=== PATIENT | female | born 1945 | race Hispanic/Latino ===

== ENCOUNTER 2016-11-07 13:28 | Emergency (ER) | payer OTHER ==
[~2016-11-07] VITALS: Ht 144.8 cm; Wt 62.6 kg
[~2016-11-07 13:28] MED LIST: AUGMENTIN 875875 MG PO; BENZONATATE100 MG PO; FLEXERIL10 MG PO; HYDRODIURIL 2525 MG PO; INDOMETHACIN25 MG PO; LISINOPRIL10 MG PO; MASON NATURAL325 MG PO; METFORMIN HYDR500 M1 PO; OMEPRAZOLE40 MG PO; PREDNICOT20 MG PO; PREDNISONE 20MG20 MG PO; TYLENOL TAB 32325 MG PO; ULTRAM(MONOGRAP50 MG PO; VICODIN5-300 PO; WARFARIN SODIU2.5 MG PO
[2016-11-07 13:57] LABS: ABSOLUTE BASOPHIL COUNT 0 /CUMM (0.0-0.2); ABSOLUTE EOSINOPHIL COUNT 0.1 /CUMM (0.0-0.7); ABSOLUTE GRANULOCYTE CT 5.2 /CUMM (1.4-6.5); ABSOLUTE LYMPH COUNT 1.9 /CUMM (1.2-3.4); ABSOLUTE MONOCYTE COUNT 0.3 /CUMM (0.10-0.60); BASOPHIL % 0.5 % (0.0-2.0); EOSINOPHIL % 1.2 % (0-5); GRANULOCYTE % 69.1 % (42.2-75.2); HEMATOCRIT 26.2 % (37-47); MEAN CORPUSCULAR HGB 29.3 PG (27.0-31.0); MEAN CORPUSCULAR HGB CONC 34.4 G/DL (33.0-37.0); MEAN CORPUSCULAR VOLUME 85.1 FL (81.0-99.0); MEAN PLATELET VOLUME 9.2 FL (7.4-10.4); PLATELET COUNT 282 /CUMM (130-400); RBC DISTRIBUTION WIDTH 15.1 % (11.5-14.5); RED BLOOD CELL CT 3.09 /CUMM (4.20-5.40); WHITE BLOOD CELL COUNT 7.6 /CUMM (4.8-10.8)
--- NOTE | 2016-11-07 14:44 | RADIOLOGY REPORT ---
EXAMINATION: XR CHEST CLINICAL INFORMATION: Coughing up blood COMPARISON: 12/22/2015 TECHNIQUE: PA and lateral views of the chest were obtained. FINDINGS: Median sternotomy wires appear intact. The lungs are well expanded. No consolidation, edema, or effusion. No pneumothorax. The cardiomediastinal silhouette is unchanged, remaining mildly prominent with a calcified aorta. No acute osseous abnormality. Mild degenerative changes of the spine. IMPRESSION: No acute pulmonary findings.
--- NOTE | 2016-11-07 15:48 | ED DYSPNEA/ASTHMA COMPLAINT ---
History of Present Illness General Chief Complaint: General Adult Stated Complaint: SENT IN BY PCP HIGH B/P COUGHING BLOOD SOB Source: patient, old records Exam Limitations: no limitations Vital Signs & Intake/Output Vital Signs & Intake/Output Vital Signs Date Time Temp Pulse Resp B/P Pulse O2 O2 Flow FiO2 Ox Delivery Rate 11/07 1750 97.9 76 18 162/70 99 Room Air 11/07 1546 100 11/07 1546 98.1 76 18 163/70 100 Room Air 11/07 1346 97.9 80 20 161/65 99 Room Air Allergies Coded Allergies: ciprofloxacin (Severe, ANAPHYLAXIS 12/19/15) aspirin (Intermediate, ON COUMADIN SO SAYS "I CAN'T TAKE IT" 12/19/15) Reconcile Medications Azithromycin (Zithromax) 250 MG TABLET 1 DP PO AD bronchitis 2 the first day followed by 1 for days 2-5 Ferrous Sulfate 325 MG TAB 1 TAB PO DAILY SUPPLEMENT (Reported) Hydrochlorothiazide (Hydrodiuril 25 MG Tab) 25 MG TABLET 1 TAB PO DAILY BP ( Reported) Indomethacin 25 MG CAP 1 CAP PO TID PAIN (Reported) with food Lisinopril 10 MG TABLET 1 TAB PO DAILY BP (Reported) Meclizine HCl 25 MG TABLET 1 TAB PO TIDPRN PRN dizziness METFORMIN HCL (Metformin HCl ER) 500 MG TAB.ER.24H 1 TAB PO BID BLOOD SUGAR ( Reported) Omeprazole (Unknown Strength) ECC 1 TAB PO DAILY REFLUX (Reported) Tramadol HCl (Ultram) 50 MG TAB 1-2 TAB PO Q6P PRN PAIN Warfarin Sodium 2.5 MG TABLET 1 TAB PO SI BLOOD THINNER (Reported) Triage Note: C/O DIZZY SPELLS X 3 DAYS, COUGHING UP BLOOD, SOB. SAW DR MERCHANT TODAY WHO SENT HER HERE TO BE SEEN Triage Nurses Notes Reviewed? 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 Patient states that she saw her primary care physician Dr. Quintanilla today who advised her to come to the ER she states she recently had her Coumadin checked at home and was 2.5 yesterday. She denies any chest pain abdominal pain nausea vomiting or diarrhea no sick contacts recent travel. There are no modifying factors or associated symptoms otherwise she does not smoke there is been no recent fall or head trauma ([place]) Past History Travel History Traveled to [place] past 21 day No Medical History Any Pertinent Medical History? see below for history Neurological: HEMICRANIAL CONT. MIGRAIN EENT: NONE Cardiovascular: hypertension, MECHANICAL VALVE Respiratory: NONE Gastrointestinal: diverticulitis Hepatic: NONE Renal: NONE Musculoskeletal: degen joint disease Psychiatric: NONE Endocrine: diabetes Blood Disorders: anemia Cancer(s): NONE PLEAT TAPER/Reproductive: NONE History of MRSA: No History of VRE: No History of CDIFF: No Surgical History Surgical History: appendectomy, tubal ligation, MECHANICAL VALVE Psychosocial History Who do you live with Patient/Self Services at Home None What is your primary language Vietnamese Tobacco Use: Never used ETOH Use: denies use Illicit Drug Use: denies illicit drug use Family History Family History, If Any: MOTHER, , Age 55; Cause: Myocardial infarction. FATHER, , Age 59; Cause: Myocardial infarction. SISTER, , Age 40-50. Hx Contributory? No ([place]) Review of Systems Review of Systems Constitutional: Reports: see HPI. All Other Systems: Reviewed and Negative Comments Review of systems: See HPI, All other systems negative. Constitutional, no chills no fever, no malaise HEENT: No visual changes no sore throat no congestion Cardiovascular: No chest pain , no palpitation Skin, no rashes, no change in skin Respiratory: No dyspnea no cough no sputum GI: No nausea no vomiting, no diarrhea, : No dysuria Muscle skeletal: No joint pain, no back pain, no neck pain, Neurologic: No numbness , no headache Psych: No stress Heme/endocrine: No bruising no bleeding Immunology: No lymphadenopathy ([place]) Physical Exam Physical Exam General Appearance: well developed/nourished, alert, awake Respiratory: normal breath sounds, chest non-tender Comments: Well-developed well-nourished person in no acute distress HEENT: Normal EENT exam; PERRL, EOMI, HEAD is atraumatic. moist mucous membranes. Neck: Supple, normal range of motion Back: Nontender, no CVA tenderness. Full range of motion Cardiovascular: Regular rate and rhythms no murmurs rubs Respiratory: Chest nontender.There were no bony deformities, No respiratory distress. Patient speaking in full complete sentences. Breath sounds clear to auscultation bilaterally: NO W/R/R Abdomen: Soft, nontender nondistended, no appreciable organomegaly. Normal bowel sounds. No rebound/guarding, Extremity: No edema, full range of motion of extremities Neuro: Alert oriented x3, motor sensory normal, There were no obvious focal neurologic abnormalities. Skin: No appreciable rash on exposed skin, skin is warm and dry. Psych: Mood and affect is normal, memory and judgment is normal. Core Measures ACS in differential dx? No Severe Sepsis Present: No Septic Shock Present: No ([place]) Progress Differential Diagnosis: AMI, bronchitis, costochondritis, COPD, musculoskeletal pain, pericarditis, pulmonary embolism, pneumonia, pneumothorax, unstable angina Plan of Care: Orders Procedure Date/time Status Add-on Test (ER Only) 11/07 1545 Active D-DIMER 11/07 1346 Complete PROTHROMBIN TIME 11/07 1344 Complete COMPREHENSIVE METABOLIC PANEL 11/07 1344 Complete CBC WITHOUT DIFFERENTIAL 11/07 1344 Complete TYPE & SCREEN (NOT X-MATCH) 11/07 1344 Complete EKG 11/07 1331 Active Laboratory Tests 11/07/16 1346: Anion Gap 10, Estimated GFR 44 L, BUN/Creatinine Ratio 29.2 H, Glucose 141 H, Calcium 9.9, Total Bilirubin 0.6, AST 24, ALT 21, Alkaline Phosphatase 63, Total Protein 6.9, Albumin 4.0, Globulin 2.9, Albumin/Globulin Ratio 1.4, PT 28.0 H, INR 2.69 H, D-Dimer 307 H, CBC w Diff NO MAN DIFF REQ, RBC 3.09 L, MCV 85.1, MCH 29.3, RDW 15.1 H, MPV 9.2, Gran % 69.1, Lymphocytes % 24.7, Monocytes % 4.5 , Eosinophils % 1.2, Basophils % 0.5, Absolute Granulocytes 5.2, Absolute Lymphocytes 1.9, Absolute Monocytes 0.3, Absolute Eosinophils 0.1, Absolute Basophils 0, PUBS MCHC 34.4 Labs ordered old records reviewed chest x-ray ordered from triage I discussed the patient at length all of her lab results and x-ray findings CAT scan ordered\\ Case discussed with Dr. Brown including the patient's CAT scan results. I discussed with her and her daughters at length her CT findings needed for close follow-up with her primary care physician. The patient was seen and evaluated by her endocrinology nurse Dr. Argueta in the department who agrees with plan prescription for Z-Tim, meclizine were provided ([place]) Diagnostic Imaging: Viewed by Me: Radiology Read, CT Scan. Discussed w/RAD: Radiology Read, CT Scan. Radiology Impression: PATIENT: YIFAN GALLARDO PRESENT AGE: 71 PATIENT ACCOUNT NO: [id number] : 43 LOCATION: [facility] ORDERING PHYSICIAN: [place] SERVICE DATE: 11/07/16 EXAM TYPE: CAT - CTA CHEST-PULMONARY EMBOLISM EXAMINATION: CT ANGIOGRAM OF THE CHEST WITH AND WITHOUT CONTRAST (CT PULMONARY ANGIOGRAM FOR PE) CLINICAL INFORMATION: Cough, hemoptysis. Rule out pulmonary embolism. COMPARISON: Chest radiograph from today. Chest CT 07/09/2012. TECHNIQUE: Prior to contrast administration, noncontrast localization images were obtained. Subsequently, multidetector volumetric imaging was performed from the thoracic inlet to below the diaphragms following the administration of 100 mL Optiray 320 intravenous contrast. No contrast reaction reported Sagittal, coronal, and MIP oblique sagittal reformatted images were obtained on the CT workstation, uploaded to PACS, and reviewed. Total exam dose-length product 434 mGy-cm FINDINGS: QUALITY OF STUDY/ CONTRAST BOLUS: Satisfactory. PULMONARY ARTERIES: No central or segmental pulmonary emboli. THORACIC AORTA: No aneurysm or dissection. Atherosclerotic calcifications are present. Tortuous course. LUNG: The central airways are patent. There is a heterogeneous groundglass opacity in the left upper lobe. Minimal bibasilar dependent atelectasis. No additional dense consolidation. PLEURA: No pleural effusion or pneumothorax. MEDIASTINUM: The heart is normal in size. No pericardial effusion. No mediastinal lymphadenopathy. Coronary artery calcifications noted. No evidence of septal bowing or right heart strain. CHEST WALL/AXILLA: No axillary or internal mammary lymphadenopathy. OSSEOUS STRUCTURES : No acute or suspicious osseous abnormality. Degenerative changes of the spine. Median sternotomy wires noted. UPPER ABDOMEN: Unremarkable. No reflux of contrast into the hepatic veins to suggest elevated right heart pressures. IMPRESSION: 1. No evidence of pulmonary embolism. 2. Heterogeneous groundglass opacity in the left upper lobe could be infectious or inflammatory in etiology. Consider 3 month follow-up to demonstrate resolution. VTE: negative DICTATED BY: MACIE HUBER MD DATE/TIME DICTATED:11/07/161650 PROJECT PRODUCT MANAGER: JOSY DATE/TIME TRANSCRIBED:11/07/161650 CONFIDENTIAL, DO NOT COPY WITHOUT APPROPRIATE AUTHORIZATION. <Electronically signed in Other Vendor System> SIGNED BY: MACIE HUBER MD 11/07/16 1704, PATIENT: YIFAN GALLARDO PRESENT AGE: 71 PATIENT ACCOUNT NO: [id number] : 43 LOCATION: [facility] ORDERING PHYSICIAN: PRANAV ECHOLS DO (TBS) SERVICE DATE: 11/07/16-134 EXAM TYPE: RAD - XRY-CHEST XRAY, PA AND LATERAL EXAMINATION: XR CHEST CLINICAL INFORMATION: Coughing up blood COMPARISON: 2015 TECHNIQUE: PA and lateral views of the chest were obtained. FINDINGS: Median sternotomy wires appear intact. The lungs are well expanded. No consolidation, edema, or effusion. No pneumothorax. The cardiomediastinal silhouette is unchanged, remaining mildly prominent with a calcified aorta. No acute osseous abnormality. Mild degenerative changes of the spine. IMPRESSION: No acute pulmonary findings. DICTATED BY: MACIE HUBER MD DATE/TIME DICTATED:11/07/161438 PROJECT PRODUCT MANAGER:JOSY DATE/TIME TRANSCRIBED:1438 CONFIDENTIAL, DO NOT COPY WITHOUT APPROPRIATE AUTHORIZATION. < Electronically signed in Other Vendor System> SIGNED BY: MACIE HUBER MD 11/07/16 1444 Initial ED EKG: NSR AT 80, NO ACUTE ST SEG CHANGES, NORMAL AXIS Prior EKG: unchanged (12/2015) ([place]) Departure Departure Time of Disposition: 1724 Disposition: HOME OR SELF CARE Condition: Stable Clinical Impression Primary Impression: Bronchitis Referrals: WILSON QUINTANILLA MD (PCP/Family) Additional Instructions: meclizine for dizziness. zpak as directed. these prescriptions were sent to your [facility] pharmacy. follow up with your pmd this week, return with any concerns at anytime sooner. Departure Forms: Customer Survey General Discharge Information Prescriptions: Current Visit Scripts Meclizine HCl 1 TAB PO TIDPRN PRN dizziness #15 TAB Azithromycin (Zithromax) 1 DP PO AD #6 TAB 2 the first day followed by 1 for days 2-5 ([place]) PA/MANAGER TRUCK Co-Sign Statement Statement: ED Attending supervision documentation- [X] I saw and evaluated the patient. I have also reviewed all the pertinent lab results and diagnostic results. I agree with the findings and the plan of care as documented in the PA's/MANAGER TRUCK's documentation. [X] I have reviewed the ED Record and agree with the PA's/MANAGER TRUCK's documentation. [] Additions or exceptions (if any) to the PAs/MANAGER TRUCK's note and plan are summarized below: [] (AL CARRILLO,ALEX) Critical Care Note Critical Care Note Critical Care Time: non-applicable ([place] [place])
--- NOTE | 2016-11-07 17:04 | CT SCAN REPORT ---
EXAMINATION: CT ANGIOGRAM OF THE CHEST WITH AND WITHOUT CONTRAST (CT PULMONARY ANGIOGRAM FOR PE) CLINICAL INFORMATION: Cough, hemoptysis. Rule out pulmonary embolism. COMPARISON: Chest radiograph from today. Chest CT 07/09/2012. TECHNIQUE: Prior to contrast administration, noncontrast localization images were obtained. Subsequently, multidetector volumetric imaging was performed from the thoracic inlet to below the diaphragms following the administration of 100 mL Optiray 320 intravenous contrast. No contrast reaction reported Sagittal, coronal, and MIP oblique sagittal reformatted images were obtained on the CT workstation, uploaded to PACS, and reviewed. Total exam dose-length product 434 mGy-cm FINDINGS: QUALITY OF STUDY/CONTRAST BOLUS: Satisfactory. PULMONARY ARTERIES: No central or segmental pulmonary emboli. THORACIC AORTA: No aneurysm or dissection. Atherosclerotic calcifications are present. Tortuous course. LUNG: The central airways are patent. There is a heterogeneous groundglass opacity in the left upper lobe. Minimal bibasilar dependent atelectasis. No additional dense consolidation. PLEURA: No pleural effusion or pneumothorax. MEDIASTINUM: The heart is normal in size. No pericardial effusion. No mediastinal lymphadenopathy. Coronary artery calcifications noted. No evidence of septal bowing or right heart strain. CHEST WALL/AXILLA: No axillary or internal mammary lymphadenopathy. OSSEOUS STRUCTURES: No acute or suspicious osseous abnormality. Degenerative changes of the spine. Median sternotomy wires noted. UPPER ABDOMEN: Unremarkable. No reflux of contrast into the hepatic veins to suggest elevated right heart pressures. IMPRESSION: 1. No evidence of pulmonary embolism. 2. Heterogeneous groundglass opacity in the left upper lobe could be infectious or inflammatory in etiology. Consider 3 month follow-up to demonstrate resolution. VTE: negative
[2016-11-07] MEDS ORDERED: MECLIZINE HCL25 MG PO (17:27)
[2016-11-07] MEDS ORDERED: ZITHROMAX250 M2 PO (17:27)
[2016-11-07 17:50] VITALS: BP 162/70
== END 2016-11-07 17:55 ==
LOC: ERH 13:28
PROVIDERS: Emergency Medicine
DX: J40 Bronchitis, not specified as acute or chronic (principal); R42 Dizziness and giddiness; J02.9 Acute pharyngitis, unspecified; R04.2 Hemoptysis; M79.1 Myalgia; Z79.01 Long term (current) use of anticoagulants
CPT/HCPCS: 93005; 93010

== ENCOUNTER 2017-02-13 12:03 | Emergency (ER) | payer OTHER ==
[~2017-02-13] VITALS: Ht 144.8 cm; Wt 61.2 kg
[~2017-02-13 12:03] MED LIST changes: +MECLIZINE HCL25 MG PO; +ZITHROMAX250 M2 PO
[2017-02-13 12:46] LABS: ABSOLUTE BASOPHIL COUNT 0 /CUMM (0.0-0.2); ABSOLUTE EOSINOPHIL COUNT 0.1 /CUMM (0.0-0.7); ABSOLUTE GRANULOCYTE CT 4.6 /CUMM (1.4-6.5); ABSOLUTE LYMPH COUNT 1.5 /CUMM (1.2-3.4); ABSOLUTE MONOCYTE COUNT 0.3 /CUMM (0.10-0.60); BASOPHIL % 0.5 % (0.0-2.0); EOSINOPHIL % 1.4 % (0-5); HEMATOCRIT 25.8 % (37-47); MEAN CORPUSCULAR HGB 28.8 PG (27.0-31.0); MEAN CORPUSCULAR HGB CONC 33.5 G/DL (33.0-37.0); MEAN CORPUSCULAR VOLUME 85.7 FL (81.0-99.0); MEAN PLATELET VOLUME 9.3 FL (7.4-10.4); PLATELET COUNT 276 /CUMM (130-400); RBC DISTRIBUTION WIDTH 15.5 % (11.5-14.5); RED BLOOD CELL CT 3.01 /CUMM (4.20-5.40); WHITE BLOOD CELL COUNT 6.5 /CUMM (4.8-10.8)
--- NOTE | 2017-02-13 13:35 | RADIOLOGY REPORT ---
EXAMINATION: XR CHEST CLINICAL INFORMATION: Cough, chest pain. COMPARISON: 11/07/2016. TECHNIQUE: 2 views of the chest were obtained. FINDINGS: The cardiomediastinal silhouette is unchanged with post median sternotomy changes and multiple intact sternal wires. There is moderate atherosclerotic calcification of the aortic arch. Descending thoracic aorta is tortuous, the heart is upper limits of normal to mildly enlarged. The lungs and pleural spaces appear clear without evidence of congestion, consolidation, or significant appearing effusion or atelectasis. There is no evidence of pneumothorax or pulmonary edema. Included osseous structures appear largely unremarkable. IMPRESSION: No acute intrathoracic process identified.
--- NOTE | 2017-02-13 13:39 | ED GENERAL ADULT ---
History of Present Illness General Chief Complaint: Chest Pain Stated Complaint: CHEST PAIN Source: patient, family Exam Limitations: no limitations Allergies Coded Allergies: ciprofloxacin (Severe, ANAPHYLAXIS 12/19/15) morphine (N/V 02/13/17) aspirin (Intermediate, ON COUMADIN SO SAYS "I CAN'T TAKE IT" 12/19/15) Reconcile Medications Benzonatate (Tessalon Perle) 100 MG CAPSULE 1 CAP PO TID PRN COUGH Calcium Carbonate/Vitamin D3 (Calcium 500 + D Tablet) (Unknown Strength) TABLET (Unknown Dose) PO DAILY SUPPLEMENT (Reported) Ferrous Sulfate 325 MG (65 MG IRON) TABLET 1 TAB PO DAILY SUPPLEMENT ( Reported) Hydrochlorothiazide 25 MG TABLET 1 TAB PO DAILY BP (Reported) Lisinopril 10 MG TABLET 1 TAB PO DAILY BP (Reported) Metformin HCl (Metformin HCl ER) 500 MG TAB.ER.24H 2 TAB PO BID DM (Reported) Paroxetine HCl (Paxil) 10 MG TABLET 1 TAB PO DAILY MENTAL HEALTH (Reported) Tramadol HCl 50 MG TABLET 1 TAB PO BIDP PRN PAIN Warfarin Sodium (Coumadin) 2.5 MG TABLET 1 TAB PO QPM BLOOD THINNER (Reported ) Triage Note: PT TO ED COMPLAINING OF L SIDED UPPER/LOWER BACK PAIN RADIATING TO L ARM ONSET 3 HOURS 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 "IT FEELS LIKE IT'S MUSCLE SPASMS OR MY L LUNG, IT HURTS TO TAKE A DEEP BREATH" O2 SAT 100% ON RA. +PRODUCTIVE COUGH WITH BROWN SPUTUM X3 MONTHS. DENIES CP. PAIN WORSE WITH MOVEMENT. A&0X3. Triage Nurses Notes Reviewed? yes HPI: this patient is a 71-year-old female with a past medical history including high blood pressure, diabetes, mechanical valve replacement who presented to the emergency department today for evaluation of back pain 4 hours. The patient reported that she feels the pain in her mid back and it radiates to her left flank. She denied any trauma or falls. The patient reported that she has had a cough productive of sputum over the last 3 months. She reported that she gets pain in her chest only when she takes a deep breath. She denied any fevers or chills. No difficulty breathing, urinary burning, urgency, frequency, blood in the urine, abdominal pain, nausea, or vomiting. (KEYON PROCTOR,HUGO) Vital Signs & Intake/Output Vital Signs & Intake/Output Vital Signs Date Time Temp Pulse Resp B/P B/P Pulse O2 O2 Flow FiO2 Mean Ox Delivery Rate 02/13 1609 99.4 76 18 164/52 99 Room Air 02/13 1451 162/54 02/13 1426 100 02/13 1413 78 20 191/72 100 Room Air 02/13 1213 97.5 90 20 177/65 100 Room Air Past History Travel History Traveled to [place] past 21 day No Medical History Any Pertinent Medical History? see below for history Neurological: HEMICRANIAL CONT. MIGRAIN EENT: NONE Cardiovascular: hypertension, MECHANICAL VALVE Respiratory: NONE Gastrointestinal: diverticulitis Hepatic: NONE Renal: NONE Musculoskeletal: degen joint disease Psychiatric: NONE Endocrine: diabetes Blood Disorders: anemia Cancer(s): NONE HERBOLOGIST/Reproductive: NONE History of MRSA: No History of VRE: No History of CDIFF: No Surgical History Surgical History: appendectomy, tubal ligation, MECHANICAL VALVE Psychosocial History Who do you live with Patient/Self Services at Home None What is your primary language Cymro Tobacco Use: Quit >30 days ago Family History Family History, If Any: MOTHER, , Age 55; Cause: Myocardial infarction. FATHER, , Age 59; Cause: Myocardial infarction. SISTER, , Age 40-50. Hx Contributory? No (HUGO TA PA-C) Review of Systems Review of Systems Constitutional: Reports: no symptoms. EENTM: Reports: no symptoms. Respiratory: Reports: see HPI. Cardiovascular: Reports: see HPI. GI: Reports: no symptoms. Genitourinary: Reports: no symptoms. Musculoskeletal: Reports: see HPI. Skin: Reports: no symptoms. Neurological/Psychological: Reports: no symptoms. All Other Systems: Reviewed and Negative (HUGO TA PA-C) Physical Exam Physical Exam General Appearance: well developed/nourished, no apparent distress, alert, awake Comments: Well-developed well-nourished person in no acute distress HEENT: Normal EENT exam, head normocephalic/atraumatic, moist mucous membranes Pearly bilaterally Neck: Supple, no lymphadenopathy. No midline tenderness Back: Normal inspection. Mild tenderness to palpation over the thoracic spine. No CVA tenderness. Negative straight leg raise bilaterally Cardiovascular: Regular rate and rhythm with no murmurs, rubs, or gallops Respiratory: Chest nontender. No respiratory distress. Breath sounds clear to auscultation bilaterally Abdomen: Soft and nondistended. Diffusely tender to palpation. No rebound or guarding. Extremity: No edema, no calf tenderness to palpation, normal and equal pulses. Neuro: Alert oriented x3, cranial nerves II through XII grossly intact. Skin: No appreciable rash on exposed skin, skin is warm and dry. Psych: Mood and affect is normal Core Measures ACS in differential dx? Yes CVA/TIA Diagnosis: No Severe Sepsis Present: No Septic Shock Present: No (KEYON PROCTOR,HUGO) Progress Differential Diagnoses I considered the following diagnoses in my evaluation of the patient: [ Compression fracture, ureterolithiasis, ACS, PE, viral syndrome, muscle strain, pleuritis] Diagnostic Imaging: Viewed by Me: Radiology Read, CT Scan. Discussed w/RAD: Radiology Read, CT Scan. Radiology Impression: PATIENT: YIFAN GALLARDO PRESENT AGE: 71 PATIENT ACCOUNT NO: [id number] : 43 LOCATION: ER ORDERING PHYSICIAN: HUGO TA PA-C SERVICE DATE: 02/13/17 EXAM TYPE: RAD - XRY-CHEST XRAY, PA AND LATERAL EXAMINATION: XR CHEST CLINICAL INFORMATION: Cough , chest pain. COMPARISON: 11/07/2016. TECHNIQUE: 2 views of the chest were obtained. FINDINGS: The cardiomediastinal silhouette is unchanged with post median sternotomy changes and multiple intact sternal wires. There is moderate atherosclerotic calcification of the aortic arch. Descending thoracic aorta is tortuous, the heart is upper limits of normal to mildly enlarged. The lungs and pleural spaces appear clear without evidence of congestion, consolidation, or significant appearing effusion or atelectasis. There is no evidence of pneumothorax or pulmonary edema. Included osseous structures appear largely unremarkable. IMPRESSION: No acute intrathoracic process identified. DICTATED BY : BULMARO SANCHEZ MD DATE/TIME DICTATED:02/13/171328 DOMESTIC LAUNDRY WORKER: JOSY DATE/TIME TRANSCRIBED:02/13/171328 CONFIDENTIAL, DO NOT COPY WITHOUT APPROPRIATE AUTHORIZATION. <Electronically signed in Other Vendor System> SIGNED BY: BULMARO SANCHEZ MD 02/13/17 1335, PATIENT: YIFAN GALLARDO PRESENT AGE: 71 PATIENT ACCOUNT NO: [id number] : 43 LOCATION: ER ORDERING PHYSICIAN: HUGO TA PA-C SERVICE DATE: 02/13/171418 EXAM TYPE: CAT - CT ABD & PELVIS ANGIOGRAM EXAMINATION: CT ANGIOGRAM ABDOMEN AND PELVIS CLINICAL INFORMATION: Abdominal pain and back pain. COMPARISON: CTA chest 11/07/2016, CT abdomen pelvis 07/14/2015. TECHNIQUE: Multiple axial images were obtained through the abdomen and pelvis following the administration of 94 mL of Optiray 320 intravenous contrast. Images were reviewed on a dedicated 3-D workstation. DLP: 602.41 mGy-cm FINDINGS: VASCULAR FINDINGS: The descending thoracic aorta is unremarkable. The abdominal aorta shows atherosclerotic changes with plaquing but no aneurysm or dissection. The celiac is patent. The JAZMÍN is patent. 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 Since the 2014 study, this has probably progressed. Comparison is difficult because that study was not a CTA. Both renal arteries are widely patent with some mild ostial disease. The aortic bifurcation is patent. The visualized iliofemoral vessels appear normal. NONVASCULAR FINDINGS: The lung bases are unremarkable. The liver, spleen, bile ducts and pancreas appear normal. The gallbladder is contracted but otherwise normal. No adrenal masses are seen. Both kidneys appear normal. No retroperitoneal adenopathy is seen. Colonic diverticulosis is present but there is no evidence of diverticulitis. There is no bowel obstruction or free air. The appendix is not seen with certainty. The bladder appears normal. The patient either has a small retroverted uterus or is status post hysterectomy. No free fluid is seen. The abdominal wall is unremarkable. Degenerative changes are present in the spine and there is a minimal grade 1 spondylolisthesis with forward slippage of L5 upon S1. No bony destructive lesion is seen. Degenerative changes are present in lower facet joints. IMPRESSION: 1. There is no evidence of aortic aneurysm or dissection. 2. A tight SMA stenosis with poststenotic dilatation is present. If this patient's pain was postprandial in nature, this could be playing a role and would be easily amenable to angioplasty/stent. 3. Colonic diverticulosis without evidence of diverticulitis. This result was discussed with JUAN DAVID Nieves at 4:00 PM on the day of the exam and it was ascertained that the content of the report was understood at the time of direct communication. DICTATED BY: RIOS KEATING MD DATE/TIME DICTATED:02/13/17 155 DOMESTIC LAUNDRY WORKER:JOSY DATE/ TIME TRANSCRIBED:02/13/17 / 155 CONFIDENTIAL, DO NOT COPY WITHOUT APPROPRIATE AUTHORIZATION. <Electronically signed in Other Vendor System> SIGNED BY: RIOS KAETING MD 02/13/17 1700 Initial ED EKG: normal axis, normal intervals, normal p-waves, normal QRS complex, normal sinus rhythm, no ST T wave changes Comments: 02/13/2017 3:12:54 PM: Dr. Paniagua patient's bedside for [id number] evaluation. This patient's daughter is requesting tramadol for the patient at this time. 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 I discussed this result with Dr. Paniagua who recommended calling vascular. 02/13/2017 5:40:27 PM: As the patient's bedside for reevaluation. She reported relief of her symptoms of tramadol. Sitting comfortably on the stretcher in no acute distress. Awaiting callback from on-call vascular physician. 02/13/2017 5:44:40 PM: I spoke to on-call vascular surgeon, Dr. HONG. He does not believe that the SMA stenosis have been due to this patient's pain. He reported that this is likely chronic. This patient is stable for discharge. (KEYON PROCTOR,HUGO) Plan of Care: Orders Procedure Date/time Status Add-on Test (ER Only) 02/13 1423 Active URINALYSIS 02/13 1405 Complete CULTURE,URINE 02/13 1359 Active Add-on Test (ER Only) 02/13 1314 Active D-DIMER 02/13 1218 Complete TROPONIN LEVEL 02/13 1207 Complete MAGNESIUM 02/13 1207 Complete COMPREHENSIVE METABOLIC PANEL 02/13 1207 Complete CBC WITHOUT DIFFERENTIAL 02/13 1207 Complete EKG 02/13 1203 Active Laboratory Tests 02/13/17 1420: Urine Color Cancelled, Urine Clarity Cancelled, Urine pH Cancelled, Ur Specific [place] Cancelled, Urine Protein Cancelled, Urine Ketones Cancelled, Urine Nitrite Cancelled, Urine Bilirubin Cancelled, Urine Urobilinogen Cancelled, Ur Leukocyte Esterase Cancelled, Ur Microscopic Cancelled, Urine Hemoglobin Cancelled, Urine Glucose Cancelled 02/13/17 1405: Urinalysis LIGHT H, Urine Color YEL, Urine Clarity CLEAR, Urine pH 6.0, Ur Specific [place] 1.015, Urine Protein TRACE H, Urine Ketones NEG, Urine Nitrite NEG, Urine Bilirubin NEG, Urine Urobilinogen 0.2, Ur Leukocyte Esterase SMALL H , Ur Microscopic SEDIMENT EXAMINED, Urine RBC 1-3, Urine WBC 3-5 H, Ur Epithelial Cells MOD H, Urine Bacteria FEW H, Urine Hemoglobin TRACE-INTACT, Urine Glucose NEG 02/13/17 1218: Anion Gap 12, Estimated GFR 54 L, BUN/Creatinine Ratio 29.0 H, Glucose 112 H, Calcium 9.6, Magnesium 1.6, Total Bilirubin 0.6, AST 27, ALT 35, Alkaline Phosphatase 63, Troponin I < 0.01, Total Protein 6.8, Albumin 4.0, Globulin 2.8, Albumin/Globulin Ratio 1.4, D-Dimer < 200, CBC w Diff NO MAN DIFF REQ, RBC 3.01 L, MCV 85.7, MCH 28.8, RDW 15.5 H, MPV 9.3, Gran % 70.0, Lymphocytes % 23.5, Monocytes % 4.6, Eosinophils % 1.4, Basophils % 0.5, Absolute Granulocytes 4.6, Absolute Lymphocytes 1.5, Absolute Monocytes 0.3, Absolute Eosinophils 0.1, Absolute Basophils 0, PUBS MCHC 33.5 Microbiology 02/13 1405 URINE ROUT: Urine Culture - RECD Departure Departure Disposition: HOME OR SELF CARE Condition: Stable Clinical Impression Primary Impression: Back pain Qualifiers: Back pain location: thoracic back pain Chronicity: unspecified Back pain laterality: unspecified Qualified Code: M54.6 - Pain in thoracic spine Secondary Impressions: Pleuritis Referrals: WILSON DEGROOT MD (PCP/Family) Additional Instructions: You may take [id number] ibuprofen for inflammation. Please take Tessalon Perles as prescribed for cough. Use tramadol as prescribed for pain. Please call your primary care physician tomorrow to schedule a follow-up appointment. Return for any worsening symptoms or concerns. Departure Forms: Customer Survey General Discharge Information Prescriptions: Current Visit Scripts Benzonatate (Tessalon Perle) 1 CAP PO TID PRN COUGH #12 CAP Tramadol HCl 1 TAB PO BIDP PRN PAIN #8 TAB (KEYON PROCTOR,HUGO) PA/ALMOND PASTE MIXER Co-Sign Statement Statement: ED Attending supervision documentation- [X] I saw and evaluated the patient. I have also reviewed all the pertinent lab results and diagnostic results. I agree with the findings and the plan of care as documented in the PA's/ALMOND PASTE MIXER's documentation. [] I have reviewed the ED Record and agree with the PA's/ALMOND PASTE MIXER's documentation. [] Additions or exceptions (if any) to the PAs/ALMOND PASTE MIXER's note and plan are summarized below: [] (CINTIA CARRILLO,PRANAV Alexander) Critical Care Note Critical Care Note Critical Care Time: non-applicable (KEYON PROCTOR,HUGO)
[2017-02-13] MEDS ORDERED: METFORMIN HCL500 M4 PO (16:24)
[2017-02-13] MEDS ORDERED: COUMADIN2.5 M1 PO (16:24)
[2017-02-13] MEDS ORDERED: LISINOPRIL10 M1 PO (16:25)
[2017-02-13] MEDS ORDERED: HYDROCHLOROTHIA25 M1 PO (16:25)
[2017-02-13] MEDS ORDERED: PAXIL10 M1 PO (16:25)
[2017-02-13] MEDS ORDERED: FERROUS SULFAT325 M3 PO (16:26)
[2017-02-13] MEDS ORDERED: CALCIUM 500 +1 EAC5 PO (16:26)
--- NOTE | 2017-02-13 17:06 | CT SCAN REPORT ---
EXAMINATION: CT ANGIOGRAM ABDOMEN AND PELVIS CLINICAL INFORMATION: Abdominal pain and back pain. COMPARISON: CTA chest 11/07/2016, CT abdomen pelvis 07/14/2015. TECHNIQUE: Multiple axial images were obtained through the abdomen and pelvis following the administration of 94 mL of Optiray 320 intravenous contrast. Images were reviewed on a dedicated 3-D workstation. DLP: 602.41 mGy-cm FINDINGS: VASCULAR FINDINGS: The descending thoracic aorta is unremarkable. The abdominal aorta shows atherosclerotic changes with plaquing but no aneurysm or dissection. The celiac is patent. The JAZMÍN is patent. 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 Since the 2014 study, this has probably progressed. Comparison is difficult because that study was not a CTA. Both renal arteries are widely patent with some mild ostial disease. The aortic bifurcation is patent. The visualized iliofemoral vessels appear normal. NONVASCULAR FINDINGS: The lung bases are unremarkable. The liver, spleen, bile ducts and pancreas appear normal. The gallbladder is contracted but otherwise normal. No adrenal masses are seen. Both kidneys appear normal. No retroperitoneal adenopathy is seen. Colonic diverticulosis is present but there is no evidence of diverticulitis. There is no bowel obstruction or free air. The appendix is not seen with certainty. The bladder appears normal. The patient either has a small retroverted uterus or is status post hysterectomy. No free fluid is seen. The abdominal wall is unremarkable. Degenerative changes are present in the spine and there is a minimal grade 1 spondylolisthesis with forward slippage of L5 upon S1. No bony destructive lesion is seen. Degenerative changes are present in lower facet joints. IMPRESSION: 1. There is no evidence of aortic aneurysm or dissection. 2. A tight SMA stenosis with poststenotic dilatation is present. If this patient's pain was postprandial in nature, this could be playing a role and would be easily amenable to angioplasty/stent. 3. Colonic diverticulosis without evidence of diverticulitis. This result was discussed with JUAN DAVID Nieves at 4:00 PM on the day of the exam and it was ascertained that the content of the report was understood at the time of direct communication.
[2017-02-13] MEDS ORDERED: TESSALON PERLE100 M1 PO (17:47)
[2017-02-13] MEDS ORDERED: TRAMADOL HCL50 M1 PO (17:47)
[2017-02-13 18:01] VITALS: BP 134/46
== END 2017-02-13 18:02 ==
LOC: ERH 12:03
PROVIDERS: Emergency Medicine
DX: M54.6 Pain in thoracic spine (principal); R09.1 Pleurisy; R10.9 Unspecified abdominal pain; I10 Essential (primary) hypertension; E11.9 Type 2 diabetes mellitus without complications; Z87.891 Personal history of nicotine dependence; Z79.84 Long term (current) use of oral hypoglycemic drugs
CPT/HCPCS: 74174; 81001; 87086; 87147; 93005; 93010

== ENCOUNTER 2017-04-28 16:06 | Inpatient (IN) | payer OTHER ==
[~2017-04-28] VITALS: Ht 149.9 cm; Wt 61.2 kg
[~2017-04-28 16:06] MED LIST changes: +CALCIUM 500 +1 EAC5 PO; +COUMADIN2.5 M1 PO; +FERROUS SULFAT325 M3 PO; +HYDROCHLOROTHIA25 M1 PO; +LISINOPRIL10 M1 PO; +METFORMIN HCL500 M4 PO; +PAXIL10 M1 PO; +TESSALON PERLE100 M1 PO; +TRAMADOL HCL50 M1 PO
--- NOTE | 2017-04-28 16:39 | NUR ---
72 YO FEMALE TO TRIAGE C/O WEAKNESS AND LOWER ABD PAIN. STATES HAS HAD +D FOR 5 DAYS, STATES STOOL IS DARKER THEN USUAL (PT TAKES IRON) C/O CHEST PAIN AND SOB. AFEBRILE AT THIS TIME, PER DAUGHTER PT HAD A FEVER LAST PM.
[2017-04-28 16:45] LABS: ABSOLUTE BASOPHIL COUNT 0 /CUMM (0.0-0.2); ABSOLUTE EOSINOPHIL COUNT 0.1 /CUMM (0.0-0.7); ABSOLUTE MONOCYTE COUNT 0.4 /CUMM (0.10-0.60); BASOPHIL % 0.4 % (0.0-2.0); MEAN CORPUSCULAR HGB 28.7 PG (27.0-31.0); MEAN CORPUSCULAR HGB CONC 32.9 G/DL (33.0-37.0); RED BLOOD CELL CT 1.96 /CUMM (4.20-5.40)
[2017-04-28 16:57] LABS: ABSOLUTE GRANULOCYTE CT 5.4 /CUMM (1.4-6.5); ABSOLUTE LYMPH COUNT 2.1 /CUMM (1.2-3.4); EOSINOPHIL % 0.9 % (0-5); GRANULOCYTE % 67.9 % (42.2-75.2); MEAN CORPUSCULAR VOLUME 87.1 FL (81.0-99.0); MEAN PLATELET VOLUME 9.3 FL (7.4-10.4); PLATELET COUNT 260 /CUMM (130-400)
[2017-04-28 17:06] LABS: HEMATOCRIT 17.1 % (37-47)
--- NOTE | 2017-04-28 17:07 | NUR ---
CRITICAL TEST RESULTS [id number] YIFAN GALLARDO 72 F TESTS AND RESULTS: HGB 5.6 HCT 17.1 Results received and read back by: NELSON AMATO Results received date and time: 04/28/17 1707 The following provider was notified of the results, and read the results back: JUAN DAVID PITTS Notified date and time: 04/28/17 at 1707
--- NOTE | 2017-04-28 17:29 | ED GENERAL ADULT ---
History of Present Illness General Chief Complaint: Dizziness Stated Complaint: TO ER FOR LETHARGY AND SOB AND DIZZINESS Source: patient, family Exam Limitations: no limitations Vital Signs & Intake/Output Vital Signs & Intake/Output Vital Signs Date Time Temp Pulse Resp B/P B/P Pulse O2 O2 Flow FiO2 Mean Ox Delivery Rate 04/29 1443 98.1 90 20 120/60 99 Room Air 04/29 0352 97.9 88 16 132/46 99 Room Air 04/29 0105 98.2 92 18 130/48 100 Room Air 04/29 0050 98.6 95 18 128/50 98 Room Air 04/28 2300 98.4 98 18 138/60 98 Room Air 04/28 2247 98.5 100 20 156/50 100 Room Air ED Intake and Output 04/29 0000 04/28 1200 Intake Total 560 Output Total Balance 560 Intake, Blood 200 Product Intake, Oral 360 Patient 135 lb Weight Weight Reported by Patient Measurement Method Allergies Coded Allergies: ciprofloxacin (Severe, ANAPHYLAXIS 12/19/15) morphine (N/V 02/13/17) tramadol (N/V 04/28/17) aspirin (Intermediate, ON COUMADIN SO SAYS "I CAN'T TAKE IT" 12/19/15) Reconcile Medications Acetaminophen (Mapap) 500 MG CAPSULE 2 CAP PO PRN PAIN (Reported) Calcium Carbonate/Vitamin D3 (Calcium 500 + D Tablet) (Unknown Strength) TABLET (Unknown Dose) PO DAILY SUPPLEMENT (Reported) Ferrous Sulfate 325 MG (65 MG IRON) TABLET 1 TAB PO DAILY SUPPLEMENT ( Reported) Hydrochlorothiazide 25 MG TABLET 1 TAB PO DAILY BP (Reported) Lisinopril 10 MG TABLET 1 TAB PO DAILY BP (Reported) Metformin HCl (Metformin HCl ER) 500 MG TAB.ER.24H 1 TAB PO BID DM (Reported) Paroxetine HCl (Paxil) 10 MG TABLET 1 TAB PO DAILY MENTAL HEALTH (Reported) Warfarin Sodium (Coumadin) 2.5 MG TABLET 1 TAB PO QPM BLOOD THINNER (Reported ) Triage Note: 72 YO FEMALE TO TRIAGE C/O WEAKNESS AND LOWER ABD PAIN. STATES HAS HAD +D FOR 5 DAYS, STATES STOOL IS DARKER THEN USUAL (PT TAKES IRON) C/O CHEST PAIN AND SOB. AFEBRILE AT THIS TIME, PER DAUGHTER PT HAD A FEVER LAST PM. Triage Nurses Notes Reviewed? yes Onset: Gradual Duration: day(s): Timing: recent history Severity: moderate Modifying Factors: Improves With: rest. Worsens With: movement. HPI: 72-year-old female with history of iron deficiency anemia, mechanical heart valve on coumadin presents emergency department complaining of dyspnea, fatigue, malaise, lethargy, abdominal pain, black loose stool 1 week. Also complaining of dizziness, lightheadedness, confusion, headache 1 day. Daughter states patient had a fever last night. The patient and her daughters also feel that her skin is more pale than usual. She sees Dr. Quiroz for her anemia, last saw one to 2 months ago, results are within normal limits at that time. She has required blood transfusions in the past last 1 year ago following knee surgery. (SHERRY RENNER PA-C) Past History Travel History Traveled to [place] past 21 day No Medical History Any Pertinent Medical History? see below for history Neurological: HEMICRANIAL CONT. 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 FATHER, , Age 59; Cause: Myocardial infarction. SISTER, , Age 40-50. Hx Contributory? No (SHERRY RENNER PA-C) Review of Systems Review of Systems Constitutional: Reports: see HPI. EENTM: Reports: no symptoms. Respiratory: Reports: see HPI. Cardiovascular: Reports: see HPI. GI: Reports: see HPI. Genitourinary: Reports: no symptoms. Musculoskeletal: Reports: no symptoms. Skin: Reports: no symptoms, see HPI. Neurological/Psychological: Reports: see HPI. Hematologic/Endocrine: Reports: no symptoms. Immunologic/Allergic: Reports: no symptoms. All Other Systems: Reviewed and Negative (SHERRY RENNER PA-C) Physical Exam Physical Exam General Appearance: well developed/nourished, alert, awake, mild distress Head: atraumatic, normal appearance Eyes: Bilateral: normal appearance, EOMI. Ears, Nose, Throat: hearing grossly normal Neck: normal inspection, supple, full range of motion Respiratory: normal breath sounds, no respiratory distress, lungs clear Cardiovascular: regular rate/rhythm, murmur (clicking murmur) Gastrointestinal: normal bowel sounds, soft, no organomegaly, tednerness LUQ, no rebound, no gaurding Rectal: normal rectal tone, heme positive stool, hemorrhoids (external) Back: normal inspection, normal range of motion Extremities: normal inspection, normal range of motion Neurologic/Psych: awake, alert, oriented x 3 Skin: intact, warm/dry Core Measures ACS in differential dx? Yes CVA/TIA Diagnosis: No Severe Sepsis Present: No Septic Shock Present: No (JUD PROCTOR,SHERRY PITTS) Progress Differential Diagnoses I considered the following diagnoses in my evaluation of the patient: [ACS, TIA/ CVA, dehydration, acute blood loss, GI bleed, iron deficiency anemia] Plan of Care: Orders Procedure Date/time Status PROTHROMBIN TIME 04/30 06 Active CBC WITHOUT DIFFERENTIAL 04/30 06 Active BASIC ELECTROLYTES PLUS BUN&CR 04/30 06 Active Regular Diet 04/29 L Active Nothing by Mouth 04/29 B Complete CBC WITHOUT DIFFERENTIAL 04/29 2100 Active Hemoccult 04/29 1942 Active PATHOLOGY SPECIMEN 04/29 1329 Complete PROTHROMBIN TIME 04/29 0749 Complete CBC WITHOUT DIFFERENTIAL 04/29 0600 Complete Lab Add-on Test 04/29 UNK Active Full Liquid Diet 04/28 D Complete BLOOD PRODUCT PICKUP 04/28 2343 Active FingerStick- Glucose 04/28 2224 Complete Vital Signs 04/28 2049 Active Teach/Educate 04/28 2049 Active Pain Treatment and Response 04/28 2049 Active Nutritional Intake, Monitor 04/28 2049 Active Isolation 04/28 2049 Active Intake & Output 04/28 2049 Active Patient Care Conference 04/28 2049 Active Activity/Ambulation 04/28 2049 Active TOTAL IRON BINDING CAPACITY 04/28 1633 Complete RETICULOCYTE COUNT 04/28 1633 Complete LDH (LACT ACID DEHYDROGENASE) 04/28 1633 Complete FOLIC ACID 04/28 1633 Complete SERUM IRON 04/28 1633 Complete VITAMIN B12 04/28 1633 Complete Lab Add-on Test 04/28 UNK Active FingerStick- Glucose 04/28 UNK Active Current Medications Sig/Eliane Start time Last Medication Dose Stop Time Status Admin Insulin Human Regular 0 TIDAC/HS 04/29 1800 AC 04/29 (NovoLIN R) 193 Pantoprazole Sodium 40 MG BID 04/28 2215 AC 04/29 (Protonix) 0933 Laboratory Tests 04/29/17 1004: PT Cancelled, INR Cancelled 04/29/17 0840: PT 27.2 H, INR 2.62 H 04/29/17 0618: CBC w Diff NO MAN DIFF REQ, RBC 2.98 L, MCV 84.6, MCH 28.4, RDW 16.3 H, MPV 9.5, Gran % 64.5, Lymphocytes % 26.9, Monocytes % 6.6, Eosinophils % 1.6, Basophils % 0.4, Absolute Granulocytes 3.9, Absolute Lymphocytes 1.6, Absolute Monocytes 0.4, Absolute Eosinophils 0.1, Absolute Basophils 0, PUBS MCHC 33.[address] Quintanilla on the phone, he will evaluate patient tonight in person. She will be admitted under Gen. medicine for her symptomatic anemia. She is requiring packed red blood cell transfusion, repeat labs, fluid replacement, GI consult given heme positive stool, hematology consult. Premature discharge be medically unsafe. PT/INR elevated above normal limits. Results discussed with Dr. Brown. The patient was given IM vitamin K for reversal. (SHERRY RENNER PA-C) Initial ED EKG: SINUS TACHYCARDIA AT 104, NO ST SEGMENT ELEVATION OR DEPRESSION Prior EKG: changed (NSR AT 92BPM ON 02/13/17) (SHERRY RENNER PA-C) Departure Departure Disposition: STILL A PATIENT Condition: Stable Clinical Impression Primary Impression: Symptomatic anemia Referrals: WILSON QUINTANILLA MD (PCP/Family) Departure Forms: Customer Survey General Discharge Information Admission Note Spoke With: WILSON QUINTANILLA MD Documentation of Exam: Documentation of any treatments & extenuating circumstances including Concerns Regarding Discharge (functional status, medication knowledge or non-compliance, living conditions, etc.) that warrant an admission rather than observation: [ Severe symptomatic anemia, Requiring IV RBC transfusion, repeat labs, GI consultation, heme consultation, premature discharge would be medically harmful] (SHERRY RENNER PA-C) 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 I have also reviewed all the pertinent lab results and diagnostic results. I agree with the findings and the plan of care as documented in the PA's/KILN HEAD HOUSE OPERATOR's documentation. [] I have reviewed the ED Record and agree with the PA's/KILN HEAD HOUSE OPERATOR's documentation. [] Additions or exceptions (if any) to the PAs/KILN HEAD HOUSE OPERATOR's note and plan are summarized below: [] (MINA CARRILLO,DINAH) PA/KILN HEAD HOUSE OPERATOR Co-Sign Statement Statement: ED Attending supervision documentation- [] I saw and evaluated the patient. I have also reviewed all the pertinent lab results and diagnostic results. I agree with the findings and the plan of care as documented in the PA's/KILN HEAD HOUSE OPERATOR's documentation. [X] I have reviewed the ED Record and agree with the PA's/KILN HEAD HOUSE OPERATOR's documentation. [] Additions or exceptions (if any) to the PAs/KILN HEAD HOUSE OPERATOR's note and plan are summarized below: [] (AL CARRILLO,ALEX) Critical Care Note Critical Care Note Critical Care Time: non-applicable (SHERRY RENNER PA-C) (DINAH ENRIQUEZ MD) Critical Care Note Critical Care Note Critical Care Time: non-applicable (SHERRY RENNER PA-C)
[2017-04-28] MEDS ORDERED: MAPAP500 M2 PO (18:17)
--- NOTE | 2017-04-28 18:19 | NUR ---
PT REPORTS FEELING WEAK SINCE LAST FRIDAY. PT A+OX3, MAEX4,LUNGS CTA. PT PLACED ON MONITOR. IV ESTABLISHED, LABS SENT, BLUE AND PINK TOP. DINNER TRAY GIVEN, DAUGHTER ST BEDSIDE. DR ANGULO IN ROOM.
--- NOTE | 2017-04-28 18:34 | Admission Certification ---
Admission Certification Certification Statement - As attending physician, I certify that at the time of - admission, based on clinical presentation, severity of - symptoms, need for further diagnostic testing and - therapeutic interventions, and risk of adverse outcomes - without in-hospital treatment, in my clinical assessment, - this patient requires an acute hospital stay for a minimum - of two nights or longer. I have also considered psychsocial - factors such as support system, advanced age, financial - issues, cognitive issues, and failed out-patient treatments, - past re-admission history, safety of patient, and lack of - compliance as applicable. Specific rationale supporting this admission is: symptomatic anemia dizziness weakness abdominal pain diarrhea dark stools.
--- NOTE | 2017-04-28 18:40 | PN- Att Addend ---
Attending Addendum Attending Brief Note 72-year-old female is in to the ER with her daughter not feeling well complaining of lower abdominal pain weak pale looking having loose bowel movements dark in color smelly as per the patient. Very anemic in the emergency room. Will have to admit, treat her severe anemia have GI and cardiology check the patient. Patient is on Coumadin for her valvular heart disease have to check what kind of anticoagulation if any the patient needs also follow all her other labs kidney function etc. Laboratory Tests 04/28 04/28 1750 1633 Chemistry Sodium (137 - 145 mmol/L) 138 Potassium (3.5 - 5.1 mmol/L) 4.5 Chloride (98 - 107 mmol/L) 107 Carbon Dioxide (22 - 30 mmol/L) 20 L Anion Gap (5 - 16) 11 BUN (7 - 17 mg/dL) 47 H Creatinine (0.5 - 1.0 mg/dL) 1.2 H Estimated GFR (>60 ml/min) 44 L BUN/Creatinine Ratio (7 - 25 %) 39.2 H Glucose (65 - 99 mg/dL) 114 H Calcium (8.4 - 10.2 mg/dL) 9.7 Total Bilirubin (0.2 - 1.3 mg/dL) 0.5 AST (14 - 36 U/L) 24 ALT (9 - 52 U/L) 30 Alkaline Phosphatase (<127 U/L) 51 Troponin I (< 0.11 ng/ml) 0.01 Total Protein (6.3 - 8.2 g/dL) 6.0 L Albumin (3.5 - 5.0 g/dL) 3.7 Globulin (1.9 - 4.2 gm/dL) 2.3 Albumin/Globulin Ratio (1.1 - 2.2 %) 1.6 Coagulation PT Pending INR Pending APTT Pending Hematology CBC w Diff NO MAN DIFF REQ WBC (4.8 - 10.8 /CUMM) 8.0 RBC (4.20 - 5.40 /CUMM) 1.96 L Hgb (12.0 - 16.0 G/DL) 5.6 *L Hct (37 - 47 %) 17.1 *L MCV (81.0 - 99.0 FL) 87.1 MCH (27.0 - 31.0 PG) 28.7 RDW (11.5 - 14.5 %) 16.0 H Plt Count (130 - 400 /CUMM) 260 MPV (7.4 - 10.4 FL) 9.3 Gran % (42.2 - 75.2 %) 67.9 Lymphocytes % (20.5 - 51.1 %) 26.0 Monocytes % (1.7 - 9.3 %) 4.8 Eosinophils % (0 - 5 %) 0.9 Basophils % (0.0 - 2.0 %) 0.4 Absolute Granulocytes (1.4 - 6.5 /CUMM) 5.4 Absolute Lymphocytes (1.2 - 3.4 /CUMM) 2.1 Absolute Monocytes (0.10 - 0.60 /CUMM) 0.4 Absolute Eosinophils (0.0 - 0.7 /CUMM) 0.1 Absolute Basophils (0.0 - 0.2 /CUMM) 0 PUBS MCHC (33.0 - 37.0 G/DL) 32.9 L
[2017-04-28 18:55] LABS: PTT 45 SEC (25-37)
--- NOTE | 2017-04-28 19:18 | NUR ---
RN TRIED TO CALL AND GIVE REPORT TO FLOOR RN, FLOOR RN NOT ACCEPTING AT THIS TIME. WILL CONTINUE TO MONITOR
[2017-04-28 19:19] LABS: PT 48.9 SEC (9.4-12.5)
--- NOTE | 2017-04-28 19:20 | NUR ---
CRITICAL TEST RESULTS [id number] YIFAN GALLARDO 72 F TESTS AND RESULTS: PT 48.9 , INR 4.73 Results received and read back by: NELSON AMATO Results received date and time: 04/28/171919 The following provider was notified of the results, and read the results back: JUAN DAVID PITTS Notified date and time: 04/28/17 at 1920
--- NOTE | 2017-04-28 19:28 | NUR ---
BED ASSIGNMENT 220-
--- NOTE | 2017-04-28 19:39 | NUR ---
PT MEDICATED WITH 5MG VITAMIN K IM IN THE LEFT ARM PER EMAR.
--- NOTE | 2017-04-28 19:57 | NUR ---
REPORT GIVEN TO DANIELLE WESLEY, TRANSPORT BOOKED
--- NOTE | 2017-04-28 20:15 | NUR ---
THIS RN BEGAN THE INFUSION OF PRBC. PT HAD NO REACTION. RATE 90ML/HR.
--- NOTE | 2017-04-28 22:11 | NUR ---
PATIENT ARRIVED ON UNIT AT 2046 VIA STRETCHER FROM ER. PATIENT A+Ox3 AND ON. PT CURRENTLY RECEIVING BLOOD TRANSFUSION. PATIENT ORIENTED TO CALL [facility], ROOM, STAFF, SURROUNDINGS. VSS. ADMISSION ASSESSMENT COMPLETE. PATIENT GIVEN BROTH AND CRACKERS, OKAY TO GIVE PER MD PEARCE. PT DENIES ANY NAUSEA. PATIENT URGED TO USE CALL [facility] IF ANY NEED TO GET OOB, PATIENT VERBALIZED UNDERSTANDING. FALL RISK OF 4. WILL CONTINUE TO CLOSELY MONITOR.
--- NOTE | 2017-04-28 22:18 | History & Physical ---
General Information and HPI MD Statement: I have seen and personally examined YIFAN GALLARDO and documented this H&P. The patient is a 72 year old F who presented with a patient stated chief complaint of [malaise, weakness]. 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 Starting 04/25/2017 she noted dark tarry stools. Though patient states that her stools are dark at baseline due to her oral iron supplementation , the past 5 days her stools have been darker and fouler smelling. Patient does offer history of intermittent diarrhea and constipation for several years. Prior to this recent episode of diarrhea she did have a period of constipation for several days. Additionally, she states that for the past 2 weeks or so, she has noted some dizziness, headache, malaise, and lethargy. Patient was brought in by daughter who noted that her mother was pale, fatigued and significantly different from baseline. Pt endorses palpitations, diarrhea, dark stools, shortness of breath, subjective fever last night, dizziness, headache, weakness, left lower quadrant abdominal pain, but denies any loss of consciousness, bright red blood per rectum, or hematemesis. Family history significant for myocardial infarction in both mom and dad in mid 50s. Patient denies any drinking, smoking or IV drug abuse. Surgical history significant for tubal ligation, appendectomy, left TKA, and prosthetic mechanical aortic valve. Per patient, last colonoscopy was benign. Patient sees Dr. Quiroz for anemia, and Dr. Angelic Argueta MD for cardiology, and Dr. Buenrostro for GI. Allergies/Medications Allergies: Coded Allergies: ciprofloxacin (Severe, ANAPHYLAXIS 12/19/15) morphine (N/V 02/13/17) tramadol (N/V 04/28/17) aspirin (Intermediate, ON COUMADIN SO SAYS "I CAN'T TAKE IT" 12/19/15) Home Med list Acetaminophen (Mapap) 500 MG CAPSULE 2 CAP PO PRN PAIN (Reported) Calcium Carbonate/Vitamin D3 (Calcium 500 + D Tablet) (Unknown Strength) TABLET (Unknown Dose) PO DAILY SUPPLEMENT (Reported) Ferrous Sulfate 325 MG (65 MG IRON) TABLET 1 TAB PO DAILY SUPPLEMENT ( Reported) Hydrochlorothiazide 25 MG TABLET 1 TAB PO DAILY BP (Reported) Lisinopril 10 MG TABLET 1 TAB PO DAILY BP (Reported) Metformin HCl (Metformin HCl ER) 500 MG TAB.ER.24H 1 TAB PO BID DM (Reported) Paroxetine HCl (Paxil) 10 MG TABLET 1 TAB PO DAILY MENTAL HEALTH (Reported) Warfarin Sodium (Coumadin) 2.5 MG TABLET 1 TAB PO QPM BLOOD THINNER (Reported ) Compliance With Home Meds: GOOD Past History Travel History Traveled to [place] past 21 day No Medical History Neurological: HEMICRANIAL CONT. 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 FATHER, , Age 59; Cause: Myocardial infarction. SISTER, , Age 40-50. Psychosocial History Who Do You Live With? self Services at Home: None Primary Language: Maori (also Hungarian) Living Will? unknown Power of Program Evaluation Consultant/HCP? unknown Functional Ability ADLs Independent: dressing, eating, toileting, bathing. Ambulation: independent IADLs Independent: shopping, housework, finances, food prep, telephone, transportation , medication admin. Review of Systems Review of Systems Constitutional: Reports: fever, malaise, weakness. Denies: chills, diaphoresis. Cardiovascular: Reports: palpitations. Denies: chest pain, edema, orthopena, peripheral edema, syncope. Respiratory: Reports: short of breath. Denies: cough, hemoptysis. GI: Reports: abdominal pain, constipation, diarrhea, melena. Denies: nausea, bloody stool, vomiting. Genitourinary: Reports: no symptoms. Musculoskeletal: Reports: back pain, joint pain, muscle pain. Exam & Diagnostic Data Last 24 Hrs of Vital Signs/I&O Vital Signs Date Time Temp Pulse Resp B/P B/P Pulse O2 O2 Flow FiO2 Mean Ox Delivery Rate 04/28 1949 98.7 105 18 144/64 100 Room Air 04/28 1756 97 Room Air 04/28 1713 99.7 68 18 158/63 96 Room Air 04/28 1616 97.1 112 18 137/62 98 Room Air Physical Exam General Appearance Alert, Oriented X3, Cooperative, No Acute Distress Skin pale mucous membranes and conjunctival pallor HEENT PERRLA, EOMI Cardiovascular systolic murmur in RUSB. Lungs Normal Air Movement Abdomen Soft, No Tenderness Neurological Normal Speech, Sensation Intact Extremities No Edema, Normal Pulses Last 24 Hrs of Labs/Thad: Laboratory Tests 04/28/17 1750: PT 48.9 *H, INR 4.73 *H, APTT 45 H 04/28/17 1633: Anion Gap 11, Estimated GFR 44 L, BUN/Creatinine Ratio 39.2 H, Glucose 114 H, Calcium 9.7, Total Bilirubin 0.5, AST 24, ALT 30, Alkaline Phosphatase 51, Troponin I 0.01, Total Protein 6.0 L, Albumin 3.7, Globulin 2.3, Albumin/ Globulin Ratio 1.6, CBC w Diff NO MAN DIFF REQ, RBC 1.96 L, MCV 87.1, MCH 28.7, RDW 16.0 H, MPV 9.3, Gran % 67.9, Lymphocytes % 26.0, Monocytes % 4.8, Eosinophils % 0.9, Basophils % 0.4, Absolute Granulocytes 5.4, Absolute Lymphocytes 2.1, Absolute Monocytes 0.4, Absolute Eosinophils 0.1, Absolute Basophils 0, PUBS MCHC 32.9 L Assessment/Plan Assessment: This is a 72-year-old female past medical history significant for St. 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 ED workup shows significant anemia with hemoglobin 5.6 and hematocrit 17.1. Workup: Vitals: 98.7, 112, 18, 137/62, 98 EKG: Rate 104, normal sinus without any acute abnormalities noted CBC: Hemoglobin 5.6, hematocrit 17.1, white count 8.0, platelet 260. INR 4.73 BEP: BUN 47, creatinine 1.2 LFT within normal limits, T bili 0.5 Echocardiogram in 12/12/2015 shows EF 55-60. Stress test in 12/08/2015 WNL PLAN Acute blood loss anemia: Patient has hemoglobin 5.6 and hematocrit 17.1. Her baseline hemoglobin is around 8 or 9. At this time etiology is unclear, but it does seem to be from a GI source. Guaiac in ED was positive Does not appear to hemolysis as her T bili within normal limits. Patient is currently on Coumadin for mechanical aortic valve. She endorses a history of dark tarry stools in the past 5 days. Patient does state that she has baseline dark stools as she is on oral iron supplementation. Patient does have a history of diverticulis and she does have some left lower quadrant crampy abdominal pain. Currently denies any bright red blood per rectum or history of GI bleed. However if suspicion for diverticulitis/ diverticulosis still persists, can consider CT of the abdomen in A.M. * Hematology consult with Dr. Dunn as he follows her outpatient for anemia * Anemia workup: Iron, TIBC, folate, B12, retic count, LDH * As INR supratherapeutic at 4.73 hold Coumadin * We'll place patient on full liquid diet * Nothing by mouth at midnight * IV Protonix 40 mg twice a day * 2 large-bore IV * Transfuse to maintain hemoglobin goal greater than 8 Supratherapeutic INR in context of prosthetic aortic valve: Patient has St. Phani mechanical valve since 1997. Has been on Coumadin for anticoagulation. She states that she has had no incidents in the last 10 years and is generally therapeutic. This time patient is supratherapeutic with INR 4.73. Given GI bleed we will hold her Coumadin dose tonight. She got one dose of IM Vitamin K in ED. This patient is not actively bleeding at this time, is hemodynamically stable, with prosthetic valve so will not further actively reverse anticoagulation at this time. She did not take her Coumadin dose today so we will continue to hold it. * Hold Coumadin * Cardiology consult for further recommendations on anticoagulation * recheck INR in am Diabetes: Chronic and stable * Regular Insulin sliding scale * Fingersticks Hypertension: Patient is on lisinopril and hydrochlorothiazide at home. She is unclear what dose. In ED patient was normotensive and at this time we will hold all antihypertensives given GI bleed. * Obtain medication doses in a.m. * Continue to monitor clinically FULL CODE ALPS for DVT ppx-NO CHEM PPX GI BLEED FULL LIQUID DIET As Ranked By This Provider Problem List: 1. History of aortic valve replacement with metallic valve 2. Symptomatic anemia 3. Diabetes Core Measures/Miscellaneous Acute Coronary Syndrome ACS Diagnosis: No Cerebrovascular Accident CVA/TIA Diagnosis: No Congestive Heart Failure CHF Diagnosis: No VTE (View Protocol) VTE Risk Factors: Acute medical illness, Age > 40 [facility] prophylaxis d/t: No contraindications No VTE Pharm Prophylaxis d/t: No contraindications VTE Diagnosis: No VTE Type: NONE VTE Confirmed by (Test): NONE Sepsis (View Protocol) Severe Sepsis Present: No Septic Shock Septic Shock Present: No Miscellaneous Documentation Attending Case Discussed With: MONTRELL JO MD Primary Care Physician: WILSON DEGROOT MD Patient sees these Specialists Dr. Gabriella Argueta Level of Patient Care: General Medicine
[2017-04-28 22:47] VITALS: BP 156/50
[2017-04-28 23:00] VITALS: BP 138/60
[2017-04-29 00:50] VITALS: BP 128/50
[2017-04-29 01:05] VITALS: BP 130/48
[2017-04-29 03:52] VITALS: BP 132/46
--- NOTE | 2017-04-29 06:53 | Cons- Gastroenterology ---
General Information and HPI Consulting Request Date of Consult: 04/29/17 Requested By: MONTRELL JO MD Reason for Consult: Anemia. Abdominal pain, melena. Source of Information: patient, old records Exam Limitations: no limitations History of Present Illness: Ms. Lopez is a 72-year-old female with multiple medical problems including a mechanical aortic valve on coumadin and chronic anemia of uncertain etiology ( bone marrow evaluation unrevealing and negative colonoscopy in 2013) who presented to [facility] last night with reports of progressive fatigue and weakness and dark stools. The patient takes iron and notes that her stool is generally dark from this, but over the past several days she notes the stool has been darker in color. She also notes the stool to be more foul-smelling. She also reports some vague midepigastric discomfort, but she is without any heartburn and she has not had any vomiting. She is also not had any bright blood per rectum. In the ER last night she was hemodynamically stable, but she was found to have a hemoglobin of 5.6 which is a drop from her baseline of approximately 8-10. She was admitted to the medical service and transfused with 2 units of packed red blood cells overnight. She was also given 5 mg of vitamin K in the ER for a supratherapeutic INR, but she did not receive any FFP or additional vitamin K. Since admission she did have another black bowel movement this morning, but she has remained hemodynamically stable her hemoglobin corrected appropriately with transfusion. Allergies/Medications Allergies: Coded Allergies: ciprofloxacin (Severe, ANAPHYLAXIS 12/19/15) morphine (N/V 02/13/17) tramadol (N/V 04/28/17) aspirin (Intermediate, ON COUMADIN SO SAYS "I CAN'T TAKE IT" 12/19/15) Home Med List: Acetaminophen (Mapap) 500 MG CAPSULE 2 CAP PO PRN PAIN (Reported) Calcium Carbonate/Vitamin D3 (Calcium 500 + D Tablet) (Unknown Strength) TABLET (Unknown Dose) PO DAILY SUPPLEMENT (Reported) Ferrous Sulfate 325 MG (65 MG IRON) TABLET 1 TAB PO DAILY SUPPLEMENT ( Reported) Hydrochlorothiazide 25 MG TABLET 1 TAB PO DAILY BP (Reported) Lisinopril 10 MG TABLET 1 TAB PO DAILY BP (Reported) Metformin HCl (Metformin HCl ER) 500 MG TAB.ER.24H 1 TAB PO BID DM (Reported) Paroxetine HCl (Paxil) 10 MG TABLET 1 TAB PO DAILY MENTAL HEALTH (Reported) Warfarin Sodium (Coumadin) 2.5 MG TABLET 1 TAB PO QPM BLOOD THINNER (Reported ) Current Medications: Current Medications Sig/Eliane Start time Last Medication Dose Route Stop Time Status Admin Insulin Human Regular 0 Q6 04/28 2359 AC 04/29 SC 0603 Pantoprazole Sodium 40 MG .STK-MED ONE 04/29 0014 DC IV 04/29 001 Pantoprazole Sodium 40 MG BID 04/28 2215 AC 04/29 IV 0019 Phytonadione 0 .STK-MED ONE 04/28 1939 DC .ROUTE Phytonadione 5 MG ONCE ONE 04/28 1930 DC 04/28 IM 04/28 Past History Travel History Traveled to [place] past 21 day No Medical History Blood Transfusion Hx: Yes Neurological: migraine, HEMICRANIAL CONT. 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 FATHER, , Age 59; Cause: Myocardial infarction. SISTER, , Age 40-50. Psychosocial History Where Do You Live? Home Who Do You Live With? self Services at Home: Home Health Aide, Nursing Primary Language: Grenadian (also Bruneian) Smoking Status: Former Smoker Living Will? unknown Power of Power Plant Manager/HCP? unknown Functional Ability ADLs Independent: dressing, eating, toileting, bathing. Ambulation: independent IADLs Independent: shopping, housework, finances, food prep, telephone, transportation , medication admin. Review of Systems Review of Systems Constitutional: Reports: malaise, weakness. Denies: diaphoresis, fever. EENTM: Denies: no symptoms. Cardiovascular: Denies: no symptoms. Respiratory: Reports: short of breath. Denies: cough, hemoptysis, sputum production. GI: Reports: see HPI. Genitourinary: Denies: no symptoms. Musculoskeletal: Reports: joint pain. Denies: joint swelling, muscle pain, muscle stiffness. Skin: Denies: no symptoms. Neurological/Psychological: Denies: no symptoms. Hematologic/Endocrine: Denies: no symptoms. Immunologic/Allergic: Denies: no symptoms. All Other Systems: Reviewed and Negative Exam & Diagnostic Data Vital Signs and I&O Vital Signs Date Time Temp Pulse Resp B/P B/P Pulse O2 O2 Flow FiO2 Mean Ox Delivery Rate 04/29 0352 97.9 88 16 132/46 99 Room Air 04/29 0105 98.2 92 18 130/48 100 Room Air 04/29 0050 98.6 95 18 128/50 98 Room Air 04/28 2300 98.4 98 18 138/60 98 Room Air 04/28 2247 98.5 100 20 156/50 100 Room Air 04/28 1949 98.7 105 18 144/64 100 Room Air 04/28 1756 97 Room Air 04/28 1713 99.7 68 18 158/63 96 Room Air 04/28 1616 97.1 112 18 137/62 98 Room Air Intake & Output 04/29 1600 04/29 0400 04/28 1600 04/28 0400 04/27 1600 04/27 0400 Intake Total 500 560 Output Total 650 Balance -150 560 Intake, Blood 500 200 Product Intake, Oral 360 Output, Urine 650 Patient 135 lb Weight Weight Reported by Patient Measurement Method Physical Exam General Appearance: well developed/nourished, no apparent distress, alert, comfortable Head: atraumatic, normal appearance Eyes: Bilateral: normal appearance. Ears, Nose, Throat: normal pharynx, normal ENT inspection, hearing grossly normal Neck: normal inspection, supple, full range of motion Respiratory: normal breath sounds, chest non-tender, no respiratory distress Cardiovascular: regular rate/rhythm, mid systolic click Gastrointestinal: normal bowel sounds, soft, non-tender, no organomegaly Rectal: deferred Back: normal inspection, normal range of motion Extremities: normal inspection, normal range of motion Neurologic/Psych: no motor/sensory deficits, awake, alert, oriented x 3 Skin: intact, normal color, warm/dry Results Pertinent Lab Results: Laboratory Tests 04/28 04/28 1750 1633 Chemistry Sodium (137 - 145 mmol/L) 138 Potassium (3.5 - 5.1 mmol/L) 4.5 Chloride (98 - 107 mmol/L) 107 Carbon Dioxide (22 - 30 mmol/L) 20 L Anion Gap (5 - 16) 11 BUN (7 - 17 mg/dL) 47 H Creatinine (0.5 - 1.0 mg/dL) 1.2 H Estimated GFR (>60 ml/min) 44 L BUN/Creatinine Ratio (7 - 25 %) 39.2 H Glucose (65 - 99 mg/dL) 114 H Calcium (8.4 - 10.2 mg/dL) 9.7 Iron (37 - 170 ug/dL) 39 TIBC (265 - 497 ug/dL) 385 Total Bilirubin (0.2 - 1.3 mg/dL) 0.5 AST (14 - 36 U/L) 24 ALT (9 - 52 U/L) 30 Alkaline Phosphatase (<127 U/L) 51 Lactate Dehydrogenase (313 - 618 U/L) 811 H Troponin I (< 0.11 ng/ml) 0.01 Total Protein (6.3 - 8.2 g/dL) 6.0 L Albumin (3.5 - 5.0 g/dL) 3.7 Globulin (1.9 - 4.2 gm/dL) 2.3 Albumin/Globulin Ratio (1.1 - 2.2 %) 1.6 Vitamin B12 (239 - 931 pg/mL) 235 L Folate (2.76 - 20.0 ng/mL) 7.6 Coagulation PT (9.4 - 12.5 SEC) 48.9 *H INR (0.90 - 1.19) 4.73 *H APTT (25 - 37 SEC) 45 H Hematology CBC w Diff NO MAN DIFF REQ WBC (4.8 - 10.8 /CUMM) 8.0 RBC (4.20 - 5.40 /CUMM) 1.96 L Hgb (12.0 - 16.0 G/DL) 5.6 *L Hct (37 - 47 %) 17.1 *L MCV (81.0 - 99.0 FL) 87.1 MCH (27.0 - 31.0 PG) 28.7 RDW (11.5 - 14.5 %) 16.0 H Plt Count (130 - 400 /CUMM) 260 MPV (7.4 - 10.4 FL) 9.3 Gran % (42.2 - 75.2 %) 67.9 Lymphocytes % (20.5 - 51.1 %) 26.0 Monocytes % (1.7 - 9.3 %) 4.8 Eosinophils % (0 - 5 %) 0.9 Basophils % (0.0 - 2.0 %) 0.4 Absolute Granulocytes (1.4 - 6.5 /CUMM) 5.4 Absolute Lymphocytes (1.2 - 3.4 /CUMM) 2.1 Absolute Monocytes (0.10 - 0.60 /CUMM) 0.4 Absolute Eosinophils (0.0 - 0.7 /CUMM) 0.1 Absolute Basophils (0.0 - 0.2 /CUMM) 0 PUBS MCHC (33.0 - 37.0 G/DL) 32.9 L Retic Count (0.5 - 2.0 %) 9.19 H Imaging/Other Studies: colonoscopy 2014: FINDINGS: There were several scattered diverticula appreciated in the sigmoid colon. The remainder of the visualized colonic mucosa was grossly unremarkable. There were no polyps, masses, ulcers, or significant erythematous changes appreciated. The terminal ileum was normal in appearance. Retroflexed views in the rectum revealed small internal hemorrhoids. Random biopsies were obtained from the right and left colon and from the terminal ileum with cold biopsy forceps and sent to pathology for further evaluation. IMPRESSION: 1. Left side diverticulosis. 2. Grossly normal colonic and ileal mucosa status post random biopsies. 3. Small internal hemorrhoids. Assessment/Plan Assessment/Recommendations: Assessment: Ms. Woodward is a 72-year-old female with multiple medical problems including chronic anemia and a metallic [facility]. Phani's aortic valve for which she is on chronic anticoagulation who presents with a fall in her hemoglobin of approximately 3 g and reports of black stool concerning for an upper GI bleed. Her supratherapeutic INR also likely contributed to some GI bleeding, but the underlying cause of the GI bleeding still needs to be determined. As she is hemodynamically stable and her hemoglobin has corrected properly with transfusion and her BUN to creatinine ratio was not significantly elevated I suspect she has currently stopped bleeding, but she still needs an upper endoscopy to assess the etiology of blood loss. If the upper endoscopy is negative consideration will then be given to pursue an outpatient small bowel PillCam both to look for a source of melena and her chronic anemia. Recommendations: 1. Keep nothing by mouth for a diagnostic upper endoscopy performed later today. 2. Continue IV Protonix for now. 3. Would hold anticoagulation and follow-up her a.m. INR. 4. Maintain 2 large-bore IVs at all times. 5. GI should be notified for signs of hemodynamically significant GI bleeding. 6. Follow CBCs every 12 hours and transfuse as needed to keep hemoglobin greater than 8 or as per cardiology recommendations. I will continue to follow this patient and make further recognitions based on her clinical course and results of repeat blood work and the endoscopy to performed later today. Problem List: 1. Anemia 2. Abdominal pain 3. Symptomatic anemia Copies To: WILSON DEGROOT MD Consult Acknowledgment - Thank you for your consult request.
--- NOTE | 2017-04-29 06:56 | Cons- Hematology ---
General Information and HPI Consulting Request Date of Consult: 04/29/17 Requested By: MONTRELL JO MD History of Present Illness: The patient is a 72-year-old woman well known to me as chronic anemia. Aggressive workup in the past including bone marrow aspirate and biopsy nondiagnostic. Patient now is admitted with increasing fatigue illness of breath and dark stools. The patient is also chronically anticoagulated with Coumadin secondary to a heart react valve replacement. Patient has received 2 units of red blood cells Allergies/Medications Allergies: Coded Allergies: ciprofloxacin (Severe, ANAPHYLAXIS 12/19/15) morphine (N/V 02/13/17) tramadol (N/V 04/28/17) aspirin (Intermediate, ON COUMADIN SO SAYS "I CAN'T TAKE IT" 12/19/15) Home Med List: Acetaminophen (Mapap) 500 MG CAPSULE 2 CAP PO PRN PAIN (Reported) Calcium Carbonate/Vitamin D3 (Calcium 500 + D Tablet) (Unknown Strength) TABLET (Unknown Dose) PO DAILY SUPPLEMENT (Reported) Ferrous Sulfate 325 MG (65 MG IRON) TABLET 1 TAB PO DAILY SUPPLEMENT ( Reported) Hydrochlorothiazide 25 MG TABLET 1 TAB PO DAILY BP (Reported) Lisinopril 10 MG TABLET 1 TAB PO DAILY BP (Reported) Metformin HCl (Metformin HCl ER) 500 MG TAB.ER.24H 1 TAB PO BID DM (Reported) Paroxetine HCl (Paxil) 10 MG TABLET 1 TAB PO DAILY MENTAL HEALTH (Reported) Warfarin Sodium (Coumadin) 2.5 MG TABLET 1 TAB PO QPM BLOOD THINNER (Reported ) Current Medications: Current Medications Sig/Eliane Start time Last Medication Dose Route Stop Time Status Admin Insulin Human Regular 0 Q6 04/28 2359 04/29 SC 0603 Pantoprazole Sodium 40 MG BID 04/28 2215 04/29 IV 0019 Phytonadione 0 .STK-MED ONE 04/28 1939 DC .ROUTE Phytonadione 5 MG ONCE ONE 04/28 1930 DC 04/28 IM 04/28 Review of Systems Review of Systems: Patient complained of mild headache without dizziness. Patient denied hemoptysis or productive sputum but may have had chest discomfort. Patient denied nausea vomiting or significant abdominal pain as well as fevers. Patient denied dysuria or hematuria. Patient denied new bone aches or focal neurologic deficit Past History Travel History Traveled to [place] past 21 day No Medical History Blood Transfusion Hx: Yes Neurological: migraine, HEMICRANIAL CONT. 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 FATHER, , Age 59; Cause: Myocardial infarction. SISTER, , Age 40-50. Psychosocial History Where Do You Live? Home Who Do You Live With? self Services at Home: Home Health Aide, Nursing Primary Language: Turkish (also Spanish) Smoking Status: Former Smoker Living Will? unknown Power of Landing Signal Officer/HCP? unknown Functional Ability ADLs Independent: dressing, eating, toileting, bathing. Ambulation: independent IADLs Independent: shopping, housework, finances, food prep, telephone, transportation , medication admin. Exam & Diagnostic Data Vital Signs and I&O Vital Signs Date Time Temp Pulse Resp B/P B/P Pulse O2 O2 Flow FiO2 Mean Ox Delivery Rate 04/29 0352 97.9 88 16 132/46 99 Room Air 04/29 0105 98.2 92 18 130/48 100 Room Air 04/29 0050 98.6 95 18 128/50 98 Room Air 04/28 2300 98.4 98 18 138/60 98 Room Air 04/28 2247 98.5 100 20 156/50 100 Room Air 04/28 1949 98.7 105 18 144/64 100 Room Air 04/28 1756 97 Room Air 04/28 1713 99.7 68 18 158/63 96 Room Air 04/28 1616 97.1 112 18 137/62 98 Room Air Intake & Output 04/29 0800 04/29 0000 04/28 1600 Intake Total 500 560 Output Total 650 Balance -150 560 Intake, Blood 500 200 Product Intake, Oral 360 Output, Urine 650 Patient 135 lb Weight Weight Reported by Patient Measurement Method Gen.: in NAD ENT: Sclera anicteric Chest: Normal respiratory effort, decreased breath sounds Cor: RRR, no extra sounds Abdomen: Soft, bowel sounds present, no tenderness, no rebound Extremities: Without clubbing, cyanosis, or asymmetric edema Neurology: Alert and oriented 3, no gross deficit Skin: No rashes Last 48 Hours of Lab Results: Laboratory Tests 04/28 04/28 1750 1633 Chemistry Sodium (137 - 145 mmol/L) 138 Potassium (3.5 - 5.1 mmol/L) 4.5 Chloride (98 - 107 mmol/L) 107 Carbon Dioxide (22 - 30 mmol/L) 20 L Anion Gap (5 - 16) 11 BUN (7 - 17 mg/dL) 47 H Creatinine (0.5 - 1.0 mg/dL) 1.2 H Estimated GFR (>60 ml/min) 44 L BUN/Creatinine Ratio (7 - 25 %) 39.2 H Glucose (65 - 99 mg/dL) 114 H Calcium (8.4 - 10.2 mg/dL) 9.7 Iron (37 - 170 ug/dL) 39 TIBC (265 - 497 ug/dL) 385 Total Bilirubin (0.2 - 1.3 mg/dL) 0.5 AST (14 - 36 U/L) 24 ALT (9 - 52 U/L) 30 Alkaline Phosphatase (<127 U/L) 51 Lactate Dehydrogenase (313 - 618 U/L) 811 H Troponin I (< 0.11 ng/ml) 0.01 Total Protein (6.3 - 8.2 g/dL) 6.0 L Albumin (3.5 - 5.0 g/dL) 3.7 Globulin (1.9 - 4.2 gm/dL) 2.3 Albumin/Globulin Ratio (1.1 - 2.2 %) 1.6 Vitamin B12 (239 - 931 pg/mL) 235 L Folate (2.76 - 20.0 ng/mL) 7.6 Coagulation PT (9.4 - 12.5 SEC) 48.9 *H INR (0.90 - 1.19) 4.73 *H APTT (25 - 37 SEC) 45 H Hematology CBC w Diff NO MAN DIFF REQ WBC (4.8 - 10.8 /CUMM) 8.0 RBC (4.20 - 5.40 /CUMM) 1.96 L Hgb (12.0 - 16.0 G/DL) 5.6 *L Hct (37 - 47 %) 17.1 *L MCV (81.0 - 99.0 FL) 87.1 MCH (27.0 - 31.0 PG) 28.7 RDW (11.5 - 14.5 %) 16.0 H Plt Count (130 - 400 /CUMM) 260 MPV (7.4 - 10.4 FL) 9.3 Gran % (42.2 - 75.2 %) 67.9 Lymphocytes % (20.5 - 51.1 %) 26.0 Monocytes % (1.7 - 9.3 %) 4.8 Eosinophils % (0 - 5 %) 0.9 Basophils % (0.0 - 2.0 %) 0.4 Absolute Granulocytes (1.4 - 6.5 /CUMM) 5.4 Absolute Lymphocytes (1.2 - 3.4 /CUMM) 2.1 Absolute Monocytes (0.10 - 0.60 /CUMM) 0.4 Absolute Eosinophils (0.0 - 0.7 /CUMM) 0.1 Absolute Basophils (0.0 - 0.2 /CUMM) 0 PUBS MCHC (33.0 - 37.0 G/DL) 32.9 L Retic Count (0.5 - 2.0 %) 9.19 H Assessment/Plan Assessment: 1. Dramatic anemia in the setting of chronic mild anemia. Patient has documented heme-positive stools and despite having a normal MCV, patient has a low vitamin B12 level ( for the first time ). Patient has an elevated reticulocyte count (borderline). Given the normal bilirubin, hemolysis seems unlikely. The patient's baseline hematocrit typically is between 27 and 30% Recommend- Transfuse red blood cells Begin parenteral vitamin B12 GI consultation 2. Coagulopathy-patient has a supratherapeutic INR. Patient has received vitamin K. I would consult cardiology regarding her anticoagulation and valve replacement. If complete reversal of PT/INR is recommended by cardiology is no plans for re-anticoagulation, reversal with vitamin K would be appropriate. However patient needs to remain anticoagulated, FFP would be preferable to reduce the PT/INR. Recommendations: .. Consult Acknowledgment - Thank you for your consult request.
[2017-04-29 08:47] LABS: ABSOLUTE BASOPHIL COUNT 0 /CUMM (0.0-0.2); ABSOLUTE EOSINOPHIL COUNT 0.1 /CUMM (0.0-0.7); ABSOLUTE MONOCYTE COUNT 0.4 /CUMM (0.10-0.60); BASOPHIL % 0.4 % (0.0-2.0)
[2017-04-29 08:57] LABS: ABSOLUTE GRANULOCYTE CT 3.9 /CUMM (1.4-6.5); ABSOLUTE LYMPH COUNT 1.6 /CUMM (1.2-3.4); EOSINOPHIL % 1.6 % (0-5); GRANULOCYTE % 64.5 % (42.2-75.2); MEAN CORPUSCULAR HGB 28.4 PG (27.0-31.0); MEAN CORPUSCULAR HGB CONC 33.6 G/DL (33.0-37.0); MEAN CORPUSCULAR VOLUME 84.6 FL (81.0-99.0); MEAN PLATELET VOLUME 9.5 FL (7.4-10.4); PLATELET COUNT 202 /CUMM (130-400); RBC DISTRIBUTION WIDTH 16.3 % (11.5-14.5)
[2017-04-29 09:22] LABS: HEMATOCRIT 25.2 % (37-47); RED BLOOD CELL CT 2.98 /CUMM (4.20-5.40)
[2017-04-29 09:52] LABS: PT 27.2 SEC (9.4-12.5)
--- NOTE | 2017-04-29 13:11 | Proc Note Endoscopy ---
Endoscopy Procedure Medical History: unchanged ([facility]) Mental Status: alert/oriented Heart/Lung Eval Prior to Sedation: within normal limits Candidate for Sedation? Yes Procedure Date: 04/29/17 Procedure Type: EGD w/biopsy Station Inspector: Alexander Buenrostro MD ASA Classification: III Indications: Melena, anemia, abdmominal discomfort. Instrument: diagnostic gastroscope Meds Received: MAC Patient's Tolerance: good Complications: none Extent Reached: fourth portion of the duodenum Procedure: After getting written informed consent the patient was placed in the left lateral decubitus position with pulse oximetry, cardiac monitoring, and supplemental oxygen given. A bite block was inserted and IV sedation was given until the desired effect was achieved. A high definition upper Olympus endoscope was then inserted into the mouth and advanced to the second portion of the duodenum with little difficulty. Retroflexed views and photodocumentation was obtained. Findings: Esophagus: The esophageal mucosa was grossly normal in appearance and there was a normal appearing Z line at 36 cm from the incisors. Stomach: The gastric mucosa was grossly normal appearance. There were no ulcers , erosions, or masses appreciated. Distention and peristalsis of the stomach appeared normal. Retroflexed views were normal and did not reveal a significant hiatal hernia. Random biopsies were obtained from the antrum with cold biopsy forceps and were sent to pathology for further evaluation. Duodenum: The duodenal bulb, sweep, and folds were grossly normal in appearance. There was bile appreciated throughout to the fourth portion of the duodenum. There were no AVMs appreciated. Impression: 1. Grossly normal upper endoscopy bleeding or stigmata of recent hemorrhage status post antral biopsies. Recommendations: 1. Her diet should be advanced as tolerated. 2. Follow CBCs every 12 hours and transfuse as needed to keep hemoglobin greater than 8 or as per cardiology recommendations. 3. Would avoid NSAIDs, but there are no absolute GI contraindication to resuming anticoagulation if it is medically indicated. 4. She should follow up the pathology results me as an outpatient. 5. My office will arrange for an outpatient small bowel PillCam for further evaluation of her anemia. CC: MIKAYLA CARRILLO,WILSON
--- NOTE | 2017-04-29 14:03 | PN- Housestaff ---
Subjective Follow-up For: MELENA Complaints: black tarry stool Subjective: I have seen and examined the patient. She was resting in her bed. Her 2 daughters were by her bedside.She was nothing by mouth in anticipation of endoscopy. She does not have any current complaint. Review of Systems Constitutional: Reports: fever, malaise, weakness. Denies: chills, diaphoresis. Cardiovascular: Reports: palpitations. Denies: chest pain, edema. Respiratory: Reports: short of breath. Denies: cough, orthopnea. Gastrointestinal: Reports: constipation, diarrhea, melena. Denies: abdominal pain. Genitourinary: Reports: no symptoms. Musculoskeletal: Denies: back pain, joint pain, muscle pain. Objective Last 24 Hrs of Vital Signs/I&O Vital Signs Date Time Temp Pulse Resp B/P B/P Pulse O2 O2 Flow FiO2 Mean Ox Delivery Rate 04/29 1443 98.1 90 20 120/60 99 Room Air 04/29 0352 97.9 88 16 132/46 99 Room Air 04/29 0105 98.2 92 18 130/48 100 Room Air 04/29 0050 98.6 95 18 128/50 98 Room Air 04/28 2300 98.4 98 18 138/60 98 Room Air 04/28 2247 98.5 100 20 156/50 100 Room Air 04/28 1949 98.7 105 18 144/64 100 Room Air Intake & Output 04/29 1600 04/29 0800 04/29 0000 Intake Total 240 500 560 Output Total 600 650 Balance -360 -150 560 Intake, Blood 500 200 Product Intake, Oral 240 360 Number 1 Bowel Movements Output, Urine 600 650 Patient 135 lb Weight Weight Reported by Patient Measurement Method Physical Exam General Appearance: Alert, Oriented X3, Cooperative, No Acute Distress Skin: pale mucous membranes and conjunctival pallor Cardiovascular: Normal S1, Normal S2, murmur? Abdomen: Normal Bowel Sounds, Soft Neurological: Normal Speech Extremities: No Edema, Normal Pulses Current Medications: Current Medications Sig/Eliane Start time Last Medication Dose Route Stop Time Status Admin Chlorhexidine 1 GM .STK-MED ONE 04/29 1328 DC Gluconate TOP 04/29 1329 Insulin Human Regular 0 TIDAC/HS 04/29 1800 AC SC Insulin Human Regular 0 Q6 04/28 2359 DC 04/29 SC 0603 Pantoprazole Sodium 40 MG .STK-MED ONE 04/29 0014 DC IV 04/29 001 Pantoprazole Sodium 40 MG BID 04/28 2215 AC 04/29 IV 0933 Patient Medication 1 ED .STK-MED ONE 04/29 1424 CO Teaching ED 04/29 1425 Phytonadione 0 .STK-MED ONE 04/28 1939 DC .ROUTE Phytonadione 5 MG ONCE ONE 04/28 1930 DC 04/28 IM 04/28 Last 24 Hrs of Lab/Thad Results Last 24 Hrs of Labs/Mics: Laboratory Tests 04/29/17 1004: PT Cancelled, INR Cancelled 04/29/17 0840: PT 27.2 H, INR 2.62 H 04/29/17 0618: CBC w Diff NO MAN DIFF REQ, RBC 2.98 L, MCV 84.6, MCH 28.4, RDW 16.3 H, MPV 9.5, Gran % 64.5, Lymphocytes % 26.9, Monocytes % 6.6, Eosinophils % 1.6, Basophils % 0.4, Absolute Granulocytes 3.9, Absolute Lymphocytes 1.6, Absolute Monocytes 0.4, Absolute Eosinophils 0.1, Absolute Basophils 0, PUBS MCHC 33.6 Assessment/Plan Assessment: This is a 72-year-old female past medical history significant for [employer] 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 ED workup shows significant anemia with hemoglobin 5.6 and hematocrit 17.1. Workup: Vitals: 98.7, 112, 18, 137/62, 98 EKG: Rate 104, normal sinus without any acute abnormalities noted CBC: Hemoglobin 5.6, hematocrit 17.1, white count 8.0, platelet 260. INR 4.73 BEP: BUN 47, creatinine 1.2 LFT within normal limits, T bili 0.5 Echocardiogram in 12/12/2015 shows EF 55-60. Stress test in 12/08/2015 WNL PLAN Acute blood loss anemia: Patient has hemoglobin 5.6 and hematocrit 17.1. Her baseline hemoglobin is around 8 or 9. At this time etiology is unclear, but it does seem to be from a GI source. Guaiac in ED was positive Does not appear to hemolysis as her T bili within normal limits. Patient is currently on Coumadin for mechanical aortic valve. She endorses a history of dark tarry stools in the past 5 days. Patient does state that she has baseline dark stools as she is on oral iron supplementation. Patient does have a history of diverticulis and she does have some left lower quadrant crampy abdominal pain. Currently denies any bright red blood per rectum or history of GI bleed. However if suspicion for diverticulitis/ diverticulosis still persists, can consider CT of the abdomen in A.M. * Patient was nothing by mouth in the morning in anticipation of endoscopy. * Dr. Buenrostro performed the endoscopy Grossly normal upper endoscopy bleeding or stigmata of recent hemorrhage status post antral biopsies. * Patient will need to follow out on outpatient basis with GI for small bowel PillCam for further evaluation of her anemia and for pathology results * trending CBCs and transfuse to maintain hemoglobin greater than 8 * Patient's diet has been advanced to regular diet. * Anemia workup: Iron WNR, TIBC WNR, folate WNR , B12 254L, retic count, LDH 811 H * As per Hematology consult with Dr. Dunn we will begin parenteral vitamin B12 Supratherapeutic INR in context of prosthetic aortic valve: Patient has [employer] Phani mechanical valve since 1997. Has been on Coumadin for anticoagulation. She states that she has had no incidents in the last 10 years and is generally therapeutic. This time patient is supratherapeutic with INR 4.73. Given GI bleed we held her Coumadin dose. She got one dose of IM Vitamin K in ED. This patient is not actively bleeding at this time, is hemodynamically stable, with prosthetic valve so will not further actively reverse anticoagulation at this time. * We will continue to hold Coumadin for now as per cardiology recommendation. * Started on IV heparin if INR is less than 2 has per cardiology. * The patient will back to warfarin prior to discharge. It outpatient bridging therapy is necessary, Lovenox may be used until INR is therapeutic. Diabetes: Chronic and stable * Regular Insulin sliding scale * Fingersticks Hypertension: Patient is on lisinopril and hydrochlorothiazide at home. She is unclear what dose. In ED patient was normotensive and at this time we will hold all antihypertensives given GI bleed. * we will continue to hold antihypertensive medication given normal blood pressure and recent GI bleed as per cardio recommendations. Problem List: 1. Symptomatic anemia Pain Ratin Pain Location: none Pain Goal: none Pain Plan: none Tomorrow's Labs & Rationales: cbc
--- NOTE | 2017-04-29 14:27 | Cons- Cardiology ---
General Information and HPI Consulting Request Date of Consult: 04/29/17 Requested By: MONTRELL JO MD Reason for Consult: Prosthetic aortic valve History of Present Illness: The patient is a 72-year-old female who is followed by Dr. Argueta with history of St. Phani's mechanical aortic valve replacement in 1997, diabetes mellitus, and chronic anemia. She is maintained on warfarin for the mechanical valve. She reports that her target INR is 2-3. Starting on April 25, the patient noticed dark tarry stools. Her stools are dark baseline secondary to iron supplementation, however for 5 days her ears stools were darker and had a different smell. The patient's daughter found her to be held and fatigued. She complained of dizziness and headache, malaise, and lethargy. She was brought to the emergency department where she was found to be anemic. Warfarin was held, and she was treated with a dose of vitamin K. She underwent upper endoscopy today which was unrevealing. No chest pain. No syncope. No palpitations. No nausea or vomiting. Diaphoresis. Allergies/Medications Allergies: Coded Allergies: ciprofloxacin (Severe, ANAPHYLAXIS 12/19/15) morphine (N/V 02/13/17) tramadol (N/V 04/28/17) aspirin (Intermediate, ON COUMADIN SO SAYS "I CAN'T TAKE IT" 12/19/15) Home Med List: Acetaminophen (Mapap) 500 MG CAPSULE 2 CAP PO PRN PAIN (Reported) Calcium Carbonate/Vitamin D3 (Calcium 500 + D Tablet) (Unknown Strength) TABLET (Unknown Dose) PO DAILY SUPPLEMENT (Reported) Ferrous Sulfate 325 MG (65 MG IRON) TABLET 1 TAB PO DAILY SUPPLEMENT ( Reported) Hydrochlorothiazide 25 MG TABLET 1 TAB PO DAILY BP (Reported) Lisinopril 10 MG TABLET 1 TAB PO DAILY BP (Reported) Metformin HCl (Metformin HCl ER) 500 MG TAB.ER.24H 1 TAB PO BID DM (Reported) Paroxetine HCl (Paxil) 10 MG TABLET 1 TAB PO DAILY MENTAL HEALTH (Reported) Warfarin Sodium (Coumadin) 2.5 MG TABLET 1 TAB PO QPM BLOOD THINNER (Reported ) Current Medications: Current Medications Sig/Eliane Start time Last Medication Dose Route Stop Time Status Admin Chlorhexidine 1 GM .STK-MED ONE 04/29 1328 DC Gluconate TOP 04/29 1329 Insulin Human Regular 0 Q6 04/28 5899 04/29 SC 0603 Pantoprazole Sodium 40 MG .STK-MED ONE 04/29 0014 DC IV 04/29 0015 Pantoprazole Sodium 40 MG BID 04/28 2215 04/29 IV 0933 Patient Medication 1 ED .STK-MED ONE 04/29 1424 DC Teaching ED 04/29 1425 Phytonadione 0 .STK-MED ONE 04/28 193 DC .ROUTE Phytonadione 5 MG ONCE ONE 04/28 1930 DC 04/28 IM 04/28 Review of Systems Review of Systems: No rash. No tremor. No orthopnea. All other systems were reviewed, and were noted to be negative. Past History Travel History Traveled to [place] past 21 day No Medical History Blood Transfusion Hx: Yes Neurological: migraine, HEMICRANIAL CONT. EENT: hearing loss Cardiovascular: hypertension, MECHANICAL VALVE Respiratory: NONE Gastrointestinal: diverticulitis Hepatic: NONE Renal: NONE Musculoskeletal: degen joint disease, osteoarthritis Psychiatric: NONE Endocrine: diabetes Blood Disorders: anemia Cancer(s): NONE MANAGER GIFT/Reproductive: NONE Surgical History Surgical History: appendectomy, tubal ligation, MECHANICAL VALVE L KNEE REPLACEMENT SURGERY TO R BREAST CLOGGED MILK DUCT Family History Relations & Conditions If Any: MOTHER, , Age 55; Cause: Myocardial infarction. FATHER, , Age 59; Cause: Myocardial infarction. SISTER, , Age 40-50. Psychosocial History Where Do You Live? Home Who Do You Live With? self Services at Home: Home Health Aide, Nursing Primary Language: Arabic (also Belarusian) Smoking Status: Former Smoker Living Will? unknown Power of Weight Control Lecturer/HCP? unknown Functional Ability ADLs Independent: dressing, eating, toileting, bathing. Ambulation: independent IADLs Independent: shopping, housework, finances, food prep, telephone, transportation , medication admin. Exam & Diagnostic Data Vital Signs and I&O Vital Signs Date Time Temp Pulse Resp B/P B/P Pulse O2 O2 Flow FiO2 Mean Ox Delivery Rate 04/29 1443 98.1 90 20 120/60 99 Room Air 04/29 0352 97.9 88 16 132/46 99 Room Air 04/29 0105 98.2 92 18 130/48 100 Room Air 04/29 0050 98.6 95 18 128/50 98 Room Air 04/28 2300 98.4 98 18 138/60 98 Room Air 04/28 2247 98.5 100 20 156/50 100 Room Air 04/28 1949 98.7 105 18 144/64 100 Room Air 04/28 1756 97 Room Air 04/28 1713 99.7 68 18 158/63 96 Room Air 04/28 1616 97.1 112 18 137/62 98 Room Air Intake & Output 04/29 0804/29 0000 04/28 1600 04/28 0804/28 0000 Intake Total 500 560 Output Total 200 650 Balance -200 -150 560 Intake, Blood 500 200 Product Intake, Oral 360 Number 1 Bowel Movements Output, Urine 200 650 Patient 135 lb Weight Weight Reported by Patient Measurement Method Physical Exam: Gen: The patient is in no acute distress HEENT: Normal nose, ears, and oropharynx. Pupils equal bilaterally. Conjunctiva normal. Neck: Supple with no JVD, no masses, and no thyromegaly Lungs: Clear to auscultation with normal respiratory effort Heart: Mechanical aortic valve sounds, RRR. No peripheral edema, 2+ pulses in the lower extremities bilaterally Abdomen: Soft, nontender, no masses. No hepatomegaly. No splenomegaly Extremities: No clubbing or cyanosis. Normal muscle strength in the upper and lower extremities Skin: Normal skin turgor with no skin ulcers or lesions noted. Neuro: Cranial nerves intact. Sensation intact Psych: Alert and oriented 3 with appropriate affect Labs/Thad Results: Laboratory Tests 04/29 04/29 04/29 1004 0840 0618 Coagulation PT (9.4 - 12.5 SEC) Cancelled 27.2 H INR (0.90 - 1.19) Cancelled 2.62 H Hematology CBC w Diff NO MAN DIFF REQ WBC (4.8 - 10.8 /CUMM) 6.0 RBC (4.20 - 5.40 /CUMM) 2.98 L Hgb (12.0 - 16.0 G/DL) 8.5 L Hct (37 - 47 %) 25.2 L MCV (81.0 - 99.0 FL) 84.6 MCH (27.0 - 31.0 PG) 28.4 RDW (11.5 - 14.5 %) 16.3 H Plt Count (130 - 400 /CUMM) 202 MPV (7.4 - 10.4 FL) 9.5 Gran % (42.2 - 75.2 %) 64.5 Lymphocytes % (20.5 - 51.1 %) 26.9 Monocytes % (1.7 - 9.3 %) 6.6 Eosinophils % (0 - 5 %) 1.6 Basophils % (0.0 - 2.0 %) 0.4 Absolute Granulocytes (1.4 - 6.5 /CUMM) 3.9 Absolute Lymphocytes (1.2 - 3.4 /CUMM) 1.6 Absolute Monocytes (0.10 - 0.60 /CUMM) 0.4 Absolute Eosinophils (0.0 - 0.7 /CUMM) 0.1 Absolute Basophils (0.0 - 0.2 /CUMM) 0 PUBS MCHC (33.0 - 37.0 G/DL) 33.6 04/28 04/28 1750 1633 Chemistry Sodium (137 - 145 mmol/L) 138 Potassium (3.5 - 5.1 mmol/L) 4.5 Chloride (98 - 107 mmol/L) 107 Carbon Dioxide (22 - 30 mmol/L) 20 L Anion Gap (5 - 16) 11 BUN (7 - 17 mg/dL) 47 H Creatinine (0.5 - 1.0 mg/dL) 1.2 H Estimated GFR (>60 ml/min) 44 L BUN/Creatinine Ratio (7 - 25 %) 39.2 H Glucose (65 - 99 mg/dL) 114 H Calcium (8.4 - 10.2 mg/dL) 9.7 Iron (37 - 170 ug/dL) 39 TIBC (265 - 497 ug/dL) 385 Total Bilirubin (0.2 - 1.3 mg/dL) 0.5 AST (14 - 36 U/L) 24 ALT (9 - 52 U/L) 30 Alkaline Phosphatase (<127 U/L) 51 Lactate Dehydrogenase (313 - 618 U/L) 811 H Troponin I (< 0.11 ng/ml) 0.01 Total Protein (6.3 - 8.2 g/dL) 6.0 L Albumin (3.5 - 5.0 g/dL) 3.7 Globulin (1.9 - 4.2 gm/dL) 2.3 Albumin/Globulin Ratio (1.1 - 2.2 %) 1.6 Vitamin B12 (239 - 931 pg/mL) 235 L Folate (2.76 - 20.0 ng/mL) 7.6 Coagulation PT (9.4 - 12.5 SEC) 48.9 *H INR (0.90 - 1.19) 4.73 *H APTT (25 - 37 SEC) 45 H Hematology CBC w Diff NO MAN DIFF REQ WBC (4.8 - 10.8 /CUMM) 8.0 RBC (4.20 - 5.40 /CUMM) 1.96 L Hgb (12.0 - 16.0 G/DL) 5.6 *L Hct (37 - 47 %) 17.1 *L MCV (81.0 - 99.0 FL) 87.1 MCH (27.0 - 31.0 PG) 28.7 RDW (11.5 - 14.5 %) 16.0 H Plt Count (130 - 400 /CUMM) 260 MPV (7.4 - 10.4 FL) 9.3 Gran % (42.2 - 75.2 %) 67.9 Lymphocytes % (20.5 - 51.1 %) 26.0 Monocytes % (1.7 - 9.3 %) 4.8 Eosinophils % (0 - 5 %) 0.9 Basophils % (0.0 - 2.0 %) 0.4 Absolute Granulocytes (1.4 - 6.5 /CUMM) 5.4 Absolute Lymphocytes (1.2 - 3.4 /CUMM) 2.1 Absolute Monocytes (0.10 - 0.60 /CUMM) 0.4 Absolute Eosinophils (0.0 - 0.7 /CUMM) 0.1 Absolute Basophils (0.0 - 0.2 /CUMM) 0 PUBS MCHC (33.0 - 37.0 G/DL) 32.9 L Retic Count (0.5 - 2.0 %) 9.19 H Diagnostic Data EKG Results EKG tracing is independently reviewed, and reveals sinus tachycardia at 104, premature atrial complexes, borderline T-wave abnormality CXR Results Chest x-ray 02/13/17: No acute intrathoracic process identified. Other Results Echocardiogram 12/12/15: 1. This was a technically difficult and somewhat limited study due to the patient's body habitus. 2. A metallic prosthetic aortic valve is present. The valve appears to be functioning normally. The peak gradient across the prosthetic valve is 34 mmHg which is slightly higher than noted on the previous outpatient study. Mild to moderate aortic insufficiency is present which appears to be central in location. 3. A very small posterior pericardial effusion is present. 4. The left ventricular chamber size is normal. The ejection fraction is normal. Abnormal septal motion is present which is likely a postoperative finding. 5. The right heart structures are grossly normal but were not optimally visualized. Mild to moderate tricuspid insufficiency is present with mild pulmonic insufficiency and no significant pulmonary hypertension. 6. Thickening and calcification of the mitral leaflets is present with fibrosis of the chordal structures and minimal to mild annular calcification with mild to moderate mitral insufficiency and left atrial dilatation. 7. No prior study was available for comparison. Assessment/Plan Assessment/Plan 72-year-old female with [employer]. Phnai's mechanical aortic valve, hypertension, chronic anemia admitted with melena and severe anemia. INR was supratherapeutic on admission and is now in the therapeutic range after a single dose of vitamin K. The patient does not appear to be actively bleeding at this time, and upper endoscopy was unremarkable. Recommendations: * Agree with holding warfarin for now. * Start IV heparin per protocol once INR is less than 2.0 if okay with GI. * The patient should be transitioned back to warfarin prior to discharge. It outpatient bridging therapy is necessary, Lovenox may be used until INR is therapeutic. * I agree with holding hypertension medications for now given normal blood pressure and recent GI bleed Consult Acknowledgment - Thank you for your consult request.
[2017-04-29 14:43] VITALS: BP 120/60
--- NOTE | 2017-04-29 15:48 | NUR ---
11:50- PT LEFT FLOOR FOR GI SUITE. 14:30- PT RETURNED TO FLOOR FROM GI. REPORT REC'D FROM DARIO HAWNG RN. PT HAD NORMAL UPPER ENDOSCOPY. A FEW BIOPSIES TAKEN. VSS. TOLERATED PROCEURE.
--- NOTE | 2017-04-29 17:24 | PN- Att Addend ---
Attending Addendum Attending Brief Note Patient color improved looking and feeling a little better. Vital signs are stable she's got transfusions and patient is nothing by mouth for GI endoscopies today. Depending on the results decide what the next treatment is 24 TOTALS 04/29 0000 04/28 0000 Intake Total 560 Output Total Balance 560 Intake, Blood 200 Product Intake, Oral 360 Patient 135 lb Weight Weight Reported by Patient Measurement Method Current Medications Sig/Eliane Start time Last Medication Dose Route Stop Time Status Admin Chlorhexidine 1 GM .STK-MED ONE 04/29 1328 DC Gluconate TOP 04/29 1329 Insulin Human Regular 0 Q6 04/28 2359 04/29 SC 0603 Pantoprazole Sodium 40 MG .STK-MED ONE 04/29 0014 DC IV 04/29 0015 Pantoprazole Sodium 40 MG BID 04/28 2215 04/29 IV 0933 Patient Medication 1 ED .STK-MED ONE 04/29 1424 DC Teaching ED 04/29 142 Phytonadione 0 .STK-MED ONE 04/28 193 DC .ROUTE Phytonadione 5 MG ONCE ONE 04/28 1930 DC 04/28 IM 04/28 Laboratory Tests 04/29/17 1004: PT Cancelled, INR Cancelled 04/29/17 0840: PT 27.2 H, INR 2.62 H 04/29/17 0618: CBC w Diff NO MAN DIFF REQ, RBC 2.98 L, MCV 84.6, MCH 28.4, RDW 16.3 H, MPV 9.5, Gran % 64.5, Lymphocytes % 26.9, Monocytes % 6.6, Eosinophils % 1.6, Basophils % 0.4, Absolute Granulocytes 3.9, Absolute Lymphocytes 1.6, Absolute Monocytes 0.4, Absolute Eosinophils 0.1, Absolute Basophils 0, PUBS MCHC 33.6 04/28/17 1750: PT 48.9 *H, INR 4.73 *H, APTT 45 H 04/28/17 1633: Anion Gap 11, Estimated GFR 44 L, BUN/Creatinine Ratio 39.2 H, Glucose 114 H, Calcium 9.7, Iron 39, TIBC 385, Total Bilirubin 0.5, AST 24, ALT 30, Alkaline Phosphatase 51, Lactate Dehydrogenase 811 H, Troponin I 0.01, Total Protein 6.0 L, Albumin 3.7, Globulin 2.3, Albumin/Globulin Ratio 1.6, Vitamin B12 235 L, Folate 7.6, CBC w Diff NO MAN DIFF REQ, RBC 1.96 L, MCV 87.1, MCH 28.7, RDW 16.0 H, MPV 9.3, Gran % 67.9, Lymphocytes % 26.0, Monocytes % 4.8, Eosinophils % 0.9, Basophils % 0.4, Absolute Granulocytes 5.4, Absolute Lymphocytes 2.1, Absolute Monocytes 0.4, Absolute Eosinophils 0.1, Absolute Basophils 0, PUBS MCHC 32.9 L, Retic Count 9.19 H
[2017-04-29 21:18] LABS: ABSOLUTE BASOPHIL COUNT 0 /CUMM (0.0-0.2); ABSOLUTE EOSINOPHIL COUNT 0.1 /CUMM (0.0-0.7); ABSOLUTE GRANULOCYTE CT 5.6 /CUMM (1.4-6.5); ABSOLUTE LYMPH COUNT 1.6 /CUMM (1.2-3.4); ABSOLUTE MONOCYTE COUNT 0.5 /CUMM (0.10-0.60); BASOPHIL % 0.4 % (0.0-2.0); EOSINOPHIL % 1.1 % (0-5); GRANULOCYTE % 72.1 % (42.2-75.2); HEMATOCRIT 25.9 % (37-47); MEAN CORPUSCULAR HGB 28.3 PG (27.0-31.0); MEAN CORPUSCULAR HGB CONC 33.1 G/DL (33.0-37.0); MEAN CORPUSCULAR VOLUME 85.4 FL (81.0-99.0); MEAN PLATELET VOLUME 9.5 FL (7.4-10.4); PLATELET COUNT 226 /CUMM (130-400); RBC DISTRIBUTION WIDTH 16.8 % (11.5-14.5); RED BLOOD CELL CT 3.03 /CUMM (4.20-5.40); WHITE BLOOD CELL COUNT 7.8 /CUMM (4.8-10.8)
--- NOTE | 2017-04-29 21:37 | NUR ---
LATE ENTRY: SPOKE WITH RAY PEÑA TO REPORT PT HAD 2 LARGE BM'S THIS SHIFT, BOTH BLACK IN COLOR, LOOSE, AND GUIAC POSITIVE, NO BRIGHT RED BLOOD. ORDER OBTAINED FOR CBC. PT DENIES DIZZINESS. VSS. TOLERATING REGULAR DIET FOR DINNER. DENIES NAUSEA. +BS X 4.
[2017-04-29 22:07] VITALS: BP 124/60
[2017-04-30 06:29] VITALS: BP 118/60
--- NOTE | 2017-04-30 06:50 | PN- Hematology ---
Subjective Subjective: Feeling generally better, had diarrhea Review of Systems: 12 point review of systems unchanged Objective Vital Signs and I&Os Vital Signs Date Time Temp Pulse Resp B/P B/P Pulse O2 O2 Flow FiO2 Mean Ox Delivery Rate 04/30 06 98.6 85 20 118/60 99 Room Air 04/29 2207 98.3 91 20 124/60 98 04/29 1443 98.1 90 20 120/60 99 Room Air Intake & Output 04/30 0800 04/30 0000 04/29 1600 04/29 0804/29 0000 04/28 1600 Intake Total 50 240 500 560 Output Total 600 650 Balance 50 -360 -150 560 Intake, Blood 500 200 Product Intake, Oral 50 240 360 Number 2 1 Bowel Movements Output, Urine 600 650 Patient 135 lb Weight Weight Reported by Patient Measurement Method Gen.: in NAD ENT: Sclera anicteric Chest: Normal respiratory effort, clear breath sounds Cor: RRR, no extra sounds Abdomen: Soft, bowel sounds present, no tenderness, no rebound Extremities: Without clubbing, cyanosis, or asymmetric edema Neurology: Alert and oriented 3, no gross deficit Current Medications: Current Medications Sig/Eliane Start time Last Medication Dose Route Stop Time Status Admin Chlorhexidine 1 GM .STK-MED ONE 04/29 1328 DC Gluconate TOP 04/29 1329 Insulin Human Regular 0 TIDAC/HS 04/29 1800 04/29 SC 1932 Insulin Human Regular 0 Q6 04/28 2359 CA 04/29 SC 0603 Pantoprazole Sodium 40 MG BID 04/28 2215 04/29 IV 2052 Patient Medication 1 ED .STK-MED ONE 04/29 1424 CA Teaching ED 04/29 1425 Results Last 24 Hours of Lab Results: Laboratory Tests 04/29 04/29 04/29 2035 1004 0840 Coagulation PT (9.4 - 12.5 SEC) Cancelled 27.2 H INR (0.90 - 1.19) Cancelled 2.62 H Hematology CBC w Diff NO MAN DIFF REQ WBC (4.8 - 10.8 /CUMM) 7.8 RBC (4.20 - 5.40 /CUMM) 3.03 L Hgb (12.0 - 16.0 G/DL) 8.6 L Hct (37 - 47 %) 25.9 L MCV (81.0 - 99.0 FL) 85.4 MCH (27.0 - 31.0 PG) 28.3 RDW (11.5 - 14.5 %) 16.8 H Plt Count (130 - 400 /CUMM) 226 MPV (7.4 - 10.4 FL) 9.5 Gran % (42.2 - 75.2 %) 72.1 Lymphocytes % (20.5 - 51.1 %) 20.0 L Monocytes % (1.7 - 9.3 %) 6.4 Eosinophils % (0 - 5 %) 1.1 Basophils % (0.0 - 2.0 %) 0.4 Absolute Granulocytes (1.4 - 6.5 /CUMM) 5.6 Absolute Lymphocytes (1.2 - 3.4 /CUMM) 1.6 Absolute Monocytes (0.10 - 0.60 /CUMM) 0.5 Absolute Eosinophils (0.0 - 0.7 /CUMM) 0.1 Absolute Basophils (0.0 - 0.2 /CUMM) 0 PUBS MCHC (33.0 - 37.0 G/DL) 33.1 Assessment/Plan Assessment/Recommendations: 1. Anemia-EGD failed to reveal significant bleeding source. Patient appears clinically improved Recommend-as they discussed in my consultation note, please give parenteral vitamin B12 Follow-up my office after discharge
--- NOTE | 2017-04-30 07:39 | PN- Housestaff ---
Subjective Follow-up For: Acute blood loss anemia Complaints: no complaints Subjective: I have seen and examined the patient patient is sitting comfortably in chair.she was combing her hair. I informed her that she needs to follow-up with hematology and Dr. Buenrostro gastroentrology as outpatient. She is otherwise doing well she does not have any complaints. She does not complain of chest pain or palpitations. She says that her shortness of breath has improved. She is using the bathroom independently. Review of Systems Constitutional: Denies: malaise, weakness. Cardiovascular: Denies: chest pain, palpitations. Respiratory: Reports: short of breath. Denies: cough. Gastrointestinal: Reports: melena. Denies: abdominal pain, bloating. Genitourinary: Reports: no symptoms. Musculoskeletal: Reports: no symptoms. Skin: Reports: no symptoms. Objective Last 24 Hrs of Vital Signs/I&O Vital Signs Date Time Temp Pulse Resp B/P B/P Pulse O2 O2 Flow FiO2 Mean Ox Delivery Rate 04/30 0629 98.6 85 20 118/60 99 Room Air 04/29 2207 98.3 91 20 124/60 98 04/29 1443 98.1 90 20 120/60 99 Room Air Intake & Output 04/30 1600 04/30 0800 04/30 0000 Intake Total 50 Output Total Balance 50 Intake, Oral 50 Number 2 Bowel Movements Physical Exam General Appearance: Alert, Oriented X3, Cooperative Skin: No Rashes, No Breakdown, pale mucous membranes and conjunctival pallor HEENT: Atraumatic Cardiovascular: Normal S1, Normal S2, murmur? Lungs: Clear to Auscultation, Normal Air Movement Abdomen: Normal Bowel Sounds, Soft, No Tenderness Neurological: Normal Speech Extremities: No Cyanosis, No Edema Current Medications: Current Medications Sig/Eliane Start time Last Medication Dose Route Stop Time Status Admin Chlorhexidine 1 GM .STK-MED ONE 04/29 1328 DC Gluconate TOP 04/29 1329 Cyanocobalamin 1,000 MCG ONCE ONE 04/30 0730 DC 04/30 IM 04/30 0731 0847 Heparin Sodium 25,000 UNIT Q24H 04/30 0930 AC 04/30 (Porcine) IV 1031 Sodium Chloride 500 ML Insulin Human Regular 0 TIDAC/HS 04/29 1800 AC 04/30 SC 0846 Insulin Human Regular 0 Q6 04/28 2359 DC 04/29 NE 0603 Pantoprazole Sodium 40 MG BID 04/28 2215 AC 04/30 IV 0847 Patient Medication 1 ED .STK-MED ONE 04/29 1424 MI Teaching ED 04/29 1425 Warfarin Sodium 2.5 MG COUMADIN 1700 ONE 04/30 1700 AC PO 04/30 1701 Assessment/Plan Assessment: This is a 72-year-old female past medical history significant for [employer] 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 ED workup shows significant anemia with hemoglobin 5.6 and hematocrit 17.1. Workup: Vitals: 98.7, 112, 18, 137/62, 98 EKG: Rate 104, normal sinus without any acute abnormalities noted CBC: Hemoglobin 5.6, hematocrit 17.1, white count 8.0, platelet 260. INR 4.73 BEP: BUN 47, creatinine 1.2 LFT within normal limits, T bili 0.5 Echocardiogram in 12/12/2015 shows EF 55-60. Stress test in 12/08/2015 WNL PLAN Acute blood loss anemia: Patient has hemoglobin 5.6 and hematocrit 17.1. Her baseline hemoglobin is around 8 or 9. At this time etiology is unclear, but it does seem to be from a GI source. Guaiac in ED was positive Does not appear to hemolysis as her T bili within normal limits. Patient is currently on Coumadin for mechanical aortic valve. She endorses a history of dark tarry stools in the past 5 days. Patient does state that she has baseline dark stools as she is on oral iron supplementation. Patient does have a history of diverticulis and she does have some left lower quadrant crampy abdominal pain. Currently denies any bright red blood per rectum or history of GI bleed. However if suspicion for diverticulitis/ diverticulosis still persists, can consider CT of the abdomen in A.M. * Dr. Buenrostro performed the endoscopy Grossly normal upper endoscopy bleeding or stigmata of recent hemorrhage status post antral biopsies yesterday * Patient will need to follow out on outpatient basis with GI for small bowel PillCam for further evaluation of her anemia and for pathology results * trending CBCs and transfuse to maintain hemoglobin greater than 8. today 8.1 * Patient's diet has been advanced to regular diet. * Anemia workup: Iron WNR, TIBC WNR, folate WNR , B12 254L, retic count, LDH 811 H * As per Hematology consult with Dr. Dunn we have started parenteral vitamin B12. * Patient will need to follow-up with Dr. 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 Phani mechanical valve since 1997. Has been on Coumadin for anticoagulation. She states that she has had no incidents in the last 10 years and is generally therapeutic. This time patient is supratherapeutic with INR 4.73. Given GI bleed we held her Coumadin dose. She got one dose of IM Vitamin K in ED. This patient is not actively bleeding at this time, is hemodynamically stable, with prosthetic valve so will not further actively reverse anticoagulation at this time. * We will continue to hold Coumadin for now as per cardiology recommendation. * Started on IV heparin as INR is less than 2 (1.4) as per cardiology. * The patient will back to warfarin prior to discharge. It outpatient bridging therapy is necessary Lovenox may be used until INR is therapeutic. * Post discharge, the patient will require very close monitoring of her INR in view of the recent dose of vitamin K given. Dr. Argueta wants to follow up outpatient and set up home INR monitoring system Diabetes: Chronic and stable * Regular Insulin sliding scale * Fingersticks Hypertension: Patient is on lisinopril and hydrochlorothiazide at home. She is unclear what dose. In ED patient was normotensive and at this time we will hold all antihypertensives given GI bleed. * we will continue to hold antihypertensive medication given normal blood pressure and recent GI bleed as per cardio recommendations. Problem List: 1. Symptomatic anemia Pain Ratin Pain Location: none Pain Goal: Pain 4 or less Pain Plan: none Tomorrow's Labs & Rationales: cbc bep inr DVT/Prophylaxis: pharmacological, heparin
[2017-04-30 08:35] LABS: PT 14.6 SEC (9.4-12.5)
[2017-04-30 10:38] LABS: ABSOLUTE BASOPHIL COUNT 0 /CUMM (0.0-0.2); ABSOLUTE EOSINOPHIL COUNT 0.1 /CUMM (0.0-0.7); ABSOLUTE GRANULOCYTE CT 4.3 /CUMM (1.4-6.5); ABSOLUTE LYMPH COUNT 1.2 /CUMM (1.2-3.4); ABSOLUTE MONOCYTE COUNT 0.3 /CUMM (0.10-0.60); BASOPHIL % 0.4 % (0.0-2.0); EOSINOPHIL % 1.6 % (0-5); GRANULOCYTE % 73.4 % (42.2-75.2); HEMATOCRIT 24.7 % (37-47); MEAN CORPUSCULAR HGB 28.1 PG (27.0-31.0); MEAN CORPUSCULAR HGB CONC 32.9 G/DL (33.0-37.0); MEAN CORPUSCULAR VOLUME 85.3 FL (81.0-99.0); MEAN PLATELET VOLUME 9.6 FL (7.4-10.4); PLATELET COUNT 222 /CUMM (130-400); RBC DISTRIBUTION WIDTH 16.7 % (11.5-14.5); RED BLOOD CELL CT 2.89 /CUMM (4.20-5.40); WHITE BLOOD CELL COUNT 5.9 /CUMM (4.8-10.8)
--- NOTE | 2017-04-30 10:46 | Discharge Summary ---
Visit Information Visit Dates Admission Date: 04/28/17 Discharge Date: 05/01/17 Hospital Course Course Attending Physician: WILSON DEGROOT MD Primary Care Physician: MIKAYLA CARRILLO,WILSON Hospital Course: This is a 72-year-old female past medical history significant for [employer] 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 ED workup shows significant anemia with hemoglobin 5.6 and hematocrit 17.1. Workup: Vitals: 98.7, 112, 18, 137/62, 98 EKG: Rate 104, normal sinus without any acute abnormalities noted CBC: Hemoglobin 5.6, hematocrit 17.1, white count 8.0, platelet 260. INR 4.73 BEP: BUN 47, creatinine 1.2 LFT within normal limits, T bili 0.5 Echocardiogram in 12/12/2015 shows EF 55-60. Stress test in 12/08/2015 WNL PLAN Acute blood loss anemia: Patient had hemoglobin 5.6 and hematocrit 17.1. Her baseline hemoglobin is around 8 or 9.Guaiac in ED was positive Does not appear to be hemolysis as her T bili within normal limits. Patient is currently on Coumadin for mechanical aortic valve. She endorsed a history of dark tarry stools in the past 5 days. Patient stated that she has baseline dark stools as she is on oral iron supplementation. * Dr. Buenrostro performed the endoscopy 04/29.Grossly normal upper endoscopy bleeding or stigmata of recent hemorrhage status post antral biopsies yesterday * Patient will need to follow out on outpatient basis with GI for small bowel PillCam for further evaluation of her anemia and for pathology results * trended CBCs and transfused to maintain hemoglobin greater than 8. today 8.7 * Patient's diet was advanced to regular diet. * Anemia workup showed Iron WNR, TIBC WNR, folate WNR , B12 254L, retic count, LDH 811 H * As per Hematology consult with Dr. Dunn we started parenteral vitamin B12. * Patient will need to follow-up with Dr. Dunn for anemia Supra/Subtherapeutic INR in context of prosthetic aortic valve: Patient has [employer] Phani mechanical valve since 1997. Has been on Coumadin for anticoagulation. She states that she has had no incidents in the last 10 years and is generally therapeutic. This time patient was supratherapeutic with INR 4.73. Given GI bleed we held her Coumadin dose. She got one dose of IM Vitamin K in ED. This patient was not actively bleeding at this time and hemodynamically stable, with prosthetic valve so did not further actively reverse anticoagulation at that time. * Started on IV heparin as INR is less than 2 (1.4) as per cardiology on 04/30 * Post discharge, the patient will require very close monitoring of her INR in view of the recent dose of vitamin K given. * Dr. Argueta wants to follow up outpatient * Social workers have set up home INR monitoring system * we have started her warfarin and dischargig her on Lovenox and coumadin in view of her subtherapeutic INR which is 1.4 today. * Will need to continue inr mointoring until INR is therapeutic Diabetes: Chronic and stable continue home meds Hypertension: Patient is on lisinopril and hydrochlorothiazide at home. She is unclear what dose. In ED patient was normotensive and at this time we will hold all antihypertensives given GI bleed. 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 Allergies: Coded Allergies: ciprofloxacin (Severe, ANAPHYLAXIS 12/19/15) morphine (N/V 02/13/17) tramadol (N/V 04/28/17) aspirin (Intermediate, ON COUMADIN SO SAYS "I CAN'T TAKE IT" 12/19/15) Disposition Summary Disposition Principal Diagnosis: Acute blood loss anemia Sup/Subratherapeutic INR in context of prosthetic aortic valve Additional Diagnosis: Diabetes Hypertension Discharge Disposition: home health services Discharge Instructions General Discharge Information Code Status: Full Code Patient's Diet: regular Patient's Activity: as tolerated Follow-Up Instructions/Appts: Follow-up with GI for small bowel PillCam for further evaluation of her anemia and for pathology results Follow-up with Dr. Dunn for anemia Follow-up Dr. Argueta Monitor INR until theraputic Follow-up with PCP Medications at Discharge Discharge Medications: Continue taking these medications: Metformin HCl (Metformin HCl ER) 500 MG TAB.ER.24H 1 Tablet ORAL TWICE DAILY Qty = 360 Comments: DID NOT RECEIVE IN HOSPITAL Warfarin Sodium (Coumadin) 2.5 MG TABLET 1 Tablet ORAL Every night Qty = 90 Comments: Last Taken:05/01/17 Time:1900 Lisinopril (Lisinopril) 10 MG TABLET 1 Tablet ORAL DAILY Qty = 90 Comments: DID NOT RECEIVE IN HOSPITAL Paroxetine HCl (Paxil) 10 MG TABLET 1 Tablet ORAL DAILY Qty = 30 Comments: DID NOT RECEIVE IN HOSPITAL Hydrochlorothiazide (Hydrochlorothiazide) 25 MG TABLET 1 Tablet ORAL DAILY Qty = 90 Comments: DID NOT RECEIVE IN HOSPITAL Calcium Carbonate/Vitamin D3 (Calcium 500 + D Tablet) (Unknown Strength) TABLET Unknown Dose ORAL DAILY Comments: DID NOT RECEIVE IN HOSPITAL Ferrous Sulfate (Ferrous Sulfate) 325 MG (65 MG IRON) TABLET 1 Tablet ORAL DAILY Comments: DID NOT RECEIVE IN HOSPITAL Acetaminophen (Mapap) 500 MG CAPSULE 2 Capsule ORAL as needed for PAIN Comments: DID NOT RECEIVE IN HOSPITAL Start taking the following new medications: Enoxaparin Sodium (Lovenox) 60 MG/0.6 ML SYRINGE 60 Milligram Inject into fatty tissue Q12H Qty = 7 No Refills Comments: Last Taken:05/02/17 Time:0600 Copies To: MIKAYLA CARRILLO,WILSON
--- NOTE | 2017-04-30 13:01 | PN- Cardiology ---
Subjective Subjective: The patient appears to be doing better today. She is sitting at the bedside and tolerating by mouth. No cardiac symptoms at the moment. Objective Vital Signs and I&Os Vital Signs Date Time Temp Pulse Resp B/P B/P Pulse O2 O2 Flow FiO2 Mean Ox Delivery Rate 04/30 0629 98.6 85 20 118/60 99 Room Air 04/29 2207 98.3 91 20 124/60 98 04/29 1443 98.1 90 20 120/60 99 Room Air Intake & Output 04/30 1600 04/30 0800 04/30 0000 04/29 1600 04/29 0800 04/29 0000 Intake Total 50 240 500 560 Output Total 600 650 Balance 50 -360 -150 560 Intake, Blood 500 200 Product Intake, Oral 50 240 360 Number 2 1 Bowel Movements Output, Urine 600 650 Patient 135 lb Weight Weight Reported by Patient Measurement Method Current Medications: Current Medications Sig/Eliane Start time Last Medication Dose Route Stop Time Status Admin Chlorhexidine 1 GM .STK-MED ONE 04/29 1328 DC Gluconate TOP 04/29 1329 Cyanocobalamin 1,000 MCG ONCE ONE 04/30 0730 DC 04/30 IM 04/30 0731 0847 Heparin Sodium 25,000 UNIT Q24H 04/30 0930 AC 04/30 (Porcine) IV 1031 Sodium Chloride 500 ML Insulin Human Regular 0 TIDAC/HS 04/29 1800 AC 04/30 SC 1219 Insulin Human Regular 0 Q6 04/28 2359 PR 04/29 SC 0603 Pantoprazole Sodium 40 MG BID 04/28 2215 AC 04/30 IV 0847 Patient Medication 1 ED .STK-MED ONE 04/29 1424 PR Teaching ED 04/29 1425 Warfarin Sodium 2.5 MG COUMADIN 1700 ONE 04/30 1700 AC PO 04/30 1701 Results Last 48 Hrs of Labs/Mics: Laboratory Tests 04/30/17 0620: Anion Gap 7, Estimated GFR 54 L, BUN/Creatinine Ratio 33.0 H, PT 14.6 H, INR 1.40 H, CBC w Diff NO MAN DIFF REQ, RBC 2.89 L, MCV 85.3, MCH 28.1, RDW 16.7 H, MPV 9.6, Gran % 73.4, Lymphocytes % 20.0 L, Monocytes % 4.6, Eosinophils % 1.6, Basophils % 0.4, Absolute Granulocytes 4.3, Absolute Lymphocytes 1.2, Absolute Monocytes 0.3, Absolute Eosinophils 0.1, Absolute Basophils 0, PUBS MCHC 32.9 L 04/29/175: CBC w Diff NO MAN DIFF REQ, RBC 3.03 L, MCV 85.4, MCH 28.3, RDW 16.8 H, MPV 9.5, Gran % 72.1, Lymphocytes % 20.0 L, Monocytes % 6.4, Eosinophils % 1.1, Basophils % 0.4, Absolute Granulocytes 5.6, Absolute Lymphocytes 1.6, Absolute Monocytes 0.5, Absolute Eosinophils 0.1, Absolute Basophils 0, PUBS MCHC 33.1 04/29/17 1004: PT Cancelled, INR Cancelled 04/29/17 0840: PT 27.2 H, INR 2.62 H 04/29/17 0618: CBC w Diff NO MAN DIFF REQ, RBC 2.98 L, MCV 84.6, MCH 28.4, RDW 16.3 H, MPV 9.5, Gran % 64.5, Lymphocytes % 26.9, Monocytes % 6.6, Eosinophils % 1.6, Basophils % 0.4, Absolute Granulocytes 3.9, Absolute Lymphocytes 1.6, Absolute Monocytes 0.4, Absolute Eosinophils 0.1, Absolute Basophils 0, [facility] MCHC 33.6 04/28/17 1750: PT 48.9 *H, INR 4.73 *H, APTT 45 H 04/28/17 1633: Anion Gap 11, Estimated GFR 44 L, BUN/Creatinine Ratio 39.2 H, Glucose 114 H, Calcium 9.7, Iron 39, TIBC 385, Total Bilirubin 0.5, AST 24, ALT 30, Alkaline Phosphatase 51, Lactate Dehydrogenase 811 H, Troponin I 0.01, Total Protein 6.0 L, Albumin 3.7, Globulin 2.3, Albumin/Globulin Ratio 1.6, Vitamin B12 235 L, Folate 7.6, CBC w Diff NO MAN DIFF REQ, RBC 1.96 L, MCV 87.1, MCH 28.7, RDW 16.0 H, MPV 9.3, Gran % 67.9, Lymphocytes % 26.0, Monocytes % 4.8, Eosinophils % 0.9, Basophils % 0.4, Absolute Granulocytes 5.4, Absolute Lymphocytes 2.1, Absolute Monocytes 0.4, Absolute Eosinophils 0.1, Absolute Basophils 0, PUBS MCHC 32.9 L, Retic Count 9.19 H Assessment/Plan Assessment/Plan Assessment: 1. Severe anemia with evidence of GI bleeding. 2. [employer] Phani mechanical aortic valve replacement 3. Hypertension 4. History of chronic anemia 5. Supratherapeutic INR Recommendations: -For now, I will continue as per the medical team. -Continue IV heparin pending therapeutic INR -Further outpatient GI workup as per the GI service. -Post discharge, the patient will require very close monitoring of her INR in view of the recent dose of vitamin K given. I will arrange this further as an outpatient. I discussed the possibility of a home INR monitoring system with the patient's daughter. We will work on this further as an outpatient.
[2017-04-30 14:53] VITALS: BP 110/56
[2017-04-30 18:22] LABS: PTT > 120 SEC (25-37)
--- NOTE | 2017-04-30 18:42 | PN- Att Addend ---
Attending Addendum Attending Brief Note Patient overall feeling better ambulating with the daughter. Vital signs are stable no fever she had a transfusion she had an upper endoscopy and I discussed it with Dr. Buenrostro there were no acute findings or patient may need a PillCam as an outpatient. She Dr. Dunn's input and recommendations regarding starting vitamin B12. Will check with cardiology regarding the anticoagulation which projectiles not an acute contraindication at this time . After the anticoagulation issue is resolved then we can start disposition plans 24 TOTALS 04/30 0000 04/29 0000 Intake Total 740 560 Output Total 1250 Balance -510 560 Intake, Blood 500 200 Product Intake, Oral 240 360 Number 3 Bowel Movements Output, Urine 1250 Patient 135 lb Weight Weight Reported by Patient Measurement Method Current Medications Sig/Eliane Start time Last Medication Dose Route Stop Time Status Admin Cyanocobalamin 1,000 MCG ONCE ONE 04/30 0730 DC 04/30 IM 04/30 0731 0847 Heparin Sodium 25,000 UNIT Q24H 04/30 0930 AC 04/30 (Porcine) IV 1031 Sodium Chloride 500 ML Insulin Human Regular 2 UNITS .STK-MED ONE 04/30 0843 DC IV 04/30 0844 Insulin Human Regular 0 TIDAC/HS 04/29 1800 AC 04/30 SC 1648 Pantoprazole Sodium 40 MG BID 04/28 2215 AC 04/30 IV 0847 Warfarin Sodium 2.5 MG COUMADIN 1700 ONE 04/30 1700 DC 04/30 PO 04/30 1701 1648 Laboratory Tests 04/30/17 1751: APTT > 120 *H 04/30/17 0620: Anion Gap 7, Estimated GFR 54 L, BUN/Creatinine Ratio 33.0 H, PT 14.6 H, INR 1.40 H, CBC w Diff NO MAN DIFF REQ, RBC 2.89 L, MCV 85.3, MCH 28.1, RDW 16.7 H, MPV 9.6, Gran % 73.4, Lymphocytes % 20.0 L, Monocytes % 4.6, Eosinophils % 1.6, Basophils % 0.4, Absolute Granulocytes 4.3, Absolute Lymphocytes 1.2, Absolute Monocytes 0.3, Absolute Eosinophils 0.1, Absolute Basophils 0, PUBS MCHC 32.9 L 04/29/172034: CBC w Diff NO MAN DIFF REQ, RBC 3.03 L, MCV 85.4, MCH 28.3, RDW 16.8 H, MPV 9.5, Gran % 72.1, Lymphocytes % 20.0 L, Monocytes % 6.4, Eosinophils % 1.1, Basophils % 0.4, Absolute Granulocytes 5.6, Absolute Lymphocytes 1.6, Absolute Monocytes 0.5, Absolute Eosinophils 0.1, Absolute Basophils 0, PUBS MCHC 33.1 04/29/17 1004: PT Cancelled, INR Cancelled 04/29/17 0840: PT 27.2 H, INR 2.62 H 04/29/17 0618: CBC w Diff NO MAN DIFF REQ, RBC 2.98 L, MCV 84.6, MCH 28.4, RDW 16.3 H, MPV 9.5, Gran % 64.5, Lymphocytes % 26.9, Monocytes % 6.6, Eosinophils % 1.6, Basophils % 0.4, Absolute Granulocytes 3.9, Absolute Lymphocytes 1.6, Absolute Monocytes 0.4, Absolute Eosinophils 0.1, Absolute Basophils 0, PUBS MCHC 33.6
[2017-04-30 22:54] VITALS: BP 140/50
[2017-05-01 01:29] LABS: PTT > 120 SEC (25-37)
--- NOTE | 2017-05-01 03:35 | Event Note ---
Event Note Event Note: S: Were notified by the nurse on duty that this patient was experiencing some epigastric pain and complaining of nausea. Presented to bedside with the internet database specialist. Pain was rated a 6 out of 10 in severity. Did not radiate anywhere. Patient states that she hasn't had pain like this before. Pain did not wake her from sleep however once woken due to blood draw she expressed pain. B: This is a patient who is here for symptomatical anemia recently underwent extensive GI workup currently on IV heparin. A/R: We ordered an EKG, Zofran by mouth for nausea and calcium carbonate. We subsequently visited the patient half an hour following her symptomatic complaints and she says that she was able to use the restroom and pass gas. She feels much better now. EKG did not show any acute changes. We'll continue to monitor.
[2017-05-01 06:51] VITALS: BP 140/40
--- NOTE | 2017-05-01 08:22 | PN- Housestaff ---
Subjective Follow-up For: Acute blood loss anemia Subtherapeutic INR Complaints: no complaints Subjective: I have seen and examined the patient. The patient is sitting comfortably in her chair. She just went to the bathroom. She is ambulating well. She does not want to stay in the hospital. Last night she had some nausea and some abdominal distention. She was given Zofran and she feels much better. There are no active complaints. She denies any shortness of breath palpitations or chest pain. Review of Systems Constitutional: Reports: no symptoms. Objective Last 24 Hrs of Vital Signs/I&O Vital Signs Date Time Temp Pulse Resp B/P B/P Pulse O2 O2 Flow FiO2 Mean Ox Delivery Rate 05/01 0651 98.7 86 20 140/40 98 Room Air 04/30 2254 98.4 89 20 140/50 100 Room Air 04/30 1453 97.7 88 20 110/56 99 Intake & Output 05/01 1600 05/01 0800 05/01 0000 Intake Total 203.5 168.4 Output Total Balance 203.5 168.4 Intake, IV 103.5 68.4 Intake, Oral 100 100 Physical Exam General Appearance: Alert, Oriented X3, Cooperative, No Acute Distress Skin: No Rashes, No Breakdown, looks pale Neck: Supple Cardiovascular: Regular Rate, Normal S1, Normal S2 Lungs: Clear to Auscultation, Normal Air Movement Abdomen: Normal Bowel Sounds, Soft, No Tenderness Neurological: Normal Speech Extremities: No Edema Vascular: Normal Pulses Current Medications: Current Medications Sig/Eliane Start time Last Medication Dose Route Stop Time Status Admin Calcium Carbonate 500 MG ONCE ONE 05/01 0315 DC 05/01 PO 05/01 0316 0321 Heparin Sodium 25,000 UNIT Q24H 04/30 0930 05/01 (Porcine) IV 0135 Sodium Chloride 500 ML Insulin Human Regular 1 UNITS .STK-MED ONE 04/30 1647 DC IV 04/30 1648 Insulin Human Regular 0 TIDAC/HS 04/29 1800 AC 05/01 SC 1310 Ondansetron HCl 4 MG ONCE ONE 05/01 0315 DC 05/01 PO 05/01 0316 0322 Pantoprazole Sodium 40 MG BID 04/28 2215 AC 05/01 IV 0913 Polyethylene Glycol 17 GM ONCE ONE 05/01 1130 DC 05/01 PO 05/01 1131 1221 Warfarin Sodium 2.5 MG COUMADIN 1700 ONE 04/30 1700 DC 04/30 PO 04/30 1701 1648 Last 24 Hrs of Lab/Thad Results Last 24 Hrs of Labs/Mics: Laboratory Tests 05/01/17 0750: Anion Gap 10, Estimated GFR 49 L, BUN/Creatinine Ratio 30.9 H, PT 15.1 H, INR 1.44 H, APTT > 120 *H, CBC w Diff NO MAN DIFF REQ, RBC 3.00 L, MCV 86.3, MCH 29.0, RDW 16.4 H, MPV 9.4, Gran % 68.0, Lymphocytes % 24.6, Monocytes % 4.6, Eosinophils % 2.4, Basophils % 0.4, Absolute Granulocytes 4.4, Absolute Lymphocytes 1.6, Absolute Monocytes 0.3, Absolute Eosinophils 0.2, Absolute Basophils 0, PUBS MCHC 33.6 05/01/17 0035: APTT > 120 *H 04/30/17 1751: APTT > 120 *H Assessment/Plan Assessment: This is a 72-year-old female past medical history significant for [employer] 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 ED workup shows significant anemia with hemoglobin 5.6 and hematocrit 17.1. Workup: Vitals: 98.7, 112, 18, 137/62, 98 EKG: Rate 104, normal sinus without any acute abnormalities noted CBC: Hemoglobin 5.6, hematocrit 17.1, white count 8.0, platelet 260. INR 4.73 BEP: BUN 47, creatinine 1.2 LFT within normal limits, T bili 0.5 Echocardiogram in 12/12/2015 shows EF 55-60. Stress test in 12/08/2015 WNL PLAN Acute blood loss anemia: Patient had hemoglobin 5.6 and hematocrit 17.1. Her baseline hemoglobin is around 8 or 9.Guaiac in ED was positive Does not appear to be hemolysis as her T bili within normal limits. Patient is currently on Coumadin for mechanical aortic valve. She endorsed a history of dark tarry stools in the past 5 days. Patient stated that she has baseline dark stools as she is on oral iron supplementation. * Dr. Buenrostro performed the endoscopy 04/29.Grossly normal upper endoscopy bleeding or stigmata of recent hemorrhage status post antral biopsies yesterday * Patient will need to follow out on outpatient basis with GI for small bowel PillCam for further evaluation of her anemia and for pathology results * trende CBCs and transfused to maintain hemoglobin greater than 8. today 8.7 * Patient's diet was advanced to regular diet. * Anemia workup showed Iron WNR, TIBC WNR, folate WNR , B12 254L, retic count, LDH 811 H * As per Hematology consult with Dr. Dunn we started parenteral vitamin B12. * Patient will need to follow-up with Dr. Dunn for anemia Supra/Subtherapeutic INR in context of prosthetic aortic valve: Patient has St. Phani mechanical valve since 1997. Has been on Coumadin for anticoagulation. She states that she has had no incidents in the last 10 years and is generally therapeutic. This time patient was supratherapeutic with INR 4.73. Given GI bleed we held her Coumadin dose. She got one dose of IM Vitamin K in ED. This patient was not actively bleeding at this time and hemodynamically stable, with prosthetic valve so did not further actively reverse anticoagulation at that time. * Started on IV heparin as INR is less than 2 (1.4) as per cardiology on 04/30 * Post discharge, the patient will require very close monitoring of her INR in view of the recent dose of vitamin K given. * Dr. Argueta wants to follow up outpatient * Social workers have set up home INR monitoring system * we have started her warfarin and dischargig her on heparin inj and coumadin in view of her subtherapeutic INR which is 1.4 today. * Will continue until INR is therapeutic Diabetes: Chronic and stable continue home meds Hypertension: Patient is on lisinopril and hydrochlorothiazide at home. She is unclear what dose. In ED patient was normotensive and at this time we will hold all antihypertensives given GI bleed. * we held antihypertensive medication given normal blood pressure and recent GI bleed as per cardio recommendations * We are discharging her on home medication she will follow-up with her PCP and attendance officer. Problem List: 1. Diabetes 2. Symptomatic anemia 3. Hypertension Pain Ratin Pain Location: none Pain Goal: Pain 4 or less Pain Plan: none Tomorrow's Labs & Rationales: discharging today
[2017-05-01 08:58] LABS: PT 15.1 SEC (9.4-12.5)
[2017-05-01 09:05] LABS: ABSOLUTE BASOPHIL COUNT 0 /CUMM (0.0-0.2); ABSOLUTE EOSINOPHIL COUNT 0.2 /CUMM (0.0-0.7); ABSOLUTE GRANULOCYTE CT 4.4 /CUMM (1.4-6.5); ABSOLUTE LYMPH COUNT 1.6 /CUMM (1.2-3.4); ABSOLUTE MONOCYTE COUNT 0.3 /CUMM (0.10-0.60); BASOPHIL % 0.4 % (0.0-2.0); EOSINOPHIL % 2.4 % (0-5); HEMATOCRIT 25.9 % (37-47); MEAN CORPUSCULAR HGB CONC 33.6 G/DL (33.0-37.0); MEAN CORPUSCULAR VOLUME 86.3 FL (81.0-99.0); MEAN PLATELET VOLUME 9.4 FL (7.4-10.4); PLATELET COUNT 239 /CUMM (130-400); RBC DISTRIBUTION WIDTH 16.4 % (11.5-14.5); WHITE BLOOD CELL COUNT 6.5 /CUMM (4.8-10.8)
[2017-05-01 09:12] LABS: PTT > 120 SEC (25-37)
[2017-05-01 13:45] VITALS: BP 118/70
--- NOTE | 2017-05-01 17:21 | NUR ---
SPOKE WITH RESIDENT BENNY- TO STOP PTS HEP GTT GOING @ 12.2ML/HR AT 1800 AND GIVE BOTH LOVENOX AND COUMADIN AT 1900. PT & DAUGHTER UNDERSTAND POC.
[2017-05-01 17:39] LABS: PTT > 120 SEC (25-37)
--- NOTE | 2017-05-01 17:42 | NUR ---
PTS PTT >120. HEP GTT STOPPED. DATA BASE ADMINISTRATOR NOTIFIED.
--- NOTE | 2017-05-01 18:23 | PN- Att Addend ---
Attending Addendum Attending Brief Note Patient was seen and examined along with cardiology this morning patient looking and feeling better eating slightly constipated. Vital signs are stable no major changes on physical except for color of her skin is improved after the transfusion. Patient's INR is slightly supratherapeutic and had vitamin K before the endoscopy procedures and might take a little longer to get the INR to be therapeutic has been on heparin to Lovenox and given a little extra Coumadin today and if INR is therapeutic tomorrow then we will discharge Intake & Output 05/01 1600 05/01 0400 04/30 1600 04/30 0400 04/29 1600 04/29 0400 Intake Total 903.5 168.4 1140 740 560 Output Total 1250 Balance 903.5 168.4 1140 -510 560 Intake, Blood 500 200 Product Intake, IV 203.5 68.4 110 Intake, Oral 394 625 5471 240 360 Number 0 2 1 Bowel Movements Output, Urine 1250 Patient 135 lb Weight Weight Reported by Patient Measurement Method Current Medications Sig/Eliane Start time Last Medication Dose Route Stop Time Status Admin Calcium Carbonate 500 MG ONCE ONE 05/01 031 DC 05/01 PO 05/01 0316 0321 Enoxaparin Sodium 60 MG Q12H 05/01 1900 [facility] Heparin Sodium 25,000 UNIT Q24H 04/30 0930 DC 05/01 (Porcine) IV 05/01 1800 0135 Sodium Chloride 500 ML Insulin Aspart 2 UNITS .STK-MED ONE 05/01 0907 DC SC 05/01 0908 Insulin Human Regular 2 UNITS .STK-MED ONE 05/01 0908 DC IV 05/01 0909 Insulin Human Regular 0 TIDAC/HS 04/29 1800 05/01 SC 1657 Ondansetron HCl 4 MG ONCE ONE 05/01 0315 DC 05/01 PO 05/01 0316 0322 Pantoprazole Sodium 40 MG BID 04/28 2215 05/01 IV 0913 Patient Medication 1 ED .STK-MED ONE 05/01 1402 DC Teaching ED 05/01 1403 Polyethylene Glycol 17 GM ONCE ONE 05/01 1130 DC 05/01 PO 05/01 1131 1221 Warfarin Sodium 5 MG 1900 05/01 1900 AC PO Laboratory Tests 05/01/17 1630: APTT > 120 *H 05/01/17 0750: Anion Gap 10, Estimated GFR 49 L, BUN/Creatinine Ratio 30.9 H, PT 15.1 H, INR 1.44 H, APTT > 120 *H, CBC w Diff NO MAN DIFF REQ, RBC 3.00 L, MCV 86.3, MCH 29.0, RDW 16.4 H, MPV 9.4, Gran % 68.0, Lymphocytes % 24.6, Monocytes % 4.6, Eosinophils % 2.4, Basophils % 0.4, Absolute Granulocytes 4.4, Absolute Lymphocytes 1.6, Absolute Monocytes 0.3, Absolute Eosinophils 0.2, Absolute Basophils 0, PUBS MCHC 33.6 05/01/17 0035: APTT > 120 *H 04/30/17 1751: APTT > 120 *H 04/30/17 0620: Anion Gap 7, Estimated GFR 54 L, BUN/Creatinine Ratio 33.0 H, PT 14.6 H, INR 1.40 H, CBC w Diff NO MAN DIFF REQ, RBC 2.89 L, MCV 85.3, MCH 28.1, RDW 16.7 H, MPV 9.6, Gran % 73.4, Lymphocytes % 20.0 L, Monocytes % 4.6, Eosinophils % 1.6, Basophils % 0.4, Absolute Granulocytes 4.3, Absolute Lymphocytes 1.2, Absolute Monocytes 0.3, Absolute Eosinophils 0.1, Absolute Basophils 0, PUBS MCHC 32.9 L 04/29/175: CBC w Diff NO MAN DIFF REQ, RBC 3.03 L, MCV 85.4, MCH 28.3, RDW 16.8 H, MPV 9.5, Gran % 72.1, Lymphocytes % 20.0 L, Monocytes % 6.4, Eosinophils % 1.1, Basophils % 0.4, Absolute Granulocytes 5.6, Absolute Lymphocytes 1.6, Absolute Monocytes 0.5, Absolute Eosinophils 0.1, Absolute Basophils 0, PUBS MCHC 33.1 04/29/17 1004: PT Cancelled, INR Cancelled 04/29/17 0840: PT 27.2 H, INR 2.62 H 04/29/17 0618: CBC w Diff NO MAN DIFF REQ, RBC 2.98 L, MCV 84.6, MCH 28.4, RDW 16.3 H, MPV 9.5, Gran % 64.5, Lymphocytes % 26.9, Monocytes % 6.6, Eosinophils % 1.6, Basophils % 0.4, Absolute Granulocytes 3.9, Absolute Lymphocytes 1.6, Absolute Monocytes 0.4, Absolute Eosinophils 0.1, Absolute Basophils 0, PUBS MCHC 33.6
--- NOTE | 2017-05-01 20:33 | PN- Cardiology ---
Subjective Subjective: Doing well. TOlerating Po. INR still remains subtherapeutic Objective Vital Signs and I&Os Vital Signs Date Time Temp Pulse Resp B/P B/P Pulse O2 O2 Flow FiO2 Mean Ox Delivery Rate 05/01 1345 98.2 85 20 118/70 100 Room Air 05/01 0651 98.7 86 20 140/40 98 Room Air 04/30 2254 98.4 89 20 140/50 100 Room Air Intake & Output 05/01 1600 05/01 0800 05/01 0000 04/30 1600 04/30 0800 04/30 0000 Intake Total 700 203.5 168.4 1090 50 Output Total Balance 700 203.5 168.4 1090 50 Intake, IV 100 103.5 68.4 110 Intake, Oral 600 100 100 980 50 Number 0 2 Bowel Movements Current Medications: Current Medications Sig/Eliane Start time Last Medication Dose Route Stop Time Status Admin Calcium Carbonate 500 MG ONCE ONE 05/01 0315 DC 05/01 PO 05/01 0316 0321 Enoxaparin Sodium 60 MG Q12H 05/01 1900 05/01 SC 1901 Heparin Sodium 25,000 UNIT Q24H 04/30 0930 DC 05/01 (Porcine) IV 05/01 1800 0135 Sodium Chloride 500 ML Insulin Aspart 2 UNITS .STK-MED ONE 05/01 0907 DC SC 05/01 0908 Insulin Human Regular 2 UNITS .STK-MED ONE 05/01 0908 DC IV 05/01 0909 Insulin Human Regular 0 TIDAC/HS 04/29 1800 05/01 SC 1657 Ondansetron HCl 4 MG ONCE ONE 05/01 0315 DC 05/01 PO 05/01 0316 0322 Pantoprazole Sodium 40 MG BID 04/28 2215 AC 05/01 IV 0913 Patient Medication 1 ED .STK-MED ONE 05/01 1402 DC Teaching ED 05/01 1403 Polyethylene Glycol 17 GM ONCE ONE 05/01 1130 DC 05/01 PO 05/01 1131 1221 Warfarin Sodium 5 MG 1900 05/01 190 AC 05/01 PO 1901 Results Last 48 Hrs of Labs/Mics: Laboratory Tests 05/01/17 1630: APTT > 120 *H 05/01/17 0750: Anion Gap 10, Estimated GFR 49 L, BUN/Creatinine Ratio 30.9 H, PT 15.1 H, INR 1.44 H, APTT > 120 *H, CBC w Diff NO MAN DIFF REQ, RBC 3.00 L, MCV 86.3, MCH 29.0, RDW 16.4 H, MPV 9.4, Gran % 68.0, Lymphocytes % 24.6, Monocytes % 4.6, Eosinophils % 2.4, Basophils % 0.4, Absolute Granulocytes 4.4, Absolute Lymphocytes 1.6, Absolute Monocytes 0.3, Absolute Eosinophils 0.2, Absolute Basophils 0, PUBS MCHC 33.6 05/01/17 0035: APTT > 120 *H 04/30/17 1751: APTT > 120 *H 04/30/17 0620: Anion Gap 7, Estimated GFR 54 L, BUN/Creatinine Ratio 33.0 H, PT 14.6 H, INR 1.40 H, CBC w Diff NO MAN DIFF REQ, RBC 2.89 L, MCV 85.3, MCH 28.1, RDW 16.7 H, MPV 9.6, Gran % 73.4, Lymphocytes % 20.0 L, Monocytes % 4.6, Eosinophils % 1.6, Basophils % 0.4, Absolute Granulocytes 4.3, Absolute Lymphocytes 1.2, Absolute Monocytes 0.3, Absolute Eosinophils 0.1, Absolute Basophils 0, PUBS MCHC 32.9 L 04/29/172034: CBC w Diff NO MAN DIFF REQ, RBC 3.03 L, MCV 85.4, MCH 28.3, RDW 16.8 H, MPV 9.5, Gran % 72.1, Lymphocytes % 20.0 L, Monocytes % 6.4, Eosinophils % 1.1, Basophils % 0.4, Absolute Granulocytes 5.6, Absolute Lymphocytes 1.6, Absolute Monocytes 0.5, Absolute Eosinophils 0.1, Absolute Basophils 0, PUBS MCHC 33.1 Assessment/Plan Assessment/Plan Assessment: 1. Severe anemia with evidence of GI bleeding. 2. [employer] Phani mechanical aortic valve replacement 3. Hypertension 4. History of chronic anemia 5. Supratherapeutic INR Recommendations: -For now, I will continue as per the medical team. -Continue IV heparin pending therapeutic INR or transition to Lovenox per the medical team -Further outpatient GI workup as per the GI service. -Post discharge, the patient will require very close monitoring of her INR in view of the recent dose of vitamin K given. I will arrange this further as an outpatient. I discussed the possibility of a home INR monitoring system with the patient's daughter. We will work on this further as an outpatient. Continue telemetry? No
[2017-05-01 23:01] VITALS: BP 116/44
[2017-05-02 06:51] VITALS: BP 120/30
--- NOTE | 2017-05-02 07:30 | PN- Housestaff ---
Subjective Follow-up For: Acute blood loss anemiaSubtherapeutic INR Complaints: no complaints Subjective: I have seen and examined the patient patient was resting comfortably in her bed. She looks pale. However she does not state any complaint. She states is related to home. She does not want to spend another night in the hospital. There is no complaint of shortness of breath palpitations or chest pain. Review of Systems Constitutional: Reports: see HPI. Objective Last 24 Hrs of Vital Signs/I&O Vital Signs Date Time Temp Pulse Resp B/P B/P Pulse O2 O2 Flow FiO2 Mean Ox Delivery Rate 05/02 0651 98.3 93 20 120/30 98 Room Air 05/01 2301 98.3 86 20 116/44 100 Room Air 05/01 1345 98.2 85 20 118/70 100 Room Air Intake & Output 05/02 0800 05/02 0000 05/01 1600 Intake Total 100 120 700 Output Total Balance 100 120 700 Intake, IV 100 Intake, Oral 100 120 600 Physical Exam General Appearance: Alert, Oriented X3, Cooperative Skin: pale Cardiovascular: Normal S1, Normal S2, No Murmurs Lungs: Clear to Auscultation, Normal Air Movement Abdomen: Normal Bowel Sounds, Soft, No Tenderness Neurological: Normal Speech Extremities: No Tenderness/Swelling Current Medications: Current Medications Sig/Eliane Start time Last Medication Dose Route Stop Time Status Admin Enoxaparin Sodium 60 MG Q12H 05/01 1900 05/02 [place] 0621 Heparin Sodium 25,000 UNIT Q24H 04/30 0930 DC 05/01 (Porcine) IV 05/01 1800 0135 Sodium Chloride 500 ML Insulin Aspart 2 UNITS .STK-MED ONE 05/01 0907 CA SC 05/01 0908 Insulin Human Regular 4 UNITS .STK-MED ONE 05/01 1657 DC IV 05/01 1658 Insulin Human Regular 2 UNITS .STK-MED ONE 05/01 1309 DC IV 05/01 1310 Insulin Human Regular 2 UNITS .STK-MED ONE 05/01 0908 DC IV 05/01 0909 Insulin Human Regular 0 TIDAC/HS 04/29 1800 AC 05/01 SC 1657 Pantoprazole Sodium 40 MG BID 04/28 2215 AC 05/01 IV 2214 Patient Medication 1 ED .STK-MED ONE 05/01 1402 DC Teaching ED 05/01 1403 Polyethylene Glycol 17 GM ONCE ONE 05/01 1130 DC 05/01 PO 05/01 1131 1221 Warfarin Sodium 5 MG 1900 05/01 1900 AC 05/01 PO 1901 Assessment/Plan Assessment: This is a 72-year-old female past medical history significant for [employer] 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 ED workup shows significant anemia with hemoglobin 5.6 and hematocrit 17.1. Workup: Vitals: 98.7, 112, 18, 137/62, 98 EKG: Rate 104, normal sinus without any acute abnormalities noted CBC: Hemoglobin 5.6, hematocrit 17.1, white count 8.0, platelet 260. INR 4.73 BEP: BUN 47, creatinine 1.2 LFT within normal limits, T bili 0.5 Echocardiogram in 12/12/2015 shows EF 55-60. Stress test in 12/08/2015 WNL PLAN Acute blood loss anemia: Patient had hemoglobin 5.6 and hematocrit 17.1. Her baseline hemoglobin is around 8 or 9.Guaiac in ED was positive Does not appear to be hemolysis as her T bili within normal limits. Patient is currently on Coumadin for mechanical aortic valve. She endorsed a history of dark tarry stools in the past 5 days. Patient stated that she has baseline dark stools as she is on oral iron supplementation. * Dr. Buenrostro performed the endoscopy 04/29.Grossly normal upper endoscopy bleeding or stigmata of recent hemorrhage status post antral biopsies yesterday * Patient will need to follow out on outpatient basis with GI for small bowel PillCam for further evaluation of her anemia and for pathology results * trende CBCs and transfused to maintain hemoglobin greater than 8. today 8.7 * Patient's diet was advanced to regular diet. * Anemia workup showed Iron WNR, TIBC WNR, folate WNR , B12 254L, retic count, LDH 811H * As per Hematology consult with Dr. Dunn we started parenteral vitamin B12. * Patient will need to follow-up with Dr. Dunn for anemia Supra/Subtherapeutic INR in context of prosthetic aortic valve: Patient has [employer]. Phani mechanical valve since 1997. Has been on Coumadin for anticoagulation. She states that she has had no incidents in the last 10 years and is generally therapeutic. This time patient was supratherapeutic with INR 4.73. Given GI bleed we held her Coumadin dose. She got one dose of IM Vitamin K in ED. This patient was not actively bleeding at this time and hemodynamically stable, with prosthetic valve so did not further actively reverse anticoagulation at that time. * Started on IV heparin as INR is less than 2 (1.4) as per cardiology on 04/30 * Post discharge, the patient will require very close monitoring of her INR in view of the recent dose of vitamin K given. * Dr. Argueta wants to follow up outpatient * Social workers have set up home INR monitoring system * we have started her warfarin and dischargig her on Lovenox and coumadin in view of her subtherapeutic INR which is 1.4. * Needs to continue INR moitoring daily until INR is therapeutic Diabetes: Chronic and stable continue home meds Hypertension: Patient is on lisinopril and hydrochlorothiazide at home. She is unclear what dose. In ED patient was normotensive and at this time we will hold all antihypertensives given GI bleed. 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 Problem List: 1. Symptomatic anemia 2. Hypertension 3. Diabetes 4. Subtherapeutic international normalized ratio (INR) Pain Ratin Pain Location: none Pain Goal: Pain 4 or less Pain Plan: none Tomorrow's Labs & Rationales: discharging discharging
[2017-05-02] MEDS ORDERED: LOVENOX60 MG/0.1 SC ×3 (07:56→12:29)
--- NOTE | 2017-05-02 08:00 | Patient Discharge Instructions ---
Discharge Instructions General Discharge Information You were seen/treated for: Anemia GI bleed You had these procedures: EGD Watch for these problems: Bleeding in stool Bleeding in urine Shortness of breath Chest pain Fever Special Instructions: 1. Follow up with your pcp in the AM 2. Check your INR every day until you are therapeutic again 3. Continue Lovenox WITH your Coumadin Diet Continue normal diet: Yes Activity Full Activity/No Limits: Yes Acute Coronary Syndrome Inclusion Criteria At DC or during hospital stay patient has or had the following: ACS DIAGNOSIS No Discharge Core Measures Meds if any: Prescribed or Continued at Discharge Meds if any: NOT Prescribed or Continued at Discharge Congestive Heart Failure Inclusion Criteria At DC or during hospital stay patient has or had the following: CHF DIAGNOSIS No Discharge Core Measures Meds if any: Prescribed or Continued at Discharge Meds if any: NOT Prescribed or Continued at Discharge Cerebrovascular accident Inclusion Criteria At DC or during hospital stay patient has or had the following: CVA/TIA Diagnosis No Discharge Core Measures Meds if any: Prescribed or Continued at Discharge Meds if any: NOT Prescribed or Continued at Discharge Venous thromboembolism Inclusion Criteria VTE Diagnosis No VTE Type NONE VTE Confirmed by (Test) NONE Discharge Core Measures - Per Current guidelines, there needs to be overlap - treatment for the first 5 days of Warfarin therapy. - If discharged on Warfarin prior to 5 days of - overlap therapy, the patient will need to be - assessed for post discharge needs including - *Post discharge parental anticoagulation - *Warfarin and/or parental anticoagulation education - *Follow up date to check INR post discharge At least 5 days overlap therapy as Inpatient No Meds if any: Prescribed or Continued at Discharge Note: Overlap Therapy is Warfarin and Anticoagulant Meds if any: NOT Prescribed or Continued at Discharge
[2017-05-02 09:18] LABS: PT 14.6 SEC (9.4-12.5)
--- NOTE | 2017-05-02 11:02 | PN- Att Addend ---
Attending Addendum Attending Brief Note Patient has no new complaints vital signs are stable no fever. Changes on physical. INR is still sub therapeutic we will check with cardiology and insurance company sits possible to sent home on Lovenox and Coumadin followed INRs closely. Intake & Output 05/02 1600 05/02 0400 05/01 1600 05/01 0400 04/30 1600 04/30 0400 Intake Total 100 120 903.5 168.4 1140 Output Total Balance 100 120 903.5 168.4 1140 Intake, IV 203.5 68.4 110 Intake, Oral 100 120 574 790 1347 Number 0 2 Bowel Movements Patient 135 lb Weight Current Medications Sig/Eliane Start time Last Medication Dose Route Stop Time Status Admin Enoxaparin Sodium 60 MG Q12H 05/01 1900 05/02 [place] 0621 Heparin Sodium 25,000 UNIT Q24H 04/30 0930 DC 05/01 (Porcine) IV 05/01 1800 0135 Sodium Chloride 500 ML Insulin Human Regular 4 UNITS .STK-MED ONE 05/01 1657 DC IV 05/01 1658 Insulin Human Regular 2 UNITS .STK-MED ONE 05/01 1309 DC IV 05/01 1310 Insulin Human Regular 0 TIDAC/HS 04/29 1800 AC 05/02 SC 0841 Pantoprazole Sodium 40 MG BID 04/28 2215 05/02 IV 0840 Patient Medication 1 ED .STK-MED ONE 05/01 1402 DC Teaching ED 05/01 1403 Polyethylene Glycol 17 GM ONCE ONE 05/01 1130 DC 05/01 PO 05/01 1131 1221 Warfarin Sodium 5 MG 1900 05/01 190 AC 05/01 PO 1901 Laboratory Tests 05/02/17 0722: PT 14.6 H, INR 1.40 H 05/01/17 1630: APTT > 120 *H 05/01/17 0750: Anion Gap 10, Estimated GFR 49 L, BUN/Creatinine Ratio 30.9 H, PT 15.1 H, INR 1.44 H, APTT > 120 *H, CBC w Diff NO MAN DIFF REQ, RBC 3.00 L, MCV 86.3, MCH 29.0, RDW 16.4 H, MPV 9.4, Gran % 68.0, Lymphocytes % 24.6, Monocytes % 4.6, Eosinophils % 2.4, Basophils % 0.4, Absolute Granulocytes 4.4, Absolute Lymphocytes 1.6, Absolute Monocytes 0.3, Absolute Eosinophils 0.2, Absolute Basophils 0, PUBS MCHC 33.6 05/01/17 0035: APTT > 120 *H 04/30/17 1751: APTT > 120 *H 04/30/17 0620: Anion Gap 7, Estimated GFR 54 L, BUN/Creatinine Ratio 33.0 H, PT 14.6 H, INR 1.40 H, CBC w Diff NO MAN DIFF REQ, RBC 2.89 L, MCV 85.3, MCH 28.1, RDW 16.7 H, MPV 9.6, Gran % 73.4, Lymphocytes % 20.0 L, Monocytes % 4.6, Eosinophils % 1.6, Basophils % 0.4, Absolute Granulocytes 4.3, Absolute Lymphocytes 1.2, Absolute Monocytes 0.3, Absolute Eosinophils 0.1, Absolute Basophils 0, PUBS MCHC 32.9 L 04/29/172034: CBC w Diff NO MAN DIFF REQ, RBC 3.03 L, MCV 85.4, MCH 28.3, RDW 16.8 H, MPV 9.5, Gran % 72.1, Lymphocytes % 20.0 L, Monocytes % 6.4, Eosinophils % 1.1, Basophils % 0.4, Absolute Granulocytes 5.6, Absolute Lymphocytes 1.6, Absolute Monocytes 0.5, Absolute Eosinophils 0.1, Absolute Basophils 0, PUBS MCHC 33.1
--- NOTE | 2017-05-02 12:08 | PN- Cardiology ---
Subjective Subjective: The patient is doing well and scheduled for discharge today. Objective Vital Signs and I&Os Vital Signs Date Time Temp Pulse Resp B/P B/P Pulse O2 O2 Flow FiO2 Mean Ox Delivery Rate 05/02 0651 98.3 93 20 120/30 98 Room Air 05/01 2301 98.3 86 20 116/44 100 Room Air 05/01 1345 98.2 85 20 118/70 100 Room Air Intake & Output 05/02 1600 05/02 0800 05/02 0000 05/01 1600 05/01 0800 05/01 0000 Intake Total 100 120 700 203.5 168.4 Output Total Balance 100 120 700 203.5 168.4 Intake, IV 100 103.5 68.4 Intake, Oral 100 120 600 100 100 Patient 135 lb Weight Current Medications: Current Medications Sig/Eliane Start time Last Medication Dose Route Stop Time Status Admin Enoxaparin Sodium 60 MG Q12H 05/01 1900 AC 05/02 SC 0621 Heparin Sodium 25,000 UNIT Q24H 04/30 0930 DC 05/01 (Porcine) IV 05/01 1800 0135 Sodium Chloride 500 ML Insulin Human Regular 4 UNITS .STK-MED ONE 05/01 1657 DC IV 05/01 1658 Insulin Human Regular 2 UNITS .STK-MED ONE 05/01 1309 DC IV 05/01 1310 Insulin Human Regular 0 TIDAC/HS 04/29 1800 AC 05/02 SC 1205 Pantoprazole Sodium 40 MG BID 04/28 2215 AC 05/02 IV 0840 Patient Medication 1 ED .STK-MED ONE 05/01 1402 DC Teaching ED 05/01 1403 Warfarin Sodium 5 MG 1900 05/01 1900 AC 05/01 PO 1901 Results Last 48 Hrs of Labs/Mics: Laboratory Tests 05/02/17 0722: PT 14.6 H, INR 1.40 H 05/01/17 1630: APTT > 120 *H 05/01/17 0750: Anion Gap 10, Estimated GFR 49 L, BUN/Creatinine Ratio 30.9 H, PT 15.1 H, INR 1.44 H, APTT > 120 *H, CBC w Diff NO MAN DIFF REQ, RBC 3.00 L, MCV 86.3, MCH 29.0, RDW 16.4 H, MPV 9.4, Gran % 68.0, Lymphocytes % 24.6, Monocytes % 4.6, Eosinophils % 2.4, Basophils % 0.4, Absolute Granulocytes 4.4, Absolute Lymphocytes 1.6, Absolute Monocytes 0.3, Absolute Eosinophils 0.2, Absolute Basophils 0, PUBS MCHC 33.6 05/01/17 0035: APTT > 120 *H 04/30/17 1751: APTT > 120 *H Assessment/Plan Assessment/Plan Assessment: 1. Severe anemia with evidence of GI bleeding. 2. [facility] mechanical aortic valve replacement 3. Hypertension 4. History of chronic anemia 5. Supratherapeutic INR Recommendations: -For now, I will continue as per the medical team. -Transitioned to Lovenox for discharge -Further outpatient GI workup as per the GI service. -Post discharge, the patient will require very close monitoring of her INR in view of the recent dose of vitamin K given. I will arrange this further as an outpatient. I discussed the possibility of a home INR monitoring system with the patient's daughter. We will work on this further as an outpatient. Line-I discussed the current management of her anticoagulation with the house staff. I would give 5 mg of Coumadin today followed by 2.5 mg on Friday and 2.5 mg on Friday. Please have an INR checked on Friday and Friday. If the INR is therapeutic on Friday, the Lovenox can be discontinued. Otherwise, the patient will contact us on Friday to make further plans for oral anticoagulation and Lovenox. Continue telemetry? No
== END 2017-05-02 14:46 | disposition home health service (06) | DRG 378 ==
LOC: ERH 16:06 → 2NA 17:41 → ERHI 17:41 → ENRESERV 19:04 → ENTRNSPT 19:57 → 2NA 20:41 → CMPTRNSPT 20:51 → 2NA 05-02 09:00
PROVIDERS: Emergency Medicine; Internal Medicine; Physician Assistant; Student in an Organized Health Care Education/Training Program; ADMIT Internal Medicine
PROC: 30233N1 Transfusion of Nonautologous Red Blood Cells into Peripheral Vein, Percutaneous Approach (ICD-10-PCS; principal; 2017-04-28)
PROC: 0DBG8ZX Excision of Left Large Intestine, Via Natural or Artificial Opening Endoscopic, Diagnostic (ICD-10-PCS; 2017-04-29)
PROC: 0DBF8ZX Excision of Right Large Intestine, Via Natural or Artificial Opening Endoscopic, Diagnostic (ICD-10-PCS; 2017-04-29)
PROC: 0DBB8ZX Excision of Ileum, Via Natural or Artificial Opening Endoscopic, Diagnostic (ICD-10-PCS; 2017-04-29)
DX: K92.2 Gastrointestinal hemorrhage, unspecified (principal); D62 Acute posthemorrhagic anemia; E11.9 Type 2 diabetes mellitus without complications; I10 Essential (primary) hypertension; Z95.2 Presence of prosthetic heart valve; Z79.01 Long term (current) use of anticoagulants; R79.1 Abnormal coagulation profile; H91.90 Unspecified hearing loss, unspecified ear; M19.90 Unspecified osteoarthritis, unspecified site; Z96.652 Presence of left artificial knee joint; Z87.891 Personal history of nicotine dependence; K64.8 Other hemorrhoids
CPT/HCPCS: 2NASP; 36415; 82436; 86920; 93005; 93010; 96372; 99291; J1644; J1650; J1815; J3101; J3420; P9016

== ENCOUNTER 2017-05-17 13:24 | Observation (INO) | payer OTHER ==
[~2017-05-17] VITALS: Ht 144.8 cm; Wt 61.7 kg
[~2017-05-17 13:24] MED LIST changes: +LOVENOX60 MG/0.1 SC; +MAPAP500 M2 PO
--- NOTE | 2017-05-17 13:27 | NUR ---
PT TO ROOM7 BIBA FROM HOME FOR NEAR SYNCOPAL EPISODE AT 3AM. PT GOT UP TO GO TO BATHROOM, FELT DIZZY, AND BUPMED INTO WALL.PT HIT HER HEAD AND LEFT SHOULDER. BRUISE NOTED TO LEFT SHOULDER. ALSO PT C/O [id number] AND HEADACHE x4DAYS. DENIES CHEST PAIN,SOB,ABD PAIN. VSS. AAOx3. HX OF ANEMIA,HTN,VALVE REPLACEMENT,DIABETES. PT CURRENTLY ON COUMADIN.
--- NOTE | 2017-05-17 13:29 | ED SYNCOPE COMPLAINT ---
See Addendum History of Present Illness General Chief Complaint: Dizziness Stated Complaint: "PER EMR DIZZY" Source: patient Exam Limitations: no limitations Vital Signs & Intake/Output Vital Signs & Intake/Output Vital Signs Date Time Temp Pulse Resp B/P B/P Pulse O2 O2 Flow FiO2 Mean Ox Delivery Rate 05/17 1530 85 18 186/68 98 Room Air 05/17 1348 99 Room Air 05/17 1327 98.3 97 18 168/60 99 Room Air Allergies Coded Allergies: ciprofloxacin (Severe, ANAPHYLAXIS 12/19/15) morphine (N/V 02/13/17) tramadol (N/V 04/28/17) aspirin (Intermediate, ON COUMADIN SO SAYS "I CAN'T TAKE IT" 12/19/15) Triage Nurses Notes Reviewed? 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 Buenrostro performed endoscopy in which patient received IV blood transfusions and was discharged on May 01 patient currently lives in a private residence where she's been complaining of intermittent dizziness since her discharge however last night at approximately 3 AM while ambulating to the bathroom she felt significantly dizzy, THEN FELL struck the left side of her body and head to the wall however no loss of consciousness had occurred. Patient was evaluated today by VNA and was advised to present to the emergency room. Patient is brought in by ambulance blood sugar vital signs unremarkable per EMS. EMS states the patient has bruising to the right shoulder. Patient is complaining of persistent right-sided headache along with now the left-sided headache due to the injury. Patient states that she was able able to ambulate afterwards and denies any other pain except the head and the left shoulder. Denies any neck pain back pain abdominal pain nausea vomiting blurred vision. Patient states that she still feels dizzy every time she ambulates Patient had 2 bowel movements yesterday noted to be dark in COLOR, however she does take iron supplementation no bright red blood noted (PARADISE MAGUIRE) Reconcile Medications Acetaminophen (Mapap) 500 MG CAPSULE 2 CAP PO PRN PAIN (Reported) Calcium Carbonate/Vitamin D3 (Calcium 500 + D Tablet) (Unknown Strength) TABLET (Unknown Dose) PO DAILY SUPPLEMENT (Reported) Ferrous Sulfate 325 MG (65 MG IRON) TABLET 1 TAB PO DAILY SUPPLEMENT ( Reported) Hydrochlorothiazide 25 MG TABLET 1 TAB PO DAILY BP (Reported) Lisinopril 10 MG TABLET 1 TAB PO DAILY BP (Reported) Metformin HCl (Metformin HCl ER) 500 MG TAB.ER.24H 1 TAB PO BID DM (Reported) Paroxetine HCl (Paxil) 10 MG TABLET 1 TAB PO DAILY MENTAL HEALTH (Reported) Warfarin Sodium (Coumadin) 2.5 MG TABLET 1 TAB PO QPM BLOOD THINNER (Reported ) (AL CARRILLO,ALEX) Past History Travel History Traveled to [place] past 21 day No Medical History Any Pertinent Medical History? see below for history Neurological: migraine, HEMICRANIAL CONT. 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 FATHER, , Age 59; Cause: Myocardial infarction. SISTER, , Age 40-50. Hx Contributory? No (PARADISE MAGUIRE) Review of Systems Review of Systems Constitutional: Reports: no symptoms. EENTM: Reports: no symptoms. Respiratory: Reports: no symptoms. Cardiovascular: Reports: no symptoms. GI: Reports: no symptoms. Genitourinary: Reports: no symptoms. Musculoskeletal: Reports: no symptoms. Skin: Reports: see HPI. Neurological/Psychological: Reports: see HPI. All Other Systems: Reviewed and Negative (PARADISE MAGUIRE) Physical Exam Physical Exam General Appearance: alert, comfortable, mild distress Head: atraumatic, normal appearance Cranial Nerves: normal hearing, normal speech, PERRL Comments: HEENT: Normal EENT exam, extraocular motion intact, no nystagmus. Pupils equally round and reactive to light and accommodation. Nose is atraumatic. External auditory canal and Tympanic membranes clear. Pharynx normal. No swelling or edema. Neck: Supple, no lymphadenopathy, normal range of motion without pain or tenderness No central spinous tenderness Back: Nontender, no CVA tenderness. No central spinous tenderness Cardiovascular: Regular rate and rhythms no murmurs rubs or gallops, normal JVP Respiratory: Chest nontender. No respiratory distress.breath sounds clear to auscultation bilaterally Abdomen: Soft, nontender nondistended, no appreciable organomegaly. Normal bowel sounds. No ascites Extremity: No edema, no calf tenderness to palpation, normal and equal pulses. Left shoulder- inspection noted to lateral glenohumeral ecchymosis, no clavicular point tenderness, full active range of motion noted with pain Left elbow normal inspection nontender Bilateral upper extremity dermatomes intact radial pulse +2 Neuro: Alert oriented x3, motor sensory normal, cranial nerves II through XII grossly intact. Skin: skin is warm and dry. Psych: Mood and affect is normal, memory and judgment is normal. - NORMAL INSPECTION, NORMAL RECTAL TONE, BROWN STOOL, NEGATIVE guaiac Core Measures ACS in differential dx? No CVA/TIA Diagnosis: No Severe Sepsis Present: No Septic Shock Present: No (ZOEY FALL,PARADISE) Progress Differential Diagnosis: AMI, aortic dissection, aortic valve, drug induced syncope, hyperventilation, orthostatic syncope, other valvular disease, pericardial tamponade, pulmonary embolus, seizure, sick sinus syndrome, subarachnoid hem., TIA/CVA, vasodepressor syncope, ventricular tach/fib, FRACTURE, CONTUSION, SPRAIN, ANEMIA, GI BLEED Plan of Care: Orders Procedure Date/time Status PROTHROMBIN TIME 05/18 06 Active CBC WITHOUT DIFFERENTIAL 05/18 06 Active BASIC ELECTROLYTES PLUS BUN&CR 05/18 06 Active Pathway - chart 05/17 1614 Active House Staff 05/17 1614 Active Patient Data 05/17 1614 Active Code Status 05/17 1614 Active Patient Data 05/[address] in observation 05/17 1544 Active MISTAKE 05/17 1410 Active URINALYSIS 05/17 1408 Complete Telemetry/Clinical Cytogeneticist Scientist 05/17 1328 Active TROPONIN LEVEL 05/17 1328 Complete PARTIAL THROMBOPLASTIN TIME 05/17 1328 Complete PROTHROMBIN TIME 05/17 1328 Complete COMPREHENSIVE METABOLIC PANEL 05/17 1328 Complete CBC WITHOUT DIFFERENTIAL 05/17 132 Complete EKG 05/178 Active TYPE & SCREEN (NOT X-MATCH) 05/17 1328 Complete PT Evaluate & Treat 05/17 UNK Active VTE Mechanical Prophylaxis 05/17 UNK Active Telemetry/Clinical Cytogeneticist Scientist 05/17 UNK Active FingerStick- Glucose 05/17 UNK Active Current Medications Sig/Eliane Start time Last Medication Dose Stop Time Status Admin Ferrous Sulfate 325 MG DAILY 05/18 1000 UNVr (Feosol) Paroxetine HCl 10 MG DAILY 05/18 1000 UNVr (Paxil) Insulin Aspart 0 TIDAC 05/17 1700 UNVr (NovoLOG) Acetaminophen 650 MG Q6P PRN 05/17 161 UNVr (Tylenol) Acetaminophen/ 1 TAB Q6P PRN 05/17 1615 UNVr Hydrocodone Bitart (Vicodin) Sodium Chloride 1,000 ML Q6H 05/17 1615 UNVr (Normal Saline 0.9%) Sodium Chloride 1,000 ML ONCE ONE 05/17 1515 AC 05/17 (Normal Saline 0.9%) 05/18 0114 1527 Laboratory Tests 05/17/17 1414: Urine Color STRAW, Urine Clarity CLEAR, Urine pH 6.0, Ur Specific Hemphill 1.010, Urine Protein TRACE H, Urine Ketones NEG, Urine Nitrite NEG, Urine Bilirubin NEG, Urine Urobilinogen 0.2, Ur Leukocyte Esterase NEG, Ur Microscopic SEDIMENT EXAMINED, Urine WBC RARE, Urine Hemoglobin TRACE-LYSED, Urine Glucose NEG 05/17/17 1354: Anion Gap 10, Estimated GFR 40 L, BUN/Creatinine Ratio 23.1, Glucose 160 H, Calcium 9.7, Total Bilirubin 0.6, AST 27, ALT 30, Alkaline Phosphatase 63, Troponin I < 0.01, Total Protein 6.5, Albumin 4.0, Globulin 2.5, Albumin/ Globulin Ratio 1.6, PT 42.8 *H, INR 4.13 *H, APTT 43 H, CBC w Diff NO MAN DIFF REQ, RBC 2.99 L, MCV 87.4, MCH 28.9, RDW 15.7 H, MPV 9.1, Gran % 75.4 H, Lymphocytes % 18.2 L, Monocytes % 5.0, Eosinophils % 0.9, Basophils % 0.5, Absolute Granulocytes 5.1, Absolute Lymphocytes 1.2, Absolute Monocytes 0.3, Absolute Eosinophils 0.1, Absolute Basophils 0, PUBS MCHC 33.0 Patient was given slow IV fluid resuscitation and meclizine patient had no concerns of acute blood loss hemoglobin and hematocrit were stable Negative fecal guaiac Patient was evaluated for orthostatic hypotension however upon laying and sitting up she was too symptomatically dizzy Patient has significant fall risk if discharged from the emergency room (ZOEY FALL,PARADISE) Diagnostic Imaging: Viewed by Me: Radiology Read, CT Scan. Radiology Impression: no acute abnormality, no fracture, no dislocation Initial ED EKG: normal p-waves, normal QRS complex, normal sinus rhythm, 90 BPM, NSR, PAC Comments: PATIENT: YIFAN GALLARDO PRESENT AGE: 72 PATIENT ACCOUNT NO: [id number] : 43 LOCATION: [facility] ORDERING PHYSICIAN: PARADISE FALL SERVICE DATE: 05/17/17 EXAM TYPE: RAD - XRY-SHOULDER COMPLETE-LEFT EXAMINATION: XR SHOULDER, LEFT CLINICAL INFORMATION: Left shoulder pain. COMPARISON: Chest x-ray dated 02/13/2017. TECHNIQUE: AP external rotation, Grashey, scapular Y, and axillary views of the left shoulder. FINDINGS: Diffuse osteopenia. No acute fracture or dislocation. Glenohumeral joint and acromioclavicular joints intact. Small amount of cystic change and spurring is noted along the nonbursal surface of the acromioclavicular joint. There is prominent cystic change in the greater tuberosity of the humeral head. As is a nonspecific finding but has been associated with rotator cuff tear. Included left ribs are intact. There are prominent reticular opacities seen in the left lung, likely accentuated by low lung volumes. IMPRESSION: 1. Diffuse osteopenia. No acute fracture or dislocation. 2. Mild degenerative change in the acromioclavicular joint. 3. Prominent cystic change of the greater tuberosity of the humeral head, while nonspecific, may be a sign of underlying rotator cuff tear. DICTATED BY: ARABELLA RILEY MD DATE/TIME DICTATED:05/17/172 PATIENT: YIFAN GALLARDO PRESENT AGE: 72 PATIENT ACCOUNT NO: [id number] : 43 LOCATION: [facility] [place] ORDERING PHYSICIAN: PARADISE FALL SERVICE DATE: 05/17/178229 EXAM TYPE: CAT - CT HEAD WO IV CONTRAST EXAMINATION: CT HEAD WITHOUT CONTRAST CLINICAL INFORMATION: Head strike on Coumadin. Near syncope. Evaluate for intracranial hemorrhage. COMPARISON: MRI head dated 12/19/2015. CT scan of the head dated 12/10/2015 and 06/27/2015. TECHNIQUE: Contiguous axial imaging was performed from the skull base to vertex without intravenous administration of contrast. DLP: 609.05 mGy-cm FINDINGS: There is no evidence of acute intracranial hemorrhage or territorial infarction. No abnormal mass effect or midline shift is seen. Crump to white matter differentiation is well preserved. No extra-axial fluid collections are identified. The ventricles are normal in size. There is no abnormal attenuation within the brain parenchyma. Again seen are a few scattered sulcal calcifications, unchanged from prior studies and likely representing vascular calcifications. The osseous structures and soft tissues are normal. The mastoid air cells and visualized portions of the paranasal sinuses are well aerated. The patient is status post bilateral ocular lens extractions. IMPRESSION: Unchanged appearance of the head with no acute intracranial pathology. DICTATED BY: ARABELLA RILEY MD DATE/TIME DICTATED:05/17/171410 (PARADISE MAGUIRE) Departure Departure Disposition: STILL A PATIENT Condition: Stable Clinical Impression Primary Impression: Dizziness Secondary Impressions: Contusion of left shoulder, Headache, Minor head injury, Multifactorial gait disorder, Supratherapeutic INR Referrals: WILSON DEGROOT MD (PCP/Family) Departure Forms: Customer Survey General Discharge Information Admission Note Spoke With: CHAU ROGERS MD Documentation of Exam: Documentation of any treatments & extenuating circumstances including Concerns Regarding Discharge (functional status, medication knowledge or non-compliance, living conditions, etc.) that warrant an admission rather than observation: [ Discussed patient with Dr. Rogers who agrees with general medicine admission for concerns of persistent symptomatic dizziness upon ambulation, patient requires slow IV fluid resuscitation, physical therapy consultation, case management consultation, cardiology consultation and possible neurology consultation. 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 I have also reviewed all the pertinent lab results and diagnostic results. I agree with the findings and the plan of care as documented in the PA's/REINFORCING STEEL MACHINE OPERATOR's documentation. [X] I have reviewed the ED Record and agree with the PA's/REINFORCING STEEL MACHINE OPERATOR's documentation. [] Additions or exceptions (if any) to the PAs/REINFORCING STEEL MACHINE OPERATOR's note and plan are summarized below: [] (AL CARRILLO,ALEX)
--- NOTE | 2017-05-17 13:36 | NUR ---
MANUAL BP DONE BY CJ 168/60
--- NOTE | 2017-05-17 13:41 | NUR ---
PA STUDENT AT BEDSIDE FOR PT EVAL. EKG IN PROGRESS.
--- NOTE | 2017-05-17 13:57 | NUR ---
LABS DRAWN AND SENT, LAV,YELLOW,BLUE,PINK,JACINTO
--- NOTE | 2017-05-17 13:58 | NUR ---
PT TO CAT SCAN BY STRETCHER.
[2017-05-17 14:04] LABS: ABSOLUTE BASOPHIL COUNT 0 /CUMM (0.0-0.2); ABSOLUTE EOSINOPHIL COUNT 0.1 /CUMM (0.0-0.7); ABSOLUTE GRANULOCYTE CT 5.1 /CUMM (1.4-6.5); ABSOLUTE LYMPH COUNT 1.2 /CUMM (1.2-3.4); ABSOLUTE MONOCYTE COUNT 0.3 /CUMM (0.10-0.60); BASOPHIL % 0.5 % (0.0-2.0); EOSINOPHIL % 0.9 % (0-5); GRANULOCYTE % 75.4 % (42.2-75.2); HEMATOCRIT 26.1 % (37-47); MEAN CORPUSCULAR HGB 28.9 PG (27.0-31.0); MEAN CORPUSCULAR VOLUME 87.4 FL (81.0-99.0); MEAN PLATELET VOLUME 9.1 FL (7.4-10.4); PLATELET COUNT 271 /CUMM (130-400); RBC DISTRIBUTION WIDTH 15.7 % (11.5-14.5); RED BLOOD CELL CT 2.99 /CUMM (4.20-5.40); WHITE BLOOD CELL COUNT 6.8 /CUMM (4.8-10.8)
[2017-05-17 14:14] LABS: PTT 43 SEC (25-37)
--- NOTE | 2017-05-17 14:17 | NUR ---
URINE TRIO COLLECTED AND SENT TO LAB.
[2017-05-17 14:18] LABS: PT 42.8 SEC (9.4-12.5)
--- NOTE | 2017-05-17 14:18 | NUR ---
PT TO RAD BY STRETCHER.
--- NOTE | 2017-05-17 14:21 | NUR ---
CRITICAL TEST RESULTS [id number] YIFAN GALLARDO 72 F TESTS AND RESULTS: INR 4.13 PT 42.8 Results received and read back by: STEPHANIE HERNANDEZ Results received date and time: 05/17/17 1421 The following provider was notified of the results, and read the results back: JUAN DAVID GREER Notified date and time: 05/17/17 at 1422
--- NOTE | 2017-05-17 14:26 | CT SCAN REPORT ---
EXAMINATION: CT HEAD WITHOUT CONTRAST CLINICAL INFORMATION: Head strike on Coumadin. Near syncope. Evaluate for intracranial hemorrhage. COMPARISON: MRI head dated 12/19/2015. CT scan of the head dated 12/10/2015 and 06/27/2015. TECHNIQUE: Contiguous axial imaging was performed from the skull base to vertex without intravenous administration of contrast. DLP: 609.05 mGy-cm FINDINGS: There is no evidence of acute intracranial hemorrhage or territorial infarction. No abnormal mass effect or midline shift is seen. Crump to white matter differentiation is well preserved. No extra-axial fluid collections are identified. The ventricles are normal in size. There is no abnormal attenuation within the brain parenchyma. Again seen are a few scattered sulcal calcifications, unchanged from prior studies and likely representing vascular calcifications. The osseous structures and soft tissues are normal. The mastoid air cells and visualized portions of the paranasal sinuses are well aerated. The patient is status post bilateral ocular lens extractions. IMPRESSION: Unchanged appearance of the head with no acute intracranial pathology.
--- NOTE | 2017-05-17 14:28 | NUR ---
PT RETURNED FROM RAD, MEDSICATED WITH TYLENOL PER EMAR. PA STUDENT AT BEDSIDE FOR GUAIAC.
--- NOTE | 2017-05-17 14:52 | RADIOLOGY REPORT ---
EXAMINATION: XR SHOULDER, LEFT CLINICAL INFORMATION: Left shoulder pain. COMPARISON: Chest x-ray dated 02/13/2017. TECHNIQUE: AP external rotation, Grashey, scapular Y, and axillary views of the left shoulder. FINDINGS: Diffuse osteopenia. No acute fracture or dislocation. Glenohumeral joint and acromioclavicular joints intact. Small amount of cystic change and spurring is noted along the nonbursal surface of the acromioclavicular joint. There is prominent cystic change in the greater tuberosity of the humeral head. As is a nonspecific finding but has been associated with rotator cuff tear. Included left ribs are intact. There are prominent reticular opacities seen in the left lung, likely accentuated by low lung volumes. IMPRESSION: 1. Diffuse osteopenia. No acute fracture or dislocation. 2. Mild degenerative change in the acromioclavicular joint. 3. Prominent cystic change of the greater tuberosity of the humeral head, while nonspecific, may be a sign of underlying rotator cuff tear.
--- NOTE | 2017-05-17 15:27 | NUR ---
PT MEDICATED WITH ANTIVERT PER EMAR. NS INFUSING PER EMAR.
--- NOTE | 2017-05-17 15:31 | NUR ---
CASE MANAGEMENT AT BEDSIDE.
--- NOTE | 2017-05-17 16:03 | History & Physical ---
General Information and HPI Allergies/Medications Allergies: Coded Allergies: ciprofloxacin (Severe, ANAPHYLAXIS 12/19/15) morphine (N/V 02/13/17) tramadol (N/V 04/28/17) aspirin (Intermediate, ON COUMADIN SO SAYS "I CAN'T TAKE IT" 12/19/15) Home Med list Acetaminophen (Mapap) 500 MG CAPSULE 2 CAP PO PRN PAIN (Reported) Calcium Carbonate/Vitamin D3 (Calcium 500 + D Tablet) (Unknown Strength) TABLET (Unknown Dose) PO DAILY SUPPLEMENT (Reported) Enoxaparin Sodium (Lovenox) 60 MG/0.6 ML SYRINGE 60 MG SC Q12H ANTICOAG FOR VALVE Ferrous Sulfate 325 MG (65 MG IRON) TABLET 1 TAB PO DAILY SUPPLEMENT ( Reported) Hydrochlorothiazide 25 MG TABLET 1 TAB PO DAILY BP (Reported) Lisinopril 10 MG TABLET 1 TAB PO DAILY BP (Reported) Metformin HCl (Metformin HCl ER) 500 MG TAB.ER.24H 1 TAB PO BID DM (Reported) Paroxetine HCl (Paxil) 10 MG TABLET 1 TAB PO DAILY MENTAL HEALTH (Reported) Warfarin Sodium (Coumadin) 2.5 MG TABLET 1 TAB PO QPM BLOOD THINNER (Reported ) Past History Travel History Traveled to [place] past 21 day No Medical History Neurological: migraine, HEMICRANIAL CONT. 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 FATHER, , Age 59; Cause: Myocardial infarction. SISTER, , Age 40-50. Psychosocial History Who Do You Live With? self Services at Home: Home Health Aide, Nursing Primary Language: Nauruan (also Luxembourgish) Living Will? unknown Power of Marine Animal Trainer/HCP? unknown Functional Ability ADLs Independent: dressing, eating, toileting, bathing. Ambulation: independent IADLs Independent: shopping, housework, finances, food prep, telephone, transportation , medication admin. Core Measures/Miscellaneous Cerebrovascular Accident CVA/TIA Diagnosis: No Sepsis (View Protocol) Severe Sepsis Present: No Septic Shock Septic Shock Present: No
--- NOTE | 2017-05-17 16:11 | History & Physical ---
General Information and HPI MD Statement: I have seen and personally examined YIFAN GALLARDO and documented this H&P. The patient is a 72 year old F who presented with a patient stated chief complaint of dizziness for 2-3 days[]. Source of Information: patient Exam Limitations: no limitations History of Present Illness: Patient is 72-year-old female with past medical history significant for [facility] 's mechanical fall on Coumadin, diverticulitis, diabetes, anemia and hypertension, recent admission at [facility] due to symptomatic anemia status post blood transfusion came with chief complaint of dizziness for last 2- 3 days. Patient was doing fine until last week but for past 2-3 days she was experiencing dizziness while she was getting up to a point that yesterday she was about to fall back hit her shoulder on wall. She denied any syncopal episode, palpitation, chest pain, worsening shortness of breath, fever, any urinary or bowel complaints. She was denying any recent diarrhea. Her vital signs on admission were temperature 98.3, pulse is 97, respiratory rate 18, blood pressure 168/60 and she was saturating 99% on room air. On admission her orthostatic vital signs were negative for orthostatic hypotension. Labs on admission were WBC count 6.8, hemoglobin 8.6, hematocrit 26.1, platelet count 271, INR 4.13, sodium 139, potassium 4.2, creatinine 1.3, negative urinalysis. Allergies/Medications Allergies: Coded Allergies: ciprofloxacin (Severe, ANAPHYLAXIS 12/19/15) morphine (N/V 02/13/17) tramadol (N/V 04/28/17) aspirin (Intermediate, ON COUMADIN SO SAYS "I CAN'T TAKE IT" 12/19/15) Home Med list Acetaminophen (Mapap) 500 MG CAPSULE 2 CAP PO PRN PAIN (Reported) Calcium Carbonate/Vitamin D3 (Calcium 500 + D Tablet) (Unknown Strength) TABLET (Unknown Dose) PO DAILY SUPPLEMENT (Reported) Ferrous Sulfate 325 MG (65 MG IRON) TABLET 1 TAB PO DAILY SUPPLEMENT ( Reported) Hydrochlorothiazide 25 MG TABLET 1 TAB PO DAILY BP (Reported) Lisinopril 10 MG TABLET 1 TAB PO DAILY BP (Reported) Metformin HCl (Metformin HCl ER) 500 MG TAB.ER.24H 1 TAB PO BID DM (Reported) Paroxetine HCl (Paxil) 10 MG TABLET 1 TAB PO DAILY MENTAL HEALTH (Reported) Warfarin Sodium (Coumadin) 2.5 MG TABLET 1 TAB PO QPM BLOOD THINNER (Reported ) Compliance With Home Meds: GOOD Past History Travel History Traveled to [place] past 21 day No Medical History Neurological: migraine, HEMICRANIAL CONT. 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 FATHER, , Age 59; Cause: Myocardial infarction. SISTER, , Age 40-50. Psychosocial History Who Do You Live With? self Services at Home: Home Health Aide, Nursing Primary Language: English (also Telugu) Living Will? unknown Power of Combat Rifle Crewmember/HCP? unknown Functional Ability ADLs Independent: dressing, eating, toileting, bathing. Ambulation: independent IADLs Independent: shopping, housework, finances, food prep, telephone, transportation , medication admin. Review of Systems Review of Systems Constitutional: Reports: weakness (as her equipment planner is just as). Denies: diaphoresis, fever, malaise. Cardiovascular: Denies: chest pain, edema, palpitations. Respiratory: Denies: cough, hemoptysis, orthopnea. GI: Denies: bloating, constipation, diarrhea. Genitourinary: Denies: dysuria, frequency, hematuria. Musculoskeletal: Denies: joint pain, joint swelling. Skin: Reports: see HPI. Exam & Diagnostic Data Last 24 Hrs of Vital Signs/I&O Vital Signs Date Time Temp Pulse Resp B/P B/P Pulse O2 O2 Flow FiO2 Mean Ox Delivery Rate 05/17 1530 85 18 186/68 98 Room Air 05/17 1348 99 Room Air 05/17 1327 98.3 97 18 168/60 99 Room Air Intake & Output 05/17 1600 05/17 0800 05/17 0000 Intake Total Output Total Balance Patient 136 lb Weight Weight Reported by Patient Measurement Method Physical Exam General Appearance Alert, Oriented X3, Cooperative, No Acute Distress Skin bruise on left shoulder Cardiovascular Normal S1, Normal S2 Lungs Normal Air Movement Abdomen Soft, No Tenderness Extremities No Clubbing, No Cyanosis, No Edema Last 24 Hrs of Labs/Thda: Laboratory Tests 05/17/17 1414: Urine Color STRAW, Urine Clarity CLEAR, Urine pH 6.0, Ur Specific [place] 1.010, Urine Protein TRACE H, Urine Ketones NEG, Urine Nitrite NEG, Urine Bilirubin NEG, Urine Urobilinogen 0.2, Ur Leukocyte Esterase NEG, Ur Microscopic SEDIMENT EXAMINED, Urine WBC RARE, Urine Hemoglobin TRACE-LYSED, Urine Glucose NEG 05/17/17 1354: Anion Gap 10, Estimated GFR 40 L, BUN/Creatinine Ratio 23.1, Glucose 160 H, Calcium 9.7, Total Bilirubin 0.6, AST 27, ALT 30, Alkaline Phosphatase 63, Troponin I < 0.01, Total Protein 6.5, Albumin 4.0, Globulin 2.5, Albumin/ Globulin Ratio 1.6, PT 42.8 *H, INR 4.13 *H, APTT 43 H, CBC w Diff NO MAN DIFF REQ, RBC 2.99 L, MCV 87.4, MCH 28.9, RDW 15.7 H, MPV 9.1, Gran % 75.4 H, Lymphocytes % 18.2 L, Monocytes % 5.0, Eosinophils % 0.9, Basophils % 0.5, Absolute Granulocytes 5.1, Absolute Lymphocytes 1.2, Absolute Monocytes 0.3, Absolute Eosinophils 0.1, Absolute Basophils 0, PUBS MCHC 33.0 Diagnostic Data Other Results SERVICE DATE: 05/17/17-140 EXAM TYPE: RAD - XRY-SHOULDER COMPLETE-LEFT EXAMINATION: XR SHOULDER, LEFT CLINICAL INFORMATION: Left shoulder pain. COMPARISON: Chest x-ray dated 02/13/2017. TECHNIQUE: AP external rotation, Grashey, scapular Y, and axillary views of the left shoulder. FINDINGS: Diffuse osteopenia. No acute fracture or dislocation. Glenohumeral joint and acromioclavicular joints intact. Small amount of cystic change and spurring is noted along the nonbursal surface of the acromioclavicular joint. There is prominent cystic change in the greater tuberosity of the humeral head. As is a nonspecific finding but has been associated with rotator cuff tear. Included left ribs are intact. There are prominent reticular opacities seen in the left lung, likely accentuated by low lung volumes. IMPRESSION: 1. Diffuse osteopenia. No acute fracture or dislocation. 2. Mild degenerative change in the acromioclavicular joint. 3. Prominent cystic change of the greater tuberosity of the humeral head, while nonspecific, may be a sign of underlying rotator cuff tear. Assessment/Plan Assessment: Patient is 72-year-old female with past medical history significant for [facility] 's mechanical fall on Coumadin, diverticulitis, diabetes, anemia and hypertension, recent admission at [facility] due to symptomatic anemia status post blood transfusion came with chief complaint of dizziness for last 2- 3 days and also found to have slightly elevated creatinine most likely dehydration but we will rule out any dysrhythmias and monitor him on telemetry floor for 24 hours. We will observe patient on telemetry floor and will take it for the following problems Problem list 1. Acute kidney injury most likely due to dehydration 2. Dizziness could be due to vasovagal/orthostatic hypotension due to dehydration We will rule out any cardiac arrhythmias 3. Supratherapeutic INR we will hold her Coumadin 4. History of hypertension we will hold antihypertensives 5. History of diabetes Plan We will observe patient on telemetry floor for any arrhythmia as We will start her on normal saline at 800 mils per hour and will check orthostatics every shift We will hold Coumadin for now and will check INR in the morning and will dose her according the We will hold her antihypertensive given her history of dizziness with changing posterior and she might need adjustment of her antihypertensive dose Accu-Cheks We will start her on insulin sliding scale Will request physical therapy evaluation in a.m. for safe discharge Patient is full code INR supratherapeutic we will not start give her any DVT prophylaxis for now but she is on Coumadin Heart healthy diet As Ranked By This Provider Problem List: 1. Supratherapeutic INR 2. Multifactorial gait disorder Core Measures/Miscellaneous Acute Coronary Syndrome ACS Diagnosis: No Cerebrovascular Accident CVA/TIA Diagnosis: No Congestive Heart Failure CHF Diagnosis: No VTE (View Protocol) VTE Risk Factors: Age > [address] [facility] d/t: VTE low risk (supratherapeutic inr) No VTE Pharm Prophylaxis d/t: Blood coag disorder VTE Diagnosis: No VTE Type: NONE VTE Confirmed by (Test): NONE Sepsis (View Protocol) Severe Sepsis Present: No Septic Shock Septic Shock Present: No Miscellaneous Documentation Attending Case Discussed With: WILSON DEGROOT MD Primary Care Physician: WILSON DEGROOT MD Patient sees these Specialists equipment planner Level of Patient Care: Telemetry Resident Review Statement Resident Statement: examined this patient, discussed with manager international, agreed with manager international
--- NOTE | 2017-05-17 16:48 | NUR ---
FOOD TRAY ORDERED
--- NOTE | 2017-05-17 16:48 | NUR ---
PT ASSIGNED ROOM [id number]
--- NOTE | 2017-05-17 17:32 | NUR ---
FOOD TRAY PROVIDED TO PT.
--- NOTE | 2017-05-17 17:43 | NUR ---
REPORT CALLED TO TELE TO DANIELLE [place] PT GOING TO ROOM 177, ROOM IS STILL OCCUPIED. RN WILL CALL BACK WHEN ROOM IS READY.
--- NOTE | 2017-05-17 18:02 | NUR ---
PT ASSISTED TO BED SIDE COMMODE WITH MINIMAL ASSISTANCE NEEDED. PT HELPED BACK INTO BED.
--- NOTE | 2017-05-17 18:39 | PN- Att Addend ---
Attending Addendum Attending Brief Note 72 year old female with several comorbidities was very dizzy last evening got up from bed fell hit her head and left shoulder no LOC, this am could not get up was brought in to the ER had complete evaluation CT of the head shoulder X ray no fractures or head bleeding, has an echymotic area on her left shoulder and is sore to touch and movements her INR is supratherapeutic. Will keep in observation overnight and reevaluate in AM. Laboratory Tests 05/17 05/17 1414 1354 Chemistry Sodium (137 - 145 mmol/L) 139 Potassium (3.5 - 5.1 mmol/L) 4.2 Chloride (98 - 107 mmol/L) 106 Carbon Dioxide (22 - 30 mmol/L) 22 Anion Gap (5 - 16) 10 BUN (7 - 17 mg/dL) 30 H Creatinine (0.5 - 1.0 mg/dL) 1.3 H Estimated GFR (>60 ml/min) 40 L BUN/Creatinine Ratio (7 - 25 %) 23.1 Glucose (65 - 99 mg/dL) 160 H Calcium (8.4 - 10.2 mg/dL) 9.7 Total Bilirubin (0.2 - 1.3 mg/dL) 0.6 AST (14 - 36 U/L) 27 ALT (9 - 52 U/L) 30 Alkaline Phosphatase (<127 U/L) 63 Troponin I (< 0.11 ng/ml) < 0.01 Total Protein (6.3 - 8.2 g/dL) 6.5 Albumin (3.5 - 5.0 g/dL) 4.0 Globulin (1.9 - 4.2 gm/dL) 2.5 Albumin/Globulin Ratio (1.1 - 2.2 %) 1.6 Coagulation PT (9.4 - 12.5 SEC) 42.8 *H INR (0.90 - 1.19) 4.13 *H APTT (25 - 37 SEC) 43 H Hematology CBC w Diff NO MAN DIFF REQ WBC (4.8 - 10.8 /CUMM) 6.8 RBC (4.20 - 5.40 /CUMM) 2.99 L Hgb (12.0 - 16.0 G/DL) 8.6 L Hct (37 - 47 %) 26.1 L MCV (81.0 - 99.0 FL) 87.4 MCH (27.0 - 31.0 PG) 28.9 RDW (11.5 - 14.5 %) 15.7 H Plt Count (130 - 400 /CUMM) 271 MPV (7.4 - 10.4 FL) 9.1 Gran % (42.2 - 75.2 %) 75.4 H Lymphocytes % (20.5 - 51.1 %) 18.2 L Monocytes % (1.7 - 9.3 %) 5.0 Eosinophils % (0 - 5 %) 0.9 Basophils % (0.0 - 2.0 %) 0.5 Absolute Granulocytes (1.4 - 6.5 /CUMM) 5.1 Absolute Lymphocytes (1.2 - 3.4 /CUMM) 1.2 Absolute Monocytes (0.10 - 0.60 /CUMM) 0.3 Absolute Eosinophils (0.0 - 0.7 /CUMM) 0.1 Absolute Basophils (0.0 - 0.2 /CUMM) 0 PUBS MCHC (33.0 - 37.0 G/DL) 33.0 Urines Urine Color (YEL,AMB,STR) STRAW Urine Clarity (CLEAR) CLEAR Urine pH (5.0 - 8.0) 6.0 Ur Specific [place] (1.001 - 1.035) 1.010 Urine Protein (NEG,<30 MG/DL) TRACE H Urine Ketones (NEG) NEG Urine Nitrite (NEG) NEG Urine Bilirubin (NEG) NEG Urine Urobilinogen (0.1 - 1.0 EU/dl) 0.2 Ur Leukocyte Esterase (NEG) NEG Ur Microscopic SEDIMENT EXAMINED Urine WBC (0 - 2 /HPF) RARE Urine Hemoglobin (NEG) TRACE-LYSED Urine Glucose (N MG/DL) NEG
--- NOTE | 2017-05-17 19:42 | NUR ---
ROOM 177 IS READY, DISTRIBUTION BOOKED
[2017-05-17 20:38] VITALS: BP 164/46
[2017-05-17 22:26] VITALS: BP 138/60
[2017-05-18 06:43] VITALS: BP 142/42
[2017-05-18 08:16] LABS: ABSOLUTE BASOPHIL COUNT 0 /CUMM (0.0-0.2); ABSOLUTE EOSINOPHIL COUNT 0.1 /CUMM (0.0-0.7); ABSOLUTE GRANULOCYTE CT 3.3 /CUMM (1.4-6.5); ABSOLUTE LYMPH COUNT 1.3 /CUMM (1.2-3.4); ABSOLUTE MONOCYTE COUNT 0.3 /CUMM (0.10-0.60); BASOPHIL % 0.7 % (0.0-2.0); EOSINOPHIL % 1.4 % (0-5); GRANULOCYTE % 66.4 % (42.2-75.2); HEMATOCRIT 23.8 % (37-47); MEAN CORPUSCULAR HGB 28.6 PG (27.0-31.0); MEAN CORPUSCULAR HGB CONC 32.8 G/DL (33.0-37.0); MEAN CORPUSCULAR VOLUME 87.3 FL (81.0-99.0); MEAN PLATELET VOLUME 9.3 FL (7.4-10.4); PLATELET COUNT 241 /CUMM (130-400); RBC DISTRIBUTION WIDTH 15.5 % (11.5-14.5); RED BLOOD CELL CT 2.73 /CUMM (4.20-5.40)
[2017-05-18 08:42] LABS: PT 39.4 SEC (9.4-12.5)
--- NOTE | 2017-05-18 09:46 | PN- Housestaff ---
Subjective Follow-up For: Dizziness-Vasovagal syncope Tele-Events Since Last Visit: No overnight tele events Subjective: Patient is seen and examined in the morning slept well overnight and still reports dizziness with lightheadedness on getting out of bed and also on ambulation, orthostats and have been negative. Denies any chest discomfort or breathing/palpitaions Review of Systems Constitutional: Denies: diaphoresis, fever, malaise. EENTM: Denies: blurred vision, double vision, visual changes. Cardiovascular: Denies: chest pain, edema, orthopena. Respiratory: Denies: hemoptysis, orthopnea, short of breath. Gastrointestinal: Denies: bloating, constipation, diarrhea. Genitourinary: Denies: dysuria, hematuria, hesitation. Musculoskeletal: Denies: gout, joint pain, joint swelling. Objective Last 24 Hrs of Vital Signs/I&O Vital Signs Date Time Temp Pulse Resp B/P B/P Pulse O2 O2 Flow FiO2 Mean Ox Delivery Rate 05/18 0643 98.3 83 20 142/42 98 Room Air 05/17 2226 97.7 73 20 138/60 98 Room Air 05/17 2038 98.5 72 20 164/46 99 Room Air 05/17 1935 97.2 73 18 134/64 99 Room Air 05/17 1712 98.0 78 18 182/70 98 Room Air 05/17 1530 85 18 186/68 98 Room Air 05/17 1348 99 Room Air 05/17 1327 98.3 97 18 168/60 99 Room Air Intake & Output 05/18 1600 / 0800 05/18 0000 Intake Total 800 Output Total 400 Balance 400 Intake, IV 700 Intake, Oral 100 Output, Urine 400 Patient 136 lb Weight Physical Exam General Appearance: Alert, Oriented X3 Skin: No Rashes, No Breakdown Skin Temp/Moisture Exam: Warm/Dry Sepsis Skin Exam (color): Normal for Ethnicity HEENT: Atraumatic, PERRLA, Mucous Membr. moist/pink Neck: Supple, No JVD Cardiovascular: Regular Rate, Normal S1, Normal S2 Lungs: Clear to Auscultation, Normal Air Movement Neurological: Normal Gait, Normal Speech, Strength at 5/5 X4 Ext Extremities: No Clubbing Assessment/Plan Assessment: Patient is 72-year-old female with past medical history significant for [facility] 's mechanical fall on Coumadin, diverticulitis, diabetes, anemia and hypertension, recent admission at [facility] due to symptomatic anemia status post blood transfusion came with chief complaint of dizziness for last 2- 3 days and also found to have slightly elevated creatinine most likely dehydration but we will rule out any dysrhythmias and monitor him on telemetry floor for 24 hours. Patient has been placed in observation on telemetry floor for 24-48 hours for possible reasons. Dizziness(differentials include vasovagal syncope/dehydration/cardiogenic/BPPV) * Patient still remains dizzy orthostats have been negative, we will repeat orthostatic vitals today. * Continue gentle hydration. * Troponin is negative will repeat another set of troponin with EKG, no events on monitoring analyst overnight. * Cardiology consult Dr. Vergara has been obtained we'll follow the recommendations. * Will obtain physical therapy consult to get Monroe Hallpike maneuver to 2 granular any underlying BPPV. Acute kidney injury most likely due to dehydration * Kidney functions improved * Continue to promote oral hydration and avoid any nephrotoxic agents Supratherapeutic INR(history of [facility] Phani's mechanical on Coumadin)-follows up with Dr. Argueta as an outpatient * INR today is 3.8 * Will hold off Coumadin today recheck INR tomorrow keep INR goal between 2.5 and 3. Acute on chronic normocytic anemia * H&H were 7.8 /23.8 * Watch for any Active signs of bleeding keep H&H above 7. * Patient follows up with as an outpatient for her anemia and consider informing Dr. Dunn if H&H continues to drop. History of hypertension * Blood pressure remains borderline continue to hold antihypertensives for now. History of diabetes * Continue blood sugar levels controlled with NovoLog sliding scale with Accu- Cheks Patient is full code INR supratherapeutic we will not start give her any DVT prophylaxis for now but she is on Coumadin Heart healthy diet Problem List: 1. Dizziness Pain Ratin Pain Location: No pain at this time. Pain Goal: Pain 4 or less Pain Plan: When necessary Tylenol Tomorrow's Labs & Rationales: CBC BEP and INR tomorrow Low H&H
[2017-05-18 14:53] VITALS: BP 142/48
--- NOTE | 2017-05-18 15:30 | PN- Att Addend ---
Attending Addendum Attending Brief Note Patient is feeling better, still a little dizzy. Her vital signs are stable. Started to ambulate. Her INR is still a little supratherapeutic. Will extend her observation until tomorrow morning, if her INR is okay in terms are improved then will discharge and have an ENT follow-up as an outpatient. 24 TOTALS 05/18 0000 05/17 0000 Intake Total 800 Output Total 400 Balance 400 Intake, IV 700 Intake, Oral 100 Output, Urine 400 Patient 136 lb Weight Weight Reported by Patient Measurement Method Laboratory Tests 05/18/17 0725: Anion Gap 7, Estimated GFR > 60, BUN/Creatinine Ratio 26.7 H, Troponin I < 0.01 , PT 39.4 H, INR 3.80 H, CBC w Diff NO MAN DIFF REQ, RBC 2.73 L, MCV 87.3, MCH 28.6, RDW 15.5 H, MPV 9.3, Gran % 66.4, Lymphocytes % 25.3, Monocytes % 6.2 , Eosinophils % 1.4, Basophils % 0.7, Absolute Granulocytes 3.3, Absolute Lymphocytes 1.3, Absolute Monocytes 0.3, Absolute Eosinophils 0.1, Absolute Basophils 0, PUBS MCHC 32.8 L 05/17/17 1414: Urine Color STRAW, Urine Clarity CLEAR, Urine pH 6.0, Ur Specific [place] 1.010, Urine Protein TRACE H, Urine Ketones NEG, Urine Nitrite NEG, Urine Bilirubin NEG, Urine Urobilinogen 0.2, Ur Leukocyte Esterase NEG, Ur Microscopic SEDIMENT EXAMINED, Urine WBC RARE, Urine Hemoglobin TRACE-LYSED, Urine Glucose NEG 05/17/17 1354: Anion Gap 10, Estimated GFR 40 L, BUN/Creatinine Ratio 23.1, Glucose 160 H, Calcium 9.7, Total Bilirubin 0.6, AST 27, ALT 30, Alkaline Phosphatase 63, Troponin I < 0.01, Total Protein 6.5, Albumin 4.0, Globulin 2.5, Albumin/ Globulin Ratio 1.6, PT 42.8 *H, INR 4.13 *H, APTT 43 H, CBC w Diff NO MAN DIFF REQ, RBC 2.99 L, MCV 87.4, MCH 28.9, RDW 15.7 H, MPV 9.1, Gran % 75.4 H, Lymphocytes % 18.2 L, Monocytes % 5.0, Eosinophils % 0.9, Basophils % 0.5, Absolute Granulocytes 5.1, Absolute Lymphocytes 1.2, Absolute Monocytes 0.3, Absolute Eosinophils 0.1, Absolute Basophils 0, PUBS MCHC 33.0 Vital Signs Date Time Temp Pulse Resp B/P B/P Pulse O2 O2 Flow FiO2 Mean Ox Delivery Rate 05/18 1453 98.1 81 20 142/48 98 Room Air 05/18 0643 98.3 83 20 142/42 98 Room Air 05/17 2226 97.7 73 20 138/60 98 Room Air 05/17 2038 98.5 72 20 164/46 99 Room Air 05/17 1935 97.2 73 18 134/64 99 Room Air 05/17 1712 98.0 78 18 182/70 98 Room Air 05/17 1530 85 18 186/68 98 Room Air Current Medications Sig/Eliane Start time Last Medication Dose Route Stop Time Status Admin Acetaminophen 650 MG Q6P PRN 05/17 1615 AC 05/18 PO 0943 Acetaminophen/ 1 TAB Q6P PRN 05/17 1615 AC Hydrocodone Bitart PO Ferrous Sulfate 325 MG DAILY 05/18 1000 AC 05/18 PO 0941 Insulin Aspart 0 TIDAC 05/17 1700 AC SC Meclizine HCl 12.5 MG TID PRN 05/18 1030 AC 05/18 PO 1228 Meclizine HCl 0 .STK-MED ONE 05/17 1531 DC PO Paroxetine HCl 10 MG DAILY 05/18 1000 AC 05/18 PO 0941 Sodium Chloride 1,000 ML Q13H 05/18 1045 AC IV Sodium Chloride 1,000 ML Q10H 05/17 1615 DC 05/18 IV 0849 Sodium Chloride 1,000 ML ONCE ONE 05/17 1515 DC 05/17 IV 05/18 0114 1527 Hold Coumadin today.
--- NOTE | 2017-05-18 20:26 | Cons- Cardiology ---
General Information and HPI Consulting Request Date of Consult: 05/18/17 Requested By: WILSON DEGROOT MD History of Present Illness: Ms. Lopez is a 72 year old female with history of hypertension, diabetes and [facility] aortic valve. She also carries a history of anemia and is status post a blood transfusion. Over the past few days this patient has noted a dizzy sensation. She has arisen to go to the bathroom at about 3 AM as is commonly her practice. This time she felt off balance and banged her shoulder against a wall. She denies any loss of consciousness or palpitations that were beyond her baseline. She does have intermittent palpitations on almost a daily basis that are unchanged. She does have shortness of breath but otherwise is free of any significant chest discomfort. The patient was not orthostatic in the ER. The patient was noted to be very anemic. Allergies/Medications Allergies: Coded Allergies: ciprofloxacin (Severe, ANAPHYLAXIS 12/19/15) morphine (N/V 02/13/17) tramadol (N/V 04/28/17) aspirin (Intermediate, ON COUMADIN SO SAYS "I CAN'T TAKE IT" 12/19/15) Home Med List: Acetaminophen (Mapap) 500 MG CAPSULE 2 CAP PO PRN PAIN (Reported) Calcium Carbonate/Vitamin D3 (Calcium 500 + D Tablet) (Unknown Strength) TABLET (Unknown Dose) PO DAILY SUPPLEMENT (Reported) Ferrous Sulfate 325 MG (65 MG IRON) TABLET 1 TAB PO DAILY SUPPLEMENT ( Reported) Hydrochlorothiazide 25 MG TABLET 1 TAB PO DAILY BP (Reported) Lisinopril 10 MG TABLET 1 TAB PO DAILY BP (Reported) Metformin HCl (Metformin HCl ER) 500 MG TAB.ER.24H 1 TAB PO BID DM (Reported) Paroxetine HCl (Paxil) 10 MG TABLET 1 TAB PO DAILY MENTAL HEALTH (Reported) Warfarin Sodium (Coumadin) 2.5 MG TABLET 1 TAB PO QPM BLOOD THINNER (Reported ) Review of Systems Review of Systems: A twelve point review os systems was unremarkable. Past History Travel History Traveled to [place] past 21 day No Medical History Neurological: migraine, HEMICRANIAL CONT. EENT: hearing loss Cardiovascular: hypertension, MECHANICAL VALVE Respiratory: NONE Gastrointestinal: diverticulitis Hepatic: NONE Renal: NONE Musculoskeletal: degen joint disease, osteoarthritis Psychiatric: NONE Endocrine: diabetes Blood Disorders: anemia Cancer(s): NONE ONION TIER/Reproductive: NONE Surgical History Surgical History: appendectomy, tubal ligation, MECHANICAL VALVE L KNEE REPLACEMENT SURGERY TO R BREAST CLOGGED MILK DUCT Family History Relations & Conditions If Any: MOTHER, , Age 55; Cause: Myocardial infarction. FATHER, , Age 59; Cause: Myocardial infarction. SISTER, , Age 40-50. Psychosocial History Who Do You Live With? self Services at Home: Home Health Aide, Nursing Primary Language: Tongan (also Mongolian) Smoking Status: Never Smoked Living Will? unknown Power of Ordnance Artificer/HCP? unknown Functional Ability ADLs Independent: dressing, eating, toileting, bathing. Ambulation: independent IADLs Independent: shopping, housework, finances, food prep, telephone, transportation , medication admin. Exam & Diagnostic Data Vital Signs and I&O Vital Signs Date Time Temp Pulse Resp B/P B/P Pulse O2 O2 Flow FiO2 Mean Ox Delivery Rate 05/18 1453 98.1 81 20 142/48 98 Room Air 05/18 0643 98.3 83 20 142/42 98 Room Air 05/17 2226 97.7 73 20 138/60 98 Room Air 05/17 2038 98.5 72 20 164/46 99 Room Air Intake & Output 05/18 1600 05/18 0800 05/18 0000 05/17 1600 05/17 0800 05/17 0000 Intake Total 1150 700 800 Output Total 400 400 Balance 1150 300 400 Intake, IV 600 600 700 Intake, Oral 550 100 100 Output, Urine 400 400 Patient 136 lb 136 lb Weight Weight Reported by Patient Measurement Method Physical Exam: General: WD/WN female in NAD; alert and oriented x 3 HEENT: NC/AT, PERRL, EOMi NEck: no JVD, no carotid bruit Heart: RRR with murmur and crisp heart sounds Lungs: clear bilaterally Abdomen: soft, NT, +ve bowel sounds Extremities: no edema Assessment/Plan Assessment/Plan * This patient has weakness upon arising that is likely related to her profound anemia. It is common to have some degree of hemolytic anemia in the setting of a mechanical prosthetic aortic valve although this patient's anemia is severe and in the setting of a supratherapeutic INR there may also be an element of bleeding. Her lightheadedness and disorientation was likely exacerbated by some concurrent dehydration that has manifested as a rise in her creatinine indicative of a pre-renal state. * Guaiac all stools and pursue an anemia workup. * Keep INR about 2.5. * Encourage oral fluids. Consult Acknowledgment - Thank you for your consult request.
[2017-05-18 22:00] VITALS: BP 170/50
[2017-05-19 00:15] VITALS: BP 154/56
[2017-05-19 08:31] LABS: ABSOLUTE BASOPHIL COUNT 0.1 /CUMM (0.0-0.2); ABSOLUTE EOSINOPHIL COUNT 0.1 /CUMM (0.0-0.7); ABSOLUTE GRANULOCYTE CT 5.3 /CUMM (1.4-6.5); ABSOLUTE LYMPH COUNT 1.4 /CUMM (1.2-3.4); ABSOLUTE MONOCYTE COUNT 0.3 /CUMM (0.10-0.60); BASOPHIL % 0.7 % (0.0-2.0); EOSINOPHIL % 0.9 % (0-5); HEMATOCRIT 25.6 % (37-47); MEAN CORPUSCULAR HGB 29.2 PG (27.0-31.0); MEAN CORPUSCULAR HGB CONC 33.4 G/DL (33.0-37.0); MEAN CORPUSCULAR VOLUME 87.4 FL (81.0-99.0); MEAN PLATELET VOLUME 9.6 FL (7.4-10.4); PLATELET COUNT 252 /CUMM (130-400); RBC DISTRIBUTION WIDTH 15.6 % (11.5-14.5); RED BLOOD CELL CT 2.92 /CUMM (4.20-5.40); WHITE BLOOD CELL COUNT 7.1 /CUMM (4.8-10.8)
[2017-05-19 08:33] VITALS: BP 154/60
--- NOTE | 2017-05-19 08:57 | PN- Housestaff ---
Subjective Follow-up For: Dizziness-Vasovagal syncope Complaints: no complaints Tele-Events Since Last Visit: NSR/ST: [id number] Subjective: I have examined the patient at bedside, she is sitting down in bed in no acute distress, reports having no symptoms Review of Systems Constitutional: Reports: see HPI. Cardiovascular: Denies: chest pain, edema, orthopena, palpitations. Respiratory: Denies: cough, short of breath, sputum production. Gastrointestinal: Denies: abdominal pain, bloating, distention, melena. Objective Last 24 Hrs of Vital Signs/I&O Vital Signs Date Time Temp Pulse Resp B/P B/P Pulse O2 O2 Flow FiO2 Mean Ox Delivery Rate 05/19 0833 98.8 70 20 154/60 97 Room Air 05/19 0015 154/56 05/18 2223 98.9 88 20 96 Room Air 05/18 2200 89 170/50 05/18 1453 98.1 81 20 142/48 98 Room Air Intake & Output 05/19 1600 05/19 0800 05/19 0000 Intake Total 200 950 Output Total 825 850 Balance -625 100 Intake, IV 600 Intake, Oral 200 350 Number 3 Bowel Movements Output, Urine 825 850 Physical Exam General Appearance: Alert, Oriented X3, Cooperative, No Acute Distress Skin: No Rashes, No Breakdown, No Significant Lesion Skin Temp/Moisture Exam: Warm/Dry HEENT: Atraumatic, PERRLA, EOMI, Mucous Membr. moist/pink Neck: Supple, No JVD Cardiovascular: Regular Rate, Normal S1, Normal S2, No Murmurs Lungs: Clear to Auscultation, Normal Air Movement Abdomen: Normal Bowel Sounds, Soft, No Tenderness Neurological: Normal Speech, Strength at 5/5 X4 Ext, Normal Tone, Sensation Intact Extremities: No Clubbing, No Cyanosis, No Edema Assessment/Plan Assessment: Patient is 72-year-old female with past medical history significant for [facility]. 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 Patient has been placed in observation on telemetry floor for 24-48 hours for possible reasons. Dizziness(differentials include vasovagal syncope/dehydration/cardiogenic/BPPV) * Patient still remains dizzy orthostats have been negative, we will repeat orthostatic vitals today. * Continue gentle hydration. * Troponin is negative will repeat another set of troponin with EKG, no events on electronic systems technician overnight. * Cardiology consult Dr. Vergara has been obtained we'll follow the recommendations. * Will obtain physical therapy consult to get [place] Hallpike maneuver to 2 granular any underlying BPPV. Acute kidney injury most likely due to dehydration * Kidney functions improved * Continue to promote oral hydration and avoid any nephrotoxic agents Supratherapeutic INR(history of St. Phani's mechanical on Coumadin)-follows up with Dr. Argueta as an outpatient * INR today is 3.8 * Will hold off Coumadin today recheck INR tomorrow keep INR goal between 2.5 and 3. Acute on chronic normocytic anemia * H&H were 7.8 /23.8 * Watch for any Active signs of bleeding keep H&H above 7. * Patient follows up with as an outpatient for her anemia and consider informing Dr. Dunn if H&H continues to drop. History of hypertension * Blood pressure remains borderline continue to hold antihypertensives for now. History of diabetes * Continue blood sugar levels controlled with NovoLog sliding scale with Accu- Cheks The patient is stable for discharge today Patient is full code INR supratherapeutic we will not start give her any DVT prophylaxis for now but she is on Coumadin Heart healthy diet Problem List: 1. Dizziness Pain Ratin Pain Location: N/A Pain Goal: Remain pain free Pain Plan: PER PATHWAY Tomorrow's Labs & Rationales: N/A DVT/Prophylaxis: INR SUPRTHERAPEUTIC, BUT SHE WAS ON COUMADIN
--- NOTE | 2017-05-19 10:31 | PN- Cardiology ---
Subjective Subjective: Patient reports that she is feeling well. No chest pain. No shortness of breath. No lightheadedness or dizziness. No nausea or vomiting. She notes intermittent mild palpitations. quality assurance monitor reveals sinus rhythm with premature atrial contractions and short run of SVT. Objective Vital Signs and I&Os Vital Signs Date Time Temp Pulse Resp B/P B/P Pulse O2 O2 Flow FiO2 Mean Ox Delivery Rate 05/19 0833 98.8 70 20 154/60 97 Room Air 05/19 0015 154/56 05/18 2223 98.9 88 20 96 Room Air 05/18 2200 89 170/50 05/18 1453 98.1 81 20 142/48 98 Room Air Intake & Output 05/19 1600 05/19 0800 05/19 0000 05/18 1600 05/18 0805/18 0000 Intake Total 158 655 9826 700 800 Output Total 825 850 400 400 Balance -255 432 5559 300 400 Intake, IV 600 600 600 700 Intake, Oral 200 350 550 100 100 Number 3 Bowel Movements Output, Urine 825 850 400 400 Patient 136 lb Weight Physical Exam: Gen: NAD HEENT: normal Lungs: clear to auscultation, normal resp. effort Heart: Mechanical valve sounds. S1, S2 Abdomen: Soft, nontender, no masses Extremities: No clubbing, cyanosis, or edema. Neuro: Alert and oriented x 3, cranial nerves intact Current Medications: Current Medications Sig/Eliane Start time Last Medication Dose Route Stop Time Status Admin Acetaminophen 650 MG Q6P PRN 05/17 1615 AC 05/19 PO 1007 Acetaminophen/ 1 TAB Q6P PRN 05/17 1615 AC Hydrocodone Bitart PO Ferrous Sulfate 325 MG DAILY 05/18 1000 AC 05/19 PO 1007 Insulin Aspart 0 TIDAC 05/17 1700 AC SC Meclizine HCl 12.5 MG TID PRN 05/18 1030 AC 05/18 PO 1228 Paroxetine HCl 10 MG DAILY 05/18 1000 AC 05/19 PO 1007 Sodium Chloride 1,000 ML Q13H 05/18 1045 AC 05/19 IV 0215 Sodium Chloride 1,000 ML Q10H 05/17 1615 DC 05/18 IV 0849 Results Last 48 Hrs of Labs/Mics: Laboratory Tests 05/19/17 0750: Anion Gap 8, Estimated GFR > 60, BUN/Creatinine Ratio 28.9 H, CBC w Diff NO MAN DIFF REQ, RBC 2.92 L, MCV 87.4, MCH 29.2, RDW 15.6 H, MPV 9.6, Gran % 74.0, Lymphocytes % 19.5 L, Monocytes % 4.9, Eosinophils % 0.9, Basophils % 0.7, Absolute Granulocytes 5.3, Absolute Lymphocytes 1.4, Absolute Monocytes 0.3, Absolute Eosinophils 0.1, Absolute Basophils 0.1, PUBS MCHC 33.4 05/18/17 0725: Anion Gap 7, Estimated GFR > 60, BUN/Creatinine Ratio 26.7 H, Troponin I < 0.01 , PT 39.4 H, INR 3.80 H, CBC w Diff NO MAN DIFF REQ, RBC 2.73 L, MCV 87.3, MCH 28.6, RDW 15.5 H, MPV 9.3, Gran % 66.4, Lymphocytes % 25.3, Monocytes % 6.2 , Eosinophils % 1.4, Basophils % 0.7, Absolute Granulocytes 3.3, Absolute Lymphocytes 1.3, Absolute Monocytes 0.3, Absolute Eosinophils 0.1, Absolute Basophils 0, PUBS MCHC 32.8 L 05/17/17 1414: Urine Color STRAW, Urine Clarity CLEAR, Urine pH 6.0, Ur Specific [place] 1.010, Urine Protein TRACE H, Urine Ketones NEG, Urine Nitrite NEG, Urine Bilirubin NEG, Urine Urobilinogen 0.2, Ur Leukocyte Esterase NEG, Ur Microscopic SEDIMENT EXAMINED, Urine WBC RARE, Urine Hemoglobin TRACE-LYSED, Urine Glucose NEG 05/17/17 1354: Anion Gap 10, Estimated GFR 40 L, BUN/Creatinine Ratio 23.1, Glucose 160 H, Calcium 9.7, Total Bilirubin 0.6, AST 27, ALT 30, Alkaline Phosphatase 63, Troponin I < 0.01, Total Protein 6.5, Albumin 4.0, Globulin 2.5, Albumin/ Globulin Ratio 1.6, PT 42.8 *H, INR 4.13 *H, APTT 43 H, CBC w Diff NO MAN DIFF REQ, RBC 2.99 L, MCV 87.4, MCH 28.9, RDW 15.7 H, MPV 9.1, Gran % 75.4 H, Lymphocytes % 18.2 L, Monocytes % 5.0, Eosinophils % 0.9, Basophils % 0.5, Absolute Granulocytes 5.1, Absolute Lymphocytes 1.2, Absolute Monocytes 0.3, Absolute Eosinophils 0.1, Absolute Basophils 0, PUBS MCHC 33.0 Assessment/Plan Assessment/Plan Assessment: 1. Hypertension 2. Mechanical aortic valve 3. Acute on chronic anemia, improved status post transfusion Plan: * Hold warfarin today for elevated INR * Restart warfarin on discharge to suggest an elevated INR on admission * INR check in 3 days after discharge. * F/U with Dr. Argueta in 1 week. Continue telemetry? Yes
--- NOTE | 2017-05-19 10:39 | PN- Att Addend ---
Attending Addendum Attending Brief Note Patient feeling better today, vital signs are stable and no major changes on physical INR pending. If cardiology approves we can discharge the patient follow with cardiology and myself and also ENT Intake & Output 05/19 1600 05/19 0805/19 0000 05/18 1600 05/18 0800 05/18 0000 Intake Total 037 010 5713 700 800 Output Total 825 850 400 400 Balance -164 055 0178 300 400 Intake, IV 600 600 600 700 Intake, Oral 200 350 550 100 100 Number 3 Bowel Movements Output, Urine 825 850 400 400 Patient 136 lb Weight Current Medications Sig/Eliane Start time Last Medication Dose Route Stop Time Status Admin Acetaminophen 650 MG Q6P PRN 05/17 1615 AC 05/19 PO 1007 Acetaminophen/ 1 TAB Q6P PRN 05/17 1615 AC Hydrocodone Bitart PO Ferrous Sulfate 325 MG DAILY 05/18 1000 AC 05/19 PO 1007 Insulin Aspart 0 TIDAC 05/17 1700 AC SC Meclizine HCl 12.5 MG TID PRN 05/18 1030 AC 05/18 PO 1228 Paroxetine HCl 10 MG DAILY 05/18 1000 AC 05/19 PO 1007 Sodium Chloride 1,000 ML Q13H 05/18 1045 AC 05/19 IV 0215 Laboratory Tests 05/19/17 0750: Anion Gap 8, Estimated GFR > 60, BUN/Creatinine Ratio 28.9 H, CBC w Diff NO MAN DIFF REQ, RBC 2.92 L, MCV 87.4, MCH 29.2, RDW 15.6 H, MPV 9.6, Gran % 74.0, Lymphocytes % 19.5 L, Monocytes % 4.9, Eosinophils % 0.9, Basophils % 0.7, Absolute Granulocytes 5.3, Absolute Lymphocytes 1.4, Absolute Monocytes 0.3, Absolute Eosinophils 0.1, Absolute Basophils 0.1, PUBS MCHC 33.4 05/18/17 0725: Anion Gap 7, Estimated GFR > 60, BUN/Creatinine Ratio 26.7 H, Troponin I < 0.01 , PT 39.4 H, INR 3.80 H, CBC w Diff NO MAN DIFF REQ, RBC 2.73 L, MCV 87.3, MCH 28.6, RDW 15.5 H, MPV 9.3, Gran % 66.4, Lymphocytes % 25.3, Monocytes % 6.2 , Eosinophils % 1.4, Basophils % 0.7, Absolute Granulocytes 3.3, Absolute Lymphocytes 1.3, Absolute Monocytes 0.3, Absolute Eosinophils 0.1, Absolute Basophils 0, PUBS MCHC 32.8 L 05/17/17 1414: Urine Color STRAW, Urine Clarity CLEAR, Urine pH 6.0, Ur Specific [place] 1.010, Urine Protein TRACE H, Urine Ketones NEG, Urine Nitrite NEG, Urine Bilirubin NEG, Urine Urobilinogen 0.2, Ur Leukocyte Esterase NEG, Ur Microscopic SEDIMENT EXAMINED, Urine WBC RARE, Urine Hemoglobin TRACE-LYSED, Urine Glucose NEG 05/17/17 1354: Anion Gap 10, Estimated GFR 40 L, BUN/Creatinine Ratio 23.1, Glucose 160 H, Calcium 9.7, Total Bilirubin 0.6, AST 27, ALT 30, Alkaline Phosphatase 63, Troponin I < 0.01, Total Protein 6.5, Albumin 4.0, Globulin 2.5, Albumin/ Globulin Ratio 1.6, PT 42.8 *H, INR 4.13 *H, APTT 43 H, CBC w Diff NO MAN DIFF REQ, RBC 2.99 L, MCV 87.4, MCH 28.9, RDW 15.7 H, MPV 9.1, Gran % 75.4 H, Lymphocytes % 18.2 L, Monocytes % 5.0, Eosinophils % 0.9, Basophils % 0.5, Absolute Granulocytes 5.1, Absolute Lymphocytes 1.2, Absolute Monocytes 0.3, Absolute Eosinophils 0.1, Absolute Basophils 0, PUBS MCHC 33.0 Vital Signs Date Time Temp Pulse Resp B/P B/P Pulse O2 O2 Flow FiO2 Mean Ox Delivery Rate 05/19 0833 98.8 70 20 154/60 97 Room Air 05/19 0015 154/56 05/18 2223 98.9 88 20 96 Room Air 05/18 2200 89 170/50 05/18 1453 98.1 81 20 142/48 98 Room Air
--- NOTE | 2017-05-19 11:32 | Discharge Summary ---
Visit Information Visit Dates Admission Date: 05/17/17 Discharge Date: 05/19/17 Hospital Course Course Attending Physician: WILSON DEGROOT MD Primary Care Physician: MIKAYLA CARRILLO,WILSON [facility] Course: Patient is 72-year-old female with past medical history significant for [facility] 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 Patient has been placed in observation on telemetry floor for 24-48 hours for possible reasons. #Dizziness possibly due to vasovagal syncope in addition to dehydration and cardiogenic(BPPV) * Patient during her hospital stay was dizzy ,orthostats had been negative * She was kept on gentle hydration. * Troponin and EKG was negative which ruled out ACS * Account Installation Specialist Dr. Vergara was on board #Acute kidney injury mostly 2/2 to dehydration * Kidney functions improved * The patient was encouraged to promote oral hydration and avoid any nephrotoxic agents #Supratherapeutic INR(history of St. Phani's mechanical valve ( on Coumadin)- follows up with Dr. Argueta as an outpatient * INR was 3.8 * Coumadin was held and the patient was advised to recheck INR in 3 days and to keep INR goal between 2.5 and 3. #Acute on chronic normocytic anemia * H&H were 7.8 /23.8 * Patient follows up with as an outpatient, Dr. Quiroz onboard. #History of hypertension * Blood pressure remained borderline , she was monitored off blood pressure medication #History of diabetes * blood sugar levels controlled with NovoLog sliding scale with Accu-Cheks Patient is full code INR supratherapeutic we will not start give her any DVT prophylaxis for now but she is on Coumadin Heart healthy diet Allergies: Coded Allergies: ciprofloxacin (Severe, ANAPHYLAXIS 12/19/15) morphine (N/V 02/13/17) tramadol (N/V 04/28/17) aspirin (Intermediate, ON COUMADIN SO SAYS "I CAN'T TAKE IT" 12/19/15) Disposition Summary Disposition Principal Diagnosis: #1 dizziness #2 acute kidney injury #3Supratherapeutic INR #4# Acute on chronic normocytic anemia Additional Diagnosis: #1 hypertension #2 diabetes Discharge Disposition: home or self care Discharge Instructions General Discharge Information Code Status: Full Code Patient's Diet: Diabetic diet Patient's Activity: As tolerated Follow-Up Instructions/Appts: 1-please follow-up with your PCP in 1 week of discharge #2 please follow-up with her rehab therapist in 1 week of discharge #3. Please check your INR in 3 days and dose Coumadin accordingly Medications at Discharge Discharge Medications: Continue taking these medications: Metformin HCl (Metformin HCl ER) 500 MG TAB.ER.24H 1 Tablet ORAL TWICE DAILY Qty = 360 Comments: DID NOT RECEIVE IN HOSPITAL Warfarin Sodium (Coumadin) 2.5 MG TABLET 1 Tablet ORAL Every night Qty = 90 Comments: NOT GIVEN Lisinopril (Lisinopril) 10 MG TABLET 1 Tablet ORAL DAILY Qty = 90 Comments: DID NOT RECEIVE IN HOSPITAL Paroxetine HCl (Paxil) 10 MG TABLET 1 Tablet ORAL DAILY Qty = 30 Comments: Last Taken: 05/19/17 Time: 10 AM Hydrochlorothiazide (Hydrochlorothiazide) 25 MG TABLET 1 Tablet ORAL DAILY Qty = 90 Comments: DID NOT RECEIVE IN HOSPITAL Calcium Carbonate/Vitamin D3 (Calcium 500 + D Tablet) (Unknown Strength) TABLET Unknown Dose ORAL DAILY Comments: DID NOT RECEIVE IN HOSPITAL Ferrous Sulfate (Ferrous Sulfate) 325 MG (65 MG IRON) TABLET 1 Tablet ORAL DAILY Comments: Last Taken: 05/19/17 Time: 10 AM Acetaminophen (Mapap) 500 MG CAPSULE 2 Capsule ORAL as needed for PAIN Comments: DID NOT RECEIVE IN HOSPITAL Copies To: WILSON DEGROOT MD
--- NOTE | 2017-05-19 11:42 | Patient Discharge Instructions ---
Discharge Instructions General Discharge Information You were seen/treated for: 1. Hypertension 2. Mechanical aortic valve 3. Acute on chronic anemia, improved status post transfusion Special Instructions: 1-please follow-up with your PCP in 1 week of discharge #2 please follow-up with her slat twister in 1 week of discharge #3. Please check your INR ON 05/22/17 and report results to PCP. Diet Continue normal diet: Yes Recommended Diet: Diabetic Activity Full Activity/No Limits: Yes Acute Coronary Syndrome Inclusion Criteria At DC or during hospital stay patient has or had the following: ACS DIAGNOSIS No Discharge Core Measures Meds if any: Prescribed or Continued at Discharge STELLA/ARB if EF <40% No Meds if any: NOT Prescribed or Continued at Discharge Congestive Heart Failure Inclusion Criteria At DC or during hospital stay patient has or had the following: CHF DIAGNOSIS No Discharge Core Measures Meds if any: Prescribed or Continued at Discharge Meds if any: NOT Prescribed or Continued at Discharge Cerebrovascular accident Inclusion Criteria At DC or during hospital stay patient has or had the following: CVA/TIA Diagnosis No Discharge Core Measures Meds if any: Prescribed or Continued at Discharge Meds if any: NOT Prescribed or Continued at Discharge Venous thromboembolism Inclusion Criteria VTE Diagnosis No VTE Type NONE VTE Confirmed by (Test) NONE Discharge Core Measures - Per Current guidelines, there needs to be overlap - treatment for the first 5 days of Warfarin therapy. - If discharged on Warfarin prior to 5 days of - overlap therapy, the patient will need to be - assessed for post discharge needs including - *Post discharge parental anticoagulation - *Warfarin and/or parental anticoagulation education - *Follow up date to check INR post discharge At least 5 days overlap therapy as Inpatient No Meds if any: Prescribed or Continued at Discharge Note: Overlap Therapy is Warfarin and Anticoagulant Meds if any: NOT Prescribed or Continued at Discharge
[2017-05-19 12:02] LABS: PT 23.9 SEC (9.4-12.5)
[2017-05-19 14:47] VITALS: BP 132/58
== END 2017-05-19 16:09 ==
LOC: ERH 13:24 → ERHI 15:44 → 1NO 15:44 → ENRESERV 16:39 → 1NO 20:00 → CMPBEDREQ 05-18 09:31 → ENPENDDIS 05-19 14:42 → 1NO 05-19 16:09
PROVIDERS: Internal Medicine; Physician Assistant; Student in an Organized Health Care Education/Training Program; ADMIT Internal Medicine
DX: R42 Dizziness and giddiness (principal); Z95.2 Presence of prosthetic heart valve; Z79.01 Long term (current) use of anticoagulants; I10 Essential (primary) hypertension; E11.9 Type 2 diabetes mellitus without complications; D64.9 Anemia, unspecified; M19.90 Unspecified osteoarthritis, unspecified site; E86.0 Dehydration; N17.9 Acute kidney failure, unspecified; G43.909 Migraine, unspecified, not intractable, without status migrainosus; D68.9 Coagulation defect, unspecified
CPT/HCPCS: 36415; 73030-LT; 81001; 82436; 86920; 93005; 93010; 97110-GP; 97116-GP; 97161-GP; G0378; G8979-GP; G8980-GP

== ENCOUNTER 2017-11-23 11:22 | Observation (INO) | payer OTHER ==
[~2017-11-23] VITALS: Ht 144.8 cm; Wt 59.0 kg
[~2017-11-23 11:22] MED LIST changes: +LISINOPRIL20 M1 PO
--- NOTE | 2017-11-23 11:27 | ED GENERAL ADULT ---
History of Present Illness General Chief Complaint: General Adult Stated Complaint: BIBA, HYPERTENSION, ODOM, DIZZINESS Source: patient, family Exam Limitations: no limitations Vital Signs & Intake/Output Vital Signs & Intake/Output Vital Signs Date Time Temp Pulse Resp B/P B/P Pulse O2 O2 Flow FiO2 Mean Ox Delivery Rate 11/23 1640 68 180/54 11/23 1610 66 210/78 11/23 1548 210/78 11/23 1503 98.2 68 19 208/58 96 Room Air 11/23 1438 69 18 184/44 97 Room Air 11/23 1302 62 18 168/70 97 Room Air 11/23 1259 98 Room Air 11/23 1255 74 196/74 02 1255 74 18 196/74 99 Room Air 11/23 1138 97.8 70 18 196/64 97 Room Air Allergies Coded Allergies: ciprofloxacin (Severe, ANAPHYLAXIS 12/19/15) morphine (N/V 02/13/17) tramadol (N/V 04/28/17) Reconcile Medications Acetaminophen (Mapap) 500 MG CAPSULE 2 CAP PO PRN PAIN (Reported) Calcium Carbonate/Vitamin D3 (Calcium 500 + D Tablet) (Unknown Strength) TABLET (Unknown Dose) PO DAILY SUPPLEMENT (Reported) Ferrous Sulfate 325 MG (65 MG IRON) TABLET 1 TAB PO DAILY SUPPLEMENT ( Reported) Glucosamine/D3/Boswellia Leonora (Osteo Bi-Flex Tablet) (Unknown Strength) TABLET (Unknown Dose) PO DAILY SUPPLEMENT (Reported) Hydrochlorothiazide 25 MG TABLET 1 TAB PO DAILY BP (Reported) Lisinopril 20 MG TABLET 1 TAB PO DAILY HTN Metformin HCl (Metformin HCl ER) 500 MG TAB.ER.24H 1 TAB PO BID DM (Reported) Paroxetine HCl (Paxil) 10 MG TABLET 1 TAB PO DAILY MENTAL HEALTH (Reported) Warfarin Sodium (Coumadin) 2.5 MG TABLET 1 TAB PO MTUWEFRSASUN BLOOD THINNER (Reported) Warfarin Sodium (Coumadin) 2.5 MG TABLET 0.5 TAB PO QTHURS BLOOD THINNER ( Reported) Triage Nurses Notes Reviewed? yes HPI: 72 yo F PMH HTN, AVR (on coumadin), DM, Migraine, Diverticulitis presnting with hypertension, dizziness. Patient has noted hypertensive blood pressures for the last week, evaluated in this emergency department for the same 2 days ago, treated with IV enalapril, blood pressure improved, lisinopril dose increased from 10 to 20 mg, discharged with plan to follow up with [employer]. Recurrent elevated blood pressure starting this morning, initially systolic 180, increased to 244, patient took 20 mg of lisinopril at 8:30, repeat blood pressure still over 200, discussed with [employer], sent to ED for evaluation. Patient notes intermittent substernal chest pressure since this morning, nonradiating, nonpleuritic, nonexertional, absent currently. Associated dizziness described as lightheadedness, diffuse weakness and fatigue without focal neurologic symptoms. Intermittent headaches throughout this morning, present currently, consistent with previous headaches associated with hypertension, bilateral frontal and occipital, throbbing quality. Denies fevers , rash, myalgias, arthralgias, shortness of breath, lower shimmery swelling or pain, orthopnea, PND, abdominal symptoms, urinary symptoms, neck pain, falls, or trauma. (Sommer CARRILLO,Geoffrey) Past History Travel History Traveled to [place] past 21 day No Medical History Any Pertinent Medical History? see below for history Neurological: migraine, HEMICRANIAL CONT. 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 FATHER, , Age 59; Cause: Myocardial infarction. SISTER, , Age 40-50. Hx Contributory? Yes (Geoffrey Novoa MD) Review of Systems Review of Systems Constitutional: Reports: see HPI. EENTM: Reports: no symptoms. Respiratory: Reports: no symptoms. Cardiovascular: Reports: see HPI. GI: Reports: no symptoms. Genitourinary: Reports: no symptoms. Musculoskeletal: Reports: no symptoms. Skin: Reports: no symptoms. Neurological/Psychological: Reports: see HPI. Hematologic/Endocrine: Reports: no symptoms. Immunologic/Allergic: Reports: no symptoms. All Other Systems: Reviewed and Negative (Sommer CARRILLO,Geoffrey) Physical Exam Physical Exam General Appearance: well developed/nourished, no apparent distress, awake, anxious, mild distress Eyes: Bilateral: PERRL, EOMI. Ears, Nose, Throat: normal pharynx, normal ENT inspection Neck: normal inspection, full range of motion, no midline tenderness Respiratory: normal breath sounds, lungs clear Cardiovascular: regular rate/rhythm, normal peripheral pulses Peripheral Pulses: 2+ radial (R), 2+ radial (L), 2+ dorsalis pedis (R), 2+ dorsalis pedis (L) Gastrointestinal: soft, non-tender Neurologic/Psych: no motor/sensory deficits, awake, alert, oriented x 3 Comments: Neurologic: Cranial nerves II through XII intact as tested, no pronator drift, normal [id number] and iwki-[id number] testing, no sensory deficits throughout, motor strength 5 out of 5 throughout bilateral upper and lower extremities. Core Measures ACS in differential dx? Yes CVA/TIA Diagnosis: No Sepsis Present: No Sepsis Focused Exam Completed? No (Sommer CARRILLO,Geoffrey) Progress Differential Diagnoses I considered the following diagnoses in my evaluation of the patient: [ Hypertensive urgency, hypertensive emergency, intracranial hemorrhage, ACS, aortic dissection. ] Plan of Care: Orders Procedure Date/time Status Consistent Carbohydrate 3 11/24 B Active PROTHROMBIN TIME 11/24 0600 Active CBC WITHOUT DIFFERENTIAL 11/24 0600 Active BASIC ELECTROLYTES PLUS BUN&CR 11/24 0600 Active Consistent Carbohydrate 1 11/23 D Complete Vital Signs 11/23 1703 Active FingerStick- Glucose 11/23 1703 Active Pathway - chart 11/23 1648 Active House Staff 11/23 1648 Active Code Status 11/23 1648 Active Patient Data 11/[address] in observation 11/23 1624 Active TROPONIN LEVEL 11/23 1600 Complete EKG 11/23 1600 Active TROPONIN LEVEL 11/23 1131 Complete PROTHROMBIN TIME 11/23 1131 Complete CBC WITHOUT DIFFERENTIAL 11/23 1131 Complete BASIC METABOLIC PANEL 11/23 1131 Complete EKG 11/23 1126 Active US-BILAT LOW EXTR ARTERIAL DOP 11/23 UNK Active VTE Mechanical Prophylaxis 11/23 UNK Active Current Medications Sig/Eliane Start time Last Medication Dose Stop Time Status Admin Hydrochlorothiazide 25 MG DAILY 11/24 1000 UNVr (Hydrodiuril) Lisinopril 40 MG DAILY 11/24 1000 UNVr (Prinivil) Insulin Aspart 0 TIDAC 11/24 0800 UNVr (NovoLOG) Acetaminophen 650 MG Q6P PRN 11/23 1700 UNVr (Tylenol) Acetaminophen 1,000 MG ONCE ONE 11/23 1700 AC (Ofirmev) 11/23 1714 N/A 1 UNIT (No Carrier) Warfarin Sodium 2.5 MG COUMADIN 1700 ONE 11/23 1700 UNVr (Coumadin) 11/23 1701 Ferrous Sulfate 325 MG DAILY 11/23 165 UNVr (Feosol) Laboratory Tests 11/23/17 1600: Troponin I < 0.01 11/23/17 1156: Anion Gap 14, Estimated GFR 54 L, BUN/Creatinine Ratio 35.0 H, Glucose 79, Calcium 9.7, Troponin I < 0.01, PT 29.8 H, INR 2.87 H, CBC w Diff NO MAN DIFF REQ, RBC 3.78 L, MCV 85.0, MCH 27.9, MCHC 32.8 L, RDW 15.4 H, MPV 9.1, Gran % 68.3, Lymphocytes % 24.3, Monocytes % 5.5, Eosinophils % 1.3, Basophils % 0.6, Absolute Granulocytes 3.9, Absolute Lymphocytes 1.4, Absolute Monocytes 0.3, Absolute Eosinophils 0.1, Absolute Basophils 0 Physician MDM: 72 yo F PMH HTN, AVR (on coumadin), DM, Migraine, Diverticulitis presnting with hypertension, dizziness. Hypertensive to 206/74, otherwise VSS, neurologic exam non-focal. ECG sinus rhythm, TWI in III, unchanged from previous. Troponin negative. CBC with anemia at baseline. BMP unremarkable, normal creatinine. INR therapeutic. CT head without acute intracranial abnormality. SBP 190, given IV labetalol 10 mg with improvement to 170s, HR in high 50s, asymtomatic. Repeat BP 210, given enalapril IV without improvement. Discussed with Dr. Vergara (resident surgeon for Dr. Argueta), reccomended repeat labetalol dose 20 mg, admission given multile rounds of IV antihypertensives with inadequate response. Discussed with Dr. Quintanilla, will admit for improved blood pressure control. Initial ED EKG: NSR (Sommer CARRILLOGeoffrey) Departure Departure Disposition: HOME OR SELF CARE Condition: Stable Clinical Impression Primary Impression: Hypertensive urgency Referrals: Andrew Quintanilla MD (PCP/Family) Departure Forms: Customer Survey General Discharge Information Admission Note Spoke With: Andrew Quintanilla MD Documentation of Exam: Documentation of any treatments & extenuating circumstances including Concerns Regarding Discharge (functional status, medication knowledge or non-compliance, living conditions, etc.) that warrant an admission rather than observation: [ Patient presents with ongoing hypertension with systolic blood pressures as high as 244, patient is symptomatic with dizziness, headaches, chest pain, the patient is treated with multiple rounds of IV medications in the emergency department with minimal improvement of blood pressure, if discharged patient has a high likelihood progressing from hypertensive urgencies to hypertensive urgency with progressive end organ damage leading to severe morbidity and possibly , the patient requires admission for ongoing IV and hypertensive treatment, ongoing cardiac risk stratification, possible cardiology consult.] (Geoffrey Novoa MD) Resident Co-Sign Statement Statement: ED Attending supervision documentation- I saw and evaluated the patient. I have also reviewed all the pertinent lab results and diagnostic results. I agree with the findings and the plan of care as documented in the Resident's documentation. x I have reviewed the ED Record and agree with the Resident's documentation. [] Additions or exceptions (if any) to the Resident's note and plan are summarized below: [] (Marshall Salas MD) Critical Care Note Critical Care Note Critical Care Time: non-applicable (Geoffrey Novoa MD) ED Attending Observation Initial Observation Note: I have seen and personally examined YIFAN GALLARDO on 11/23/17 at 1303. I agree with the current emergency department documentation. The disposition (admission or discharge) is uncertain at this time, she needs a period of observation for the following reason(s): The ED Nurse caring for this patient has been personally informed as to what the patient is being observed for. (Geoffrey Novoa MD)
[2017-11-23 12:06] LABS: ABSOLUTE BASOPHIL COUNT 0 /CUMM (0.0-0.2); ABSOLUTE EOSINOPHIL COUNT 0.1 /CUMM (0.0-0.7); ABSOLUTE GRANULOCYTE CT 3.9 /CUMM (1.4-6.5); ABSOLUTE LYMPH COUNT 1.4 /CUMM (1.2-3.4); ABSOLUTE MONOCYTE COUNT 0.3 /CUMM (0.10-0.60); BASOPHIL % 0.6 % (0.0-2.0); EOSINOPHIL % 1.3 % (0-5); GRANULOCYTE % 68.3 % (42.2-75.2); HEMATOCRIT 32.1 % (37-47); MEAN CORPUSCULAR HGB 27.9 PG (27.0-31.0); MEAN CORPUSCULAR HGB CONC 32.8 G/DL (33.0-37.0); MEAN PLATELET VOLUME 9.1 FL (7.4-10.4); PLATELET COUNT 244 /CUMM (130-400); RBC DISTRIBUTION WIDTH 15.4 % (11.5-14.5); RED BLOOD CELL CT 3.78 /CUMM (4.20-5.40); WHITE BLOOD CELL COUNT 5.7 /CUMM (4.8-10.8)
[2017-11-23 12:13] LABS: PT 29.8 SEC (9.4-12.5)
--- NOTE | 2017-11-23 12:26 | CT SCAN REPORT ---
EXAMINATION: CT HEAD WITHOUT CONTRAST CLINICAL INFORMATION: Hypertension. Headache. Neurologic symptoms. COMPARISON: CT scan of the head dated 11/21/2017 and 06/25/2017. TECHNIQUE: Contiguous axial imaging was performed from the skull base to vertex without intravenous administration of contrast. DLP: 597.17 mGy-cm FINDINGS: There is no evidence of acute intracranial hemorrhage or territorial infarction. No abnormal mass effect or midline shift is seen. Crump to white matter differentiation is well preserved. No extra-axial fluid collections are identified. The ventricles are normal in size. There is no abnormal attenuation within the brain parenchyma. Hyperostosis frontalis interna again noted. The patient is status post bilateral ocular lens extractions. The soft tissues are normal. The frontal sinuses are atrophic/nonpneumatized. The mastoid air cells and visualized portions of the paranasal sinuses are otherwise well aerated. IMPRESSION: Unchanged appearance of the head with no acute intracranial findings seen.
[2017-11-23] MEDS ORDERED: COUMADIN2.5 M1 PO (13:02)
[2017-11-23] MEDS ORDERED: OSTEO BI-FLEX1 EAC3 PO (13:03)
--- NOTE | 2017-11-23 14:37 | RADIOLOGY REPORT ---
EXAMINATION: XR CHEST CLINICAL INFORMATION: Chest pain. COMPARISON: 06/25/17. 02/13/17. TECHNIQUE: 2 views of the chest were obtained. FINDINGS: Sternal wires are present from previous cardiac surgery. Heart size is mildly enlarged but unchanged. Lungs are clear. No focal consolidation, pulmonary edema or other abnormality is demonstrated. The pleural spaces are clear. IMPRESSION: Stable postoperative appearance of the chest. No acute abnormality.
--- NOTE | 2017-11-23 16:54 | History & Physical ---
General Information and HPI MD Statement: I have seen and personally examined YIFAN GALLARDO and documented this H&P. The patient is a 72 year old F who presented with a patient stated chief complaint of [headache high BP]. Source of Information: patient, family, old records Exam Limitations: no limitations History of Present Illness: 72-year-old lady with past medical history of mechanical valve on warfarin, hypertension, hyperlipidemia, diabetes, chronic dizziness with headaches, chronic anemia requiring blood transfusion with no GI source came to the hospital with chief complaint of dizziness, headaches and high blood pressure. Patient reported that she is been having chronic dizziness and had been woke up with ENT with no clear source and her blood pressure was increased on Friday and she had an ED visit at that time which was treated with IV medication and sent home. She had moderate chest discomfort that that point as well. Today her blood pressure was more than 200 per visiting nurse and she also had an episode of mild nausea and headache and dizziness was increased comparing to baseline which resulted coming to the hospital. At the moment patient has moderate headache with dizziness on movement with no chest pain, nausea, vomiting, constipation, diarrhea, abdominal pain. He also reports of blurry vision occasionally as well. Patient was treated with multiple IV labetalol and enalapril at medications in the ED but her blood pressure is still remained more than 180 systolic. Vital signs in ED where unremarkable for fever, good o2 sat on room air Labs notable for hemoglobin 10.5 with recent blood transfusion 1 week ago 2 units BUN 35, INR 2.87, 2 sets of troponin negative EKG showed sinus, rate 70, QTC 402, acute ST-T changes comparing to previous EKG Head CT and chest x-ray no acute findings Allergies/Medications Allergies: Coded Allergies: ciprofloxacin (Severe, ANAPHYLAXIS 12/19/15) morphine (N/V 02/13/17) tramadol (N/V 04/28/17) Home Med list Acetaminophen (Mapap) 500 MG CAPSULE 2 CAP PO PRN PAIN (Reported) Amlodipine Besylate 5 MG TABLET 1 TAB PO DAILY HIGH BLOOD PRESSURE Calcium Carbonate/Vitamin D3 (Calcium 500 + D Tablet) (Unknown Strength) TABLET (Unknown Dose) PO DAILY SUPPLEMENT (Reported) Ferrous Sulfate 325 MG (65 MG IRON) TABLET 1 TAB PO DAILY SUPPLEMENT ( Reported) Glucosamine/D3/Boswellia Leonora (Osteo Bi-Flex Tablet) (Unknown Strength) TABLET (Unknown Dose) PO DAILY SUPPLEMENT (Reported) Hydrochlorothiazide 25 MG TABLET 1 TAB PO DAILY BP (Reported) Lisinopril 40 MG TABLET 1 TAB PO DAILY HIGH BLOOD PRESSURE Metformin HCl (Metformin HCl ER) 500 MG TAB.ER.24H 1 TAB PO BID DM (Reported) Paroxetine HCl (Paxil) 10 MG TABLET 1 TAB PO DAILY MENTAL HEALTH (Reported) Warfarin Sodium (Coumadin) 2.5 MG TABLET 1 TAB PO MTUWEFRSASUN BLOOD THINNER (Reported) Warfarin Sodium (Coumadin) 2.5 MG TABLET 0.5 TAB PO QTHURS BLOOD THINNER ( Reported) Past History Travel History Traveled to [place] past 21 day No Medical History Neurological: migraine, HEMICRANIAL CONT. 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 FATHER, , Age 59; Cause: Myocardial infarction. SISTER, , Age 40-50. Psychosocial History Who Do You Live With? self Services at Home: Home Health Aide, Nursing Primary Language: Portuguese (also Turkmen) Living Will? unknown Power of Business Solution Analyst/HCP? unknown Functional Ability ADLs Independent: dressing, eating, toileting, bathing. Ambulation: independent IADLs Independent: shopping, housework, finances, food prep, telephone, transportation , medication admin. Review of Systems Review of Systems Constitutional: Reports: see HPI. Exam & Diagnostic Data Last 24 Hrs of Vital Signs/I&O Vital Signs Date Time Temp Pulse Resp B/P B/P Pulse O2 O2 Flow FiO2 Mean Ox Delivery Rate 11/23 1640 68 180/54 11/23 1610 66 210/78 11/23 1548 210/78 11/23 1503 98.2 68 19 208/58 96 Room Air 11/23 1438 69 18 184/44 97 Room Air 11/23 1302 62 18 168/70 97 Room Air 11/23 1259 98 Room Air 11/23 1255 74 196/74 11/23 1255 74 18 196/74 99 Room Air 11/23 1138 97.8 70 18 196/64 97 Room Air Intake & Output 11/23 1600 11/23 0800 11/23 0000 Intake Total 0 Output Total 300 Balance -300 Intake, Oral 0 Output, Urine 300 Patient 58.967 kg Weight Weight Reported by Patient Measurement Method Physical Exam General Appearance Alert, Oriented X3, Cooperative, No Acute Distress Cardiovascular Regular Rate, Normal S1, Normal S2, mechanical click sound Lungs Clear to Auscultation, Normal Air Movement Abdomen Normal Bowel Sounds, Soft, No Tenderness Neurological Normal Speech, Strength at 5/5 X4 Ext, Cranial Nerves 3-12 NL, unbale to walk due to dizziness Extremities mild edema left leg/ left leg colder than right (weak DP pulse) Assessment/Plan Assessment: 72-year-old lady with past medical history of mechanical valve on warfarin, hypertension, hyperlipidemia, diabetes, chronic dizziness with headaches, chronic anemia requiring blood transfusion with no GI source came to the hospital with chief complaint of dizziness, headaches and high blood pressure. Patient reported that she is been having chronic dizziness and had been woke up with ENT with no clear source and her blood pressure was increased on Friday and she had an ED visit at that time which was treated with IV medication and sent home. She had moderate chest discomfort that that point as well. Today her blood pressure was more than 200 per visiting nurse and she also had an episode of mild nausea and headache and dizziness was increased comparing to baseline which resulted coming to the hospital. At the moment patient has moderate headache with dizziness on movement with no chest pain, nausea, vomiting, constipation, diarrhea, abdominal pain. He also reports of blurry vision occasionally as well. Patient was treated with multiple IV labetalol and enalapril at medications in the ED but her blood pressure is still remained more than 180 systolic. Vital signs in ED where unremarkable for fever, good o2 sat on room air Labs notable for hemoglobin 10.5 with recent blood transfusion 1 week ago 2 units BUN 35, INR 2.87, 2 sets of troponin negative EKG showed sinus, rate 70, QTC 402, acute ST-T changes comparing to previous EKG Head CT and chest x-ray no acute findings Assessment HTN urgency urgency with headache Itself diabetes History of mechanical valve on warfarin History of hyperlipidemia cold left lwg with good sensation and strengh plan tele obs ACS ruled out with 2 sets of troponin and unchanged EKG Cardiology consultation was placed keep the blood pressure around 170/160 systolic with oral versus IV medication Sliding scale insulin, diabetic diet Continue warfarin and check INR tomorrow: goal 2.5 -3.5 PT eval if patient was unable to walk tomorrow Continue high dose tinzaparin and hydrochlorothiazide tomorrow if Patient develops severe chest pain we'll check another EKG and troponin and rule out aortic dissection Bilateral lower leg arterial Doppler full Code, diabetic diet, Tylenol for pain, DVT prophylaxis is Alps and warfarin As Ranked By This Provider Problem List: 1. Hypertensive urgency Core Measures/Misc (07/06) Acute Coronary Syndrome ACS Diagnosis: No Congestive Heart Failure Congestive Heart Failure Diagnosis No Cerebrovascular Accident CVA/TIA Diagnosis: No VTE (View Protocol) VTE Risk Factors Age>40 No Mechanical VTE Prophylaxis d/t N/A MechProphylax Ordered No VTE Pharm Prophylaxis d/t NA PharmProphylax ordered Sepsis (View protocol) Sepsis Present: No
--- NOTE | 2017-11-23 17:19 | Admission Certification ---
Admission Certification Certification Statement - As attending physician, I certify that at the time of - admission, based on clinical presentation, severity of - symptoms, need for further diagnostic testing and - therapeutic interventions, and risk of adverse outcomes - without in-hospital treatment, in my clinical assessment, - this patient requires an acute hospital stay for a minimum - of two nights or longer. I have also considered psychsocial - factors such as support system, advanced age, financial - issues, cognitive issues, and failed out-patient treatments, - past re-admission history, safety of patient, and lack of - compliance as applicable. Specific rationale supporting this admission is: Hypertensive emergency in a patient with coronary artery disease
--- NOTE | 2017-11-23 17:22 | PN- Att Addend ---
Attending Addendum Attending Brief Note 72-year-old female with many comorbidities some of them are hypertension coronary artery disease Hartig valvular disease with replacement on Coumadin anemic, recently had a transfusion. Has had elevated blood pressures, 2 days ago was in the emergency room after IV medication and increasing her STELLA inhibitor was better but that was only temporary after that pressures are still very high again comes in with IV medication blood pressure drops for little while and then goes up again, apparently so had some chest discomfort too. Cardiology was called and thought it was better to monitor her closely while adjusting her medications Current Medications Sig/Eliane Start time Last Medication Dose Route Stop Time Status Admin Acetaminophen 0 .STK-MED ONE 11/23 1724 DC IV Acetaminophen 650 MG Q6P PRN 11/23 1700 UNVr PO Acetaminophen 1,000 MG ONCE ONE 11/23 1700 DC N/A 1 UNIT IV 11/23 1714 Enalaprilat 0 .STK-MED ONE 11/23 1500 DC IV Enalaprilat 1.25 MG ONCE ONE 11/23 1445 DC 11/23 IV 11/23 1446 1512 Ferrous Sulfate 325 MG DAILY 11/23 1650 UNVr PO Hydrochlorothiazide 25 MG DAILY 11/24 1000 UNVr PO Insulin Aspart 0 TIDAC 11/24 0800 UNVr SC Labetalol HCl 20 MG ONCE ONE 11/23 1600 DC 11/23 IV 11/23 1601 1610 Labetalol HCl 0 .STK-MED ONE 11/23 1257 DC IV Labetalol HCl 10 MG ONCE ONE 11/23 1200 DC 11/23 IV 11/23 1201 1255 Lisinopril 40 MG DAILY 11/24 1000 UNVr PO Warfarin Sodium 2.5 MG COUMADIN 1700 ONE 11/23 1700 UNVr PO 11/23 1701 Laboratory Tests 11/23/17 1600: Troponin I < 0.01 11/23/17 1156: Anion Gap 14, Estimated GFR 54 L, BUN/Creatinine Ratio 35.0 H, Glucose 79, Calcium 9.7, Troponin I < 0.01, PT 29.8 H, INR 2.87 H, CBC w Diff NO MAN DIFF REQ, RBC 3.78 L, MCV 85.0, MCH 27.9, MCHC 32.8 L, RDW 15.4 H, MPV 9.1, Gran % 68.3, Lymphocytes % 24.3, Monocytes % 5.5, Eosinophils % 1.3, Basophils % 0.6, Absolute Granulocytes 3.9, Absolute Lymphocytes 1.4, Absolute Monocytes 0.3, Absolute Eosinophils 0.1, Absolute Basophils 0 Vital Signs Date Time Temp Pulse Resp B/P B/P Pulse O2 O2 Flow FiO2 Mean Ox Delivery Rate 11/23 1640 68 180/54 11/23 1610 66 210/78 11/23 1548 210/78 11/23 1503 98.2 68 19 208/58 96 Room Air 11/23 1438 69 18 184/44 97 Room Air 11/23 1302 62 18 168/70 97 Room Air 11/23 1259 98 Room Air 11/23 1255 74 196/74 02 1255 74 18 196/74 99 Room Air 11/23 1138 97.8 70 18 196/64 97 Room Air
[2017-11-23 22:29] VITALS: BP 208/58
[2017-11-24] VITALS (8 sets, daily range): BP systolic 156–202; BP diastolic 00–60
--- NOTE | 2017-11-24 07:39 | PN-Observation ---
Observation Note Observation Note _ I have personally examined YIFAN GALLARDO. her disposition is uncertain at this time. Before a determination can be made, she requires continued observation for the following reasons [hypertensive urgency]. Assessment/Plan Assessment: Patient is a 72 y/o female with PMH of mechanical valve on coumadin, hypertension, hyperlipidemia, diabetes, chronic dizziness with headaches, chronic anemia requiring blood transfusion with no GI source presenting with the chief complaint of dizziness, headaches and elevated blood pressure. Patient is being observed on the telemetry floor for the followin. Hypertensive urgency: Patient's blood pressure today remains elevated to the 180s to 200s systolic despite the addition of amlodipine. Patient continues to have headache controlled with tylenol. Patient's EKG and trop remain negative. Labs are wnl. Patient was seen by cardiology today. - cardiology on board. appreciate recommendations - continue lisinopril 40mg daily - continue hydrochlorothiazide - if patient's bp continues to remain elevated please give additional amlodipine 5mg - continue to monitor vitals q4h 2. Mechanical Aortic Valve on AC Patient is on coumadin. INR today is above 3.5. Will target for INR between 2.5 and 3.5. - Monitor INR and dose coumadin daily 3. Peripheral vascular disease Left lower extremity cool to touch - Bilateral lower extremity arterial doppler - Pending results of study patient may require vascular surgery follow up 4. History of DM - oral hypoglycemics held - on insulin SS with accuchecks TIDAC and qHS Diet: diabetic diet Code: full code DVT PPx: on coumadin Pain controlled with tylenol PRN Dispo: if patient's blood pressure improves will discharge home tomorrow Problem List: 1. Hypertensive urgency Subjective Follow-up For: Hypertensive Urgency Tele-Events Since Last Visit: NSR: 73-89 Subjective: Patient was seen and examined today. States she has a headache which has now improved with tylenol and rates it a 2/10. Patient denies any visual disturbances, nausea/vomitting, abdominal pain, dysuria/hematuria, constipation/ diarrhea/hematochezia. Review of Systems Constitutional: Reports: no symptoms. Cardiovascular: Reports: no symptoms. Respiratory: Reports: no symptoms. Gastrointestinal: Reports: no symptoms. Genitourinary: Reports: no symptoms. Musculoskeletal: Reports: no symptoms. Neurological/Psychological: Reports: headache. Objective Last 24 Hrs of Vital Signs/I&O Vital Signs Date Time Temp Pulse Resp B/P B/P Pulse O2 O2 Flow FiO2 Mean Ox Delivery Rate 02 1808 65 160/52 02/ 1620 83 200/50 11/24 1620 82 202/50 02/05 1516 97.8 67 20 180/60 98 / 1111 164/80 02/ 0658 70 160/52 02/05 0656 98.8 69 20 156/00 96 Room Air 11/24 0447 99.0 68 20 178/56 96 Room Air 11/24 0025 74 182/50 / 2240 74 208/58 11/23 2229 98.7 69 20 208/58 98 Room Air 11/23 2212 98 Room Air 11/23 2047 97.6 75 18 182/50 97 Room Air Intake & Output 11/24 1600 11/24 0800 02 0000 Intake Total 400 200 100 Output Total 650 350 150 Balance -250 -150 -50 Intake, Oral 400 200 100 Number 1 Bowel Movements Output, Urine 650 350 150 Patient 130 lb Weight Physical Exam General Appearance: Alert, Oriented X3, Cooperative, No Acute Distress HEENT: Atraumatic, PERRLA, EOMI, Mucous Membr. moist/pink Neck: Supple, No JVD, No thryomegaly, +2 Carotid Pulse wo Bruit, No LAD Cardiovascular: Regular Rate, Normal S1, Normal S2, No Murmurs Lungs: Clear to Auscultation, Normal Air Movement Abdomen: Normal Bowel Sounds, Soft, No Tenderness Neurological: Normal Speech, Strength at 5/5 X4 Ext, Normal Tone, Sensation Intact, Cranial Nerves 3-12 NL, Reflexes 2+ Extremities: No Clubbing, No Cyanosis, No Edema, Normal Pulses, No Tenderness/ Swelling, left leg cool to touch Current Medications: Current Medications Sig/Eliane Start time Last Medication Dose Route Stop Time Status Admin Acetaminophen 650 MG .STK-MED ONE 11/24 825 DC PO 11/24 08 Acetaminophen 650 MG Q6P PRN 11/23 1700 AC 11/24 PO 1620 Amlodipine Besylate 5 MG DAILY 11/24 1545 AC 11/24 PO 1620 Benzocaine/Menthol 1 DEVAN Q2P PRN 11/24 1630 AC 11/24 PO 1802 Ferrous Sulfate 325 MG DAILY 11/23 1650 AC 11/24 PO 1111 Hydralazine HCl 5 MG ONCE ONE 11/23 2230 DC 11/23 IV 11/23 2231 2240 Hydrochlorothiazide 25 MG DAILY 11/24 1000 AC 11/24 PO 1111 Insulin Aspart 0 TIDAC 11/24 0800 AC SC Lisinopril 40 MG DAILY 11/24 1000 AC 11/24 PO 1111 Melatonin 5 MG ONCE ONE 11/23 2330 DC 11/23 PO 11/23 2331 2326 Paroxetine HCl 10 MG QPM 11/24 2200 AC PO Paroxetine HCl 10 MG DAILY 11/24 1000 DC PO Paroxetine HCl 10 MG ONCE ONE 11/24 0015 DC 11/24 PO 11/24 0016 0016 Sodium Chloride 2 SPRAY Q4P PRN 11/24 1645 AC LIANG Warfarin Sodium 2 MG COUMADIN 1700 ONE 11/24 1700 DC 11/24 PO 11/24 1701 1802 Last 24 Hrs of Labs/Mics: Laboratory Tests 11/24/17 0710: Anion Gap 11, Estimated GFR > 60, BUN/Creatinine Ratio 38.8 H, PT 36.7 H, INR 3.54 H, CBC w Diff NO MAN DIFF REQ, RBC 3.51 L, MCV 84.0, MCH 28.2, MCHC 33.6, RDW 15.1 H, MPV 10.0, Gran % 72.7, Lymphocytes % 20.4 L, Monocytes % 5.2, Eosinophils % 1.2, Basophils % 0.5, Absolute Granulocytes 4.0, Absolute Lymphocytes 1.1 L, Absolute Monocytes 0.3, Absolute Eosinophils 0.1, Absolute Basophils 0
[2017-11-24 08:13] LABS: ABSOLUTE BASOPHIL COUNT 0 /CUMM (0.0-0.2); ABSOLUTE EOSINOPHIL COUNT 0.1 /CUMM (0.0-0.7); ABSOLUTE LYMPH COUNT 1.1 /CUMM (1.2-3.4); ABSOLUTE MONOCYTE COUNT 0.3 /CUMM (0.10-0.60); BASOPHIL % 0.5 % (0.0-2.0); EOSINOPHIL % 1.2 % (0-5); GRANULOCYTE % 72.7 % (42.2-75.2); HEMATOCRIT 29.5 % (37-47); MEAN CORPUSCULAR HGB 28.2 PG (27.0-31.0); MEAN CORPUSCULAR HGB CONC 33.6 G/DL (33.0-37.0); PLATELET COUNT 240 /CUMM (130-400); RBC DISTRIBUTION WIDTH 15.1 % (11.5-14.5); RED BLOOD CELL CT 3.51 /CUMM (4.20-5.40); WHITE BLOOD CELL COUNT 5.5 /CUMM (4.8-10.8)
[2017-11-24 08:22] LABS: PT 36.7 SEC (9.4-12.5)
--- NOTE | 2017-11-24 10:05 | Cons- Cardiology ---
General Information and HPI Consulting Request Date of Consult: 11/24/17 Requested By: Andrew Quintanilla MD Reason for Consult: Hypertensive urgency History of Present Illness: The patient is a 72-year-old female with history of [facility] mechanical aortic valve replacement in 1997, diabetes mellitus, and chronic anemia who is followed in the office by Dr. Argueta. She presented to the emergency department with complaint of headache dizziness, and elevated blood pressure. She has been having chronic dizziness over the past few weeks for which she has been evaluated by ENT with no clear etiology found. She was in the emergency department on Friday for elevated blood pressure, and she was discharged home with an increase in her lisinopril dose to 20 mg daily. Blood pressure upon arrival in the emergency department was 196/64, and the blood pressure later increased to 210/78. She was treated with IV Vasotec, and her oral lisinopril dose was increased to 40 mg daily. She reports feeling better today. Headache has resolved. No current lightheadedness or dizziness. No chest pain. No palpitations. No diaphoresis. No nausea or vomiting. No lightheadedness or dizziness. She has not yet received a dose of the 40 mg of lisinopril. Blood pressure is elevated this morning. Allergies/Medications Allergies: Coded Allergies: ciprofloxacin (Severe, ANAPHYLAXIS 12/19/15) morphine (N/V 02/13/17) tramadol (N/V 04/28/17) Home Med List: Acetaminophen (Mapap) 500 MG CAPSULE 2 CAP PO PRN PAIN (Reported) Calcium Carbonate/Vitamin D3 (Calcium 500 + D Tablet) (Unknown Strength) TABLET (Unknown Dose) PO DAILY SUPPLEMENT (Reported) Ferrous Sulfate 325 MG (65 MG IRON) TABLET 1 TAB PO DAILY SUPPLEMENT ( Reported) Glucosamine/D3/Boswellia Leonora (Osteo Bi-Flex Tablet) (Unknown Strength) TABLET (Unknown Dose) PO DAILY SUPPLEMENT (Reported) Hydrochlorothiazide 25 MG TABLET 1 TAB PO DAILY BP (Reported) Lisinopril 20 MG TABLET 1 TAB PO DAILY HTN Metformin HCl (Metformin HCl ER) 500 MG TAB.ER.24H 1 TAB PO BID DM (Reported) Paroxetine HCl (Paxil) 10 MG TABLET 1 TAB PO DAILY MENTAL HEALTH (Reported) Warfarin Sodium (Coumadin) 2.5 MG TABLET 1 TAB PO MTUWEFRSASUN BLOOD THINNER (Reported) Warfarin Sodium (Coumadin) 2.5 MG TABLET 0.5 TAB PO QTHURS BLOOD THINNER ( Reported) Current Medications: Current Medications Sig/Eliane Start time Last Medication Dose Route Stop Time Status Admin Acetaminophen 0 .STK-MED ONE 11/23 1724 DC IV Acetaminophen 650 MG Q6P PRN 11/23 1700 AC 02/ PO 0827 Acetaminophen 1,000 MG ONCE ONE 11/23 1700 DC 11/23 N/A 1 UNIT IV 11/23 1714 1725 Enalaprilat 0 .STK-MED ONE 11/23 1500 DC IV Enalaprilat 1.25 MG ONCE ONE 11/23 1445 DC / IV 11/23 1446 1512 Ferrous Sulfate 325 MG DAILY 11/23 1650 AC / PO 1808 Hydralazine HCl 5 MG ONCE ONE 11/23 2230 DC 11/23 IV 11/23 2231 2240 Hydralazine HCl 0 .STK-MED ONE 11/23 1832 DC .ROUTE Hydralazine HCl 5 MG ONCE ONE 11/23 1830 DC 11/23 IV 11/23 1831 1834 Hydrochlorothiazide 25 MG DAILY 11/24 1000 AC PO Insulin Aspart 0 TIDAC 11/24 0800 AC SC Labetalol HCl 20 MG ONCE ONE 11/23 1600 DC / IV / 1601 1610 Labetalol HCl 0 .STK-MED ONE 11/23 1257 DC IV Labetalol HCl 10 MG ONCE ONE 11/23 1200 DC / IV / 1201 1255 Lisinopril 40 MG DAILY 11/24 1000 AC PO Melatonin 5 MG ONCE ONE 11/23 2330 DC / PO / 2331 2326 Paroxetine HCl 10 MG DAILY 11/24 1000 AC PO Paroxetine HCl 10 MG ONCE ONE 11/24 0015 DC 11/24 PO 11/24 0016 0016 Warfarin Sodium 2.5 MG COUMADIN 1700 ONE 11/23 1700 DC / PO / 1701 1809 Review of Systems Review of Systems: No rash. No tremor. No melena. All other systems were reviewed, and were noted to be negative. Past History Travel History Traveled to [place] past 21 day No Medical History Blood Transfusion Hx: Yes Neurological: migraine, HEMICRANIAL CONT. 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 FATHER, , Age 59; Cause: Myocardial infarction. SISTER, , Age 40-50. Psychosocial History Who Do You Live With? self Services at Home: Home Health Aide, Nursing Primary Language: Tajik (also Hebrew) Smoking Status: Former Smoker Living Will? unknown Power of Clerical Support Specialist/HCP? unknown Functional Ability ADLs Independent: dressing, eating, toileting, bathing. Ambulation: independent IADLs Independent: shopping, housework, finances, food prep, telephone, transportation , medication admin. Exam & Diagnostic Data Vital Signs and I&O Vital Signs Date Time Temp Pulse Resp B/P B/P Pulse O2 O2 Flow FiO2 Mean Ox Delivery Rate 11/24 0658 70 160/52 11/24 0656 98.8 69 20 156/00 96 Room Air 02/ 0447 99.0 68 20 178/56 96 Room Air 02/ 0025 74 182/50 02/04 2240 74 208/58 02/04 2229 98.7 69 20 208/58 98 Room Air 02/ 2212 98 Room Air 02/ 2047 97.6 75 18 182/50 97 Room Air 02/04 1859 67 178/54 02/04 1834 67 184/50 02/04 1820 67 02/04 1810 184/50 02/04 1640 68 180/54 02/04 1610 66 210/78 02/04 1548 210/78 02/04 1503 98.2 68 19 208/58 96 Room Air 02/04 1438 69 18 184/44 97 Room Air 02/04 1302 62 18 168/70 97 Room Air 02/04 1259 98 Room Air 02/04 1255 74 196/74 02/04 1255 74 18 196/74 99 Room Air 02/04 1138 97.8 70 18 196/64 97 Room Air Intake & Output / 1600 02/05 0800 02/05 0000 /04 1600 02/ 0800 02/04 0000 Intake Total 200 100 0 Output Total 350 150 300 Balance -150 -50 -300 Intake, Oral 200 100 0 Output, Urine 350 150 300 Patient 130 lb 130 lb Weight Weight Reported by Patient Measurement Method Physical Exam: Gen: The patient is in no acute distress HEENT: Normal nose, ears, and oropharynx. Pupils equal bilaterally. Conjunctiva normal. Neck: Supple with no JVD, no masses, and no thyromegaly Lungs: Clear to auscultation with normal respiratory effort Heart: RRR, mechanical aortic valve sounds. No peripheral edema, 2+ pulses in the lower extremities bilaterally Abdomen: Soft, nontender, no masses. No hepatomegaly. No splenomegaly Extremities: No clubbing or cyanosis. Normal muscle strength in the upper and lower extremities Skin: Normal skin turgor with no skin ulcers or lesions noted. Neuro: Cranial nerves intact. Sensation intact Psych: Alert and oriented - 3 with appropriate affect Labs/Thad Results: Laboratory Tests 11/24 11/23 0710 1600 Chemistry Sodium (137 - 145 mmol/L) 141 Potassium (3.5 - 5.1 mmol/L) 4.1 Chloride (98 - 107 mmol/L) 106 Carbon Dioxide (22 - 30 mmol/L) 23 Anion Gap (5 - 16) 11 BUN (7 - 17 mg/dL) 31 H Creatinine (0.5 - 1.0 mg/dL) 0.8 Estimated GFR (>60 ml/min) > 60 BUN/Creatinine Ratio (7 - 25 %) 38.8 H Troponin I (< 0.11 ng/ml) < 0.01 Coagulation PT (9.4 - 12.5 SEC) 36.7 H INR (0.90 - 1.19) 3.54 H Hematology CBC w Diff NO MAN DIFF REQ WBC (4.8 - 10.8 /CUMM) 5.5 RBC (4.20 - 5.40 /CUMM) 3.51 L Hgb (12.0 - 16.0 G/DL) 9.9 L Hct (37 - 47 %) 29.5 L MCV (81.0 - 99.0 FL) 84.0 MCH (27.0 - 31.0 PG) 28.2 MCHC (33.0 - 37.0 G/DL) 33.6 RDW (11.5 - 14.5 %) 15.1 H Plt Count (130 - 400 /CUMM) 240 MPV (7.4 - 10.4 FL) 10.0 Gran % (42.2 - 75.2 %) 72.7 Lymphocytes % (20.5 - 51.1 %) 20.4 L Monocytes % (1.7 - 9.3 %) 5.2 Eosinophils % (0 - 5 %) 1.2 Basophils % (0.0 - 2.0 %) 0.5 Absolute Granulocytes (1.4 - 6.5 /CUMM) 4.0 Absolute Lymphocytes (1.2 - 3.4 /CUMM) 1.1 L Absolute Monocytes (0.10 - 0.60 /CUMM) 0.3 Absolute Eosinophils (0.0 - 0.7 /CUMM) 0.1 Absolute Basophils (0.0 - 0.2 /CUMM) 0 / 1156 Chemistry Sodium (137 - 145 mmol/L) 143 Potassium (3.5 - 5.1 mmol/L) 4.2 Chloride (98 - 107 mmol/L) 106 Carbon Dioxide (22 - 30 mmol/L) 23 Anion Gap (5 - 16) 14 BUN (7 - 17 mg/dL) 35 H Creatinine (0.5 - 1.0 mg/dL) 1.0 Estimated GFR (>60 ml/min) 54 L BUN/Creatinine Ratio (7 - 25 %) 35.0 H Glucose (65 - 99 mg/dL) 79 Calcium (8.4 - 10.2 mg/dL) 9.7 Troponin I (< 0.11 ng/ml) < 0.01 Coagulation PT (9.4 - 12.5 SEC) 29.8 H INR (0.90 - 1.19) 2.87 H Hematology CBC w Diff NO MAN DIFF REQ WBC (4.8 - 10.8 /CUMM) 5.7 RBC (4.20 - 5.40 /CUMM) 3.78 L Hgb (12.0 - 16.0 G/DL) 10.5 L Hct (37 - 47 %) 32.1 L MCV (81.0 - 99.0 FL) 85.0 MCH (27.0 - 31.0 PG) 27.9 MCHC (33.0 - 37.0 G/DL) 32.8 L RDW (11.5 - 14.5 %) 15.4 H Plt Count (130 - 400 /CUMM) 244 MPV (7.4 - 10.4 FL) 9.1 Gran % (42.2 - 75.2 %) 68.3 Lymphocytes % (20.5 - 51.1 %) 24.3 Monocytes % (1.7 - 9.3 %) 5.5 Eosinophils % (0 - 5 %) 1.3 Basophils % (0.0 - 2.0 %) 0.6 Absolute Granulocytes (1.4 - 6.5 /CUMM) 3.9 Absolute Lymphocytes (1.2 - 3.4 /CUMM) 1.4 Absolute Monocytes (0.10 - 0.60 /CUMM) 0.3 Absolute Eosinophils (0.0 - 0.7 /CUMM) 0.1 Absolute Basophils (0.0 - 0.2 /CUMM) 0 Diagnostic Data EKG Results EKG tracing from 11/23/17 is independently reviewed, and reveals normal sinus rhythm at 67, normal EKG CXR Results This is a 48-year-old man with a history of hypertension, hyperlipidemia and alcohol abuse admitted on November 16 after he was found on the floor home by his with increasing weakness, with a one month history of fevers and body aches , one week history of nausea, nonbloody emesis and diarrhea, with 1 bloody stool , and decreased urination and and increasing unsteadiness and weakness, resulting in several falls. On admission he was afebrile. His initial blood pressure was 168/104, but he dropped to 74/39, for which he received 4 L of fluid. Laboratory data revealed a white blood cell count of 9000, platelets 128 ,000, BUN/creatinine 50 and 6.7, sodium 122, lactic acid 2.3, amylase/lipase normal, bilirubin 12.1 (direct 11.4) alkaline phosphatase 750, AST/ALT 696 and 266, ammonia level 16, CPK 707, alkaline level less than 10, INR 1.34, ABG 7.43/ 28/78 on room air. Urinalysis 3-5 RBCs/5-10 WBCs. Chest x-ray was negative. CT of the head and cervical spine were negative for any acute process. CT of the abdomen and pelvis revealed an enlarged fatty liver, a cystic lesion in the tail of the pancreas with an adjacent small focal calcification in the pancreas and some stranding of the surrounding peripancreatic fat and diverticulosis. H Other Results Echocardiogram 12/12/15: 1. This was a technically difficult and somewhat limited study due to the patient's body habitus. 2. A metallic prosthetic aortic valve is present. The valve appears to be functioning normally. The peak gradient across the prosthetic valve is 34 mmHg which is slightly higher than noted on the previous outpatient study. Mild to moderate aortic insufficiency is present which appears to be central in location. 3. A very small posterior pericardial effusion is present. 4. The left ventricular chamber size is normal. The ejection fraction is normal. Abnormal septal motion is present which is likely a postoperative finding. 5. The right heart structures are grossly normal but were not optimally visualized. Mild to moderate tricuspid insufficiency is present with mild pulmonic insufficiency and no significant pulmonary hypertension. 6. Thickening and calcification of the mitral leaflets is present with fibrosis of the chordal structures and minimal to mild annular calcification with mild to moderate mitral insufficiency and left atrial dilatation. 7. No prior study was available for comparison. Assessment/Plan Assessment/Plan The patient is a 72-year-old female with history of mechanical aortic valve presenting with admitted for hypertensive urgency. Blood pressure was noted to be severely elevated with headache and lightheadedness. She is feeling better this morning, and the blood pressure remains elevated. The 40 mg dose of lisinopril has been ordered, however she has not yet received a dose. Recommendations: * I agree with increasing lisinopril to 40 mg daily with the first dose this morning. * Continue hydrochlorothiazide. * Dose warfarin to maintain therapeutic INR * Possible discharge later today if stable Consult Acknowledgment - Thank you for your consult request.
--- NOTE | 2017-11-24 10:34 | PN- Att Addend ---
Attending Addendum Attending Brief Note 72-year-old female Observation Status for Hypertensive Emergency, was seen by cardiology this morning last BP 160/52 which is better patient has no complaints no changes on physical. If cardiology reevaluation patient is okay to discharge will let her go home and follow with Dr. Argueta. 24 TOTALS 11/24 0000 11/23 0000 Intake Total 100 Output Total 450 Balance -350 Intake, Oral 100 Output, Urine 450 Patient 130 lb Weight Weight Reported by Patient Measurement Method Current Medications Sig/Eliane Start time Last Medication Dose Route Stop Time Status Admin Acetaminophen 0 .STK-MED ONE 11/23 1724 DC IV Acetaminophen 650 MG Q6P PRN 11/23 1700 AC 11/24 PO 0827 Acetaminophen 1,000 MG ONCE ONE 11/23 1700 DC 11/23 N/A 1 UNIT IV 11/23 1714 1725 Enalaprilat 0 .STK-MED ONE 11/23 1500 DC IV Enalaprilat 1.25 MG ONCE ONE 11/23 1445 DC 11/23 IV 11/23 1446 1512 Ferrous Sulfate 325 MG DAILY 11/23 1650 AC / PO 1808 Hydralazine HCl 5 MG ONCE ONE 11/23 2230 DC / IV 11/23 2231 2240 Hydralazine HCl 0 .STK-MED ONE 11/23 1832 DC .ROUTE Hydralazine HCl 5 MG ONCE ONE 11/23 1830 DC 11/23 IV 11/23 1831 1834 Hydrochlorothiazide 25 MG DAILY 11/24 1000 AC PO Insulin Aspart 0 TIDAC 11/24 0800 AC SC Labetalol HCl 20 MG ONCE ONE 11/23 1600 DC 11/23 IV 11/23 1601 1610 Labetalol HCl 0 .STK-MED ONE 11/23 1257 DC IV Labetalol HCl 10 MG ONCE ONE 11/23 1200 DC / IV 11/23 1201 1255 Lisinopril 40 MG DAILY 11/24 1000 AC PO Melatonin 5 MG ONCE ONE 11/23 2330 DC / PO / 2331 2326 Paroxetine HCl 10 MG DAILY 11/24 1000 AC PO Paroxetine HCl 10 MG ONCE ONE 11/24 0015 DC 11/24 PO 11/24 0016 0016 Warfarin Sodium 2.5 MG COUMADIN 1700 ONE 11/23 1700 DC 02 PO 11/23 1701 1809 Laboratory Tests 02/05/18 0710: Anion Gap 11, Estimated GFR > 60, BUN/Creatinine Ratio 38.8 H, PT 36.7 H, INR 3.54 H, CBC w Diff NO MAN DIFF REQ, RBC 3.51 L, MCV 84.0, MCH 28.2, MCHC 33.6, RDW 15.1 H, MPV 10.0, Gran % 72.7, Lymphocytes % 20.4 L, Monocytes % 5.2, Eosinophils % 1.2, Basophils % 0.5, Absolute Granulocytes 4.0, Absolute Lymphocytes 1.1 L, Absolute Monocytes 0.3, Absolute Eosinophils 0.1, Absolute Basophils 0 11/23/17 1600: Troponin I < 0.01 11/23/17 1156: Anion Gap 14, Estimated GFR 54 L, BUN/Creatinine Ratio 35.0 H, Glucose 79, Calcium 9.7, Troponin I < 0.01, PT 29.8 H, INR 2.87 H, CBC w Diff NO MAN DIFF REQ, RBC 3.78 L, MCV 85.0, MCH 27.9, MCHC 32.8 L, RDW 15.4 H, MPV 9.1, Gran % 68.3, Lymphocytes % 24.3, Monocytes % 5.5, Eosinophils % 1.3, Basophils % 0.6, Absolute Granulocytes 3.9, Absolute Lymphocytes 1.4, Absolute Monocytes 0.3, Absolute Eosinophils 0.1, Absolute Basophils 0 Vital Signs Date Time Temp Pulse Resp B/P B/P Pulse O2 O2 Flow FiO2 Mean Ox Delivery Rate 11/24 0658 70 160/52 11/24 0656 98.8 69 20 156/00 96 Room Air 11/24 0447 99.0 68 20 178/56 96 Room Air 11/24 0025 74 182/50 11/23 2240 74 208/58 11/23 2229 98.7 69 20 208/58 98 Room Air 11/23 2212 98 Room Air 11/23 2047 97.6 75 18 182/50 97 Room Air 11/23 1859 67 178/54 04 1834 67 184/50 11/23 1820 67 02/04 1810 184/50 11/23 1640 68 180/54 11/23 1610 66 210/78 11/23 1548 210/78 11/23 1503 98.2 68 19 208/58 96 Room Air 02/04 1438 69 18 184/44 97 Room Air 02/04 1302 62 18 168/70 97 Room Air 02/04 1259 98 Room Air 02/04 1255 74 196/74 02/04 1255 74 18 196/74 99 Room Air 02/04 1138 97.8 70 18 196/64 97 Room Air
--- NOTE | 2017-11-24 17:22 | ULTRASOUND REPORT ---
EXAMINATION: US-BILAT LOW EXTR ARTERIAL DOP CLINICAL INFORMATION: Evaluate for underlying peripheral vascular disease. Left leg colder than the right leg. COMPARISON: None TECHNIQUE: Real-time ultrasound and Doppler techniques (integrating B-mode 2-D vascular images, Doppler spectral analysis and color flow Doppler imaging) were utilized to interrogate the lower extremities. FINDINGS: Right lower extremity: Multiphasic waveforms are seen throughout the right lower extremity with the exception of the posterior tibial artery where there monophasic waveforms. Common femoral artery: 156 cm/sec Superficial femoral artery proximal: 119 cm/sec Superficial femoral artery mid portion: 125 cm/sec Superficial femoral artery distal: 140 cm/sec Profunda artery: 84 cm/sec Popliteal artery: 120 cm/sec Posterior tibial artery: 33 cm/sec Anterior tibial artery: 123 cm/sec Dorsalis pedis artery: 111 cm/sec Left lower extremity: Multiphasic waveforms are seen throughout the left lower extremity with the exception of the anterior tibial and dorsalis pedis arteries were there are monophasic waveforms. Common femoral artery: 157 cm/sec Superficial femoral artery proximal: 129 cm/sec Superficial femoral artery mid portion: 127 cm/sec Superficial femoral artery distal: 105 cm/sec Profunda artery: 129 cm/sec Popliteal artery: 145 cm/sec Posterior tibial artery: 100 cm/sec Anterior tibial artery: 49 cm/sec Dorsalis pedis artery: 78 cm/sec ADDITIONAL FINDINGS: None. IMPRESSION: The right posterior tibial artery and left anterior tibial and dorsalis pedis arteries demonstrate monophasic waveform suggesting moderate peripheral vascular disease. No evidence of significant inflow disease. Greater sensitivity and specificity can be obtained with pre-and post exercise PVRs with DESIREE calculations. Also consider dedicated CTA for further anatomical detail.
[2017-11-25 06:35] VITALS: BP 184/52
[2017-11-25 07:30] VITALS: BP 168/52
--- NOTE | 2017-11-25 07:34 | PN-Observation ---
Observation Note Observation Note _ I have personally examined YIFAN GALLARDO. her disposition is uncertain at this time. Before a determination can be made, she requires continued observation for the following reasons [hypertensive urgency]. Assessment/Plan Assessment: Patient is a 72 y/o female with PMH of mechanical valve on coumadin, hypertension, hyperlipidemia, diabetes, chronic dizziness with headaches, chronic anemia requiring blood transfusion with no GI source presenting with the chief complaint of dizziness, headaches and elevated blood pressure. Patient is being observed on the telemetry floor for the followin. Hypertensive urgency: Patient's blood pressure today after addition of amlodipine 5mg decreased today to the 130s/80s. Patient continues to have headache controlled with tylenol. Patient's EKG and trop remain negative. Labs are wnl. Patient was seen by cardiology today. - cardiology on board. appreciate recommendations - continue lisinopril 40mg daily - continue hydrochlorothiazide daily - continue amlodipine 5mg daily - continue to monitor vitals q4h 2. Mechanical Aortic Valve on AC Patient is on coumadin. INR today is 3.2. Will target for INR between 2.5 and 3.5. - Monitor INR and dose coumadin daily 3. Peripheral vascular disease Left lower extremity cool to touch - Bilateral lower extremity arterial doppler: The right posterior tibial artery and left anterior tibial and dorsalis pedis arteries demonstrate monophasic waveform suggesting moderate peripheral vascular disease. No evidence of significant inflow disease. - patient should follow up for further management outpatient 4. History of DM - oral hypoglycemics held - on insulin SS with accuchecks TIDAC and qHS Diet: diabetic diet Code: full code DVT PPx: on coumadin Pain controlled with tylenol PRN Dispo: patient's blood pressure is now controlled with the addition of amlodipine and higher dose of lisinopril. Patient is stable to be discharged home with close follow up with her pcp and binding stitcher. Problem List: 1. Hypertensive urgency Subjective Follow-up For: Hypertensive Urgency Tele-Events Since Last Visit: SR: 60-85 Subjective: Patient was seen and examined today. Patient this morning complains of headache around her head and behind her eyes. Rates the pain a 9/10 in severity. Denies any other complaints. States she had a similar headache yesterday which improved with tylenol. Patient's blood pressure overnight was 184/52. Repeat this morning is 168/52 prior to receiving antihypertensives. Review of Systems Constitutional: Reports: no symptoms. Cardiovascular: Reports: no symptoms. Respiratory: Reports: see HPI. Gastrointestinal: Reports: no symptoms. Genitourinary: Reports: no symptoms. Musculoskeletal: Reports: see HPI. Neurological/Psychological: Reports: headache. Objective Last 24 Hrs of Vital Signs/I&O Vital Signs Date Time Temp Pulse Resp B/P B/P Pulse O2 O2 Flow FiO2 Mean Ox Delivery Rate 11/25 0734 168/52 11/25 0734 66 168/52 11/25 0730 168/52 11/25 0635 98.2 66 20 184/52 98 Room Air 11/24 2211 98.4 20 96 Room Air 11/24 2100 82 160/46 11/24 1808 65 160/52 11/24 1620 83 200/50 11/24 1620 82 202/50 11/24 1516 97.8 67 20 180/60 98 02/05 1111 164/80 Intake & Output 11/25 1600 11/25 0800 11/25 0000 Intake Total 110 300 Output Total Balance 110 300 Intake, IV 10 Intake, Oral 100 300 Number 1 0 Bowel Movements Physical Exam General Appearance: Alert, Oriented X3, Cooperative, No Acute Distress HEENT: Atraumatic, PERRLA, EOMI, Mucous Membr. moist/pink Neck: Supple, No JVD, No thryomegaly, +2 Carotid Pulse wo Bruit, No LAD Cardiovascular: Regular Rate, Normal S1, Normal S2, No Murmurs Lungs: Clear to Auscultation, Normal Air Movement Abdomen: Normal Bowel Sounds, Soft, No Tenderness Neurological: Normal Speech, Strength at 5/5 X4 Ext, Normal Tone, Sensation Intact, Cranial Nerves 3-12 NL, Reflexes 2+ Extremities: No Clubbing, No Cyanosis, No Edema, Normal Pulses, No Tenderness/ Swelling Current Medications: Current Medications Sig/Eliane Start time Last Medication Dose Route Stop Time Status Admin Acetaminophen 650 MG .STK-MED ONE 11/24 1614 DC PO 11/24 161 Acetaminophen 650 MG .STK-MED ONE 11/24 0826 DC PO 11/24 08 Acetaminophen 650 MG Q6P PRN 11/23 1700 AC 11/25 PO 0736 Amlodipine Besylate 5 MG DAILY 11/24 1545 AC 11/25 PO 0734 Benzocaine/Menthol 1 DEVAN Q2P PRN 11/24 1630 AC 11/24 PO 2055 Ferrous Sulfate 325 MG DAILY 11/23 1650 AC 11/25 PO 733 Hydrochlorothiazide 25 MG DAILY 11/24 1000 AC 11/25 PO 733 Insulin Aspart 0 TIDAC 11/24 0800 AC SC Lisinopril 40 MG DAILY 11/24 1000 AC 11/25 PO 733 Paroxetine HCl 10 MG QPM 11/24 2200 AC 11/24 PO 2055 Paroxetine HCl 10 MG DAILY 11/24 1000 DC PO Sodium Chloride 2 SPRAY Q4P PRN 11/24 1645 AC 11/24 LIANG 2054 Warfarin Sodium 2 MG .STK-MED ONE 11/24 1800 DC PO 11/24 180 Warfarin Sodium 2 MG COUMADIN 1700 ONE 11/24 1700 DC 11/24 PO 11/24 170 1802
[2017-11-25 09:34] VITALS: BP 152/50
--- NOTE | 2017-11-25 10:02 | PN- Att Addend ---
Attending Addendum Attending Brief Note Patient has no new complaints comfortable in bed BP 152/50 pulse 72. No new changes on physical cardiology will evaluate the blood pressure readings and maybe adjust the medication a little bit more and after that she can go home follow with a vp delivery and myself. 24 TOTALS 11/25 0000 11/24 0000 Intake Total 900 100 Output Total 1000 450 Balance -100 -350 Intake, Oral 900 100 Number 1 Bowel Movements Output, Urine 1000 450 Patient 130 lb Weight Weight Reported by Patient Measurement Method Current Medications Sig/Eliane Start time Last Medication Dose Route Stop Time Status Admin Acetaminophen 650 MG .STK-MED ONE 11/24 1614 DC PO 11/24 1615 Acetaminophen 650 MG Q6P PRN 11/23 1700 AC 11/25 PO 0736 Amlodipine Besylate 5 MG DAILY 11/24 1545 AC 11/25 PO 0734 Benzocaine/Menthol 1 DEVAN Q2P PRN 11/24 1630 AC 11/24 PO 205 Ferrous Sulfate 325 MG DAILY 11/23 1650 AC 11/25 PO 0734 Hydrochlorothiazide 25 MG DAILY 11/24 1000 AC 11/25 PO 0734 Insulin Aspart 0 TIDAC 11/24 0800 AC SC Lisinopril 40 MG DAILY 11/24 1000 AC 11/25 PO 0734 Paroxetine HCl 10 MG QPM 11/24 2200 AC 11/24 PO 205 Paroxetine HCl 10 MG DAILY 11/24 1000 DC PO Sodium Chloride 2 SPRAY Q4P PRN 11/24 1645 AC 11/24 LIANG 205 Warfarin Sodium 2 MG .STK-MED ONE 11/24 1800 DC PO 11/24 1801 Warfarin Sodium 2 MG COUMADIN 1700 ONE 11/24 1700 DC 11/24 PO 11/24 1701 1802 Laboratory Tests 11/24/17 0710: Anion Gap 11, Estimated GFR > 60, BUN/Creatinine Ratio 38.8 H, PT 36.7 H, INR 3.54 H, CBC w Diff NO MAN DIFF REQ, RBC 3.51 L, MCV 84.0, MCH 28.2, MCHC 33.6, RDW 15.1 H, MPV 10.0, Gran % 72.7, Lymphocytes % 20.4 L, Monocytes % 5.2, Eosinophils % 1.2, Basophils % 0.5, Absolute Granulocytes 4.0, Absolute Lymphocytes 1.1 L, Absolute Monocytes 0.3, Absolute Eosinophils 0.1, Absolute Basophils 0 11/23/17 1600: Troponin I < 0.01 11/23/17 1156: Anion Gap 14, Estimated GFR 54 L, BUN/Creatinine Ratio 35.0 H, Glucose 79, Calcium 9.7, Troponin I < 0.01, PT 29.8 H, INR 2.87 H, CBC w Diff NO MAN DIFF REQ, RBC 3.78 L, MCV 85.0, MCH 27.9, MCHC 32.8 L, RDW 15.4 H, MPV 9.1, Gran % 68.3, Lymphocytes % 24.3, Monocytes % 5.5, Eosinophils % 1.3, Basophils % 0.6, Absolute Granulocytes 3.9, Absolute Lymphocytes 1.4, Absolute Monocytes 0.3, Absolute Eosinophils 0.1, Absolute Basophils 0 Vital Signs Date Time Temp Pulse Resp B/P B/P Pulse O2 O2 Flow FiO2 Mean Ox Delivery Rate 11/25 0934 72 152/50 11/25 0734 168/52 11/25 0734 66 168/52 11/25 0730 168/52 11/25 0635 98.2 66 20 184/52 98 Room Air / 2211 98.4 20 96 Room Air / 2100 82 160/46 02/05 1808 65 160/52 02/ 1620 83 200/50 02/05 1620 82 202/50 02/05 1516 97.8 67 20 180/60 98 02/05 1111 164/80
--- NOTE | 2017-11-25 10:48 | PN- Cardiology ---
Subjective Subjective: The patient reports that she is feeling well. She had intermittent headache overnight which has resolved. No lightheadedness or dizziness. No chest pain. No palpitations. No diaphoresis. Objective Vital Signs and I&Os Vital Signs Date Time Temp Pulse Resp B/P B/P Pulse O2 O2 Flow FiO2 Mean Ox Delivery Rate 11/25 0834 72 152/50 02/ 0734 168/52 11/25 0734 66 168/52 11/25 0730 168/52 11/25 0635 98.2 66 20 184/52 98 Room Air 11/24 2211 98.4 20 96 Room Air 11/24 2100 82 160/46 11/24 1808 65 160/52 11/24 1620 83 200/50 11/24 1620 82 202/50 11/24 1516 97.8 67 20 180/60 98 11/24 1111 164/80 Intake & Output 11/25 1600 11/25 0800 / 0000 11/24 1600 11/24 0800 11/24 0000 Intake Total 110 300 400 200 100 Output Total 650 350 150 Balance 110 300 -250 -150 -50 Intake, IV 10 Intake, Oral 100 300 400 200 100 Number 1 0 1 Bowel Movements Output, Urine 650 350 150 Patient 130 lb Weight Physical Exam: Gen: The patient is in no acute distress HEENT: Normal nose, ears, and oropharynx. Pupils equal bilaterally. Conjunctiva normal. Neck: Supple with no JVD, no masses, and no thyromegaly Lungs: Clear to auscultation with normal respiratory effort Heart: RRR, mechanical aortic valve sounds. No peripheral edema, 2+ pulses in the lower extremities bilaterally Abdomen: Soft, nontender, no masses. No hepatomegaly. No splenomegaly Extremities: No clubbing or cyanosis. Normal muscle strength in the upper and lower extremities Skin: Normal skin turgor with no skin ulcers or lesions noted. Neuro: Cranial nerves intact. Sensation intact Current Medications: Current Medications Sig/Eliane Start time Last Medication Dose Route Stop Time Status Admin Acetaminophen 650 MG .STK-MED ONE 11/24 1614 DC PO 11/24 161 Acetaminophen 650 MG Q6P PRN 11/23 1700 AC 11/25 PO 0736 Amlodipine Besylate 5 MG DAILY 11/24 1545 AC 11/25 PO 0734 Benzocaine/Menthol 1 DEVAN Q2P PRN 11/24 1630 AC 11/24 PO 2056 Ferrous Sulfate 325 MG DAILY 11/23 1650 AC 11/25 PO 07 Hydrochlorothiazide 25 MG DAILY 11/24 1000 AC 11/25 PO 07 Insulin Aspart 0 TIDAC 11/24 0800 AC SC Lisinopril 40 MG DAILY 11/24 1000 AC 11/25 PO 733 Paroxetine HCl 10 MG QPM 11/24 2200 AC 11/24 PO 2055 Paroxetine HCl 10 MG DAILY 11/24 1000 DC PO Sodium Chloride 2 SPRAY Q4P PRN 11/24 1645 AC 11/24 LIANG 2054 Warfarin Sodium 2 MG .STK-MED ONE 11/24 1800 DC PO 11/24 180 Warfarin Sodium 2 MG COUMADIN 1700 ONE 11/24 1700 DC 11/24 PO 11/24 170 180 Results Last 48 Hrs of Labs/Mics: Laboratory Tests 11/24/17 0710: Anion Gap 11, Estimated GFR > 60, BUN/Creatinine Ratio 38.8 H, PT 36.7 H, INR 3.54 H, CBC w Diff NO MAN DIFF REQ, RBC 3.51 L, MCV 84.0, MCH 28.2, MCHC 33.6, RDW 15.1 H, MPV 10.0, Gran % 72.7, Lymphocytes % 20.4 L, Monocytes % 5.2, Eosinophils % 1.2, Basophils % 0.5, Absolute Granulocytes 4.0, Absolute Lymphocytes 1.1 L, Absolute Monocytes 0.3, Absolute Eosinophils 0.1, Absolute Basophils 0 11/23/17 1600: Troponin I < 0.01 11/23/17 1156: Anion Gap 14, Estimated GFR 54 L, BUN/Creatinine Ratio 35.0 H, Glucose 79, Calcium 9.7, Troponin I < 0.01, PT 29.8 H, INR 2.87 H, CBC w Diff NO MAN DIFF REQ, RBC 3.78 L, MCV 85.0, MCH 27.9, MCHC 32.8 L, RDW 15.4 H, MPV 9.1, Gran % 68.3, Lymphocytes % 24.3, Monocytes % 5.5, Eosinophils % 1.3, Basophils % 0.6, Absolute Granulocytes 3.9, Absolute Lymphocytes 1.4, Absolute Monocytes 0.3, Absolute Eosinophils 0.1, Absolute Basophils 0 Assessment/Plan Assessment/Plan Assessment: 1. Status post aortic valve replacement with [facility]'s mechanical valve 2. Hypertensive urgency, improved 3. Diabetes mellitus 4. Anticoagulated on warfarin Plan: * I agree with adding amlodipine 5 mg daily for additional blood pressure control * Continue lisinopril and hydrochlorthiazide * Likely ready for discharge in the afternoon * Follow up with Dr. Argueta in 1 week * Dose warfarin for therapeutic INR Continue telemetry? Yes
[2017-11-25 13:36] VITALS: BP 136/72
[2017-11-25] MEDS ORDERED: AMLODIPINE BESYL5 M1 PO (14:44)
[2017-11-25] MEDS ORDERED: LISINOPRIL40 M1 PO (14:44)
--- NOTE | 2017-11-25 14:47 | Patient Discharge Instructions ---
Discharge Instructions General Discharge Information You were seen/treated for: High Blood Pressure Special Instructions: 1. Please follow up with Dr. Argueta in 1 week 2. Please follow up with your PCP in 1 week 3. Please take the medications prescribed: lisinopril was increased to 40mg daily and a new blood pressure medication was added, amlodipine 5mg daily. 4. Please follow up with your PCP for further management of your arterial doppler study. Diet Continue normal diet: No Recommended Diet: Heart Healthy Activity Full Activity/No Limits: No Activity Self Limited: Yes Acute Coronary Syndrome Inclusion Criteria At DC or during hospital stay patient has or had the following: ACS DIAGNOSIS No Discharge Core Measures Meds if any: Prescribed or Continued at Discharge Meds if any: NOT Prescribed or Continued at Discharge Congestive Heart Failure Inclusion Criteria At DC or during hospital stay patient has or had the following: CHF DIAGNOSIS No Discharge Core Measures Meds if any: Prescribed or Continued at Discharge Meds if any: NOT Prescribed or Continued at Discharge Cerebrovascular accident Inclusion Criteria At DC or during hospital stay patient has or had the following: CVA/TIA Diagnosis No Discharge Core Measures Meds if any: Prescribed or Continued at Discharge Meds if any: NOT Prescribed or Continued at Discharge Venous thromboembolism Inclusion Criteria VTE Diagnosis No VTE Type NONE VTE Confirmed by (Test) NONE Discharge Core Measures - Per Current guidelines, there needs to be overlap - treatment for the first 5 days of Warfarin therapy. - If discharged on Warfarin prior to 5 days of - overlap therapy, the patient will need to be - assessed for post discharge needs including - *Post discharge parental anticoagulation - *Warfarin and/or parental anticoagulation education - *Follow up date to check INR post discharge At least 5 days overlap therapy as Inpatient No Meds if any: Prescribed or Continued at Discharge Note: Overlap Therapy is Warfarin and Anticoagulant Meds if any: NOT Prescribed or Continued at Discharge
[2017-11-25 15:42] LABS: PT 33.2 SEC (9.4-12.5)
== END 2017-11-25 18:10 | disposition home health service (06) ==
LOC: ERH 11:22 → ERHI 17:08 → 1NO 17:08 → ENRESERV 20:29 → ENTRNSPT 21:30 → 1NO 21:53 → CMPTRNSPT 22:06 → ENTRNSPT 11-25 17:23 → EDTRNSPTSTS 11-25 17:53 → EDTRNSPT 11-25 17:53 → 1NO 11-25 18:10 → CMPTRNSPT 11-25 18:13
PROVIDERS: Internal Medicine; Student in an Organized Health Care Education/Training Program
DX: I16.0 Hypertensive urgency (principal); Z95.2 Presence of prosthetic heart valve; Z79.01 Long term (current) use of anticoagulants; E78.5 Hyperlipidemia, unspecified; E11.9 Type 2 diabetes mellitus without complications; Z79.4 Long term (current) use of insulin; R42 Dizziness and giddiness; G43.909 Migraine, unspecified, not intractable, without status migrainosus; M19.90 Unspecified osteoarthritis, unspecified site; I25.10 Atherosclerotic heart disease of native coronary artery without angina pectoris; Z79.84 Long term (current) use of oral hypoglycemic drugs; I73.9 Peripheral vascular disease, unspecified
CPT/HCPCS: 36415; 71046; 82436; 93005; 93010; 93925; 96374; 96375; 96376; 99291; G0378; J0131; J0360

== ENCOUNTER 2017-12-05 13:54 | Inpatient (IN) | payer OTHER ==
[~2017-12-05] VITALS: Ht 144.8 cm; Wt 61.7 kg
[~2017-12-05 13:54] MED LIST changes: +AMLODIPINE BESYL5 M1 PO; +LISINOPRIL40 M1 PO; +OSTEO BI-FLEX1 EAC3 PO
--- NOTE | 2017-12-05 14:16 | ED CARDIAC/CP/PALPITATIONS ---
History of Present Illness General Chief Complaint: Chest Pain Stated Complaint: BIBA FOR EVAL CHEST PAIN Source: patient, family, old records Exam Limitations: no limitations Allergies Coded Allergies: ciprofloxacin (Severe, ANAPHYLAXIS 12/19/15) morphine (N/V 02/13/17) tramadol (N/V 04/28/17) Reconcile Medications Acetaminophen (Mapap) 500 MG CAPSULE 2 CAP PO PRN PAIN (Reported) Amlodipine Besylate 5 MG TABLET 1 TAB PO DAILY HIGH BLOOD PRESSURE Calcium Carbonate/Vitamin D3 (Calcium 500 + D Tablet) (Unknown Strength) TABLET (Unknown Dose) PO DAILY SUPPLEMENT (Reported) Ferrous Sulfate 325 MG (65 MG IRON) TABLET 1 TAB PO DAILY SUPPLEMENT ( Reported) Glucosamine/D3/Boswellia Leonora (Osteo Bi-Flex Tablet) (Unknown Strength) TABLET (Unknown Dose) PO DAILY SUPPLEMENT (Reported) Hydrochlorothiazide 25 MG TABLET 1 TAB PO DAILY BP (Reported) Lisinopril 40 MG TABLET 1 TAB PO DAILY HIGH BLOOD PRESSURE Metformin HCl (Metformin HCl ER) 500 MG TAB.ER.24H 1 TAB PO BID DM (Reported) Paroxetine HCl (Paxil) 10 MG TABLET 1 TAB PO DAILY MENTAL HEALTH (Reported) Warfarin Sodium (Coumadin) 2.5 MG TABLET 1 TAB PO MTUWEFRSASUN BLOOD THINNER (Reported) Warfarin Sodium (Coumadin) 2.5 MG TABLET 0.5 TAB PO QTHURS BLOOD THINNER ( Reported) Triage Note: BIBA FROM [facility]CTORS OFFICE, PER PT AND DAUGHTER PT WENT TO PMD FOR C/O UPPER ABD PAIN AND NAUSEA AND VOMITING X 3 DAYS. HX MECHANICAL VALVE,APPY PT IS AWAKE, ALERT, ORIENTED UPON ARRIVAL. STUDENT JUAN DAVID JIMÉNEZ AT BEDSIDE FOR EVAL UPON ARRIVAL TO ROOM. Triage Nurses Notes Reviewed? yes Onset: Gradual Duration: day(s): Timing: recent history Quality/Severity: moderate Location: epigastric, LEFT CHEST HPI: 72yo female with HX OF HTN, DM, mechanical valve on warfarin, chronic anemia requiring periodic blood transfusions complaining of palpatations, weakness, left-sided chest pain, dyspnea on exertion worsening 3 days. Patient is also complaining of epigastric abdominal pain for the past 3 days with nausea and anorexia. Patient's last transfusion was in October. Patient has had recent blood work which showed stable H/H. Patient reports she has had similar symptoms in the past related to her anemia. Patient's family are concerned about how pale she appears currently. Patient denies hematemesis, vomiting, blood in stool, melena. Patient does take daily iron supplement. (Jessica Lees) Vital Signs & Intake/Output Vital Signs & Intake/Output Vital Signs Date Time Temp Pulse Resp B/P B/P Pulse O2 O2 Flow FiO2 Mean Ox Delivery Rate 12/05 1408 97.5 98 18 129/55 99 Room Air Room Air (Joaquin CARRILLO,Waqar Hayes) Past History Travel History Traveled to [place] past 21 day No Medical History Any Pertinent Medical History? see below for history Neurological: migraine, HEMICRANIAL CONT. EENT: hearing loss Cardiovascular: hypertension, MECHANICAL VALVE Respiratory: NONE Gastrointestinal: diverticulitis Hepatic: NONE Renal: NONE Musculoskeletal: degen joint disease, osteoarthritis Psychiatric: NONE Endocrine: diabetes Blood Disorders: anemia Cancer(s): NONE PEGA DEVELOPER/Reproductive: NONE History of MRSA: No History of VRE: No History of CDIFF: No Influenza Vaccine: 07/20/17 Surgical History Surgical History: appendectomy, tubal ligation, MECHANICAL VALVE L KNEE REPLACEMENT SURGERY TO R BREAST CLOGGED MILK DUCT Psychosocial History Who do you live with Patient/Self Services at Home Home Health Aide, Nursing What is your primary language Georgian Tobacco Use: Never used Family History Family History, If Any: MOTHER, , Age 55; Cause: Myocardial infarction. FATHER, , Age 59; Cause: Myocardial infarction. SISTER, , Age 40-50. Hx Contributory? No (Jessica Lees) Review of Systems Review of Systems Constitutional: Reports: see HPI. EENTM: Reports: no symptoms. Respiratory: Reports: see HPI. Cardiovascular: Reports: see HPI. GI: Reports: see HPI. Genitourinary: Reports: no symptoms. Musculoskeletal: Reports: no symptoms. Skin: Reports: see HPI. Neurological/Psychological: Reports: no symptoms. Hematologic/Endocrine: Reports: see HPI. Immunologic/Allergic: Reports: no symptoms. All Other Systems: Reviewed and Negative (Jessica Lees) Physical Exam Physical Exam General Appearance: well developed/nourished, alert, awake Head: atraumatic, normal appearance Eyes: Bilateral: normal appearance, PERRL, EOMI. Ears, Nose, Throat: normal pharynx, normal ENT inspection, hearing grossly normal Neck: normal inspection, supple, full range of motion Respiratory: normal breath sounds, no respiratory distress, lungs clear Cardiovascular: regular rate/rhythm Gastrointestinal: normal bowel sounds, soft, ERPIGASTRIC TENDERNESS WITH GAURDING Rectal: normal rectal tone, heme positive stool, black stool Back: normal inspection, normal range of motion Extremities: normal inspection, normal range of motion Neurologic/Psych: awake, alert, oriented x 3, tumor registrar II-XII nml as tested Skin: intact, warm/dry, pallor Core Measures ACS in differential dx? Yes CVA/TIA Diagnosis No Sepsis Present: No Sepsis Focused Exam Completed? No (Juliana FALL,Jessica Elizalde) Progress Differential Diagnosis: AMI, CHF/pulm edema, costochondritis, musculoskeletal pain, myocarditis, pericarditis, pulmonary embolism, respiratory failure, unstable angina, ACUTE BLOOD LOSS ANEMIA, GI BLEED, PUD Plan of Care: Orders Procedure Date/time Status Nothing by Mouth 12/06 B Active FRESH FROZEN PLASMA 12/05 1627 Active ED Holding Orders 12/05 1606 Active Admit to inpatient 12/05 1606 Active Patient Data 12/05 1606 Active Vital Signs 12/05 1606 Active Code Status 12/05 1606 Active URINALYSIS 12/05 1525 Complete LEUKOCYTE POOR (PACKED CELLS) 12/05 1506 Active Add-on Test (ER Only) 12/05 1504 Active Add-on Test (ER Only) 12/05 1427 Active PARTIAL THROMBOPLASTIN TIME 12/05 1420 Complete PROTHROMBIN TIME 12/05 1420 Complete TYPE & SCREEN (NOT X-MATCH) 12/05 1420 Active TROPONIN LEVEL 12/05 1416 Complete COMPREHENSIVE METABOLIC PANEL 12/05 1416 Complete CBC WITHOUT DIFFERENTIAL 12/05 1416 Complete EKG 12/05 1357 Active Current Medications Sig/Eliane Start time Last Medication Dose Stop Time Status Admin Pantoprazole Sodium 80 MG Q10H 12/05 1630 AC (Protonix) Dextrose/Water 100 ML (D5W) Laboratory Tests 12/05/17 1551: Urine Color YEL, Urine Clarity CLEAR, Urine pH 6.0, Ur Specific [place] 1.015, Urine Protein NEG, Urine Ketones NEG, Urine Nitrite NEG, Urine Bilirubin NEG, Urine Urobilinogen 0.2, Ur Leukocyte Esterase SMALL H, Ur Microscopic SEDIMENT EXAMINED, Urine RBC RARE, Urine WBC 3-5 H, Ur Epithelial Cells FEW, Urine Bacteria RARE H, Urine Mucus RARE, Urine Hemoglobin NEG, Urine Glucose NEG 12/05/17 1420: Anion Gap 11, Estimated GFR 54 L, BUN/Creatinine Ratio 62.0 H, Glucose 113 H, Calcium 10.2, Total Bilirubin 0.4, AST 18, ALT 28, Alkaline Phosphatase 43, Troponin I < 0.01, Total Protein 5.6 L, Albumin 3.5, Globulin 2.1, Albumin/ Globulin Ratio 1.7, PT 55.6 *H, INR 5.38 *H, APTT 43 H, CBC w Diff NO MAN DIFF REQ, RBC 1.99 L, MCV 83.9, MCH 28.4, MCHC 33.8, RDW 14.9 H, MPV 9.7, Gran % 71.6, Lymphocytes % 23.2, Monocytes % 4.2, Eosinophils % 0.6, Basophils % 0.4, Absolute Granulocytes 6.0, Absolute Lymphocytes 1.9, Absolute Monocytes 0.4, Absolute Eosinophils 0.1, Absolute Basophils [address] Quiroz who is present to see and evaluate patient. He agrees with blood transfusion plan. Spoke with Dr. Rasmussen regarding this patient. Recommends protonix bolus and drip. Also recommends FFP at this time. No imaging necessary at this time, patient will likely require scope. Dr. King reports she will patient shortly. Dr. Nuñez spoke with Dr. Quintanilla regarding this patient's telemetry admission. EKG in sinus rhythm, troponin negative. Initial ED EKG: sinus rhythm @97bpm, nonspecific ST changes Prior EKG: changed (11/23/17 - t wave changes) (Jessica Lees) Departure Departure Referrals: Andrew Quintanilla MD (PCP/Family) Departure Forms: Customer Survey General Discharge Information (Jessica Lees) Departure Disposition: STILL A PATIENT Condition: Guarded Clinical Impression Primary Impression: GI bleed Secondary Impressions: Chest pain, unspecified, Supratherapeutic INR Admission Note Spoke With: Andrew Quintanilla MD Documentation of Exam: Documentation of any treatments & extenuating circumstances including Concerns Regarding Discharge (functional status, medication knowledge or non-compliance, living conditions, etc.) that warrant an admission rather than observation: [ Telemetry monitoring with serial enzymes, GI consultation, oncology consultation , cardiology consultation, transfusion, FFP] PA/DISTRICT COURT ADMINISTRATOR Co-Sign Statement Statement: ED Attending supervision documentation- [X] I saw and evaluated the patient. I have also reviewed all the pertinent lab results and diagnostic results. I agree with the findings and the plan of care as documented in the PA's/DISTRICT COURT ADMINISTRATOR's documentation. [X] I have reviewed the ED Record and agree with the PA's/DISTRICT COURT ADMINISTRATOR's documentation. [] Additions or exceptions (if any) to the PAs/DISTRICT COURT ADMINISTRATOR's note and plan are summarized below: [] (Joaquin CARRILLO,Waqar Hayes) Critical Care Note Critical Care Note Critical Care Time: 30-74 min (Juliana FALL,Jessica Elizalde) (Jessica Lees)
[2017-12-05 14:30] LABS: ABSOLUTE BASOPHIL COUNT 0 /CUMM (0.0-0.2); ABSOLUTE EOSINOPHIL COUNT 0.1 /CUMM (0.0-0.7); ABSOLUTE LYMPH COUNT 1.9 /CUMM (1.2-3.4); WHITE BLOOD CELL COUNT 8.3 /CUMM (4.8-10.8)
[2017-12-05 14:34] LABS: ABSOLUTE MONOCYTE COUNT 0.4 /CUMM (0.10-0.60); BASOPHIL % 0.4 % (0.0-2.0); EOSINOPHIL % 0.6 % (0-5); GRANULOCYTE % 71.6 % (42.2-75.2); MEAN CORPUSCULAR HGB 28.4 PG (27.0-31.0); MEAN CORPUSCULAR HGB CONC 33.8 G/DL (33.0-37.0); MEAN CORPUSCULAR VOLUME 83.9 FL (81.0-99.0); MEAN PLATELET VOLUME 9.7 FL (7.4-10.4); PLATELET COUNT 227 /CUMM (130-400); RBC DISTRIBUTION WIDTH 14.9 % (11.5-14.5); RED BLOOD CELL CT 1.99 /CUMM (4.20-5.40)
[2017-12-05 14:46] LABS: HEMATOCRIT 16.7 % (37-47)
[2017-12-05 14:58] LABS: PTT 43 SEC (25-37)
[2017-12-05 15:04] LABS: PT 55.6 SEC (9.4-12.5)
--- NOTE | 2017-12-05 15:50 | PN- Hematology ---
Subjective Subjective: Asked to see this 72-year-old woman well known to me with chronic anemia. Patient recently has had significant drops in hematocrit. I saw the patient 2 days ago in the office. At that time, hematocrit was 26.1. Patient over the last several months has received red cell transfusions. Over the last 2 days, patient has had nonspecific abdominal pain and noticed very dark stool. She had been on iron therapy this represented a change in her overall GI complaints. She also complains of vague chest discomfort.. Patient is on Coumadin anticoagulation for a heart valve Review of Systems: Patient has had chronic vertigo of uncertain etiology despite vigorous workup. He describes shortness of breath. Denied dysuria or hematuria. She denied new bone aches or focal neurologic deficit Objective Vital Signs and I&Os Vital Signs Date Time Temp Pulse Resp B/P B/P Pulse O2 O2 Flow FiO2 Mean Ox Delivery Rate 12/05 1408 97.5 98 18 129/55 99 Room Air Room Air Intake & Output 12/05 1600 12/05 0800 12/05 0000 12/04 1600 12/04 0800 12/04 0000 Intake Total Output Total Balance Patient 135 lb Weight Weight Reported by Patient Measurement Method Gen.: in NAD, uncomfortable ENT: Sclera anicteric Chest: Normal respiratory effort, decreased breath sounds Cor: RRR, no extra sounds Abdomen: Soft, bowel sounds present, diffuse mild tenderness without rebound Extremities: Without clubbing, cyanosis, or asymmetric edema Neurology: Alert and oriented 3, no gross deficit Skin: No rashes Current Medications: Please see list Results Last 24 Hours of Lab Results: Laboratory Tests 12/05 1420 Chemistry Sodium (137 - 145 mmol/L) 136 L Potassium (3.5 - 5.1 mmol/L) 4.5 Chloride (98 - 107 mmol/L) 105 Carbon Dioxide (22 - 30 mmol/L) 20 L Anion Gap (5 - 16) 11 BUN (7 - 17 mg/dL) 62 H Creatinine (0.5 - 1.0 mg/dL) 1.0 Estimated GFR (>60 ml/min) 54 L BUN/Creatinine Ratio (7 - 25 %) 62.0 H Glucose (65 - 99 mg/dL) 113 H Calcium (8.4 - 10.2 mg/dL) 10.2 Total Bilirubin (0.2 - 1.3 mg/dL) 0.4 AST (14 - 36 U/L) 18 ALT (9 - 52 U/L) 28 Alkaline Phosphatase (<127 U/L) 43 Troponin I (< 0.11 ng/ml) < 0.01 Total Protein (6.3 - 8.2 g/dL) 5.6 L Albumin (3.5 - 5.0 g/dL) 3.5 Globulin (1.9 - 4.2 gm/dL) 2.1 Albumin/Globulin Ratio (1.1 - 2.2 %) 1.7 Coagulation PT (9.4 - 12.5 SEC) 55.6 *H INR (0.90 - 1.19) 5.38 *H APTT (25 - 37 SEC) 43 H Hematology CBC w Diff NO MAN DIFF REQ WBC (4.8 - 10.8 /CUMM) 8.3 RBC (4.20 - 5.40 /CUMM) 1.99 L Hgb (12.0 - 16.0 G/DL) 5.6 *L Hct (37 - 47 %) 16.7 *L MCV (81.0 - 99.0 FL) 83.9 MCH (27.0 - 31.0 PG) 28.4 MCHC (33.0 - 37.0 G/DL) 33.8 RDW (11.5 - 14.5 %) 14.9 H Plt Count (130 - 400 /CUMM) 227 MPV (7.4 - 10.4 FL) 9.7 Gran % (42.2 - 75.2 %) 71.6 Lymphocytes % (20.5 - 51.1 %) 23.2 Monocytes % (1.7 - 9.3 %) 4.2 Eosinophils % (0 - 5 %) 0.6 Basophils % (0.0 - 2.0 %) 0.4 Absolute Granulocytes (1.4 - 6.5 /CUMM) 6.0 Absolute Lymphocytes (1.2 - 3.4 /CUMM) 1.9 Absolute Monocytes (0.10 - 0.60 /CUMM) 0.4 Absolute Eosinophils (0.0 - 0.7 /CUMM) 0.1 Absolute Basophils (0.0 - 0.2 /CUMM) 0 Assessment/Plan Hematology Assessment/Recommendations: 1. Dramatic recent drop in hematocrit-as per the ER staff the patient's stools were grossly positive for blood. Normal bilirubin would argue against extravascular hemolysis. I would doubt shear hemolysis from her valve. Recommend- Aggressive transfusion of red blood cells Check direct [facility] to see patient GI to see patient 2. Coagulopathy-due to warfarin. I would reverse warfarin effect with FFP, not vitamin K. This should be closely accomplished with input from cardiology given her artificial valve status. 3. Abdominal pain- GI to see Consider imaging 4. Prerenal azotemia-consistent with GI bleeding/relative hypovolemia Please call over the weekend if any further issues develop
--- NOTE | 2017-12-05 16:22 | Cons- Gastroenterology ---
General Information and HPI Consulting Request Date of Consult: 12/05/17 Requested By: MD Quintanilla Carlos Reason for Consult: 1. Acute drop in hemoglobin and hematocrit 2. Epigastric pain 3. Hemoccult-positive stool 4. Chronic blood loss anemia 5. Chronic use of anticoagulants 6. Coagulopathy Source of Information: patient, Electronic Medical Record Exam Limitations: no limitations History of Present Illness: Miss Franny Lopez is a 72-year-old female with a past medical history of [facility] aortic valve replacement (done in 1987) who is on Coumadin for anticoagulation. She presented to [facility] ED with a 3 day history of increasing epigastric pain and melenic stools. She is on iron however she does report that her stools have been loose and foul-smelling. On admission she had an H&H of 5.6/16.7 with a BUN/creatinine of 62/1.0. On November 24 she had an H& H of 9.9 and 29.5 with a BUN and creatinine of 31/0.8. She is had a colonoscopy in 2013 which was unremarkable with the exception of diverticulosis. And has had several admissions to [facility] for anemia and presumedly upper GI blood loss. She underwent EGD on 04/29/2017 which was normal and underwent video capsule endoscopy for evaluation of occult GI blood loss. 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 However on subsequent small bowel enteroscopy done on September 03, 2017 no vascular ectasia were identified. It was recommended at that time should she have further bleeding episodes that she should be considered a candidate for double balloon enteroscopy. Past medical history is additionally significant for osteoporosis, hypertension, obesity, remote smoker, chronic anemia (BM bx 07/10/2010- normocellular marrow), diabetes, questionable old MD, tubal ligation, appendectomy, with remote sigmoid diverticulitis requiring admission to [facility] in 07/2003. IMPRESSION: 1. No acute findings in the abdomen or pelvis compared to 02/13/2017. 2. Diverticulosis of the descending and sigmoid colon without diverticulitis. 3. 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 Allergies/Medications Allergies: Coded Allergies: ciprofloxacin (Severe, ANAPHYLAXIS 12/19/15) morphine (N/V 02/13/17) tramadol (N/V 04/28/17) Home Med List: Acetaminophen (Mapap) 500 MG CAPSULE 2 CAP PO PRN PAIN (Reported) Amlodipine Besylate 5 MG TABLET 1 TAB PO DAILY HIGH BLOOD PRESSURE Calcium Carbonate/Vitamin D3 (Calcium 500 + D Tablet) (Unknown Strength) TABLET (Unknown Dose) PO DAILY SUPPLEMENT (Reported) Ferrous Sulfate 325 MG (65 MG IRON) TABLET 1 TAB PO DAILY SUPPLEMENT ( Reported) Glucosamine/D3/Boswellia Leonora (Osteo Bi-Flex Tablet) (Unknown Strength) TABLET (Unknown Dose) PO DAILY SUPPLEMENT (Reported) Hydrochlorothiazide 25 MG TABLET 1 TAB PO DAILY BP (Reported) Lisinopril 40 MG TABLET 1 TAB PO DAILY HIGH BLOOD PRESSURE Metformin HCl (Metformin HCl ER) 500 MG TAB.ER.24H 1 TAB PO BID DM (Reported) Paroxetine HCl (Paxil) 10 MG TABLET 1 TAB PO DAILY MENTAL HEALTH (Reported) Warfarin Sodium (Coumadin) 2.5 MG TABLET 1 TAB PO MTUWEFRSASUN BLOOD THINNER (Reported) Warfarin Sodium (Coumadin) 2.5 MG TABLET 0.5 TAB PO QTHURS BLOOD THINNER ( Reported) Current Medications: Current Medications Sig/Eliane Start time Last Medication Dose Route Stop Time Status Admin Pantoprazole Sodium 40 MG Q5H 12/05 1730 AC 12/05 Sodium Chloride 100 ML IV 1759 Pantoprazole Sodium 80 MG Q10H 12/05 1630 DC Dextrose/Water 100 ML IV Past History Travel History Traveled to [place] past 21 day No Medical History Neurological: migraine, HEMICRANIAL CONT. 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 FATHER, , Age 59; Cause: Myocardial infarction. SISTER, , Age 40-50. Psychosocial History Who Do You Live With? self Services at Home: Home Health Aide, Nursing Primary Language: [place]ese (also Cape Verdean) Living Will? unknown Power of Resolution Expert/HCP? unknown Functional Ability ADLs Independent: dressing, eating, toileting, bathing. Ambulation: independent IADLs Independent: shopping, housework, finances, food prep, telephone, transportation , medication admin. Review of Systems Review of Systems Constitutional: Reports: see HPI, chills, weakness. EENTM: Reports: no symptoms, ear pain. Cardiovascular: Denies: no symptoms. Respiratory: Denies: no symptoms. GI: Reports: see HPI. Genitourinary: Denies: no symptoms. Musculoskeletal: Denies: no symptoms. Skin: Denies: no symptoms. Neurological/Psychological: Denies: no symptoms. Hematologic/Endocrine: Denies: no symptoms. Exam & Diagnostic Data Vital Signs and I&O Vital Signs Date Time Temp Pulse Resp B/P B/P Pulse O2 O2 Flow FiO2 Mean Ox Delivery Rate 12/05 1408 97.5 98 18 129/55 99 Room Air Room Air Intake & Output 12/05 1600 12/05 0400 12/04 1600 12/04 0400 12/03 1600 12/03 0400 Intake Total Output Total Balance Patient 135 lb Weight Weight Reported by Patient Measurement Method Physical Exam General Appearance: anxious, moderate distress Head: normal appearance Eyes: Bilateral: normal appearance. Ears, Nose, Throat: hearing grossly normal Neck: normal inspection, supple, full range of motion Respiratory: normal breath sounds, lungs clear Cardiovascular: regular rate/rhythm, Mechanical S1 and S1, no rub, murmur or gallop Gastrointestinal: normal bowel sounds, soft, no organomegaly, tenderness, Moderate epigastric tenderness without guarding Rectal: heme positive stool Neurologic/Psych: alert, oriented x 3, normal gait, normal mood/affect Cranial Nerves: Cranial Nerves II-XII grossly intact Skin: warm/dry, pallor Results Pertinent Lab Results: Laboratory Tests 12/05 12/05 1551 1420 Chemistry Sodium (137 - 145 mmol/L) 136 L Potassium (3.5 - 5.1 mmol/L) 4.5 Chloride (98 - 107 mmol/L) 105 Carbon Dioxide (22 - 30 mmol/L) 20 L Anion Gap (5 - 16) 11 BUN (7 - 17 mg/dL) 62 H Creatinine (0.5 - 1.0 mg/dL) 1.0 Estimated GFR (>60 ml/min) 54 L BUN/Creatinine Ratio (7 - 25 %) 62.0 H Glucose (65 - 99 mg/dL) 113 H Calcium (8.4 - 10.2 mg/dL) 10.2 Total Bilirubin (0.2 - 1.3 mg/dL) 0.4 AST (14 - 36 U/L) 18 ALT (9 - 52 U/L) 28 Alkaline Phosphatase (<127 U/L) 43 Troponin I (< 0.11 ng/ml) < 0.01 Total Protein (6.3 - 8.2 g/dL) 5.6 L Albumin (3.5 - 5.0 g/dL) 3.5 Globulin (1.9 - 4.2 gm/dL) 2.1 Albumin/Globulin Ratio (1.1 - 2.2 %) 1.7 Coagulation PT (9.4 - 12.5 SEC) 55.6 *H INR (0.90 - 1.19) 5.38 *H APTT (25 - 37 SEC) 43 H Hematology CBC w Diff NO MAN DIFF REQ WBC (4.8 - 10.8 /CUMM) 8.3 RBC (4.20 - 5.40 /CUMM) 1.99 L Hgb (12.0 - 16.0 G/DL) 5.6 *L Hct (37 - 47 %) 16.7 *L MCV (81.0 - 99.0 FL) 83.9 MCH (27.0 - 31.0 PG) 28.4 MCHC (33.0 - 37.0 G/DL) 33.8 RDW (11.5 - 14.5 %) 14.9 H Plt Count (130 - 400 /CUMM) 227 MPV (7.4 - 10.4 FL) 9.7 Gran % (42.2 - 75.2 %) 71.6 Lymphocytes % (20.5 - 51.1 %) 23.2 Monocytes % (1.7 - 9.3 %) 4.2 Eosinophils % (0 - 5 %) 0.6 Basophils % (0.0 - 2.0 %) 0.4 Absolute Granulocytes (1.4 - 6.5 /CUMM) 6.0 Absolute Lymphocytes (1.2 - 3.4 /CUMM) 1.9 Absolute Monocytes (0.10 - 0.60 /CUMM) 0.4 Absolute Eosinophils (0.0 - 0.7 /CUMM) 0.1 Absolute Basophils (0.0 - 0.2 /CUMM) 0 Urines Urine Color Pending Urine Clarity Pending Urine pH Pending Ur Specific Alsey Pending Urine Protein Pending Urine Ketones Pending Urine Nitrite Pending Urine Bilirubin Pending Urine Urobilinogen Pending Ur Leukocyte Esterase Pending Ur Microscopic Pending Urine Hemoglobin Pending Urine Glucose Pending Imaging/Other Studies: FINDINGS: LUNG BASES: The visualized lung bases are unremarkable. LIVER, GALLBLADDER, AND BILIARY TREE: The liver is normal in size, shape, and attenuation. No focal hepatic lesion or biliary ductal dilatation is present. The gallbladder is unremarkable with no evidence of radiopaque gallstones, gallbladder wall thickening, or obvious pericholecystic inflammatory changes. PANCREAS: Unremarkable. SPLEEN: Unremarkable. ADRENAL GLANDS: Unremarkable. KIDNEYS AND URETERS: The kidneys are normal in size, shape, and attenuation. No hydronephrosis, hydroureter, or calculi seen. No perinephric stranding. BLADDER: There is a tiny air droplet in the bladder. No bladder wall thickening or edema. No evidence of fistula. Correlate with history of instrumentation of the bladder. GASTROINTESTINAL TRACT: Diverticulosis of the left colon sigmoid without diverticulitis. No acute change of the bowel. No bowel obstruction. No bowel wall thickening or edema. Moderate volume of stool throughout the colon. The appendix is not seen. No inflammation the mesentery. Small bowel loops are unremarkable. Small hiatal hernia. MESENTERY: No inflammation. No free air or free fluid. ABDOMINAL WALL: No significant hernia is appreciated. LYMPH NODES: Normal. VASCULAR: Atherosclerotic vascular wall calcifications throughout the abdomen and pelvis. No aneurysm of the aorta. PELVIC VISCERA: Unremarkable. OSSEOUS STRUCTURES: Degenerative spondylosis of spine with multilevel endplate spurring disc height narrowing and facet joint arthrosis. IMPRESSION: No acute abnormality CT scan abdomen pelvis. Diverticulosis of colon but no acute change of the bowel. 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 Epigastric pain 2. Acute drop in hemoglobin and hematocrit 3. Hemoccult-positive stool 4. Melena, elevated BUN/creatinine 5. Long-term use of anticoagulant 6. Coagulopathy 7. Mechanical Aortic Valve RECOMMENDATIONS: 1. Admit to ICU 2. 2 large-bore IVs 3. Transfuse to hemoglobin above 7 4. Protonix 80 mg bolus and Protonix drip 8 mg per hour 5. Serial H&H, every 4 hours 4 6. Nothing by mouth after midnight for EGD tomorrow morning in ICU at about 8: 30 a.m. 7. Correct INR to less than 1.8 with FFP as using Vitamin K will make it much harder to anticoagulate and achieve therapeutic INR prior to or after discharge. 8. I have spoken with Dr. Garcia regarding Ms. Lopez's anticoagulation and also with the resident (Swathi Jones MD) Patient will receive FFP to correct INR. However, will check PT/INR every 2 hours. When INR is 2.0 will start heparin without bolus as patient is bleeding. at 4:30 a.m. will stop heparin for 8:30 a.m. Upper endoscopy/push enteroscopy. After procedure heparin will be restarted. I have tried to call Dr. Argueta's office but got a voice mail. I have given Dr. Garcia my cell phone number if there are any questions or concerns. Consult Acknowledgment - Thank you for your consult request.
--- NOTE | 2017-12-05 17:50 | History & Physical ---
General Information and HPI MD Statement: I have seen and personally examined YIFAN GALLARDO and documented this H&P. Source of Information: patient, Electronic Medical Record Exam Limitations: no limitations History of Present Illness: This is a 72-year-old lady with past medical history significant for mechanical aortic valve on warfarin, hypertension, hyperlipidemia, diabetes, chronic anemia requiring blood transfusions who was sent to the hospital from Dr. Quintanilla's office for further evaluation of feeling weak, lightheaded, dizzy, fatigue, with shortness of breath, palpitation for the past few days and acute drop in H&H. Patient's daughters, Ms. Leatha Sam and Ms. Zayra Hicks are present at bedside. The patient has history of chronic anemia and usually requires blood transfusions. Per patient's daughter, Ms. Hicks, the patient had a last blood transfusion on November 13. She states that usually after each blood transfusion patient's hematocrit states within the desired range (27-28) for approximately 2 months. Patient's daughter reported that patient usually has dark colored stool as she is on iron supplement. She has been having diarrhea for the past 2 days without any jayy blood in the stool or hematuria. At the time of our interview, the patient reports having crampy generalized abdominal pain without any radiation and left side ear pain. The patient denies having any headache, nausea, vomiting, palpitation, chest discomfort, chest pain , difficulty breathing, urinary symptoms. The patient usually takes her warfarin in the evening, last dose was yesterday. The patient and family report that she has been having ear pain along with dizziness for over a year, has followed with ENT as an outpatient, underlying pathology not identified. Allergies/Medications Allergies: Coded Allergies: ciprofloxacin (Severe, ANAPHYLAXIS 12/19/15) morphine (N/V 02/13/17) tramadol (N/V 04/28/17) Home Med list Acetaminophen (Mapap) 500 MG CAPSULE 2 CAP PO PRN PAIN (Reported) Amlodipine Besylate 5 MG TABLET 1 TAB PO DAILY HIGH BLOOD PRESSURE Calcium Carbonate/Vitamin D3 (Calcium 500 + D Tablet) 500 MG-400 TABLET 1 TAB PO DAILY SUPPLEMENT (Reported) Ferrous Sulfate 325 MG (65 MG IRON) TABLET 1 TAB PO DAILY SUPPLEMENT ( Reported) Hydrochlorothiazide 25 MG TABLET 1 TAB PO DAILY BP (Reported) Lisinopril 40 MG TABLET 1 TAB PO DAILY HIGH BLOOD PRESSURE Metformin HCl (Metformin HCl ER) 500 MG TAB.ER.24H 1 TAB PO BID DM (Reported) Paroxetine HCl (Paxil) 10 MG TABLET 1 TAB PO DAILY MENTAL HEALTH (Reported) Warfarin Sodium (Coumadin) 2.5 MG TABLET 1 TAB PO MTUWEFRSASUN BLOOD THINNER (Reported) Warfarin Sodium (Coumadin) 2.5 MG TABLET 0.5 TAB PO QTHURS BLOOD THINNER ( Reported) Past History Travel History Traveled to [place] past 21 day No Medical History Neurological: migraine, HEMICRANIAL CONT. 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 FATHER, , Age 59; Cause: Myocardial infarction. SISTER, , Age 40-50. Psychosocial History Who Do You Live With? self Services at Home: Home Health Aide, Nursing Primary Language: Colombian (also Slovak) Living Will? unknown Power of Hop Separator/HCP? unknown Functional Ability ADLs Independent: dressing, eating, toileting, bathing. Ambulation: independent IADLs Independent: shopping, housework, finances, food prep, telephone, transportation , medication admin. Review of Systems Review of Systems Constitutional: Reports: see HPI. EENTM: Reports: ear pain (left). Denies: hearing changes, nasal congestion, epistaxis, throat pain, throat swelling. Cardiovascular: Denies: chest pain, edema. Respiratory: Reports: short of breath. Denies: cough, hemoptysis, orthopnea, sputum production, stridor, wheezing. GI: Reports: abdominal pain, diarrhea, melena (usure if melena or 2/2 iron). Denies : bloating, constipation, distention, bowel incontinence, nausea, bloody stool, changes in stool, vomiting, steatorrhea. Genitourinary: Denies: discharge, dysuria, frequency, hematuria, hesitation, nocturia, pain, urgency. Musculoskeletal: Reports: no symptoms. Skin: Reports: no symptoms. Neurological/Psychological: Reports: no symptoms. Hematologic/Endocrine: Reports: other (chronic anemia). Immunologic/Allergic: Reports: no symptoms. All Other Systems: Reviewed and Negative Exam & Diagnostic Data Last 24 Hrs of Vital Signs/I&O Vital Signs Date Time Temp Pulse Resp B/P B/P Pulse O2 O2 Flow FiO2 Mean Ox Delivery Rate 12/05 1835 98.0 94 20 116/48 94 Room Air 12/05 1808 98.2 100 20 120/50 100 Room Air 12/05 1701 97.8 103 16 132/42 99 Room Air 12/05 1408 97.5 98 18 129/55 99 Room Air Room Air Intake & Output 12/05 1600 12/05 0800 12/05 0000 Intake Total Output Total Balance Patient 135 lb Weight Weight Reported by Patient Measurement Method Physical Exam General Appearance Alert, Oriented X3, Cooperative, No Acute Distress Skin No Breakdown, No Significant Lesion, Pale Skin Temp/Moisture Exam: Warm/Dry Sepsis Skin Exam (color): Normal for Ethnicity HEENT Atraumatic, PERRLA, EOMI, Mucous Membr. moist/pink, otoscopic examination unremarkable; TM intact Neck Supple, No JVD, No thryomegaly, +2 Carotid Pulse wo Bruit, No LAD Lymphatic Axillary nl, Cervical nl Cardiovascular sys murmur, mechanical valve prostheses sound noted Lungs Clear to Auscultation, Normal Air Movement Abdomen generalized tenderness to palpation, no guarding, no rebound Neurological Normal Speech, Strength at 5/5 X4 Ext, Normal Tone, Sensation Intact, Cranial Nerves 3-12 NL Extremities No Clubbing, No Cyanosis, No Edema, Normal Pulses, No Tenderness/ Swelling Vascular Normal Pulses, Pulses Symmetrical Diagnostic Data EKG Results Sinus rhythm, rate 97, no significant ST-T wave abnormalities. Other Results Abdomen/pelvis CT:No acute abnormality CT scan abdomen pelvis. Diverticulosis of colon but no acute change of the bowel. Assessment/Plan Assessment: This is a 72-year-old lady with past medical history significant for mechanical aortic valve on warfarin, hypertension, hyperlipidemia, diabetes, chronic anemia requiring blood transfusions who was sent to the hospital from Dr. Quintanilla's office for further evaluation of feeling weak, lightheaded, dizzy, fatigue, with shortness of breath, palpitation for the past few days and acute drop in H&H. While in the ED, she was noted to have hemoglobin 5.6, hematocrit 16.7, INR 5.38. Assessment/plan #Acute blood loss anemia: Likely secondary to GI bleeding. The patient with chronic anemia requiring frequent transfusions. Type and screen sent. Transfuse as needed to maintain hemoglobin above 7. Will monitor in the ICU closely. IV Protonix. H&H every 4 hours. #Supratherapeutic INR: Likely due to warfarin. Patient has been seen by hematology, cardiology and gastroenterology in the ED. Plan to gently reverse INR with FFP. #Generalized abdominal pain: CT abdomen/pelvis was performed in the ED which is unremarkable. The patient to be further evaluated by gastroenterology. #Dyspnea: Likely secondary to anemia. Admission troponin negative, EKG without any significant change compared to prior. She has been evaluated by cardiology in the ED. Will trend troponin and EKGs. #Mechanical aortic valve on warfarin: Patient is on warfarin at home, presented with supratherapeutic INR to 5.38. Given her acute blood loss anemia, she will need reversal of INR with FFP. She has been evaluated by cardiology, gastroenterology and hematology. Hematology suggested to consult with cardiology regarding FFP therapy. Given mechanical aortic valve, there is an increased risk for blood clots if she is off anticoagulation however, given the acute drop in H&H and her symptoms, she may benefit from reversal of INR. Dr. Argueta's recommendation:Gentle reversal of INR with FFP, when INR less than 1.7, start IV heparin with no bolus pending EGD. Dr. Argueta's recommendation was discussed with lactation coordinator, Dr. Sandoval and attending Dr. Quintanilla. Physician Assistant, Dr. Sandoval, is recommending to start IV heparin when INR is 2. INR should be checked every 2 hours. If heparin is started, it should be stopped around 4:30 AM in anticipation of Upper endoscopy/push enteroscopy. 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 Will start Accu-Cheks, insulin sliding scale. #DVT prophylaxis: Supratherapeutic INR at this point, Alps #The patient is full code. #Nothing by mouth after midnight in anticipation of endoscopy. #The above was discussed with attending Dr. Quintanilla, please refer to his addendum for further recommendations. As Ranked By This Provider Problem List: 1. GI bleed Core Measures/Misc (07/06) Acute Coronary Syndrome ACS Diagnosis: No Congestive Heart Failure Congestive Heart Failure Diagnosis No Cerebrovascular Accident CVA/TIA Diagnosis: No VTE (View Protocol) VTE Risk Factors Age>40 No Mechanical VTE Prophylaxis d/t N/A MechProphylax Ordered No VTE Pharm Prophylaxis d/t Bleeding (Active) Sepsis (View protocol) Sepsis Present: No
--- NOTE | 2017-12-05 19:20 | Cons- Cardiology ---
General Information and HPI Consulting Request Date of Consult: 12/05/17 Requested By: Andrew Quintanilla MD Reason for Consult: chest discomfort; dyspnea; GI bleed; prosthetic valve Source of Information: patient, family, old records Exam Limitations: no limitations History of Present Illness: 72 year old female well known to me with recent issues with BP control. Here now via the ER with increasing fatigue, dyspnea and some chest discomfort with dark heme positive stools and much more profound anemia consistent with GI bleeding. I suspect that many of her symptoms are related to the anemia. Source of bleeding to be worked up. Allergies/Medications Allergies: Coded Allergies: ciprofloxacin (Severe, ANAPHYLAXIS 12/19/15) morphine (N/V 02/13/17) tramadol (N/V 04/28/17) Home Med List: Acetaminophen (Mapap) 500 MG CAPSULE 2 CAP PO PRN PAIN (Reported) Amlodipine Besylate 5 MG TABLET 1 TAB PO DAILY HIGH BLOOD PRESSURE Calcium Carbonate/Vitamin D3 (Calcium 500 + D Tablet) (Unknown Strength) TABLET (Unknown Dose) PO DAILY SUPPLEMENT (Reported) Ferrous Sulfate 325 MG (65 MG IRON) TABLET 1 TAB PO DAILY SUPPLEMENT ( Reported) Glucosamine/D3/Boswellia Leonora (Osteo Bi-Flex Tablet) (Unknown Strength) TABLET (Unknown Dose) PO DAILY SUPPLEMENT (Reported) Hydrochlorothiazide 25 MG TABLET 1 TAB PO DAILY BP (Reported) Lisinopril 40 MG TABLET 1 TAB PO DAILY HIGH BLOOD PRESSURE Metformin HCl (Metformin HCl ER) 500 MG TAB.ER.24H 1 TAB PO BID DM (Reported) Paroxetine HCl (Paxil) 10 MG TABLET 1 TAB PO DAILY MENTAL HEALTH (Reported) Warfarin Sodium (Coumadin) 2.5 MG TABLET 1 TAB PO MTUWEFRSASUN BLOOD THINNER (Reported) Warfarin Sodium (Coumadin) 2.5 MG TABLET 0.5 TAB PO QTHURS BLOOD THINNER ( Reported) Current Medications: Current Medications Sig/Eliane Start time Last Medication Dose Route Stop Time Status Admin Insulin Aspart 0 TIDAC 12/06 0800 AC SC Pantoprazole Sodium 40 MG Q5H 12/05 1730 AC 12/05 Sodium Chloride 100 ML IV 1759 Pantoprazole Sodium 80 MG Q10H 12/05 1630 DC Dextrose/Water 100 ML IV Past History Travel History Traveled to [place] past 21 day No Medical History Neurological: migraine, HEMICRANIAL CONT. 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 FATHER, , Age 59; Cause: Myocardial infarction. SISTER, , Age 40-50. Psychosocial History Who Do You Live With? self Services at Home: Home Health Aide, Nursing Primary Language: Amharic (also Frisian) Living Will? unknown Power of Graphics Edit Technician/HCP? unknown Functional Ability ADLs Independent: dressing, eating, toileting, bathing. Ambulation: independent IADLs Independent: shopping, housework, finances, food prep, telephone, transportation , medication admin. Exam & Diagnostic Data Vital Signs and I&O Vital Signs Date Time Temp Pulse Resp B/P B/P Pulse O2 O2 Flow FiO2 Mean Ox Delivery Rate 12/05 1835 98.0 94 20 116/48 94 Room Air 12/05 1808 98.2 100 20 120/50 100 Room Air 12/05 1701 97.8 103 16 132/42 99 Room Air 12/05 1408 97.5 98 18 129/55 99 Room Air Room Air Intake & Output 12/05 1600 12/05 0800 16 0000 12/04 1600 12/04 0800 12/04 0000 Intake Total Output Total Balance Patient 135 lb Weight Weight Reported by Patient Measurement Method Physical Exam: General Appearance: anxious, mild distress Head: normal Eyes: Bilateral: normal appearance. Ears, Nose, Throat: normal Neck: JVP normal, carotids normal bilaterallu Respiratory: normal breath sounds, lungs clear Cardiovascular: regular rate/rhythm, crisp prosthetic valve sounds with 1/6 systolic murmur Gastrointestinal: normal bowel sounds, soft, no organomegaly, tenderness, Moderate epigastric tenderness without guarding Rectal: reported heme positive stool Neurologic: alert, oriented x 3, non focal Skin: warm/dry, pallor Labs/Thad Results: Laboratory Tests 12/05 12/05 1551 1420 Chemistry Sodium (137 - 145 mmol/L) 136 L Potassium (3.5 - 5.1 mmol/L) 4.5 Chloride (98 - 107 mmol/L) 105 Carbon Dioxide (22 - 30 mmol/L) 20 L Anion Gap (5 - 16) 11 BUN (7 - 17 mg/dL) 62 H Creatinine (0.5 - 1.0 mg/dL) 1.0 Estimated GFR (>60 ml/min) 54 L BUN/Creatinine Ratio (7 - 25 %) 62.0 H Glucose (65 - 99 mg/dL) 113 H Calcium (8.4 - 10.2 mg/dL) 10.2 Total Bilirubin (0.2 - 1.3 mg/dL) 0.4 AST (14 - 36 U/L) 18 ALT (9 - 52 U/L) 28 Alkaline Phosphatase (<127 U/L) 43 Troponin I (< 0.11 ng/ml) < 0.01 Total Protein (6.3 - 8.2 g/dL) 5.6 L Albumin (3.5 - 5.0 g/dL) 3.5 Globulin (1.9 - 4.2 gm/dL) 2.1 Albumin/Globulin Ratio (1.1 - 2.2 %) 1.7 Coagulation PT (9.4 - 12.5 SEC) 55.6 *H INR (0.90 - 1.19) 5.38 *H APTT (25 - 37 SEC) 43 H Hematology CBC w Diff NO MAN DIFF REQ WBC (4.8 - 10.8 /CUMM) 8.3 RBC (4.20 - 5.40 /CUMM) 1.99 L Hgb (12.0 - 16.0 G/DL) 5.6 *L Hct (37 - 47 %) 16.7 *L MCV (81.0 - 99.0 FL) 83.9 MCH (27.0 - 31.0 PG) 28.4 MCHC (33.0 - 37.0 G/DL) 33.8 RDW (11.5 - 14.5 %) 14.9 H Plt Count (130 - 400 /CUMM) 227 MPV (7.4 - 10.4 FL) 9.7 Gran % (42.2 - 75.2 %) 71.6 Lymphocytes % (20.5 - 51.1 %) 23.2 Monocytes % (1.7 - 9.3 %) 4.2 Eosinophils % (0 - 5 %) 0.6 Basophils % (0.0 - 2.0 %) 0.4 Absolute Granulocytes (1.4 - 6.5 /CUMM) 6.0 Absolute Lymphocytes (1.2 - 3.4 /CUMM) 1.9 Absolute Monocytes (0.10 - 0.60 /CUMM) 0.4 Absolute Eosinophils (0.0 - 0.7 /CUMM) 0.1 Absolute Basophils (0.0 - 0.2 /CUMM) 0 Urines Urine Color (YEL,AMB,STR) YEL Urine Clarity (CLEAR) CLEAR Urine pH (5.0 - 8.0) 6.0 Ur Specific [place] (1.001 - 1.035) 1.015 Urine Protein (NEG,<30 MG/DL) NEG Urine Ketones (NEG) NEG Urine Nitrite (NEG) NEG Urine Bilirubin (NEG) NEG Urine Urobilinogen (0.1 - 1.0 EU/dl) 0.2 Ur Leukocyte Esterase (NEG) SMALL H Ur Microscopic SEDIMENT EXAMINED Urine RBC (0 - 5 /HPF) RARE Urine WBC (0 - 2 /HPF) 3-5 H Ur Epithelial Cells (NONE,FEW) FEW Urine Bacteria (NEG/NONE) RARE H Urine Mucus (FEW,NONE) RARE Urine Hemoglobin (NEG) NEG Urine Glucose (N MG/DL) NEG Assessment/Plan Assessment/Plan Assessment: 1. Acute blood loss anemia 2. Chest discomfort and dyspnea likely secondary to anemia 3. Prosthetic aortic valve 4. HTN with recent issues of poor control 5. Prerenal azotemia 6. Coagulopathy 7. Abdominal pain Recommendations: 1. Monitor on telemetry or in ICU in view of chest discomfort. 2. Serial troponins 3. Serial ECGs 4. Continue as per GI and Hematology 5. Gentle reversal of INR with FFP; please avoid Vitamin K; when INR less than 1.7, start IV heparin with no bolus pending EGD; restart IV heparin if stable post procedure. IF any evidence of significant active bleeding please notify me. Consult Acknowledgment - Thank you for your consult request.
[2017-12-05 19:29] LABS: ABSOLUTE BASOPHIL COUNT 0 /CUMM (0.0-0.2); ABSOLUTE EOSINOPHIL COUNT 0.1 /CUMM (0.0-0.7); ABSOLUTE GRANULOCYTE CT 4.2 /CUMM (1.4-6.5); ABSOLUTE LYMPH COUNT 2.1 /CUMM (1.2-3.4); ABSOLUTE MONOCYTE COUNT 0.3 /CUMM (0.10-0.60); BASOPHIL % 0.5 % (0.0-2.0); EOSINOPHIL % 0.9 % (0-5); GRANULOCYTE % 62.7 % (42.2-75.2); MEAN CORPUSCULAR HGB 29.4 PG (27.0-31.0); MEAN CORPUSCULAR HGB CONC 34.6 G/DL (33.0-37.0); MEAN CORPUSCULAR VOLUME 84.9 FL (81.0-99.0); MEAN PLATELET VOLUME 8.2 FL (7.4-10.4); PLATELET COUNT 192 /CUMM (130-400); RBC DISTRIBUTION WIDTH 15.9 % (11.5-14.5); RED BLOOD CELL CT 1.66 /CUMM (4.20-5.40); WHITE BLOOD CELL COUNT 6.7 /CUMM (4.8-10.8)
[2017-12-05 19:34] LABS: PT 27.5 SEC (9.4-12.5)
[2017-12-05 19:37] LABS: HEMATOCRIT 14.1 % (37-47)
--- NOTE | 2017-12-05 20:16 | Admission Certification ---
Admission Certification Certification Statement - As attending physician, I certify that at the time of - admission, based on clinical presentation, severity of - symptoms, need for further diagnostic testing and - therapeutic interventions, and risk of adverse outcomes - without in-hospital treatment, in my clinical assessment, - this patient requires an acute hospital stay for a minimum - of two nights or longer. I have also considered psychsocial - factors such as support system, advanced age, financial - issues, cognitive issues, and failed out-patient treatments, - past re-admission history, safety of patient, and lack of - compliance as applicable. Specific rationale supporting this admission is: Blood loss anemia, positive stools for occult blood with drop of hemoglobin and hematocrit tachycardia elevation of BUN and creatinine
--- NOTE | 2017-12-05 20:21 | PN- Att Addend ---
Attending Addendum Attending Brief Note 72 year old female many comorbidities of them is a mechanical valve chronic anticoagulation with history of anemia discharge GI bleeding in the past several workups followed by cardiology, hematology , gastroenterology and myself. For the last 2 days complaining of abdominal pain and melanotic smelly stools, comes to my office looking terrible, an ambulance was called and sent to the hospital where again was found to be severely anemic with supratherapeutic INR, elevated BUN and creatinine were and feeling very weak. Patient was admitted already seen by cardiology, GI and hematopathology, and she was admitted to the intensive care unit was decided to give fresh frozen plasma, will be transfused after kept on heparin until she is ready for the endoscopy tomorrow and follow-up the labs very carefully Current Medications Sig/Eliane Start time Last Medication Dose Route Stop Time Status Admin Insulin Aspart 0 TIDAC 12/06 0800 AC SC Pantoprazole Sodium 40 MG Q5H 12/05 1730 AC 12/05 Sodium Chloride 100 ML IV 1759 Pantoprazole Sodium 80 MG Q10H 12/05 1630 DC Dextrose/Water 100 ML IV Laboratory Tests 12/05/17 1920: PT 27.5 H, INR 2.64 H, CBC w Diff NO MAN DIFF REQ, RBC 1.66 L, MCV 84.9, MCH 29.4, MCHC 34.6, RDW 15.9 H, MPV 8.2, Gran % 62.7, Lymphocytes % 30.8, Monocytes % 5.1, Eosinophils % 0.9, Basophils % 0.5, Absolute Granulocytes 4.2, Absolute Lymphocytes 2.1, Absolute Monocytes 0.3, Absolute Eosinophils 0.1, Absolute Basophils 0 12/05/17 1551: Urine Color YEL, Urine Clarity CLEAR, Urine pH 6.0, Ur Specific Hay 1.015, Urine Protein NEG, Urine Ketones NEG, Urine Nitrite NEG, Urine Bilirubin NEG, Urine Urobilinogen 0.2, Ur Leukocyte Esterase SMALL H, Ur Microscopic SEDIMENT EXAMINED, Urine RBC RARE, Urine WBC 3-5 H, Ur Epithelial Cells FEW, Urine Bacteria RARE H, Urine Mucus RARE, Urine Hemoglobin NEG, Urine Glucose NEG 12/05/17 1420: Anion Gap 11, Estimated GFR 54 L, BUN/Creatinine Ratio 62.0 H, Glucose 113 H, Calcium 10.2, Total Bilirubin 0.4, AST 18, ALT 28, Alkaline Phosphatase 43, Troponin I < 0.01, Total Protein 5.6 L, Albumin 3.5, Globulin 2.1, Albumin/ Globulin Ratio 1.7, PT 55.6 *H, INR 5.38 *H, APTT 43 H, CBC w Diff NO MAN DIFF REQ, RBC 1.99 L, MCV 83.9, MCH 28.4, MCHC 33.8, RDW 14.9 H, MPV 9.7, Gran % 71.6, Lymphocytes % 23.2, Monocytes % 4.2, Eosinophils % 0.6, Basophils % 0.4, Absolute Granulocytes 6.0, Absolute Lymphocytes 1.9, Absolute Monocytes 0.4, Absolute Eosinophils 0.1, Absolute Basophils 0 Vital Signs Date Time Temp Pulse Resp B/P B/P Pulse O2 O2 Flow FiO2 Mean Ox Delivery Rate 12/05 1835 98.0 94 20 116/48 94 Room Air 12/05 1808 98.2 100 20 120/50 100 Room Air 12/05 1701 97.8 103 16 132/42 99 Room Air 12/05 1408 97.5 98 18 129/55 99 Room Air Room Air
--- NOTE | 2017-12-05 20:25 | CT SCAN REPORT ---
EXAMINATION: CT ABDOMEN AND PELVIS WITH CONTRAST CLINICAL INFORMATION: Peptic ulcer perforation. Epigastric pain. Anemia. Guaiac positive stool COMPARISON: CT scan abdomen pelvis 06/25/2017. TECHNIQUE: Multidetector volumetric imaging was performed of the abdomen and pelvis following IV administration of 90 mL of Optiray 320 intravenous contrast. Sagittal and coronal reformatted images were obtained on the technologist's workstation. DLP: 253.95 mGy-cm FINDINGS: LUNG BASES: The visualized lung bases are unremarkable. LIVER, GALLBLADDER, AND BILIARY TREE: The liver is normal in size, shape, and attenuation. No focal hepatic lesion or biliary ductal dilatation is present. The gallbladder is unremarkable with no evidence of radiopaque gallstones, gallbladder wall thickening, or obvious pericholecystic inflammatory changes. PANCREAS: Unremarkable. SPLEEN: Unremarkable. ADRENAL GLANDS: Unremarkable. KIDNEYS AND URETERS: The kidneys are normal in size, shape, and attenuation. No hydronephrosis, hydroureter, or calculi seen. No perinephric stranding. BLADDER: There is a tiny air droplet in the bladder. No bladder wall thickening or edema. No evidence of fistula. Correlate with history of instrumentation of the bladder. GASTROINTESTINAL TRACT: Diverticulosis of the left colon sigmoid without diverticulitis. No acute change of the bowel. No bowel obstruction. No bowel wall thickening or edema. Moderate volume of stool throughout the colon. The appendix is not seen. No inflammation the mesentery. Small bowel loops are unremarkable. Small hiatal hernia. MESENTERY: No inflammation. No free air or free fluid. ABDOMINAL WALL: No significant hernia is appreciated. LYMPH NODES: Normal. VASCULAR: Atherosclerotic vascular wall calcifications throughout the abdomen and pelvis. No aneurysm of the aorta. PELVIC VISCERA: Unremarkable. OSSEOUS STRUCTURES: Degenerative spondylosis of spine with multilevel endplate spurring disc height narrowing and facet joint arthrosis. IMPRESSION: No acute abnormality CT scan abdomen pelvis. Diverticulosis of colon but no acute change of the bowel.
--- NOTE | 2017-12-05 21:46 | Event Note ---
Event Note Event Note: Given patient's acute blood loss anemia, she will need reversal of INR with FFP. She has been evaluated by cardiology, gastroenterology and hematology. Hematology suggested to consult with cardiology regarding FFP therapy. Given mechanical aortic valve, there is an increased risk for blood clots if she is off anticoagulation however, given the acute drop in H&H and her symptoms, she may benefit from reversal of INR. Earlier, I tried to contact Dr. Argueta and left a message on his cell phone, also try to contact his office. Meanwhile, contacted size roller operator on-call, Dr. Viramontes; he recommends that if they need to start the patient on bridge therapy with heparin, INR should be monitored every 2 hours and then it is close to 2, IV heparin should be started without a bolus. Later on, Dr. Argueta's recommendation:Gentle reversal of INR with FFP, when INR less than 1.7, start IV heparin with no bolus pending EGD. Dr. Argueta's recommendation was discussed with highway research engineer, Dr. Sandoval and attending Dr. Quintanilla. Senior Planning Analyst, Dr. Sandoval, is recommending to start IV heparin when INR is 2. INR should be checked every 2 hours. If heparin is started, it should be stopped around 4:30 AM in anticipation of Upper endoscopy/push enteroscopy.
[2017-12-05 22:04] LABS: PT 27.4 SEC (9.4-12.5)
--- NOTE | 2017-12-05 22:16 | Event Note ---
Event Note Event Note: Patient had itchiness in her feet. Blood transfusion was started at 8 PM. Temperature 98.3, patient otherwise asymptomatic without any rash noted on physical exam. This is less likely to be a blood transfusion reaction. Administered 25 mg IV Benadryl 1 4 itchiness. Will monitor closely.
[2017-12-06] VITALS: BP 134/64
[2017-12-06 00:55] LABS: PT 27.7 SEC (9.4-12.5)
[2017-12-06 04:55] LABS: ABSOLUTE BASOPHIL COUNT 0 /CUMM (0.0-0.2); ABSOLUTE EOSINOPHIL COUNT 0.1 /CUMM (0.0-0.7); ABSOLUTE GRANULOCYTE CT 4.4 /CUMM (1.4-6.5); ABSOLUTE LYMPH COUNT 1.6 /CUMM (1.2-3.4); ABSOLUTE MONOCYTE COUNT 0.4 /CUMM (0.10-0.60); BASOPHIL % 0.4 % (0.0-2.0); GRANULOCYTE % 67.9 % (42.2-75.2); MEAN CORPUSCULAR HGB 28.6 PG (27.0-31.0); MEAN CORPUSCULAR HGB CONC 33.3 G/DL (33.0-37.0); MEAN CORPUSCULAR VOLUME 85.8 FL (81.0-99.0); MEAN PLATELET VOLUME 9.6 FL (7.4-10.4); PLATELET COUNT 165 /CUMM (130-400); RBC DISTRIBUTION WIDTH 14.6 % (11.5-14.5); WHITE BLOOD CELL COUNT 6.5 /CUMM (4.8-10.8)
[2017-12-06 05:00] LABS: PT 24.3 SEC (9.4-12.5)
[2017-12-06 05:01] LABS: HEMATOCRIT 23.1 % (37-47); RED BLOOD CELL CT 2.69 /CUMM (4.20-5.40)
[2017-12-06 06:36] LABS: ABSOLUTE BASOPHIL COUNT 0 /CUMM (0.0-0.2); ABSOLUTE EOSINOPHIL COUNT 0.1 /CUMM (0.0-0.7); ABSOLUTE GRANULOCYTE CT 4.9 /CUMM (1.4-6.5); ABSOLUTE LYMPH COUNT 1.6 /CUMM (1.2-3.4); ABSOLUTE MONOCYTE COUNT 0.4 /CUMM (0.10-0.60); BASOPHIL % 0.4 % (0.0-2.0); EOSINOPHIL % 1.2 % (0-5); GRANULOCYTE % 69.5 % (42.2-75.2); HEMATOCRIT 23.4 % (37-47); MEAN CORPUSCULAR HGB 28.6 PG (27.0-31.0); MEAN CORPUSCULAR HGB CONC 33.5 G/DL (33.0-37.0); MEAN CORPUSCULAR VOLUME 85.4 FL (81.0-99.0); MEAN PLATELET VOLUME 9.3 FL (7.4-10.4); PLATELET COUNT 166 /CUMM (130-400); RBC DISTRIBUTION WIDTH 14.6 % (11.5-14.5); RED BLOOD CELL CT 2.74 /CUMM (4.20-5.40); WHITE BLOOD CELL COUNT 7.1 /CUMM (4.8-10.8)
[2017-12-06 06:42] LABS: PT 21.4 SEC (9.4-12.5)
[2017-12-06 08:00] VITALS: BP 120/70
--- NOTE | 2017-12-06 08:37 | Cons- CRCU ---
See Addendum General Information and HPI Consulting Request Date of Consult: 12/06/17 Requested By: Dr. Fitzpatrick Source of Information: patient, old records Exam Limitations: no limitations History of Present Illness: The pt is 72-year-old female with a past medical history of [facility]. Phani's aortic valve replacement (done in 1987) who is on Coumadin for anticoagulation. She presented to [facility] ED with a 3 day history of increasing epigastric pain and melenic stools. She is on iron however she does report that her stools have been loose and foul-smelling. On admission she had an H&H of 5.6/16.7 with a BUN/creatinine of 62/1.0. On November 24 she had an H&H of 9.9 and 29.5 with a BUN and creatinine of 31/0.8. She is had a colonoscopy in 2013 which was unremarkable with the exception of diverticulosis. And has had several admissions to [facility] for anemia and presumedly upper GI blood loss. She underwent EGD on 04/29/2017 which was normal and underwent video capsule endoscopy for evaluation of occult GI blood loss. 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 However on subsequent small bowel enteroscopy done on September 03, 2017 no vascular ectasia were identified. It was recommended at that time should she have further bleeding episodes that she should be considered a candidate for double balloon enteroscopy. Tmax 98. Heart rate 90s to 70s Normal sinus rhythm Respiratory rate ranging in 20s to 15 Blood pressure within normal limits Oxygen saturation 98% on room air H/H7.8 stable status post 2 unit transfusion, white count and platelet count is stable within normal limits. BEP within normal limits except BUN 50, total bilirubin 1.5 INR at presentation was 5. Most recent was 2.09. Patient received 4 units of FFP to be optimized for endoscopy. Patient is on Coumadin for history of mechanical aortic valve which is on hold should be bridged with heparin. She underwent EGD w/biopsy in am with finding of prominent prepyloric fold otherwise normal EGD Allergies/Medications Allergies: Coded Allergies: ciprofloxacin (Severe, ANAPHYLAXIS 12/19/15) morphine (N/V 02/13/17) tramadol (N/V 04/28/17) Home Med List: Acetaminophen (Mapap) 500 MG CAPSULE 2 CAP PO PRN PAIN (Reported) Amlodipine Besylate 5 MG TABLET 1 TAB PO DAILY HIGH BLOOD PRESSURE Calcium Carbonate/Vitamin D3 (Calcium 500 + D Tablet) 500 MG-400 TABLET 1 TAB PO DAILY SUPPLEMENT (Reported) Ferrous Sulfate 325 MG (65 MG IRON) TABLET 1 TAB PO DAILY SUPPLEMENT ( Reported) Hydrochlorothiazide 25 MG TABLET 1 TAB PO DAILY BP (Reported) Lisinopril 40 MG TABLET 1 TAB PO DAILY HIGH BLOOD PRESSURE Metformin HCl (Metformin HCl ER) 500 MG TAB.ER.24H 1 TAB PO BID DM (Reported) Paroxetine HCl (Paxil) 10 MG TABLET 1 TAB PO DAILY MENTAL HEALTH (Reported) Warfarin Sodium (Coumadin) 2.5 MG TABLET 1 TAB PO MTUWEFRSASUN BLOOD THINNER (Reported) Warfarin Sodium (Coumadin) 2.5 MG TABLET 0.5 TAB PO QTHURS BLOOD THINNER ( Reported) Review of Systems Review of Systems Constitutional: Reports: see HPI. Past History Travel History Traveled to [place] past 21 day No Medical History Blood Transfusion Hx: Yes Neurological: migraine, HEMICRANIAL CONT. 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 FATHER, , Age 59; Cause: Myocardial infarction. SISTER, , Age 40-50. Psychosocial History Where Do You Live? Home Who Do You Live With? self Services at Home: Home Health Aide, Nursing Primary Language: Canadian (also Arabic) Smoking Status: Former Smoker Living Will? 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 Ambulation: independent IADLs Independent: shopping, housework, finances, food prep, telephone, transportation , medication admin. Exam & Diagnostic Data Last 24 Hrs of Vital Signs/I&O Vital Signs Date Time Temp Pulse Resp B/P B/P Pulse O2 O2 Flow FiO2 Mean Ox Delivery Rate 12/06 1437 4.0 12/06 0800 99.0 80 20 120/70 98 Room Air 12/06 0000 98.2 82 21 134/64 99 Room Air 12/05 1835 98.0 94 20 116/48 94 Room Air 12/05 1808 98.2 100 20 120/50 100 Room Air 12/05 1701 97.8 103 16 132/42 99 Room Air Intake & Output 12/06 1600 12/06 0800 02 0000 Intake Total 854 820 Output Total 1100 400 Balance -246 420 Intake, Blood 600 700 Product Intake, IV 254 60 Intake, Oral 60 Output, Urine 1100 400 Patient 136 lb Weight Weight Reported by Patient Measurement Method Physical Exam General Appearance: no apparent distress, alert, awake Head: atraumatic Neck: normal inspection Respiratory: normal breath sounds Cardiovascular: s1 s2 Gastrointestinal: normal bowel sounds, soft, non-tender Last 48 Hrs of Labs/Thad: Laboratory Tests 12/06/17 0845: PT 21.8 H, INR 2.09 H 12/06/17 0615: PT 21.4 H, INR 2.05 H, CBC w Diff NO MAN DIFF REQ, RBC 2.74 L, MCV 85.4, MCH 28.6, MCHC 33.5, RDW 14.6 H, MPV 9.3, Gran % 69.5, Lymphocytes % 23.0, Monocytes % 5.9, Eosinophils % 1.2, Basophils % 0.4, Absolute Granulocytes 4.9, Absolute Lymphocytes 1.6, Absolute Monocytes 0.4, Absolute Eosinophils 0.1, Absolute Basophils 0 12/06/17 0400: Sodium Cancelled, Potassium Cancelled, Chloride Cancelled, Carbon Dioxide Cancelled, Anion Gap Cancelled, BUN Cancelled, Creatinine Cancelled, Glucose Cancelled, Calcium Cancelled, Phosphorus Cancelled, Magnesium Cancelled, Total Bilirubin Cancelled, AST Cancelled, ALT Cancelled, Albumin Cancelled 12/06/17 0400: Anion Gap 7, Estimated GFR 54 L, Glucose 100 H, Calcium 9.5, Phosphorus 3.9, Magnesium 1.6, Total Bilirubin 1.5 H, AST 16, ALT 29, Troponin I 0.05, Albumin 3.0 L, PT 24.3 H, INR 2.33 H, CBC w Diff NO MAN DIFF REQ, RBC 2.69 L, MCV 85.8, MCH 28.6, MCHC 33.3, RDW 14.6 H, MPV 9.6, Gran % 67.9, Lymphocytes % 24.9 , Monocytes % 5.8, Eosinophils % 1.0, Basophils % 0.4, Absolute Granulocytes 4.4 , Absolute Lymphocytes 1.6, Absolute Monocytes 0.4, Absolute Eosinophils 0.1, Absolute Basophils 0 12/06/17 0145: PT Cancelled, INR Cancelled 12/06/17 0000: PT 27.7 H, INR 2.66 H 12/05/17 2230: CBC w Diff Cancelled, WBC Cancelled, RBC Cancelled, Hgb Cancelled, Hct Cancelled , MCV Cancelled, MCH Cancelled, MCHC Cancelled, RDW Cancelled, Plt Count Cancelled, MPV Cancelled 12/05/17 2120: Lactate Dehydrogenase 733 H, Troponin I < 0.01, PT 27.4 H, INR 2.63 H, Haptoglobin Pending 12/05/17 1920: PT 27.5 H, INR 2.64 H, CBC w Diff NO MAN DIFF REQ, RBC 1.66 L, MCV 84.9, MCH 29.4, MCHC 34.6, RDW 15.9 H, MPV 8.2, Gran % 62.7, Lymphocytes % 30.8, Monocytes % 5.1, Eosinophils % 0.9, Basophils % 0.5, Absolute Granulocytes 4.2, Absolute Lymphocytes 2.1, Absolute Monocytes 0.3, Absolute Eosinophils 0.1, Absolute Basophils 0 12/05/17 1551: Urine Color YEL, Urine Clarity CLEAR, Urine pH 6.0, Ur Specific [place] 1.015, Urine Protein NEG, Urine Ketones NEG, Urine Nitrite NEG, Urine Bilirubin NEG, Urine Urobilinogen 0.2, Ur Leukocyte Esterase SMALL H, Ur Microscopic SEDIMENT EXAMINED, Urine RBC RARE, Urine WBC 3-5 H, Ur Epithelial Cells FEW, Urine Bacteria RARE H, Urine Mucus RARE, Urine Hemoglobin NEG, Urine Glucose NEG 12/05/17 1420: Anion Gap 11, Estimated GFR 54 L, BUN/Creatinine Ratio 62.0 H, Glucose 113 H, Calcium 10.2, Total Bilirubin 0.4, AST 18, ALT 28, Alkaline Phosphatase 43, Troponin I < 0.01, Total Protein 5.6 L, Albumin 3.5, Globulin 2.1, Albumin/ Globulin Ratio 1.7, PT 55.6 *H, INR 5.38 *H, APTT 43 H, CBC w Diff NO MAN DIFF REQ, RBC 1.99 L, MCV 83.9, MCH 28.4, MCHC 33.8, RDW 14.9 H, MPV 9.7, Gran % 71.6, Lymphocytes % 23.2, Monocytes % 4.2, Eosinophils % 0.6, Basophils % 0.4, Absolute Granulocytes 6.0, Absolute Lymphocytes 1.9, Absolute Monocytes 0.4, Absolute Eosinophils 0.1, Absolute Basophils 0 Assessment/Plan CRCU Impression/Plan: This is a 72-year-old lady with past medical history significant for mechanical aortic valve on warfarin, hypertension, hyperlipidemia, diabetes, chronic anemia requiring blood transfusions who was sent to the hospital from Dr. Quintanilla's office for further evaluation of feeling weak, lightheaded, dizzy, fatigue, with shortness of breath, palpitation for the past few days and acute drop in H&H. The patient is being evaluated and treated for following conditions #Acute blood loss anemia s/p 2 unit transfusion, s/p endoscopy On admission she had an H&H of 5.6/16.7 with a BUN/creatinine of 62/1.0. On November 24 she had an H&H of 9.9 and 29.5 with a BUN and creatinine of 31/0.8. Previous coloscopy and push enteroscopy unremarkable -Patient underwent endoscopy today with findings dictated above without any evidence of active bleeding. -Patient's diet will be advanced to regular. -PO PPI -Continue to monitor H&H q12 -Pt is candidate for double balloon enteroscopy in future -If patient has active bleeding we'll contact GI services #History of prosthetic aortic valve, mechanical Patient is on Coumadin for history of mechanical aortic valve which is on hold should be bridged with heparin. She received 4 units of FFP to be optimized for endoscopy ins setting of INR of 5 at time of presentation. Most recent INR is 2 -We will maintain patient on IV heparin without bolus -If no further procedures are planned, will restart Coumadin -Monitor her INR #DM -Accu-Cheks, insulin sliding -Metformin on hold #HTN -Lisinopril and hydrochlorothiazide and amlodipine currently on hold restart as blood pressure allows #Depression -Restart paroxetine FC/DVT prophylaxis with IV heparin/heart healthy diet Consult Acknowledgment - Thank you for your consult request.
[2017-12-06 09:16] LABS: PT 21.8 SEC (9.4-12.5)
--- NOTE | 2017-12-06 11:29 | PN- Cardiology ---
Subjective Subjective: Feels well this morning. She is status post EGD. Objective Vital Signs and I&Os Vital Signs Date Time Temp Pulse Resp B/P B/P Pulse O2 O2 Flow FiO2 Mean Ox Delivery Rate 12/06 0800 99.0 80 20 120/70 98 Room Air 12/06 0000 98.2 82 21 134/64 99 Room Air 12/05 1835 98.0 94 20 116/48 94 Room Air 12/05 1808 98.2 100 20 120/50 100 Room Air 12/05 1701 97.8 103 16 132/42 99 Room Air 12/05 1408 97.5 98 18 129/55 99 Room Air Room Air Intake & Output 12/06 1600 12/06 0800 12/06 0000 12/05 1600 12/05 0800 12/05 0000 Intake Total 854 820 Output Total 1100 400 Balance -246 420 Intake, Blood 600 700 Product Intake, IV 254 60 Intake, Oral 60 Output, Urine 1100 400 Patient 136 lb 135 lb Weight Weight Reported by Patient Reported by Patient Measurement Method Physical Exam: General: no apparent distress. Alert. Eyes: No obvious scleral icterus. HEENT: No jugular venous distention or abnormal jugular venous pulsations. Cardiovascular: Normal intensity S1/S2. regular, crisp mechanical valve sounds noted Respiratory: No rales or rhonchi Abdomen: Soft, nontender with no guarding or rebound tenderness. Musculoskeletal: No clubbing or cyanosis noted; no edema Skin: No obvious rashes or ulcerations Neurologic: No gross focal deficits noted. Lymph: No gross lymphadenopathy. Current Medications: Current Medications Sig/Eliane Start time Last Medication Dose Route Stop Time Status Admin Diphenhydramine HCl 25 MG ONCE ONE 12/055 DC 12/05 IV 12/05 2216 2220 Insulin Aspart 0 TIDAC 12/06 0800 CAN SC Insulin Human Regular 0 Q6 12/05 2359 AC 12/06 SC 0637 Pantoprazole Sodium 40 MG Q5H 12/05 1730 AC 12/06 Sodium Chloride 100 [place] 0831 Pantoprazole Sodium 80 MG Q10H 12/05 1630 DC Dextrose/Water 100 ML IV Results Last 48 Hrs of Labs/Mics: Laboratory Tests 12/06/17 0845: PT 21.8 H, INR 2.09 H 12/06/17 0615: PT 21.4 H, INR 2.05 H, CBC w Diff NO MAN DIFF REQ, RBC 2.74 L, MCV 85.4, MCH 28.6, MCHC 33.5, RDW 14.6 H, MPV 9.3, Gran % 69.5, Lymphocytes % 23.0, Monocytes % 5.9, Eosinophils % 1.2, Basophils % 0.4, Absolute Granulocytes 4.9, Absolute Lymphocytes 1.6, Absolute Monocytes 0.4, Absolute Eosinophils 0.1, Absolute Basophils 0 12/06/17 0400: Sodium Cancelled, Potassium Cancelled, Chloride Cancelled, Carbon Dioxide Cancelled, Anion Gap Cancelled, BUN Cancelled, Creatinine Cancelled, Glucose Cancelled, Calcium Cancelled, Phosphorus Cancelled, Magnesium Cancelled, Total Bilirubin Cancelled, AST Cancelled, ALT Cancelled, Albumin Cancelled 12/06/17 0400: Anion Gap 7, Estimated GFR 54 L, Glucose 100 H, Calcium 9.5, Phosphorus 3.9, Magnesium 1.6, Total Bilirubin 1.5 H, AST 16, ALT 29, Troponin I 0.05, Albumin 3.0 L, PT 24.3 H, INR 2.33 H, CBC w Diff NO MAN DIFF REQ, RBC 2.69 L, MCV 85.8, MCH 28.6, MCHC 33.3, RDW 14.6 H, MPV 9.6, Gran % 67.9, Lymphocytes % 24.9 , Monocytes % 5.8, Eosinophils % 1.0, Basophils % 0.4, Absolute Granulocytes 4.4 , Absolute Lymphocytes 1.6, Absolute Monocytes 0.4, Absolute Eosinophils 0.1, Absolute Basophils 0 12/06/17 0145: PT Cancelled, INR Cancelled 12/06/17 0000: PT 27.7 H, INR 2.66 H 12/05/17 2230: CBC w Diff Cancelled, WBC Cancelled, RBC Cancelled, Hgb Cancelled, Hct Cancelled , MCV Cancelled, MCH Cancelled, MCHC Cancelled, RDW Cancelled, Plt Count Cancelled, MPV Cancelled 12/05/17 2120: Lactate Dehydrogenase 733 H, Troponin I < 0.01, PT 27.4 H, INR 2.63 H, Haptoglobin Pending 12/05/17 1920: PT 27.5 H, INR 2.64 H, CBC w Diff NO MAN DIFF REQ, RBC 1.66 L, MCV 84.9, MCH 29.4, MCHC 34.6, RDW 15.9 H, MPV 8.2, Gran % 62.7, Lymphocytes % 30.8, Monocytes % 5.1, Eosinophils % 0.9, Basophils % 0.5, Absolute Granulocytes 4.2, Absolute Lymphocytes 2.1, Absolute Monocytes 0.3, Absolute Eosinophils 0.1, Absolute Basophils 0 12/05/17 1551: Urine Color YEL, Urine Clarity CLEAR, Urine pH 6.0, Ur Specific [place] 1.015, Urine Protein NEG, Urine Ketones NEG, Urine Nitrite NEG, Urine Bilirubin NEG, Urine Urobilinogen 0.2, Ur Leukocyte Esterase SMALL H, Ur Microscopic SEDIMENT EXAMINED, Urine RBC RARE, Urine WBC 3-5 H, Ur Epithelial Cells FEW, Urine Bacteria RARE H, Urine Mucus RARE, Urine Hemoglobin NEG, Urine Glucose NEG 12/05/17 1420: Anion Gap 11, Estimated GFR 54 L, BUN/Creatinine Ratio 62.0 H, Glucose 113 H, Calcium 10.2, Total Bilirubin 0.4, AST 18, ALT 28, Alkaline Phosphatase 43, Troponin I < 0.01, Total Protein 5.6 L, Albumin 3.5, Globulin 2.1, Albumin/ Globulin Ratio 1.7, PT 55.6 *H, INR 5.38 *H, APTT 43 H, CBC w Diff NO MAN DIFF REQ, RBC 1.99 L, MCV 83.9, MCH 28.4, MCHC 33.8, RDW 14.9 H, MPV 9.7, Gran % 71.6, Lymphocytes % 23.2, Monocytes % 4.2, Eosinophils % 0.6, Basophils % 0.4, Absolute Granulocytes 6.0, Absolute Lymphocytes 1.9, Absolute Monocytes 0.4, Absolute Eosinophils 0.1, Absolute Basophils 0 Recent Imaging Studies: Telemetry tracings were personally reviewed and shows sinus rhythm Assessment/Plan Assessment/Plan 1. Acute blood loss anemia 2. Chest discomfort and dyspnea likely secondary to anemia 3. Prosthetic aortic valve, mechanical 4. HTN with recent issues of poor control 5. Prerenal azotemia 6. Coagulopathy 7. Abdominal pain Patient remains hemodynamically stable. Symptoms improved status post transfusion. Given her decreasing INR with mechanical aortic valve she should be initiated on IV heparin drip without a bolus this morning and when no further procedures are planned Coumadin will need to be resumed. Edward Viramontes MD [facility] Continue telemetry? Yes
--- NOTE | 2017-12-06 12:08 | Proc Note Endoscopy ---
Endoscopy Procedure Medical History: unchanged Mental Status: alert/oriented Heart/Lung Eval Prior to Sedation: within normal limits Candidate for Sedation? Yes Procedure Date: 12/06/17 Procedure Type: EGD w/biopsy [place] Monitoring Technician: MD Sandoval Deborah E. ASA Classification: III Indications: 1. Acute blood loss anemia 2. Melena 3. Chronic use anticoagulation 4. Coagulopathy Instrument: diagnostic gastroscope Meds Received: MAC Patient's Tolerance: good Complications: none Extent Reached: second part of duodenum Procedure: Note: Informed consent was obtained prior to procedure. Risks and benefits of procedure were discussed with patient. Potential complications discussed included perforation, bleeding, abdominal pain, and adverse reaction to medications. It was explained that iany or all of these complications could result in the need for extended hospitalization, emergency surgery, transfusion of packed red blood cells (with the risk of HIV or hepatitis virus), intubation with mechanical ventilation, and possible need for antibiotics. It was further explained that an existing tumor polyp or mucosal abnormality might not be identified at the time of the procedure thus resulting in a missed opportunity for early diagnosis and treatment of a gastrointestinal malignancy or disease with possible interval development of a gastrointestinal cancer or other disease with possible worsening of clinical condition in the interval between endoscopies. It was also discussed that complications are not limited to those listed above. Possible alternatives to endoscopic treatment or evaluation were discussed. All questions were answered. Continuous EKG and blood pressure monitors were attached. Supplemental oxygen was provided with O2 Sat monitoring. Patient was placed in the left lateral decubitus position. A surgical timeout was performed. All persons in the room were identified. All concerns were expressed and answered. A bite block was placed in the mouth and sedation was administered by anesthesia and titrated to comfort prior to starting the procedure. The Olympus upper endoscope was advanced under direct vision to the level of the third portion of the duodenum. Esophagus: The esophagus had a normal mucosal vascular pattern throughout its entirety. The GE junction was identified and was normal. The Z line was located at Stomach: The stomach had a normal mucosal and vascular pattern throughout its entirety. There is a prominent fold in the prepyloric region that was biopsied. Retroflexed view of the cardiofundic region revealed a normal mucosal and vascular pattern. There were normal rugae and normal distensibility. The pylorus was patent and easily intubated. Duodenum: The duodenum was fully examined from bulb down to the third portion. There was a normal mucosal vascular pattern throughout. With the endoscope in the forward-viewing position, it was slowly withdrawn and all areas were re-inspected and findings are as described previously. Patient tolerated the procedure well. EBL: Minimal Specimens Removed: Biopsy of prominent prepyloric fold Findings: Prominent prepyloric fold otherwise normal EGD Impression: Prominent prepyloric fold otherwise normal EGD. The findings on upper endoscopy do not account for patient's anemia. I discussed this with the patient and with her daughter. Patient has had a colonoscopy within the past several years. She has also had several upper endoscopies as well as of video capsule endoscopy. I do not believe that patient requires further endoscopic evaluation during this admission. It is been discussed in the past that she may need double balloon enteroscopy as she has had a positive capsule endoscopy in the past with a negative small bowel enteroscopy that followed. Patient has ongoing need for any flat Q relation given a [facility]. Phani's aortic valve. I have discussed with the patient and her daughter that she has the option of getting a double balloon enteroscopy which is not offered at [facility] but I believe can be performed at [facility]. I've also discussed with them that another alternative is to monitor her blood counts and to transfuse as needed. I've explained that this is a decision that would need to be a decision between her security officer supervisor, Dr. Argueta; her tube skiver, Dr. Buenrostro; her target setter, Dr. Quiroz; and the patient and her family. Recommendations: 1. Restart heparin 2. Change IV PPI to Protonix 40 mg by mouth every morning 3. Resume regular diet 4. Serial H&H 5. Consider transfer to [facility] for double balloon enteroscopy if patient and family are interested in this.
--- NOTE | 2017-12-06 12:43 | PN- Pulmonary ---
Subjective HPI/Critical Care Issues: DOing ok She is status post EGD. Findings: Prominent prepyloric fold otherwise normal EGD Impression: Prominent prepyloric fold otherwise normal EGD. The findings on upper endoscopy do not account for patient's anemia. Objective Current Medications: Current Medications Sig/Eliane Start time Last Medication Dose Route Stop Time Status Admin Diphenhydramine HCl 25 MG ONCE ONE 12/05 2215 DC 12/05 IV 12/05 2216 2220 Heparin Sodium 25,000 UNIT Q24H 12/06 1245 AC (Porcine) IV Sodium Chloride 500 ML Insulin Aspart 0 TIDAC 12/06 0800 CAN SC Insulin Human Regular 0 Q6 12/05 2359 AC 12/06 SC 0637 Pantoprazole Sodium 40 MG Q5H 12/05 1730 AC 12/06 Sodium Chloride 100 ML IV 0831 Pantoprazole Sodium 80 MG Q10H 12/05 1630 DC Dextrose/Water 100 ML IV Vital Signs & I&O Last 24 Hrs of Vitals and I&O: Vital Signs Date Time Temp Pulse Resp B/P B/P Pulse O2 O2 Flow FiO2 Mean Ox Delivery Rate 12/06 0800 99.0 80 20 120/70 98 Room Air 12/06 0000 98.2 82 21 134/64 99 Room Air 12/05 1835 98.0 94 20 116/48 94 Room Air 12/05 1808 98.2 100 20 120/50 100 Room Air 12/05 1701 97.8 103 16 132/42 99 Room Air 12/05 1408 97.5 98 18 129/55 99 Room Air Room Air Intake & Output 12/06 1600 12/06 0800 12/06 0000 Intake Total 854 820 Output Total 1100 400 Balance -246 420 Intake, Blood 600 700 Product Intake, IV 254 60 Intake, Oral 60 Output, Urine 1100 400 Patient 136 lb Weight Weight Reported by Patient Measurement Method Impression/Plan Impression/Plan Impression/Plan: General: no apparent distress. Alert. Eyes: No obvious scleral icterus. HEENT: No jugular venous distention or abnormal jugular venous pulsations. Cardiovascular: Normal intensity S1/S2. regular, crisp mechanical valve sounds noted Respiratory: No rales or rhonchi Abdomen: Soft, nontender with no guarding or rebound tenderness. Musculoskeletal: No clubbing or cyanosis noted; no edema Skin: No obvious rashes or ulcerations Neurologic: No gross focal deficits noted. Lymph: No gross lymphadenopathy. IMPRESSSION This is a lady with the prosthetic aortic mechanical valve on anticoagulation with chronic anemia. She came in here with Acute blood loss anemia requiring transfusion Status post EGD which showed no evidence of active bleeding. Previous coloscopy and push enteroscopy which was unremarkable Hypertension with recent poor control Prerenal as a team anemia Myelopathy upon admission which is slowly improving Abdominal discomfort which seems to have improved RECOMMENDATION Continue to monitor her hemoglobin and hematocrit Check her INR later today Start her on heparin and watch her for any significant further bleed If she continues to be stable tomorrow resume her warfarin and watch INR closely If she continues to have ongoing bleeding then she might need push enteroscopy Continue her proton pump inhibitor Watch her hemoglobin and hematocrit Check her iron studies We will watch her closely Total time spent 38 minutes Discussed with GI and cardiology
[2017-12-06 16:00] VITALS: BP 148/34
[2017-12-06 17:46] LABS: ABSOLUTE BASOPHIL COUNT 0 /CUMM (0.0-0.2); ABSOLUTE EOSINOPHIL COUNT 0.1 /CUMM (0.0-0.7); ABSOLUTE GRANULOCYTE CT 5.5 /CUMM (1.4-6.5); ABSOLUTE LYMPH COUNT 1.4 /CUMM (1.2-3.4); ABSOLUTE MONOCYTE COUNT 0.3 /CUMM (0.10-0.60); BASOPHIL % 0.3 % (0.0-2.0); EOSINOPHIL % 0.7 % (0-5); GRANULOCYTE % 75.1 % (42.2-75.2); MEAN CORPUSCULAR HGB 28.8 PG (27.0-31.0); MEAN CORPUSCULAR HGB CONC 33.6 G/DL (33.0-37.0); MEAN CORPUSCULAR VOLUME 85.7 FL (81.0-99.0); MEAN PLATELET VOLUME 9.8 FL (7.4-10.4); PLATELET COUNT 155 /CUMM (130-400); RBC DISTRIBUTION WIDTH 15.1 % (11.5-14.5); RED BLOOD CELL CT 2.27 /CUMM (4.20-5.40); WHITE BLOOD CELL COUNT 7.4 /CUMM (4.8-10.8)
[2017-12-06 17:52] LABS: HEMATOCRIT 19.5 % (37-47)
[2017-12-06 17:53] LABS: PT 18.8 SEC (9.4-12.5)
--- NOTE | 2017-12-06 18:40 | Event Note ---
Event Note Event Note: S: Recent Blood work 6.5/19.5. The patient was also complaing of heart palpitations , and substernal chest discomfort. B: A/R: Dr King contacted. She recommends that the patient should be considered for transfer tomorrow hospital to undergo balloon enteroscopy. Dr. King can be reached on [phone] Notified that the patient was tachcardiac. An EKG done showed the patient was in atrial fibrilation. One-time dose of Cardizem 10 mg once administered. 1814 Called the Cardiolgist operations expert, since the patient conitnued to be tachycardic. he recommends a diltiazem drip. This was started at 5 mg per hour. PO Cardizem tab 30 mg Q6 was also started. 1840: Contacted [facility], to speak to GI fellow to inquire weather double baloon enteroscopy can be done at that facility. The patient continues to be tachycardic. Heart rate ranging from 160s to 170s. Asphalt Mixing Machine Operator operations expert was contacted again, recommended to begin the patient on digoxin 0.5 mg IV 1 now. And subsequently 0.25 MG 1 in 4 hours. We are to conitinue with the Cardizem Drip. Physician Genaro Hernandez MD at bedside. 1940 Patient in NSR. EKG Repeated. Will wean down the Cardizem drip. Patient will be tranfsferred to [place]. Accepting physician Dr Galvez. .25. PM Called [facility]
--- NOTE | 2017-12-06 18:49 | Patient Discharge Instructions ---
Acute Coronary Syndrome Inclusion Criteria At DC or during hospital stay patient has or had the following: ACS DIAGNOSIS No Discharge Core Measures Meds if any: Prescribed or Continued at Discharge Meds if any: NOT Prescribed or Continued at Discharge Congestive Heart Failure Inclusion Criteria At DC or during hospital stay patient has or had the following: CHF DIAGNOSIS No Discharge Core Measures Meds if any: Prescribed or Continued at Discharge Meds if any: NOT Prescribed or Continued at Discharge Cerebrovascular accident Inclusion Criteria At DC or during hospital stay patient has or had the following: CVA/TIA Diagnosis No Discharge Core Measures Meds if any: Prescribed or Continued at Discharge Meds if any: NOT Prescribed or Continued at Discharge Venous thromboembolism Inclusion Criteria VTE Diagnosis No VTE Type NONE VTE Confirmed by (Test) NONE Discharge Core Measures - Per Current guidelines, there needs to be overlap - treatment for the first 5 days of Warfarin therapy. - If discharged on Warfarin prior to 5 days of - overlap therapy, the patient will need to be - assessed for post discharge needs including - *Post discharge parental anticoagulation - *Warfarin and/or parental anticoagulation education - *Follow up date to check INR post discharge At least 5 days overlap therapy as Inpatient No Meds if any: Prescribed or Continued at Discharge Note: Overlap Therapy is Warfarin and Anticoagulant Meds if any: NOT Prescribed or Continued at Discharge
--- NOTE | 2017-12-06 19:17 | Discharge Summary ---
Visit Information Visit Dates Admission Date: 12/05/17 Discharge Date: 12/06/2016 Hospital Course Course Attending Physician: Andrew Quintanilla MD Primary Care Physician: Dwight CARRILLO,Andrew [facility] Course: Ms Lopez is a 72-year-old lady with past medical history significant for mechanical aortic valve on warfarin, hypertension, hyperlipidemia, diabetes, chronic anemia requiring blood transfusions who was sent to the hospital from the office of her PCP for further evaluation of feeling weak, lightheaded, dizzy , fatigue, with shortness of breath, heart palpitations for a few days prior to admission. Her Vitals at the time of admission: Temperature 97.5. Pulse 98. RR18. Blood pressure 129/55. She was saturating 99% on room air. CBC 8.3. H&H 5.6 and 16.7. Platelets 227. Sodium 136. Potassium 4.5. BUN 62. Creatinine 1.0. PTT 55.6. INR 5.38. RDW 14.9. Patient was admitted in the [facility] and below is a summary of the care she received under us. Acute Blood loss anemia requiring transfusion. At the time of admission the patient had a hemoglobin of 5.6 and 16.7 respectively. Her INR was 5.38.Over the course of the admission at [facility], the patient was transfused a total of 4 units of PRBCs. While the patient was in the emergency department she subsequently received a consultation from hematology and oncology. They recommended warfarin should be reversed with fresh frozen plasma. She also subsequently received 4 units of fresh frozen plasma. Her direct Richard was also checked results of which are pending. On 12/06/2017 the patient underwent an endoscopy. The results of which have been attached to this report. It was recommended that the patient be transferred to for a double balloon enteroscopy owing to recurrent falling H&H while on heparin. Her last H/H done on 12/06/2017 was 6.5/19.5. This was at 16.20. She subsequently received two units of PRBC after this blood draw. #Atrial fibrillation with RVR. While the patient was admitted to the [facility] she subsequently developed atrial fibrillation with rapid ventricular rate. This occured in the early evening of at approximately 18.01. She was initially given a one-time dose of IV Cardizem 10 mg. She subsequently had to be started on a Cardizem drip which was titrated up from 5 mg to 15 mg. She was also started on PO Cardizem 30 MG Q6, of which she received one oral dose. She was also given a one-time dose of digoxin (IV 0.5 MG). Shortly thereafter, the patient converted to normal sinus rhythm. She was subsequently started on amiodarone 400 mg twice a day in an effort to maintain this rhythm. Her Oral Cardizem was no longer given. This will need to be clarified with a log washer once more stable. #Generalized abdominal pain. A CT of the abdomen and pelvis was performed while the patient was in the emergency department. Results of which have been attached to this document. On day two admission the patient complained of no abdominal pain. Patient was continued on IV Protonix #Chest Pain Patient did also endorse some chest pain at the time of admission. Her troponins and EKGs were trended to rule out ACS. Troponins were within normal limits. Her home antihypertensives were held owing due to normal blood pressure. Patient was continued on her paroxetine. Diet patient is nothing by mouth for now. DVT PPX patient is currently on IV heparin. Patient is a full code. Allergies: Coded Allergies: ciprofloxacin (Severe, ANAPHYLAXIS 12/19/15) morphine (N/V 02/13/17) tramadol (N/V 04/28/17) Significant Procedures: Medical History: unchanged Mental Status: alert/oriented Heart/Lung Eval Prior to Sedation: within normal limits Candidate for Sedation? Yes Procedure Date: 12/06/17 Procedure Type: EGD w/biopsy Search Strategist: MD Lori, Mildred Cabello ASA Classification: III Indications: 1. Acute blood loss anemia 2. Melena 3. Chronic use anticoagulation 4. Coagulopathy Instrument: diagnostic gastroscope Meds Received: ALISIA Patient's Tolerance: good Complications: none Extent Reached: second part of duodenum Procedure: Note: Informed consent was obtained prior to procedure. Risks and benefits of procedure were discussed with patient. Potential complications discussed included perforation, bleeding, abdominal pain, and adverse reaction to medications. It was explained that iany or all of these complications could result in the need for extended hospitalization, emergency surgery, transfusion of packed red blood cells (with the risk of HIV or hepatitis virus), intubation with mechanical ventilation, and possible need for antibiotics. It was further explained that an existing tumor polyp or mucosal abnormality might not be identified at the time of the procedure thus resulting in a missed opportunity for early diagnosis and treatment of a gastrointestinal malignancy or disease with possible interval development of a gastrointestinal cancer or other disease with possible worsening of clinical condition in the interval between endoscopies. It was also discussed that complications are not limited to those listed above. Possible alternatives to endoscopic treatment or evaluation were discussed. All questions were answered. Continuous EKG and blood pressure monitors were attached. Supplemental oxygen was provided with O2 Sat monitoring. Patient was placed in the left lateral decubitus position. A surgical timeout was performed. All persons in the room were identified. All concerns were expressed and answered. A bite block was placed in the mouth and sedation was administered by anesthesia and titrated to comfort prior to starting the procedure. The Olympus upper endoscope was advanced under direct vision to the level of the third portion of the duodenum. Esophagus: The esophagus had a normal mucosal vascular pattern throughout its entirety. The GE junction was identified and was normal. The Z line was located at Stomach: The stomach had a normal mucosal and vascular pattern throughout its entirety. There is a prominent fold in the prepyloric region that was biopsied. Retroflexed view of the cardiofundic region revealed a normal mucosal and vascular pattern. There were normal rugae and normal distensibility. The pylorus was patent and easily intubated. Duodenum: The duodenum was fully examined from bulb down to the third portion. There was a normal mucosal vascular pattern throughout. With the endoscope in the forward-viewing position, it was slowly withdrawn and all areas were re-inspected and findings are as described previously. Patient tolerated the procedure well. EBL: Minimal Specimens Removed: Biopsy of prominent prepyloric fold Findings: Prominent prepyloric fold otherwise normal EGD Impression: Prominent prepyloric fold otherwise normal EGD. The findings on upper endoscopy do not account for patient's anemia. I discussed this with the patient and with her daughter. Patient has had a colonoscopy within the past several years. She has also had several upper endoscopies as well as of video capsule endoscopy. I do not believe that patient requires further endoscopic evaluation during this admission. It is been discussed in the past that she may need double balloon enteroscopy as she has had a positive capsule endoscopy in the past with a negative small bowel enteroscopy that followed. Patient has ongoing need for any flat Q relation given a [facility] aortic valve. I have discussed with the patient and her daughter that she has the option of getting a double balloon enteroscopy which is not offered at [facility] but I believe can be performed at [facility]. I've also discussed with them that another alternative is to monitor her blood counts and to transfuse as needed. I've explained that this is a decision that would need to be a decision between her log washer, Dr. Argueta; her client customer manager, Dr. Buenrostro; her social services director, Dr. Quiroz; and the patient and her family. Recommendations: 1. Restart heparin 2. Change IV PPI to Protonix 40 mg by mouth every morning 3. Resume regular diet 4. Serial H&H 5. Consider transfer to [facility] for double balloon enteroscopy if patient and family are interested in this. DICTATED BY: Mildred Sandoval MD Pertinent Lab Results: SERVICE DATE: 12/05/17 EXAM TYPE: CAT - CT ABD & PELVIS W IV CONTRAST IMPRESSION: No acute abnormality CT scan abdomen pelvis. Diverticulosis of colon but no acute change of the bowel. Disposition Summary Disposition Principal Diagnosis: Acute blood loss anemia Additional Diagnosis: History of prosthetic mechannical aortic valve. History of hypertension. Diabetes mellitus. History of depression. Discharge Disposition: other general hospital Discharge Instructions General Discharge Information Code Status: Full Code Patient's Diet: NPO For now Patient's Activity: As Tolerated Follow-Up Instructions/Appts: Follow up with your primary care physician within 7 days of discharge from the hospital. Please follow-up with client customer manager after discharge. Please follow-up with log washer after discharge. Please have your primary care physician perform a medication reconciliation of all your medications. Medications at Discharge Discharge Medications: Stop taking the following medications: Warfarin Sodium (Coumadin) 2.5 MG TABLET ORAL [id number] Qty = 90 Warfarin Sodium (Coumadin) 2.5 MG TABLET ORAL EVERY FRIDAY Continue taking these medications: Metformin HCl (Metformin HCl ER) 500 MG TAB.ER.24H 1 Tablet ORAL TWICE DAILY Qty = 360 Comments: DID NOT RECEIVE IN HOSPITAL Paroxetine HCl (Paxil) 10 MG TABLET 1 Tablet ORAL DAILY Qty = 30 Comments: Hydrochlorothiazide (Hydrochlorothiazide) 25 MG TABLET 1 Tablet ORAL DAILY Qty = 90 Comments: Last Taken: 11/25/17 Time: 0800 AM Calcium Carbonate/Vitamin D3 (Calcium 500 + D Tablet) 500 MG-400 TABLET 1 Tablet ORAL DAILY Ferrous Sulfate (Ferrous Sulfate) 325 MG (65 MG IRON) TABLET 1 Tablet ORAL DAILY Comments: Last Taken: 11/25/17 Time: 0800 AM Acetaminophen (Mapap) 500 MG CAPSULE 2 Capsule ORAL as needed for PAIN Comments: DID NOT RECEIVE IN HOSPITAL Amlodipine Besylate (Amlodipine Besylate) 5 MG TABLET 1 Tablet ORAL DAILY Qty = 30 Lisinopril (Lisinopril) 40 MG TABLET 1 Tablet ORAL DAILY Qty = 30 Start taking the following new medications: Amiodarone HCl (Amiodarone HCl) 400 MG TABLET 1 Tablet ORAL TWICE DAILY Qty = 60 No Refills Heparin (Heparin-1/2NS 25,000 Units/500) 25,000 UNIT/500 ML (50 UNIT/ML) IV.SOLN 1 Bag INTRAVEN SEE INSTRUCTIONS Qty = 1 No Refills Instructions: Dose for general anticoagulation from mechanical aortic valve Copies To: Mary CARRILLO,Genaro Stroud; Ana M CARRILLO,Otoniel; Gabriella CARRILLO,Luis Miguel Gomez; Kendall CARRILLO,Linnea Morales; Dwight CARRILLO,Alexander Harris MD
--- NOTE | 2017-12-06 20:29 | Event Note ---
Event Note Event Note: Patient had an episode of melenic stool associated with tachycardia. Patient had decrease in H&H to 6.5/19.5. She is being transfused 2 units of blood and has been started on a Cardizem drip. Her blood pressure is stable. I have spoken with Dr. Hernandez and Dr. Lewis who have arranged transfer to [facility] since the physician who performs double balloon enteroscopy at [facility] is out [place]. I have reviewed the video capsule endoscopy report by Dr. Dav Buenrostro. There was one very tiny ectatic spot in the proximal small bowel which I do not believe would account for this patient's ongoing GI blood loss. I have spoken with the patient and family at the bedside, who agree with transfer to [facility] where she can have single balloon enteroscopy. We have discussed that as her Coumadin has been reversed, and she is now on heparin, it is the perfect time to perform whatever endoscopic or radiologic tests are warranted in order to pinpoint the source of her ongoing episodic GI blood loss. All questions have been answered.
[2017-12-06] MEDS ORDERED: AMIODARONE HCL400 M1 PO (20:32)
[2017-12-06] MEDS ORDERED: HEPARIN-1/25000 UNI1 IV (20:35)
--- NOTE | 2017-12-06 20:55 | Event Note ---
Event Note Event Note: Patient went into new onset rapid afib earlier this evening for which we started IV Cardizem as BP was stable. Given possible ongoing bleeding the patient may be transferred for additiional GI procedure(s) given the need for continued AC with mechanical aortic valve. The patient subsequently converted back to SR and we should attempt to maintain SR at this point. I spoke with the ICU team and would hold additional Cardizem/ Digoxin and would instead start rhythm control with Amiodarone 400 mg PO BID ( first dose to be given now). I remain immediately available if any questions.concerns. Edward Viramontes MD [facility]
[2017-12-06 21:22] LABS: PTT > 120 SEC (25-37)
[2017-12-06 21:40] VITALS: BP 174/78
== END 2017-12-06 23:55 | disposition short-term general hospital (02) | DRG 812 ==
LOC: ERH 13:54 → ERHI 16:06 → ENRESERV 16:55 → CANRESERV 16:55 → EDBEDREQ 17:21 → CANRESERV 17:29 → ERHI 17:29 → ENRESERV 17:29 → ENTRNSPT 19:17 → CRI 19:31 → EDTRNSPT 19:34 → EDTRNSPTSTS 19:42 → CMPTRNSPT 21:05 → CRI 12-06 23:55
PROVIDERS: Dermatology; Emergency Medicine; Internal Medicine; Physician Assistant; Student in an Organized Health Care Education/Training Program
PROC: 0DB78ZX Excision of Stomach, Pylorus, Via Natural or Artificial Opening Endoscopic, Diagnostic (ICD-10-PCS; principal; 2017-12-06)
PROC: 30233N1 Transfusion of Nonautologous Red Blood Cells into Peripheral Vein, Percutaneous Approach (ICD-10-PCS; 2017-12-06)
PROC: 30233L1 Transfusion of Nonautologous Fresh Plasma into Peripheral Vein, Percutaneous Approach (ICD-10-PCS; 2017-12-06)
DX: D62 Acute posthemorrhagic anemia (principal); D68.9 Coagulation defect, unspecified; I48.91 Unspecified atrial fibrillation; K92.2 Gastrointestinal hemorrhage, unspecified; E11.9 Type 2 diabetes mellitus without complications; E78.5 Hyperlipidemia, unspecified; I10 Essential (primary) hypertension; Z79.01 Long term (current) use of anticoagulants; Z95.2 Presence of prosthetic heart valve; Z88.1 Allergy status to other antibiotic agents; Z88.5 Allergy status to narcotic agent; M19.90 Unspecified osteoarthritis, unspecified site; H91.90 Unspecified hearing loss, unspecified ear; Z82.49 Family history of ischemic heart disease and other diseases of the circulatory system; R79.89 Other specified abnormal findings of blood chemistry; R42 Dizziness and giddiness; R07.9 Chest pain, unspecified
CPT/HCPCS: CCU; 36415; 74177; 81001; 82436; 83010; 86920; 93005; 93010; 96374; 99291; J1160; J1644; P9016

== ENCOUNTER 2018-04-10 12:59 | Inpatient (IN) | payer OTHER ==
[~2018-04-10] VITALS: Ht 144.8 cm; Wt 64.5 kg
[~2018-04-10 12:59] MED LIST changes: +AMIODARONE HCL400 M1 PO; +HEPARIN-1/25000 UNI1 IV
--- NOTE | 2018-04-10 14:04 | ED AMS/SEIZURE/WEAK/DIZZY ---
History of Present Illness General Chief Complaint: General Adult Stated Complaint: SENT BY DR KOWALSKI FOR EVAL OF ABNORMAL LABS Source: patient Exam Limitations: no limitations Vital Signs & Intake/Output Vital Signs & Intake/Output Vital Signs Date Time Temp Pulse Resp B/P B/P Pulse O2 O2 Flow FiO2 Mean Ox Delivery Rate 04/10 1308 97.4 60 20 150/61 97 Room Air Allergies Coded Allergies: ciprofloxacin (Severe, ANAPHYLAXIS 12/19/15) morphine (N/V 02/13/17) tramadol (N/V 04/28/17) Reconcile Medications Amlodipine Besylate 5 MG TABLET 1 TAB PO DAILY HIGH BLOOD PRESSURE Calcium Carbonate/Vitamin D3 (Calcium 500 + D Tablet) 500 MG-400 TABLET 1 TAB PO DAILY SUPPLEMENT (Reported) Ferrous Sulfate 325 MG (65 MG IRON) TABLET 1 TAB PO DAILY SUPPLEMENT ( Reported) Hydrochlorothiazide 25 MG TABLET 1 TAB PO DAILY BP (Reported) Lisinopril 20 MG TABLET 1 TAB PO DAILY HEART (Reported) Metformin HCl (Metformin HCl ER) 500 MG TAB.ER.24H 1 TAB PO BID DM (Reported) Metoprolol Succinate 50 MG TAB.ER.24H 1 TAB PO DAILY HEART (Reported) Paroxetine HCl (Paxil) 10 MG TABLET 1 TAB PO DAILY MENTAL HEALTH (Reported) Warfarin Sodium (Coumadin) 2.5 MG TABLET 1 TAB PO 1700 BLOOD THINNER ( Reported) Triage Note: PER PT/DAUGHTER HAD OUTPT LABS TODAY TOLD TO COME IN FOR HIGH K+ AND ELEVATED COUMADIN PT ON ANTIBIOTICS FOR UTI, HAS NOT FEELING WELL SINCE STARTING THEM Triage Nurses Notes Reviewed? yes HPI: 73-year-old female on coumadin presents emergency department, sent in from her manager review for elevated potassium and coags. Patient has been recently treated with antibiotics for urinary tract infection. Most recently was treated with Bactrim. Patient states she feels overall wea States she has had blood in her urine but this is why she was on Bactrim. She denies any melena or BRBPR. Denies any fever or chills. No chest pain or shortness of breath. No headache or dizziness. No leg swelling. No recent travel. No cough. (Luciano PROCTOR,Antonio) Past History Travel History Traveled to [place] past 21 day No Medical History Any Pertinent Medical History? see below for history Neurological: migraine, HEMICRANIAL CONT. 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 FATHER, , Age 59; Cause: Myocardial infarction. SISTER, , Age 40-50. Hx Contributory? No (Antonio Wolf PA-C) Review of Systems Review of Systems Constitutional: Reports: see HPI. EENTM: Reports: no symptoms. Respiratory: Reports: no symptoms. Cardiovascular: Reports: no symptoms. GI: Reports: no symptoms. Genitourinary: Reports: see HPI. All Other Systems: Reviewed and Negative (Antonio Wolf PA-C) Physical Exam Physical Exam General Appearance: well developed/nourished, no apparent distress, alert, awake Head: atraumatic, normal appearance Eyes: Bilateral: normal appearance, PERRL, EOMI. Ears, Nose, Throat: normal pharynx, moist mucus membranes Neck: normal inspection, No jvd Respiratory: normal breath sounds, no respiratory distress Cardiovascular: regular rate/rhythm Gastrointestinal: normal bowel sounds, soft, non-tender Extremities: normal range of motion Neurologic/Psych: no motor/sensory deficits, awake, alert, oriented x 3 Skin: intact, normal color Core Measures ACS in differential dx? Yes CVA/TIA Diagnosis No Sepsis Present: No Sepsis Focused Exam Completed? No (Antonio Wolf PA-C) Progress Differential Diagnosis: arrythmia, anemia, benign positional vertigo, electrolyte imbalance, GI bleed, hypoglycemia, UTI/pyelo Initial ED EKG: Atrial paced rhythm at 63 bpm, no acute st/t wave changes. Comments: Update @ 1500: D/w pt's PCP and manager review. Pt will be admitted to telemetry. 73-year-old female sent in from her manager review for hyperkalemia on her lab work. Patient had an outpatient potassium of 6.8. Her potassium here is 6.4. Her creatinine is 2.2, elevated from her previous visit of 1.1. She feels weak and slightly dizzy when she ambulates. Likely from orthostatic hypotension. Patient's EKG shows ST or T-wave changes. Patient was given insulin, dextrose and hydrated with normal saline. Discussed case with patient's primary care doctor as well as her manager review. Patient will be admitted to telemetry. (Luciano PROCTOR,Antonio) Plan of Care: Orders Procedure Date/time Status Heart Healthy Diet 04/10 D Active Patient Data 04/10 1530 Active Misc Message 04/10 1528 Active ED Holding Orders 04/10 1528 Active Admit to inpatient 04/10 1528 Active Vital Signs 04/10 1528 Active Code Status 04/10 1528 Active URINALYSIS 04/10 1305 Complete TROPONIN LEVEL 04/10 1305 Complete PARTIAL THROMBOPLASTIN TIME 04/10 1305 Complete PROTHROMBIN TIME 04/10 1305 Complete MAGNESIUM 04/10 1305 Complete COMPREHENSIVE METABOLIC PANEL 04/10 1305 Complete CBC WITHOUT DIFFERENTIAL 04/10 1305 Complete EKG 04/10 1305 Active Laboratory Tests 04/10/18 1402: Anion Gap 9, Estimated GFR 23 L, BUN/Creatinine Ratio 15.2, Glucose 123 H, Calcium 9.7, Magnesium 1.8, Total Bilirubin 0.5, AST 38 H, ALT 42, Alkaline Phosphatase 80, Troponin I < 0.01, Total Protein 7.0, Albumin 4.0, Globulin 3.0, Albumin/Globulin Ratio 1.3, PT 94.9 *H, INR 8.52 *H, APTT 58 H, CBC w Diff NO MAN DIFF REQ, RBC 3.80 L, MCV 85.6, MCH 28.9, MCHC 33.8, RDW 15.0 H, MPV 9.4, Gran % 69.4, Lymphocytes % 23.8, Monocytes % 5.1, Eosinophils % 1.1, Basophils % 0.6, Absolute Granulocytes 4.9, Absolute Lymphocytes 1.7, Absolute Monocytes 0.4 , Absolute Eosinophils 0.1, Absolute Basophils 0 04/10/18 1400: Urine Color YEL, Urine Clarity CLEAR, Urine pH 6.0, Ur Specific [place] 1.025, Urine Protein 100 H, Urine Ketones NEG, Urine Nitrite NEG, Urine Bilirubin NEG, Urine Urobilinogen 0.2, Ur Leukocyte Esterase NEG, Ur Microscopic SEDIMENT EXAMINED, Urine RBC 3-5, Ur Epithelial Cells OCCAS, Urine Hemoglobin SMALL H, Urine Glucose NEG (Arcelia CARRILLO,Augusto Ash) Departure Departure Disposition: STILL A PATIENT Condition: Stable Clinical Impression Primary Impression: Acute kidney injury Secondary Impressions: Coagulopathy, Hyperkalemia Referrals: Andrew Quintanilla MD (PCP/Family) Departure Forms: Customer Survey General Discharge Information Admission Note Spoke With: Andrew Quintanilla MD Documentation of Exam: Documentation of any treatments & extenuating circumstances including Concerns Regarding Discharge (functional status, medication knowledge or non-compliance, living conditions, etc.) that warrant an admission rather than observation: [ Hyperkalemia in the setting of acute kidney injury. Patient requires IV fluids, insulin, dextrose, Kayexalate, telemetry monitoring, trend EKG and troponins. Premature discharge is medically unsafe.] (Antonio Wolf PA-C) PA/WILDLAND FIRE FIGHTER Co-Sign Statement Statement: ED Attending supervision documentation- [x] I saw and evaluated the patient. I have also reviewed all the pertinent lab results and diagnostic results. I agree with the findings and the plan of care as documented in the PA's/WILDLAND FIRE FIGHTER's documentation. Patient presents for evaluation of abnormal labs (elevated potassium and "Coumadin level"). Physical examination reveals a comfortable appearing woman with an unremarkable heart and lung examination. [] I have reviewed the ED Record and agree with the PA's/WILDLAND FIRE FIGHTER's documentation. [] Additions or exceptions (if any) to the PAs/WILDLAND FIRE FIGHTER's note and plan are summarized below: [] (Arcelia CARRILLO,Augusto Ash) ED Attending Observation Initial Observation Note: I have seen and personally examined YIFAN GALLARDO on 04/10/18 at 1537. I agree with the current emergency department documentation. The disposition (admission or discharge) is uncertain at this time, she needs a period of observation for the following reason(s): The ED Nurse caring for this patient has been personally informed as to what the patient is being observed for. (Antonio Wolf PA-C)
[2018-04-10 14:33] LABS: ABSOLUTE BASOPHIL COUNT 0 /CUMM (0.0-0.2); ABSOLUTE EOSINOPHIL COUNT 0.1 /CUMM (0.0-0.7); ABSOLUTE GRANULOCYTE CT 4.9 /CUMM (1.4-6.5); ABSOLUTE LYMPH COUNT 1.7 /CUMM (1.2-3.4); ABSOLUTE MONOCYTE COUNT 0.4 /CUMM (0.10-0.60); BASOPHIL % 0.6 % (0.0-2.0); EOSINOPHIL % 1.1 % (0-5); GRANULOCYTE % 69.4 % (42.2-75.2); HEMATOCRIT 32.5 % (37-47); MEAN CORPUSCULAR HGB 28.9 PG (27.0-31.0); MEAN CORPUSCULAR HGB CONC 33.8 G/DL (33.0-37.0); MEAN CORPUSCULAR VOLUME 85.6 FL (81.0-99.0); MEAN PLATELET VOLUME 9.4 FL (7.4-10.4); PLATELET COUNT 299 /CUMM (130-400); WHITE BLOOD CELL COUNT 7.1 /CUMM (4.8-10.8)
[2018-04-10] MEDS ORDERED: LISINOPRIL20 M1 PO (14:33)
[2018-04-10] MEDS ORDERED: COUMADIN2.5 M1 PO (14:34)
[2018-04-10] MEDS ORDERED: METOPROLOL SUCC50 M2 PO (14:34)
[2018-04-10 14:48] LABS: PTT 58 SEC (25-37)
[2018-04-10 14:51] LABS: PT 94.9 SEC (9.4-12.5)
--- NOTE | 2018-04-10 15:42 | History & Physical ---
[facility]41: General Information and HPI MD Statement: I have seen and personally examined YIFAN LOPEZ and documented this H&P. The patient is a 73 year old F who presented with a patient stated chief complaint of [hyperkalemia]. Source of Information: patient, family Exam Limitations: no limitations History of Present Illness: 73-year-old female with past medical history ofsignificant for mechanical aortic valve on warfarin, atrial fibrillation, hypertension, hyperlipidemia, diabetes, chronic anemia requiring blood transfusions who was sent to the hospital by Dr. Argueta with the lab work showing hyperkalemia. Patient had her blood work done by Dr. Dunn and found to have hyperkalemia yesterday [levels unknown]. Her blood work was again repeated today which showed a level of potassium 6.8 and hence she was sent here by Dr. Argueta. Of note patient had low blood count and hence was given 2 units of blood transfusion by Dr. Dunn. Her repeat lab work showed improved hemoglobin. Otherwise patient also complains of diarrhea, 5-6 episodes. Patient had dysuria 2 weeks ago and was seen by his primary care physician was started on antibiotics [doesn't remember the name]. Patient did symptoms didn't improve and hence she was sent to [facility] was started her on Bactrim following which patient had multiple episodes of diarrhea. Patient was recently admitted in [facility] for anemia and had paroxysmal A. fib followed by permanent pacemaker placed on December 09. Patient denies chest pain, palpitation, shortness of breath, nausea, vomiting, abdominal pain, headache. Allergies/Medications Allergies: Coded Allergies: ciprofloxacin (Severe, ANAPHYLAXIS 12/19/15) morphine (N/V 02/13/17) tramadol (N/V 04/28/17) Home Med list Amlodipine Besylate 5 MG TABLET 1 TAB PO DAILY HIGH BLOOD PRESSURE Calcium Carbonate/Vitamin D3 (Calcium 500 + D Tablet) 500 MG-400 TABLET 1 TAB PO DAILY SUPPLEMENT (Reported) Ferrous Sulfate 325 MG (65 MG IRON) TABLET 1 TAB PO DAILY SUPPLEMENT ( Reported) Hydrochlorothiazide 25 MG TABLET 1 TAB PO DAILY BP (Reported) Lisinopril 20 MG TABLET 1 TAB PO DAILY HEART (Reported) Metformin HCl (Metformin HCl ER) 500 MG TAB.ER.24H 1 TAB PO BID DM (Reported) Metoprolol Succinate 50 MG TAB.ER.24H 1 TAB PO DAILY HEART (Reported) Paroxetine HCl (Paxil) 10 MG TABLET 1 TAB PO DAILY MENTAL HEALTH (Reported) Warfarin Sodium (Coumadin) 2.5 MG TABLET 1 TAB PO 1700 BLOOD THINNER ( Reported) Compliance With Home Meds: GOOD Past History Travel History Traveled to [place] past 21 day No Medical History Neurological: migraine, HEMICRANIAL CONT. 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 FATHER, , Age 59; Cause: Myocardial infarction. SISTER, , Age 40-50. Psychosocial History Who Do You Live With? self Services at Home: Home Health Aide, Nursing Primary Language: Bengali (also Brazilian) ETOH Use: denies use Living Will? unknown Power of Cloth Mercerizer Back Tender/HCP? unknown Functional Ability ADLs Independent: dressing, eating, toileting, bathing. Ambulation: independent IADLs Independent: shopping, housework, finances, food prep, telephone, transportation , medication admin. Review of Systems Review of Systems Constitutional: Reports: no symptoms. Genitourinary: Reports: no symptoms. Musculoskeletal: Reports: back pain. Skin: Reports: no symptoms. Neurological/Psychological: Reports: no symptoms. Hematologic/Endocrine: Reports: no symptoms. Immunologic/Allergic: Reports: no symptoms. Exam & Diagnostic Data Last 24 Hrs of Vital Signs/I&O Vital Signs Date Time Temp Pulse Resp B/P B/P Pulse O2 O2 Flow FiO2 Mean Ox Delivery Rate 04/10 1835 61 18 142/38 99 Room Air 04/10 1721 97.2 65 18 141/59 98 Room Air 04/10 1612 96 Room Air 04/10 1535 72 18 167/72 99 Room Air 04/10 1308 97.4 60 20 150/61 97 Room Air Intake & Output 04/10 1600 04/10 0800 04/10 0000 Intake Total Output Total Balance Patient 135 lb Weight Physical Exam General Appearance Alert, Oriented X3, Cooperative, No Acute Distress Neck Supple, No JVD, No thryomegaly Cardiovascular Regular Rate, Normal S1, Normal S2, No Murmurs Lungs Clear to Auscultation Abdomen Soft, No Tenderness, No Hepatospenomegaly Neurological Normal Speech, Strength at 5/5 X4 Ext, Normal Tone, Sensation Intact, Cranial Nerves 3-12 NL Extremities Bilateral hip-no tenderness. Last 24 Hrs of Labs/Thad: Laboratory Tests 04/10/18 1800: Sodium Cancelled, Potassium Cancelled, Chloride Cancelled, Carbon Dioxide Cancelled, Anion Gap Cancelled, BUN Cancelled, Creatinine Cancelled, BUN/ Creatinine Ratio Cancelled 04/10/18 1402: Anion Gap 9, Estimated GFR 23 L, BUN/Creatinine Ratio 15.2, Glucose 123 H, Calcium 9.7, Magnesium 1.8, Total Bilirubin 0.5, AST 38 H, ALT 42, Alkaline Phosphatase 80, Troponin I < 0.01, Total Protein 7.0, Albumin 4.0, Globulin 3.0, Albumin/Globulin Ratio 1.3, PT 94.9 *H, INR 8.52 *H, APTT 58 H, CBC w Diff NO MAN DIFF REQ, RBC 3.80 L, MCV 85.6, MCH 28.9, MCHC 33.8, RDW 15.0 H, MPV 9.4, Gran % 69.4, Lymphocytes % 23.8, Monocytes % 5.1, Eosinophils % 1.1, Basophils % 0.6, Absolute Granulocytes 4.9, Absolute Lymphocytes 1.7, Absolute Monocytes 0.4 , Absolute Eosinophils 0.1, Absolute Basophils 0 04/10/18 1400: Urine Color YEL, Urine Clarity CLEAR, Urine pH 6.0, Ur Specific [place] 1.025, Urine Protein 100 H, Urine Ketones NEG, Urine Nitrite NEG, Urine Bilirubin NEG, Urine Urobilinogen 0.2, Ur Leukocyte Esterase NEG, Ur Microscopic SEDIMENT EXAMINED, Urine RBC 3-5, Ur Epithelial Cells OCCAS, Urine Hemoglobin SMALL H, Urine Glucose NEG Microbiology 04/10 1612 STOOL: Clostridium difficile Toxin A & B - COLB Assessment/Plan Assessment: This is a 72-year-old lady with past medical history significant for mechanical aortic valve on warfarin, atrial fibrillation, hypertension, hyperlipidemia, diabetes, chronic anemia requiring blood transfusions who was sent to the hospital by Dr. Argueta with the lab work showing hyperkalemia Admission labs BUN 32, creatinine 2.1, glucose 123, calcium 9.7, magnesium 1.8, AST 38, potassium 6.4, sodium 137, W BC 7.1, platelet 299, hemoglobin 11, INR 8.52. Admission vitals Temperature 97.4, pulse rate 60, respiratory rate 20, blood pressure 150/61, saturating 97 at room air ED treatment Insulin 8 units once, 50% dextrose once, normal saline thousand ML once. Assessment and plan Hyperkalemia with EKG changes Supratherapeutic INR Acute kidney injury Chronic anemia Atrial fibrillation Type 2 diabetes * Admit in telemetry * Monitor for any arrhythmias overnight.pt has hyperkalemia which can be secondary due to blood transfusion or ARNOLDO. We will also hold LISINOPRIL which can cause hyperkalemia. We will repeat potassium at 8 PM today. We will repeat EKG at 8 PM. * Supratherapeutic INR-patient's INR is 8.5. For now we will monitor his INR since the patient is not having any bleeding. This was discussed with Dr. Argueta. Appreciate cardiology follow-up. * Acute kidney injury-this looks more likely dehydration. We will obtain urine lites. * Chronic anemia-stable * Paroxysmal atrial fibrillation patient was on Coumadin given that patient had [facility] valve. For now we will hold Coumadin given his supratherapeutic INR. * Type 2 diabetes-we will start the patient on diabetic diet and Accu-Chek with a sliding scale insulin. As Ranked By This Provider Problem List: 1. Hyperkalemia Core Measures/Misc (07/06) Acute Coronary Syndrome ACS Diagnosis: No Congestive Heart Failure Congestive Heart Failure Diagnosis No Cerebrovascular Accident CVA/TIA Diagnosis: No VTE (View Protocol) VTE Risk Factors Age>40 No Mechanical VTE Prophylaxis d/t Other No VTE Pharm Prophylaxis d/t Other Sepsis (View protocol) Sepsis Present: No If YES complete Sepsis Event Note If YES complete Sepsis Event Note Debbie CARRILLO,[facility] 04/10/18 1619: Core Measures/Misc (07/06) Sepsis (View protocol) If YES complete Sepsis Event Note If YES complete Sepsis Event Note Resident Review Statement Resident Statement: examined this patient, discussed with integrated marketing intern Other Findings: H Ms Lopez is a 72-year-old lady with past medical history significant for mechanical aortic valve on warfarin, hypertension, hyperlipidemia, diabetes, chronic anemia requiring blood transfusions were sent into the emergency department on 04/10/2018 after outpatient blood work showed a potassium level of 6.8. The patient underwent routine blood work on 04/09/2008 under the care of furniture removalist Dr. Dunn. In the evening she was notified that her potassium level was elevated and a repeat one done the morning of 04/10/2018 showed hyperkalemia [level 6.8]. She was subsequently sent in as instructed by the transit mixer operator. Patient states over the last few weeks she has not been feeling like her usual self. She had a blood transfusion approximately 3 weeks ago. She also complains of urinary frequency of which was started on antibiotic by her PCP. It was also reported that the patient has had diarrhea. Approximately 6 stools in the last 24 hours. She was recently exposed to antibiotics. Stools have contained no blood or no mucus. Last seen at [facility] on December 05 where she was admitted for acute blood loss anemia in the setting of supratherapeutic INR Patient had a pacemaker inserted on 12/12/2017. So the clinical history was obtained from the patient's daughter. PCP Dr. Quintanilla. Assistive Technology Specialist Dr. Argueta, R Review of systems the patient did endorse occasional palpitations, dizziness, she denied any fever, chills, nausea, vomiting. E Temperature 98.7, pulse rate 60, respirations 20, blood pressure 150 of 61, saturating 97% on room air. General Appearance: well developed/nourished, no apparent distress, alert, awake Head: atraumatic, normal appearance Eyes: Bilateral: normal appearance, PERRL, EOMI. Ears, Nose, Throat: normal pharynx, moist mucus membranes Neck: normal inspection, No jvd Respiratory: normal breath sounds, no respiratory distress Cardiovascular: regular rate/rhythm. Systolic Murmur/Click noted. Gastrointestinal: normal bowel sounds, soft, non-tender. CVA Tenderness on LEFT. Extremities: normal range of motion Neurologic/Psych: no motor/sensory deficits, awake, alert, oriented x 3 Skin: intact, normal color Labs: As Above Imaging: As Above A Ms Lopez is a 72-year-old lady with past medical history significant for mechanical aortic valve on warfarin, hypertension, hyperlipidemia, diabetes, chronic anemia requiring blood transfusions were sent into the emergency department on 04/10/2018 after outpatient blood work showed a potassium level of 6.8. In the ED the patient received 8 units of insulin and dextrose as well as was started on normal saline fluids. Patient's supratherapeutic INR is likely related to antibiotics as well as her ARNOLDO on CKD. She will be admitted into the telemetry and management for the following problems. #Supratherapeutic INR. #Hyperkalemia with no EKG changes. #Paroxysmal Atrial fibrillation. #Mechanical aortic valve on Warfarin #ARNOLDO on CKD #Diabetes Admit patient on telemetry. Repeat potassium, EKG and troponin at 8 PM. Obtain formal cardiology consultation. Hold off reversing anticoagulation with fresh frozen plasma or vitamin K for now. Unless she shows signs of active bleeding. Repeat CBC, BEP, INR in a.m. ARNOLDO likely related to decreased by mouth intake in the setting of diarrhea. We will gently fluid hydrate her. Obtain a renal ultrasound to rule out hydronephrosis. Urinary osmololality. Obtain formal nephrology consultation in a.m in Scr remains elevated. Cover patient on insulin sliding scale. Diet consistent carbohydrate 2 (limit K in diet) DVT PPX ALPS Patient is a full code.
--- NOTE | 2018-04-10 16:41 | Cons- Cardiology ---
General Information and HPI Consulting Request Date of Consult: 04/10/18 Requested By: Wilder CARRLILO,Lalo Reason for Consult: Hyperkalemia Source of Information: patient, family, old records Exam Limitations: no limitations History of Present Illness: 73 year old patient well known to me with extensive past history. Recently stable from cardiovascular standpoint, however, recent reported issues with hematuria and several courses of antibiotics for possibler UTI. Earlier today I received a call from the [facility] lab that the patient's bloodwork ordered by Dr. Quiroz was abnormal with an elevated INR of 8.2, worsening renal function and an elevated K+ of 6.8. THe patient was sent to the ER for further evaluation. Allergies/Medications Allergies: Coded Allergies: ciprofloxacin (Severe, ANAPHYLAXIS 12/19/15) morphine (N/V 02/13/17) tramadol (N/V 04/28/17) Home Med List: Amlodipine Besylate 5 MG TABLET 1 TAB PO DAILY HIGH BLOOD PRESSURE Calcium Carbonate/Vitamin D3 (Calcium 500 + D Tablet) 500 MG-400 TABLET 1 TAB PO DAILY SUPPLEMENT (Reported) Ferrous Sulfate 325 MG (65 MG IRON) TABLET 1 TAB PO DAILY SUPPLEMENT ( Reported) Hydrochlorothiazide 25 MG TABLET 1 TAB PO DAILY BP (Reported) Lisinopril 20 MG TABLET 1 TAB PO DAILY HEART (Reported) Metformin HCl (Metformin HCl ER) 500 MG TAB.ER.24H 1 TAB PO BID DM (Reported) Metoprolol Succinate 50 MG TAB.ER.24H 1 TAB PO DAILY HEART (Reported) Paroxetine HCl (Paxil) 10 MG TABLET 1 TAB PO DAILY MENTAL HEALTH (Reported) Warfarin Sodium (Coumadin) 2.5 MG TABLET 1 TAB PO 1700 BLOOD THINNER ( Reported) Current Medications: Current Medications Sig/Eliane Start time Last Medication Dose Route Stop Time Status Admin Dextrose 25 GM ONCE ONE 04/10 1415 DC 04/10 IV 04/10 1416 1524 Dextrose/Sodium 1,000 ML Q13H 04/10 1615 AC 04/10 Chloride IV 04/11 0514 1618 Insulin Aspart 0 TIDAC 04/10 1700 AC SC Insulin Human Regular 8 UNITS ONCE ONE 04/10 1415 DC 04/10 IV 04/10 1416 1524 Sodium Chloride 1,000 ML BOLUS ONE 04/10 1415 DC 04/10 IV 04/10 1514 1524 Past History Travel History Traveled to [place] past 21 day No Medical History Neurological: migraine, HEMICRANIAL CONT. EENT: hearing loss Cardiovascular: hypertension, MECHANICAL VALVE Respiratory: NONE Gastrointestinal: diverticulitis Hepatic: NONE Renal: NONE Musculoskeletal: degen joint disease, osteoarthritis Psychiatric: NONE Endocrine: diabetes Blood Disorders: anemia Cancer(s): NONE STATISTICAL TYPIST/Reproductive: NONE Surgical History Surgical History: appendectomy, tubal ligation, MECHANICAL VALVE L KNEE REPLACEMENT SURGERY TO R BREAST CLOGGED MILK DUCT Family History Relations & Conditions If Any: MOTHER, , Age 55; Cause: Myocardial infarction. FATHER, , Age 59; Cause: Myocardial infarction. SISTER, , Age 40-50. Psychosocial History Who Do You Live With? self Services at Home: Home Health Aide, Nursing Primary Language: Croatian (also Kazakh) ETOH Use: denies use Living Will? unknown Power of Validation Software Facilitator/HCP? unknown Functional Ability ADLs Independent: dressing, eating, toileting, bathing. Ambulation: independent IADLs Independent: shopping, housework, finances, food prep, telephone, transportation , medication admin. Exam & Diagnostic Data Vital Signs and I&O Vital Signs Date Time Temp Pulse Resp B/P B/P Pulse O2 O2 Flow FiO2 Mean Ox Delivery Rate 04/10 1612 96 Room Air 04/10 1535 72 18 167/72 99 Room Air 04/10 1308 97.4 60 20 150/61 97 Room Air Intake & Output 04/10 1600 04/10 0800 04/10 0000 04/09 1600 04/09 0800 04/09 0000 Intake Total Output Total Balance Patient 135 lb Weight Labs/Thad Results: Laboratory Tests 04/10 04/10 1402 1400 Chemistry Sodium (137 - 145 mmol/L) 137 Potassium (3.5 - 5.1 mmol/L) 6.4 *H Chloride (98 - 107 mmol/L) 107 Carbon Dioxide (22 - 30 mmol/L) 21 L Anion Gap (5 - 16) 9 BUN (7 - 17 mg/dL) 32 H Creatinine (0.5 - 1.0 mg/dL) 2.1 H Estimated GFR (>60 ml/min) 23 L BUN/Creatinine Ratio (7 - 25 %) 15.2 Glucose (65 - 99 mg/dL) 123 H Calcium (8.4 - 10.2 mg/dL) 9.7 Magnesium (1.6 - 2.3 mg/dL) 1.8 Total Bilirubin (0.2 - 1.3 mg/dL) 0.5 AST (14 - 36 U/L) 38 H ALT (9 - 52 U/L) 42 Alkaline Phosphatase (<127 U/L) 80 Troponin I (< 0.11 ng/ml) < 0.01 Total Protein (6.3 - 8.2 g/dL) 7.0 Albumin (3.5 - 5.0 g/dL) 4.0 Globulin (1.9 - 4.2 gm/dL) 3.0 Albumin/Globulin Ratio (1.1 - 2.2 %) 1.3 Coagulation PT (9.4 - 12.5 SEC) 94.9 *H INR (0.90 - 1.19) 8.52 *H APTT (25 - 37 SEC) 58 H Hematology CBC w Diff NO MAN DIFF REQ WBC (4.8 - 10.8 /CUMM) 7.1 RBC (4.20 - 5.40 /CUMM) 3.80 L Hgb (12.0 - 16.0 G/DL) 11.0 L Hct (37 - 47 %) 32.5 L MCV (81.0 - 99.0 FL) 85.6 MCH (27.0 - 31.0 PG) 28.9 MCHC (33.0 - 37.0 G/DL) 33.8 RDW (11.5 - 14.5 %) 15.0 H Plt Count (130 - 400 /CUMM) 299 MPV (7.4 - 10.4 FL) 9.4 Gran % (42.2 - 75.2 %) 69.4 Lymphocytes % (20.5 - 51.1 %) 23.8 Monocytes % (1.7 - 9.3 %) 5.1 Eosinophils % (0 - 5 %) 1.1 Basophils % (0.0 - 2.0 %) 0.6 Absolute Granulocytes (1.4 - 6.5 /CUMM) 4.9 Absolute Lymphocytes (1.2 - 3.4 /CUMM) 1.7 Absolute Monocytes (0.10 - 0.60 /CUMM) 0.4 Absolute Eosinophils (0.0 - 0.7 /CUMM) 0.1 Absolute Basophils (0.0 - 0.2 /CUMM) 0 Urines Urine Color (YEL,AMB,STR) YEL Urine Clarity (CLEAR) CLEAR Urine pH (5.0 - 8.0) 6.0 Ur Specific [place] (1.001 - 1.035) 1.025 Urine Protein (NEG,<30 MG/DL) 100 H Urine Ketones (NEG) NEG Urine Nitrite (NEG) NEG Urine Bilirubin (NEG) NEG Urine Urobilinogen (0.1 - 1.0 EU/dl) 0.2 Ur Leukocyte Esterase (NEG) NEG Ur Microscopic SEDIMENT EXAMINED Urine RBC (0 - 5 /HPF) 3-5 Ur Epithelial Cells (NONE,FEW) OCCAS Urine Hemoglobin (NEG) SMALL H Urine Glucose (N MG/DL) NEG Assessment/Plan Assessment/Plan Assessment: 1. Hyperkalemia 2. Worsening acute on chronic renal insufficiency. 3. Stable normocytic anemia 4. Recent PPM placement. History of severo/tachy syndrome; history of PAF 5. History of [facility] AVR 6. Supratherapeutic INR -? related to multiple recent courses of antibiotics 7. HTN 8. HLD 9. DM Recommendations: -Admit to telemetry -Treatment for hyperkalemia as discussed -ECG tonite and again in AM -Nephrology input pending -Hold warfarin and monitor INR closely; hold HCTZ and STELLA -Avoid active reversal of INR unless it continues to trend upward or there are issues with active bleeding. -Otherwise continue regular medications -NO need to repeat echocardiogram at the present time Consult Acknowledgment - Thank you for your consult request.
--- NOTE | 2018-04-10 17:29 | ULTRASOUND REPORT ---
EXAMINATION: US RETROPERITONEAL COMPLETE (RENAL) CLINICAL INFORMATION: CVA tenderness on the left side. Assess for hydronephrosis versus acute pathology. COMPARISON: CT scan of the abdomen and pelvis dated 12/05/2017. TECHNIQUE: Real-time imaging of the kidneys and bladder. FINDINGS: RIGHT KIDNEY: 7.8 x 4.2 x 3.6 cm (SAG x AP x TRV). The kidney is normal in size, contour, and echogenicity. Renal cortical thickness is normal. No calculi or focal parenchymal lesions. No hydronephrosis. LEFT KIDNEY: 4.5 x 4.3 x 3.2 cm (SAG x AP x TRV). The kidney is normal in size, contour, and echogenicity. Renal cortical thickness is normal. No calculi or focal parenchymal lesions. No hydronephrosis. BLADDER: Well-distended and normal. Bilateral ureteral jets are demonstrated. Prevoid bladder volume is 317 mL. Patient was unable to void and therefore post void residual could not be assessed. IMPRESSION: 1. Normal kidneys. No evidence of hydronephrosis. 2. Post void urine residual in bladder could not be obtained since the patient was unable to void. Bladder otherwise unremarkable.
[2018-04-10 18:35] VITALS: BP 142/38
--- NOTE | 2018-04-10 19:23 | Admission Certification ---
Admission Certification Certification Statement - As attending physician, I certify that at the time of - admission, based on clinical presentation, severity of - symptoms, need for further diagnostic testing and - therapeutic interventions, and risk of adverse outcomes - without in-hospital treatment, in my clinical assessment, - this patient requires an acute hospital stay for a minimum - of two nights or longer. I have also considered psychsocial - factors such as support system, advanced age, financial - issues, cognitive issues, and failed out-patient treatments, - past re-admission history, safety of patient, and lack of - compliance as applicable. Specific rationale supporting this admission is: Hyperkalemia, supratherapeutic INR, anemia
--- NOTE | 2018-04-10 19:26 | PN- Att Addend ---
Attending Addendum Attending Brief Note 73-year-old female with many comorbidities, was seeing the oncologist day care worker this morning following her anemia and on blood work she was found to have a very high potassium abnormal kidney function, and a supratherapeutic INR. Patient has been treated with antibiotics for repeated urinary tract infections and hematuria patient will be admitted on telemetry medications will be given to lower her potassium monitor her sugar monitor her INR monitor her heart rhythms cardiology consult followed by hematology. Repeat the blood work periodically. Current Medications Sig/Eliane Start time Last Medication Dose Route Stop Time Status Admin Acetaminophen 1,000 MG ONCE ONE 04/10 1830 DC 04/10 IV 04/10 1831 1844 Dextrose 25 GM ONCE ONE 04/10 1415 DC 04/10 IV 04/10 1416 1524 Dextrose/Sodium 1,000 ML Q13H 04/10 1615 AC 04/10 Chloride IV 04/11 0514 1618 Insulin Aspart 0 TIDAC 04/10 1700 AC SC Insulin Human Regular 8 UNITS ONCE ONE 04/10 1415 DC 04/10 IV 04/10 1416 1524 Sodium Chloride 1,000 ML BOLUS ONE 04/10 1415 DC 04/10 IV 04/10 1514 1524 Laboratory Tests 04/10/18 1800: Sodium Cancelled, Potassium Cancelled, Chloride Cancelled, Carbon Dioxide Cancelled, Anion Gap Cancelled, BUN Cancelled, Creatinine Cancelled, BUN/ Creatinine Ratio Cancelled 04/10/18 1402: Anion Gap 9, Estimated GFR 23 L, BUN/Creatinine Ratio 15.2, Glucose 123 H, Calcium 9.7, Magnesium 1.8, Total Bilirubin 0.5, AST 38 H, ALT 42, Alkaline Phosphatase 80, Troponin I < 0.01, Total Protein 7.0, Albumin 4.0, Globulin 3.0, Albumin/Globulin Ratio 1.3, PT 94.9 *H, INR 8.52 *H, APTT 58 H, CBC w Diff NO MAN DIFF REQ, RBC 3.80 L, MCV 85.6, MCH 28.9, MCHC 33.8, RDW 15.0 H, MPV 9.4, Gran % 69.4, Lymphocytes % 23.8, Monocytes % 5.1, Eosinophils % 1.1, Basophils % 0.6, Absolute Granulocytes 4.9, Absolute Lymphocytes 1.7, Absolute Monocytes 0.4 , Absolute Eosinophils 0.1, Absolute Basophils 0 06/22/18 1400: Urine Color YEL, Urine Clarity CLEAR, Urine pH 6.0, Ur Specific [place] 1.025, Urine Protein 100 H, Urine Ketones NEG, Urine Nitrite NEG, Urine Bilirubin NEG, Urine Urobilinogen 0.2, Ur Leukocyte Esterase NEG, Ur Microscopic SEDIMENT EXAMINED, Urine RBC 3-5, Ur Epithelial Cells OCCAS, Urine Hemoglobin SMALL H, Urine Glucose NEG Microbiology Date/Time Procedure - Status Source Growth 04/10 1612 Clostridium difficile Toxin A & B - COLB STOOL Vital Signs Date Time Temp Pulse Resp B/P B/P Pulse O2 O2 Flow FiO2 Mean Ox Delivery Rate 04/10 1835 61 18 142/38 99 Room Air 04/10 1721 97.2 65 18 141/59 98 Room Air 04/10 1612 96 Room Air 04/10 1535 72 18 167/72 99 Room Air 04/10 1308 97.4 60 20 150/61 97 Room Air Intake & Output 04/10 1600 Intake Total Output Total Balance Patient 135 lb Weight
[2018-04-10 22:23] VITALS: BP 128/68
[2018-04-11 04:26] LABS: ABSOLUTE BASOPHIL COUNT 0 /CUMM (0.0-0.2); ABSOLUTE EOSINOPHIL COUNT 0.1 /CUMM (0.0-0.7); ABSOLUTE GRANULOCYTE CT 3.6 /CUMM (1.4-6.5); ABSOLUTE LYMPH COUNT 1.2 /CUMM (1.2-3.4); ABSOLUTE MONOCYTE COUNT 0.3 /CUMM (0.10-0.60); BASOPHIL % 0.7 % (0.0-2.0); GRANULOCYTE % 69.3 % (42.2-75.2); HEMATOCRIT 28.3 % (37-47); MEAN CORPUSCULAR HGB 28.8 PG (27.0-31.0); MEAN CORPUSCULAR HGB CONC 33.9 G/DL (33.0-37.0); MEAN PLATELET VOLUME 9.3 FL (7.4-10.4); PLATELET COUNT 238 /CUMM (130-400); RBC DISTRIBUTION WIDTH 14.7 % (11.5-14.5); RED BLOOD CELL CT 3.33 /CUMM (4.20-5.40); WHITE BLOOD CELL COUNT 5.1 /CUMM (4.8-10.8)
[2018-04-11 04:50] LABS: PT 86.2 SEC (9.4-12.5)
--- NOTE | 2018-04-11 05:39 | PN- Housestaff ---
See Addendum Subjective Follow-up For: Supratherapeutic INR. Hyperkalemia. Subjective: Ms. Blanton was seen and examined this morning. She is resting comfortably in bed. States that she was able to get some rest. She continues to endorse some left-sided hip pain. States that pain is been going on for the last few days worsening with movement. Rates it an 8 out of 10 in severity. Responds well to pain medications. Denies any other issues overnight does state that she was given some Kayexalate which caused some diarrhea. She otherwise denies any fever, chills, nausea, vomiting. Review of Systems Constitutional: Reports: see HPI. Objective Last 24 Hrs of Vital Signs/I&O Vital Signs Date Time Temp Pulse Resp B/P B/P Pulse O2 O2 Flow FiO2 Mean Ox Delivery Rate 04/10 2223 98.3 60 21 128/68 98 04/10 1835 61 18 142/38 99 Room Air 04/10 1721 97.2 65 18 141/59 98 Room Air 04/10 1612 96 Room Air 04/10 1535 72 18 167/72 99 Room Air 04/10 1308 97.4 60 20 150/61 97 Room Air Intake & Output 04/11 0800 04/11 0000 04/10 1600 Intake Total 750 1535 Output Total 600 950 Balance 150 585 Intake, IV 700 1000 Intake, Oral 50 535 Number 1 0 Bowel Movements Output, Urine 600 950 Patient 78.613 kg 61.235 kg Weight Weight Bed scale Measurement Method Physical Exam General Appearance: Alert, Oriented X3, Cooperative HEENT: Mucous Membr. moist/pink Cardiovascular: Regular Rate, Normal S1, Normal S2, Systolic Murmur/Click noted Lungs: Clear to Auscultation Abdomen: Normal Bowel Sounds, Soft, No Tenderness Neurological: Sensation Intact, Cranial Nerves 3-12 NL Extremities: Left Hip Tenderness Vascular: Normal Pulses Current Medications: Current Medications Sig/Eliane Start time Last Medication Dose Route Stop Time Status Admin Acetaminophen 1,000 MG ONCE ONE 04/10 1830 DC 04/10 IV 04/10 183 1844 Calcium Gluconate 1 GM ONCE ONE 04/10 2200 DC 04/10 Sodium Chloride 100 ML IV 04/10 225 2242 Dextrose 25 GM ONCE ONE 04/11 0045 DC 04/11 IV 04/11 004 0102 Dextrose 25 GM ONCE ONE 04/10 2200 DC 04/10 IV 04/10 220 2244 Dextrose 25 GM ONCE ONE 04/10 1415 DC 04/10 IV 04/10 1416 1524 Dextrose/Sodium 1,000 ML ONCE ONE 04/10 2215 AC 04/10 Chloride IV 04/11 0814 2242 Dextrose/Sodium 1,000 ML Q13H 04/10 1615 DC 04/10 Chloride IV 04/11 0514 1618 Insulin Aspart 0 TIDAC 04/10 1700 AC SC Insulin Human Regular 10 UNITS ONCE ONE 04/10 2200 DC 04/10 IV 04/10 220 2244 Insulin Human Regular 8 UNITS ONCE ONE 04/10 1415 DC 04/10 IV 04/10 1416 1524 Sodium Chloride 1,000 ML BOLUS ONE 04/10 1415 DC 04/10 IV 04/10 1514 1524 Sodium Polystyrene 120 ML ONCE ONE 04/105 DC 04/10 Sulfonate PO 04/10 2246 2309 Last 24 Hrs of Lab/Thad Results Last 24 Hrs of Labs/Mics: Laboratory Tests 04/11/18 0340: Anion Gap 9, Estimated GFR 34 L, BUN/Creatinine Ratio 16.0, PT 86.2 *H, INR 7.75 *H, CBC w Diff NO MAN DIFF REQ, RBC 3.33 L, MCV 85.0, MCH 28.8, MCHC 33.9, RDW 14.7 H, MPV 9.3, Gran % 69.3, Lymphocytes % 22.6, Monocytes % 6.4, Eosinophils % 1.0, Basophils % 0.7, Absolute Granulocytes 3.6, Absolute Lymphocytes 1.2, Absolute Monocytes 0.3, Absolute Eosinophils 0.1, Absolute Basophils 0 04/10/18 2005: Anion Gap 7, Estimated GFR 29 L, BUN/Creatinine Ratio 18.2, Troponin I < 0.01 04/10/18 1800: Sodium Cancelled, Potassium Cancelled, Chloride Cancelled, Carbon Dioxide Cancelled, Anion Gap Cancelled, BUN Cancelled, Creatinine Cancelled, BUN/ Creatinine Ratio Cancelled 04/10/18 1402: Anion Gap 9, Estimated GFR 23 L, BUN/Creatinine Ratio 15.2, Glucose 123 H, Calcium 9.7, Magnesium 1.8, Total Bilirubin 0.5, AST 38 H, ALT 42, Alkaline Phosphatase 80, Troponin I < 0.01, Total Protein 7.0, Albumin 4.0, Globulin 3.0, Albumin/Globulin Ratio 1.3, PT 94.9 *H, INR 8.52 *H, APTT 58 H, CBC w Diff NO MAN DIFF REQ, RBC 3.80 L, MCV 85.6, MCH 28.9, MCHC 33.8, RDW 15.0 H, MPV 9.4, Gran % 69.4, Lymphocytes % 23.8, Monocytes % 5.1, Eosinophils % 1.1, Basophils % 0.6, Absolute Granulocytes 4.9, Absolute Lymphocytes 1.7, Absolute Monocytes 0.4 , Absolute Eosinophils 0.1, Absolute Basophils 0 04/10/18 1400: Urine Color YEL, Urine Clarity CLEAR, Urine pH 6.0, Ur Specific [place] 1.025, Urine Protein 100 H, Urine Ketones NEG, Urine Nitrite NEG, Urine Bilirubin NEG, Urine Urobilinogen 0.2, Ur Leukocyte Esterase NEG, Ur Microscopic SEDIMENT EXAMINED, Urine RBC 3-5, Ur Epithelial Cells OCCAS, Urine Hemoglobin SMALL H, Urine Glucose NEG 04/10/18 1400: Urine Osmolality 430, Ur Random Creatinine 61.2, Ur Random Sodium 95 H, Ur Random Potassium 29.2, Fraction Sodium Excret 1.9 H Microbiology 04/11 0130 STOOL: Clostridium difficile Toxin A & B - RECD Assessment/Plan Assessment: Ms Lopez is a 72-year-old lady with past medical history significant for mechanical aortic valve on warfarin, hypertension, hyperlipidemia, diabetes, chronic anemia requiring blood transfusions were sent into the emergency department on 04/10/2018 after outpatient blood work showed a potassium level of 6.8. In the ED the patient received 8 units of insulin and dextrose as well as was started on normal saline fluids. Patient's supratherapeutic INR is likely related to antibiotics as well as her ARNOLDO on CKD. She will be admitted into the telemetry and management for the following problems. #Supratherapeutic INR. #Hyperkalemia with no EKG changes. #Paroxysmal Atrial fibrillation. #Mechanical aortic valve on Warfarin #ARNOLDO on CKD #Diabetes #Left Hip Pain Continue on telemetry. Overnight patient was given calcium gluconate, insulin, dextrose and Kayexalate. Repeat potassium Q 12. Follow Formal cardiology Reccomendations. Hold off reversing anticoagulation with fresh frozen plasma or vitamin K for now. Unless she shows signs of active bleeding. Repeat CBC, BEP, INR in a.m. We will gently fluid hydrate her. Renal Ultrasound, results attached. Urinary osmololality. FENA 2.4% suggesting Intrinsic causes, Query ATN SCr appears to be improving, will hold off on formal nephrology consultation. Obtain Hematology Consultation Rule out hip pathology with X-Ray. Cover patient on insulin sliding scale. Follow up on urinary Culture Diet consistent carbohydrate 2 (limit K in diet) PT Consult. DVT PPX ALPS Patient is a full code. Problem List: 1. Hyperkalemia 2. Acute kidney injury 3. Supratherapeutic INR Pain Ratin Pain Location: Left HIP Pain Goal: Remain pain free Pain Plan: Tylenol PRN Tomorrow's Labs & Rationales: CBC: Monitor H/H BEP: Monitor K INR: Monitor levels in the setting of supratherapeutics INR
[2018-04-11 06:54] VITALS: BP 122/60
--- NOTE | 2018-04-11 12:52 | RADIOLOGY REPORT ---
EXAMINATION: XR HIP, LEFT CLINICAL INFORMATION: Limited movement. Pain on flexion and abduction. Rule out acute pathology vs. fracture. COMPARISON: CT dated 12/05/2017 TECHNIQUE: AP and frog-leg lateral views of the left hip. FINDINGS: Bones are osteopenic. There is mild osteoarthritis in the left hip with marginal osteophytes at the acetabulum. Joint space appears well-preserved. No acute fracture or malalignment. These right spurring is present in the greater trochanter and the anterior superiorly spines. Imaged portions of the SI joints and pubic symphysis are normal. Degenerative disc disease and facet arthropathy are present in the lower lumbar spine IMPRESSION: 1. Mild osteoarthritis in the left hip. 2. No acute fracture or malalignment. 3. Sensitivity for nondisplaced fractures is decreased by the degree of osteopenia. If the patient has persistent pain or a decreased ability to weight bear on short-term follow-up, consider obtaining MRI for further evaluation.
--- NOTE | 2018-04-11 14:04 | PN- Cardiology ---
Subjective Subjective: The patient is comfortable. No chest pain. No palpitations. No diaphoresis. No shortness of breath Objective Vital Signs and I&Os Vital Signs Date Time Temp Pulse Resp B/P B/P Pulse O2 O2 Flow FiO2 Mean Ox Delivery Rate 04/11 0800 Room Air Room Air 04/11 0654 98.1 66 20 122/60 99 Room Air 04/10 2223 98.3 60 21 128/68 98 04/10 1835 61 18 142/38 99 Room Air 04/10 1721 97.2 65 18 141/59 98 Room Air 04/10 1612 96 Room Air 04/10 1535 72 18 167/72 99 Room Air Intake & Output 04/11 1600 04/11 0800 04/11 0000 04/10 1600 04/10 0800 04/10 0000 Intake Total 750 1535 Output Total 600 950 Balance 150 585 Intake, IV 700 1000 Intake, Oral 50 535 Number 1 0 Bowel Movements Output, Urine 600 950 Patient 134 lb 173 lb 135 lb Weight Weight Bed scale Bed scale Measurement Method Physical Exam: Gen: NAD HEENT: normal Lungs: clear to auscultation, normal resp. effort Heart: Mechanical valve sound, S1, S2, 1 out of 6 systolic murmur Abdomen: Soft, nontender, no masses Extremities: No clubbing, cyanosis, or edema. Neuro: Alert and oriented x 3, cranial nerves intact Current Medications: Current Medications Sig/Eliane Start time Last Medication Dose Route Stop Time Status Admin Acetaminophen 1,000 MG ONCE ONE 04/10 1830 DC 04/10 IV 04/10 1831 1844 Calcium Gluconate 1 GM ONCE ONE 04/10 2200 DC 04/10 Sodium Chloride 100 ML IV 04/10 2259 2242 Dextrose 25 GM ONCE ONE 04/11 0045 DC 04/11 IV 04/11 0046 0102 Dextrose 25 GM ONCE ONE 04/10 2200 DC 04/10 IV 04/10 220 2244 Dextrose 25 GM ONCE ONE 04/10 1415 DC 04/10 IV 04/10 1416 1524 Dextrose/Sodium 1,000 ML ONCE ONE 04/105 DC 04/10 Chloride IV 04/11 0814 2242 Dextrose/Sodium 1,000 ML Q13H 04/10 1615 DC 04/10 Chloride IV 04/11 0514 1618 Insulin Aspart 0 TIDAC 04/10 1700 AC SC Insulin Human Regular 10 UNITS ONCE ONE 04/10 2200 DC 04/10 IV 04/10 2201 2244 Insulin Human Regular 8 UNITS ONCE ONE 04/10 1415 DC 04/10 IV 04/10 1416 1524 Sodium Chloride 1,000 ML BOLUS ONE 04/10 1415 DC 04/10 IV 04/10 1514 1524 Sodium Polystyrene 120 ML ONCE ONE 04/10 2245 DC 04/10 Sulfonate PO 04/10 2246 2309 Results Last 48 Hrs of Labs/Mics: Laboratory Tests 04/11/18 0340: Anion Gap 9, Estimated GFR 34 L, BUN/Creatinine Ratio 16.0, PT 86.2 *H, INR 7.75 *H, CBC w Diff NO MAN DIFF REQ, RBC 3.33 L, MCV 85.0, MCH 28.8, MCHC 33.9, RDW 14.7 H, MPV 9.3, Gran % 69.3, Lymphocytes % 22.6, Monocytes % 6.4, Eosinophils % 1.0, Basophils % 0.7, Absolute Granulocytes 3.6, Absolute Lymphocytes 1.2, Absolute Monocytes 0.3, Absolute Eosinophils 0.1, Absolute Basophils 0 04/10/18 2005: Anion Gap 7, Estimated GFR 29 L, BUN/Creatinine Ratio 18.2, Troponin I < 0.01 04/10/18 1800: Sodium Cancelled, Potassium Cancelled, Chloride Cancelled, Carbon Dioxide Cancelled, Anion Gap Cancelled, BUN Cancelled, Creatinine Cancelled, BUN/ Creatinine Ratio Cancelled 04/10/18 1402: Anion Gap 9, Estimated GFR 23 L, BUN/Creatinine Ratio 15.2, Glucose 123 H, Calcium 9.7, Magnesium 1.8, Total Bilirubin 0.5, AST 38 H, ALT 42, Alkaline Phosphatase 80, Troponin I < 0.01, Total Protein 7.0, Albumin 4.0, Globulin 3.0, Albumin/Globulin Ratio 1.3, PT 94.9 *H, INR 8.52 *H, APTT 58 H, CBC w Diff NO MAN DIFF REQ, RBC 3.80 L, MCV 85.6, MCH 28.9, MCHC 33.8, RDW 15.0 H, MPV 9.4, Gran % 69.4, Lymphocytes % 23.8, Monocytes % 5.1, Eosinophils % 1.1, Basophils % 0.6, Absolute Granulocytes 4.9, Absolute Lymphocytes 1.7, Absolute Monocytes 0.4 , Absolute Eosinophils 0.1, Absolute Basophils 0 04/10/18 1400: Urine Color YEL, Urine Clarity CLEAR, Urine pH 6.0, Ur Specific [place] 1.025, Urine Protein 100 H, Urine Ketones NEG, Urine Nitrite NEG, Urine Bilirubin NEG, Urine Urobilinogen 0.2, Ur Leukocyte Esterase NEG, Ur Microscopic SEDIMENT EXAMINED, Urine RBC 3-5, Ur Epithelial Cells OCCAS, Urine Hemoglobin SMALL H, Urine Glucose NEG 04/10/18 1400: Urine Osmolality 430, Ur Random Creatinine 61.2, Ur Random Sodium 95 H, Ur Random Potassium 29.2, Fraction Sodium Excret 1.9 H Microbiology 04/11 0130 STOOL: Clostridium difficile Toxin A & B - COMP Assessment/Plan Assessment/Plan Assessment: 1. Hyperkalemia 2. Worsening acute on chronic renal insufficiency. 3. Stable normocytic anemia 4. Recent PPM placement. History of severo/tachy syndrome; history of PAF 5. History of [facility] AVR 6. Supratherapeutic INR -? related to multiple recent courses of antibiotics 7. HTN 8. HLD 9. DM Recommendations: * Monitor on telemetry * Hold warfarin and recheck INR in the morning * Repeat INR in this metabolic profile in the morning * Hydrochlorothiazide and STELLA inhibitor on hold Continue telemetry? Yes
[2018-04-11 14:38] VITALS: BP 135/54
--- NOTE | 2018-04-11 15:20 | PN- Att Addend ---
Attending Addendum Attending Brief Note Patient offers no complaints, family at the bedside, vital signs are stable no fever. No major changes on physical. Appreciate cardiology's input and recommendations. STELLA and hydrochlorothiazide on hold. Her potassium is coming slowly down her BUN is slowly coming down so is the creatinine with her INR is still supratherapeutic. Will hold the Coumadin again today continue telemetry, so far no arrhythmias. Check the labs in the morning. Continue observation. Patient came in with supratherapeutic INR had been on antibiotic therapy. Acute on chronic renal insufficiency and marked hyperkalemia 24 TOTALS 04/11 0000 04/10 0000 Intake Total 1535 Output Total 950 Balance 585 Intake, IV 1000 Intake, Oral 535 Number 0 Bowel Movements Output, Urine 950 Patient 173 lb Weight Weight Bed scale Measurement Method Current Medications Sig/Eliane Start time Last Medication Dose Route Stop Time Status Admin Acetaminophen 1,000 MG ONCE ONE 04/10 1830 DC 04/10 IV 04/10 1831 1844 Calcium Gluconate 1 GM ONCE ONE 04/10 2200 DC 04/10 Sodium Chloride 100 ML IV 04/10 2259 2242 Dextrose 25 GM ONCE ONE 04/11 0045 DC 04/11 IV 04/11 0046 0102 Dextrose 25 GM ONCE ONE 04/10 2200 DC 04/10 IV 04/10 220 2244 Dextrose/Sodium 1,000 ML ONCE ONE 04/10 2215 DC 04/10 Chloride IV 04/11 0814 2242 Dextrose/Sodium 1,000 ML Q13H 04/10 1615 DC 04/10 Chloride IV 04/11 0514 1618 Insulin Aspart 0 TIDAC 04/10 1700 AC SC Insulin Human Regular 10 UNITS ONCE ONE 04/10 2200 DC 04/10 IV 04/10 2201 2244 Sodium Polystyrene 120 ML ONCE ONE 04/10 2245 DC 04/10 Sulfonate PO 04/10 2246 2309 Laboratory Tests 04/11/18 0340: Anion Gap 9, Estimated GFR 34 L, BUN/Creatinine Ratio 16.0, PT 86.2 *H, INR 7.75 *H, CBC w Diff NO MAN DIFF REQ, RBC 3.33 L, MCV 85.0, MCH 28.8, MCHC 33.9, RDW 14.7 H, MPV 9.3, Gran % 69.3, Lymphocytes % 22.6, Monocytes % 6.4, Eosinophils % 1.0, Basophils % 0.7, Absolute Granulocytes 3.6, Absolute Lymphocytes 1.2, Absolute Monocytes 0.3, Absolute Eosinophils 0.1, Absolute Basophils 0 04/10/18 2005: Anion Gap 7, Estimated GFR 29 L, BUN/Creatinine Ratio 18.2, Troponin I < 0.01 04/10/18 1800: Sodium Cancelled, Potassium Cancelled, Chloride Cancelled, Carbon Dioxide Cancelled, Anion Gap Cancelled, BUN Cancelled, Creatinine Cancelled, BUN/ Creatinine Ratio Cancelled 04/10/18 1402: Anion Gap 9, Estimated GFR 23 L, BUN/Creatinine Ratio 15.2, Glucose 123 H, Calcium 9.7, Magnesium 1.8, Total Bilirubin 0.5, AST 38 H, ALT 42, Alkaline Phosphatase 80, Troponin I < 0.01, Total Protein 7.0, Albumin 4.0, Globulin 3.0, Albumin/Globulin Ratio 1.3, PT 94.9 *H, INR 8.52 *H, APTT 58 H, CBC w Diff NO MAN DIFF REQ, RBC 3.80 L, MCV 85.6, MCH 28.9, MCHC 33.8, RDW 15.0 H, MPV 9.4, Gran % 69.4, Lymphocytes % 23.8, Monocytes % 5.1, Eosinophils % 1.1, Basophils % 0.6, Absolute Granulocytes 4.9, Absolute Lymphocytes 1.7, Absolute Monocytes 0.4 , Absolute Eosinophils 0.1, Absolute Basophils 0 04/10/18 1400: Urine Color YEL, Urine Clarity CLEAR, Urine pH 6.0, Ur Specific [place] 1.025, Urine Protein 100 H, Urine Ketones NEG, Urine Nitrite NEG, Urine Bilirubin NEG, Urine Urobilinogen 0.2, Ur Leukocyte Esterase NEG, Ur Microscopic SEDIMENT EXAMINED, Urine RBC 3-5, Ur Epithelial Cells OCCAS, Urine Hemoglobin SMALL H, Urine Glucose NEG 04/10/18 1400: Urine Osmolality 430, Ur Random Creatinine 61.2, Ur Random Sodium 95 H, Ur Random Potassium 29.2, Fraction Sodium Excret 1.9 H Microbiology 04/11 0130 STOOL: Clostridium difficile Toxin A & B - COMP Vital Signs Date Time Temp Pulse Resp B/P B/P Pulse O2 O2 Flow FiO2 Mean Ox Delivery Rate 04/11 1438 98.8 82 18 135/54 99 Room Air 04/11 0800 Room Air Room Air 04/11 0654 98.1 66 20 122/60 99 Room Air 04/10 2223 98.3 60 21 128/68 98 04/10 1835 61 18 142/38 99 Room Air 04/10 1721 97.2 65 18 141/59 98 Room Air 04/10 1612 96 Room Air 04/10 1535 72 18 167/72 99 Room Air
[2018-04-11 22:14] VITALS: BP 138/84
[2018-04-12 06:51] VITALS: BP 132/70
[2018-04-12 08:23] LABS: ABSOLUTE BASOPHIL COUNT 0 /CUMM (0.0-0.2); ABSOLUTE EOSINOPHIL COUNT 0.1 /CUMM (0.0-0.7); ABSOLUTE GRANULOCYTE CT 3.7 /CUMM (1.4-6.5); ABSOLUTE LYMPH COUNT 1.2 /CUMM (1.2-3.4); ABSOLUTE MONOCYTE COUNT 0.3 /CUMM (0.10-0.60); BASOPHIL % 0.7 % (0.0-2.0); EOSINOPHIL % 1.1 % (0-5); GRANULOCYTE % 71.3 % (42.2-75.2); HEMATOCRIT 28.3 % (37-47); MEAN CORPUSCULAR HGB 28.7 PG (27.0-31.0); MEAN CORPUSCULAR HGB CONC 33.8 G/DL (33.0-37.0); MEAN CORPUSCULAR VOLUME 84.7 FL (81.0-99.0); MEAN PLATELET VOLUME 9.7 FL (7.4-10.4); PLATELET COUNT 223 /CUMM (130-400); RBC DISTRIBUTION WIDTH 14.6 % (11.5-14.5); RED BLOOD CELL CT 3.34 /CUMM (4.20-5.40); WHITE BLOOD CELL COUNT 5.2 /CUMM (4.8-10.8)
[2018-04-12 08:37] LABS: PT 31.7 SEC (9.4-12.5)
--- NOTE | 2018-04-12 13:02 | PN- Cardiology ---
Subjective Subjective: The patient reports that she is feeling better. No chest pain. No shortness of breath. No diaphoresis. No palpitations. No lightheadedness or dizziness. No nausea or vomiting. Objective Vital Signs and I&Os Vital Signs Date Time Temp Pulse Resp B/P B/P Pulse O2 O2 Flow FiO2 Mean Ox Delivery Rate 04/12 0800 Room Air Room Air 04/12 0651 98.2 73 20 132/70 99 Room Air 04/11 2214 98.2 78 20 138/84 97 04/11 1438 98.8 82 18 135/54 99 Room Air Intake & Output 04/12 1600 04/12 0800 04/12 0000 04/11 1600 04/11 0800 04/11 0000 Intake Total 723 312 0914 750 1535 Output Total 775 475 625 600 950 Balance -30 -375 610 150 585 Intake, IV 20 649 209 5622 Intake, Oral 725 100 725 50 535 Number 1 1 0 Bowel Movements Output, Urine 775 475 625 600 950 Patient 144 lb 134 lb 173 lb Weight Weight Bed scale Bed scale Measurement Method Physical Exam: Gen: NAD HEENT: normal Lungs: clear to auscultation, normal resp. effort Heart: Mechanical valve sound, S1, S2, 1 out of 6 systolic murmur Abdomen: Soft, nontender, no masses Extremities: No clubbing, cyanosis, or edema. Neuro: Alert and oriented x 3, cranial nerves intact Current Medications: Current Medications Sig/Eliane Start time Last Medication Dose Route Stop Time Status Admin Acetaminophen 650 MG ONCE ONE 04/12 0845 DC 04/12 PO 04/12 0846 0849 Dextrose 25 GM ONCE ONE 04/11 1730 CAN IV 04/11 1731 Insulin Aspart 0 TIDAC 04/10 1700 AC SC Insulin Human Regular 10 UNITS ONCE ONE 04/11 1730 CAN IV 04/11 1731 Sodium Polystyrene 120 ML ONCE ONE 04/11 1730 DC 04/11 Sulfonate PO 04/11 173 1853 Results Last 48 Hrs of Labs/Mics: Laboratory Tests 04/12/18 0705: Anion Gap 8, Estimated GFR 44 L, BUN/Creatinine Ratio 27.5 H, PT 31.7 H, INR 2.88 H, CBC w Diff NO MAN DIFF REQ, RBC 3.34 L, MCV 84.7, MCH 28.7, MCHC 33.8, RDW 14.6 H, MPV 9.7, Gran % 71.3, Lymphocytes % 22.0, Monocytes % 4.9, Eosinophils % 1.1, Basophils % 0.7, Absolute Granulocytes 3.7, Absolute Lymphocytes 1.2, Absolute Monocytes 0.3, Absolute Eosinophils 0.1, Absolute Basophils 0 04/12/18 0020: Anion Gap 5, Estimated GFR 40 L, BUN/Creatinine Ratio 26.9 H 04/11/18 1555: Anion Gap 6, Estimated GFR 44 L, BUN/Creatinine Ratio 20.8 04/11/18 0340: Anion Gap 9, Estimated GFR 34 L, BUN/Creatinine Ratio 16.0, PT 86.2 *H, INR 7.75 *H, CBC w Diff NO MAN DIFF REQ, RBC 3.33 L, MCV 85.0, MCH 28.8, MCHC 33.9, RDW 14.7 H, MPV 9.3, Gran % 69.3, Lymphocytes % 22.6, Monocytes % 6.4, Eosinophils % 1.0, Basophils % 0.7, Absolute Granulocytes 3.6, Absolute Lymphocytes 1.2, Absolute Monocytes 0.3, Absolute Eosinophils 0.1, Absolute Basophils 0 04/10/18 2005: Anion Gap 7, Estimated GFR 29 L, BUN/Creatinine Ratio 18.2, Troponin I < 0.01 04/10/18 1800: Sodium Cancelled, Potassium Cancelled, Chloride Cancelled, Carbon Dioxide Cancelled, Anion Gap Cancelled, BUN Cancelled, Creatinine Cancelled, BUN/ Creatinine Ratio Cancelled 04/10/18 1402: Anion Gap 9, Estimated GFR 23 L, BUN/Creatinine Ratio 15.2, Glucose 123 H, Calcium 9.7, Magnesium 1.8, Total Bilirubin 0.5, AST 38 H, ALT 42, Alkaline Phosphatase 80, Troponin I < 0.01, Total Protein 7.0, Albumin 4.0, Globulin 3.0, Albumin/Globulin Ratio 1.3, PT 94.9 *H, INR 8.52 *H, APTT 58 H, CBC w Diff NO MAN DIFF REQ, RBC 3.80 L, MCV 85.6, MCH 28.9, MCHC 33.8, RDW 15.0 H, MPV 9.4, Gran % 69.4, Lymphocytes % 23.8, Monocytes % 5.1, Eosinophils % 1.1, Basophils % 0.6, Absolute Granulocytes 4.9, Absolute Lymphocytes 1.7, Absolute Monocytes 0.4 , Absolute Eosinophils 0.1, Absolute Basophils 0 04/10/18 1400: Urine Color YEL, Urine Clarity CLEAR, Urine pH 6.0, Ur Specific [place] 1.025, Urine Protein 100 H, Urine Ketones NEG, Urine Nitrite NEG, Urine Bilirubin NEG, Urine Urobilinogen 0.2, Ur Leukocyte Esterase NEG, Ur Microscopic SEDIMENT EXAMINED, Urine RBC 3-5, Ur Epithelial Cells OCCAS, Urine Hemoglobin SMALL H, Urine Glucose NEG 04/10/18 1400: Urine Osmolality 430, Ur Random Creatinine 61.2, Ur Random Sodium 95 H, Ur Random Potassium 29.2, Fraction Sodium Excret 1.9 H Microbiology 04/11 0130 STOOL: Clostridium difficile Toxin A & B - COMP Assessment/Plan Assessment/Plan Assessment: 1. Hyperkalemia, improving 2. Acute on chronic renal insufficiency, improving 3. Stable normocytic anemia 4. Recent PPM placement. History of severo/tachy syndrome; history of PAF 5. History of [facility] AVR 6. Supratherapeutic INR -? related to multiple recent courses of antibiotics. Improved 7. HTN 8. HLD 9. DM Recommendations: * Would give warfarin 1.25 mg today. * The patient's warfarin dose prior to admission was 2.5 mg 6 days a week and 1.25 mg once a week. Would give 1.25 mg alternating with 2.5 mg daily, with an INR check in 2 days. * Restart amlodipine 5 mg daily * Hydrochlorothiazide and STELLA inhibitor on hold Continue telemetry? No
[2018-04-12 14:33] VITALS: BP 120/70
--- NOTE | 2018-04-12 16:45 | PN- Att Addend ---
Attending Addendum Attending Brief Note Feeling better today Vital signs are stable no fever. No new changes on physical. Appreciate cardiology's input and recommendations. Her INR today was 2.88, will get a very low dose of Coumadin today and check INR in the morning. Her potassium is 5.0 holding some of the blood pressure medications but her blood pressure stable in the hospital and her hemoglobin is 9.6 hematocrit 28.3. BUN 33 creatinine 1.2. Will check labs in the morning, is stable and okay with cardiology then will start disposition plans Intake & Output 04/12 1600 04/12 0400 04/11 1600 04/11 0400 04/10 1600 04/10 0400 Intake Total 2760 956 5882 1535 Output Total 979 302 6139 950 Balance 570 -375 760 585 Intake, IV 20 1210 1000 Intake, Oral 1325 100 775 535 Number 2 0 Bowel Movements Output, Urine 411 404 4792 950 Patient 144 lb 134 lb 173 lb 135 lb Weight Weight Bed scale Bed scale Measurement Method Current Medications Sig/Eliane Start time Last Medication Dose Route Stop Time Status Admin Acetaminophen 650 MG ONCE ONE 04/12 0845 DC 04/12 PO 04/12 0846 0849 Dextrose 25 GM ONCE ONE 04/11 1730 CAN IV 04/11 1731 Insulin Aspart 0 TIDAC 04/10 1700 AC SC Insulin Human Regular 10 UNITS ONCE ONE 04/11 1730 CAN IV 04/11 1731 Sodium Polystyrene 120 ML ONCE ONE 04/11 1730 DC 04/11 Sulfonate PO 04/11 1731 1853 Warfarin Sodium 2 MG COUMADIN 1700 ONE 04/12 1700 CANr PO 04/12 1701 Warfarin Sodium 1.5 MG ONCE ONE 04/12 1615 UNVr PO 04/12 1616 Laboratory Tests 04/12/18 0705: Anion Gap 8, Estimated GFR 44 L, BUN/Creatinine Ratio 27.5 H, PT 31.7 H, INR 2.88 H, CBC w Diff NO MAN DIFF REQ, RBC 3.34 L, MCV 84.7, MCH 28.7, MCHC 33.8, RDW 14.6 H, MPV 9.7, Gran % 71.3, Lymphocytes % 22.0, Monocytes % 4.9, Eosinophils % 1.1, Basophils % 0.7, Absolute Granulocytes 3.7, Absolute Lymphocytes 1.2, Absolute Monocytes 0.3, Absolute Eosinophils 0.1, Absolute Basophils 0 04/12/18 0020: Anion Gap 5, Estimated GFR 40 L, BUN/Creatinine Ratio 26.9 H 04/11/18 1555: Anion Gap 6, Estimated GFR 44 L, BUN/Creatinine Ratio 20.8 04/11/18 0340: Anion Gap 9, Estimated GFR 34 L, BUN/Creatinine Ratio 16.0, PT 86.2 *H, INR 7.75 *H, CBC w Diff NO MAN DIFF REQ, RBC 3.33 L, MCV 85.0, MCH 28.8, MCHC 33.9, RDW 14.7 H, MPV 9.3, Gran % 69.3, Lymphocytes % 22.6, Monocytes % 6.4, Eosinophils % 1.0, Basophils % 0.7, Absolute Granulocytes 3.6, Absolute Lymphocytes 1.2, Absolute Monocytes 0.3, Absolute Eosinophils 0.1, Absolute Basophils 0 04/10/18 2005: Anion Gap 7, Estimated GFR 29 L, BUN/Creatinine Ratio 18.2, Troponin I < 0.01 04/10/18 1800: Sodium Cancelled, Potassium Cancelled, Chloride Cancelled, Carbon Dioxide Cancelled, Anion Gap Cancelled, BUN Cancelled, Creatinine Cancelled, BUN/ Creatinine Ratio Cancelled 04/10/18 1402: Anion Gap 9, Estimated GFR 23 L, BUN/Creatinine Ratio 15.2, Glucose 123 H, Calcium 9.7, Magnesium 1.8, Total Bilirubin 0.5, AST 38 H, ALT 42, Alkaline Phosphatase 80, Troponin I < 0.01, Total Protein 7.0, Albumin 4.0, Globulin 3.0, Albumin/Globulin Ratio 1.3, PT 94.9 *H, INR 8.52 *H, APTT 58 H, CBC w Diff NO MAN DIFF REQ, RBC 3.80 L, MCV 85.6, MCH 28.9, MCHC 33.8, RDW 15.0 H, MPV 9.4, Gran % 69.4, Lymphocytes % 23.8, Monocytes % 5.1, Eosinophils % 1.1, Basophils % 0.6, Absolute Granulocytes 4.9, Absolute Lymphocytes 1.7, Absolute Monocytes 0.4 , Absolute Eosinophils 0.1, Absolute Basophils 0 04/10/18 1400: Urine Color YEL, Urine Clarity CLEAR, Urine pH 6.0, Ur Specific [place] 1.025, Urine Protein 100 H, Urine Ketones NEG, Urine Nitrite NEG, Urine Bilirubin NEG, Urine Urobilinogen 0.2, Ur Leukocyte Esterase NEG, Ur Microscopic SEDIMENT EXAMINED, Urine RBC 3-5, Ur Epithelial Cells OCCAS, Urine Hemoglobin SMALL H, Urine Glucose NEG 04/10/18 1400: Urine Osmolality 430, Ur Random Creatinine 61.2, Ur Random Sodium 95 H, Ur Random Potassium 29.2, Fraction Sodium Excret 1.9 H Microbiology 04/12 438 URINE ROUT: Urine Culture - RECD 04/11 130 STOOL: Clostridium difficile Toxin A & B - COMP Microbiology 04/12 438 URINE ROUT: Urine Culture - RECD 04/11 130 STOOL: Clostridium difficile Toxin A & B - COMP Vital Signs Date Time Temp Pulse Resp B/P B/P Pulse O2 O2 Flow FiO2 Mean Ox Delivery Rate 04/12 1433 98.2 97 20 120/70 99 04/12 0800 Room Air Room Air 04/12 0651 98.2 73 20 132/70 99 Room Air 04/11 2214 98.2 78 20 138/84 97
[2018-04-12 22:01] VITALS: BP 150/84
[2018-04-13 06:44] VITALS: BP 150/40
--- NOTE | 2018-04-13 07:03 | PN- Housestaff ---
See Addendum Subjective Follow-up For: Hypokalemia Supratherapeutic INR Complaints: no complaints Tele-Events Since Last Visit: Normal sinus rhythm with a heart rate of 80 Subjective: Patient seen and examined at bedside no overnight events. Had a good sleep. Denies chest pain, nausea, vomiting, weakness, numbness, tingling sensation. Review of Systems Constitutional: Reports: no symptoms. Objective Last 24 Hrs of Vital Signs/I&O Vital Signs Date Time Temp Pulse Resp B/P B/P Pulse O2 O2 Flow FiO2 Mean Ox Delivery Rate 04/13 0839 138/60 04/13 0644 97.8 82 20 150/40 98 Room Air 04/12 2201 97.9 84 18 150/84 97 04/12 1820 78 140/68 04/12 1433 98.2 97 20 120/70 99 Intake & Output 04/13 1600 04/13 0800 04/13 0000 Intake Total 220 250 Output Total Balance 220 250 Intake, Oral 220 250 Patient 142 lb Weight Physical Exam General Appearance: Alert, Cooperative, No Acute Distress Cardiovascular: Normal S1, Normal S2, No Murmurs Lungs: Clear to Auscultation Abdomen: Soft, No Tenderness, No Hepatospenomegaly Neurological: Normal Speech, Strength at 5/5 X4 Ext, Normal Tone, Sensation Intact Extremities: No Cyanosis, No Edema, Normal Pulses Current Medications: Current Medications Sig/Eliane Start time Last Medication Dose Route Stop Time Status Admin Amlodipine Besylate 5 MG DAILY 04/12 1705 AC 04/13 PO 0839 Insulin Aspart 0 TIDAC 04/10 170 AC SC Warfarin Sodium 1.5 MG 04/13 1700 DC PO 04/13 2359 Warfarin Sodium 2.5 MG 04/13 1700 AC PO Warfarin Sodium 2 MG COUMADIN 1700 ONE 04/12 1700 CAN PO 04/12 1701 Warfarin Sodium 1.5 MG ONCE ONE 04/12 1615 DC 04/12 PO 04/12 1616 1819 Last 24 Hrs of Lab/Thad Results Last 24 Hrs of Labs/Mics: Laboratory Tests 04/13/18 0630: Anion Gap 8, Estimated GFR 48 L, BUN/Creatinine Ratio 31.8 H, PT 19.9 H, INR 1.81 H, CBC w Diff NO MAN DIFF REQ, RBC 3.23 L, MCV 85.2, MCH 28.6, MCHC 33.6, RDW 15.0 H, MPV 9.6, Gran % 67.2, Lymphocytes % 24.8, Monocytes % 5.6, Eosinophils % 1.8, Basophils % 0.6, Absolute Granulocytes 3.8, Absolute Lymphocytes 1.4, Absolute Monocytes 0.3, Absolute Eosinophils 0.1, Absolute Basophils 0 Assessment/Plan Assessment: Ms Lopez is a 72-year-old lady with past medical history significant for mechanical aortic valve on warfarin, hypertension, hyperlipidemia, diabetes, chronic anemia requiring blood transfusions were sent into the emergency department on 04/10/2018 after outpatient blood work showed a potassium level of 6.8. #Supratherapeutic INR. #Hyperkalemia with no EKG changes. #Paroxysmal Atrial fibrillation. #Mechanical aortic valve on Warfarin #ARNOLDO on CKD #Diabetes #Left Hip Pain Supratherapeutic INR-INR is back to baseline. Today INR 1.8 we will give 2.5 mg of warfarin. This was discussed with information systems specialist Dr. Lopez who suggested to continue warfarin 1.25 mg alternating with 2.5. Patient needs to repeat INR in 2 days and follow-up with Dr. Quintanilla Hyperkalemia-resolved Diabetes-NovoLog sliding scale insulin Diet-carbohydrate diet Patient was seen by physical therapy who suggested home PT Plan discharge today Problem List: 1. Hyperkalemia Pain Ratin Pain Location: NONE Pain Goal: Remain pain free Pain Plan: TYLENOL Tomorrow's Labs & Rationales: CBC,BEP
[2018-04-13 08:00] LABS: ABSOLUTE BASOPHIL COUNT 0 /CUMM (0.0-0.2); ABSOLUTE EOSINOPHIL COUNT 0.1 /CUMM (0.0-0.7); ABSOLUTE GRANULOCYTE CT 3.8 /CUMM (1.4-6.5); ABSOLUTE LYMPH COUNT 1.4 /CUMM (1.2-3.4); ABSOLUTE MONOCYTE COUNT 0.3 /CUMM (0.10-0.60); BASOPHIL % 0.6 % (0.0-2.0); EOSINOPHIL % 1.8 % (0-5); GRANULOCYTE % 67.2 % (42.2-75.2); HEMATOCRIT 27.5 % (37-47); MEAN CORPUSCULAR HGB 28.6 PG (27.0-31.0); MEAN CORPUSCULAR HGB CONC 33.6 G/DL (33.0-37.0); MEAN CORPUSCULAR VOLUME 85.2 FL (81.0-99.0); MEAN PLATELET VOLUME 9.6 FL (7.4-10.4); PLATELET COUNT 241 /CUMM (130-400); RED BLOOD CELL CT 3.23 /CUMM (4.20-5.40); WHITE BLOOD CELL COUNT 5.7 /CUMM (4.8-10.8)
[2018-04-13 08:12] LABS: PT 19.9 SEC (9.4-12.5)
[2018-04-13 08:39] VITALS: BP 138/60
--- NOTE | 2018-04-13 09:31 | Patient Discharge Instructions ---
Discharge Instructions General Discharge Information You were seen/treated for: Supratherapeutic INR Hyperkalemia Acute kidney injury Watch for these problems: In case of bleeding, nausea, chest pain, numbness, tingling sensation please go to the nearest emergency room. Special Instructions: Please follow-up with your primary care provider within 1-2 weeks of discharge. Please repeat INR on April 16 and follow-up with your primary care provider. Diet Continue normal diet: No Recommended Diet: Diabetic Activity Full Activity/No Limits: No Activity Self Limited: Yes Acute Coronary Syndrome Inclusion Criteria At DC or during hospital stay patient has or had the following: ACS DIAGNOSIS No Discharge Core Measures Meds if any: Prescribed or Continued at Discharge Meds if any: NOT Prescribed or Continued at Discharge Congestive Heart Failure Inclusion Criteria At DC or during hospital stay patient has or had the following: CHF DIAGNOSIS No Discharge Core Measures Meds if any: Prescribed or Continued at Discharge Meds if any: NOT Prescribed or Continued at Discharge Cerebrovascular accident Inclusion Criteria At DC or during hospital stay patient has or had the following: CVA/TIA Diagnosis No Discharge Core Measures Meds if any: Prescribed or Continued at Discharge Meds if any: NOT Prescribed or Continued at Discharge Venous thromboembolism Inclusion Criteria VTE Diagnosis No VTE Type NONE VTE Confirmed by (Test) NONE Discharge Core Measures - Per Current guidelines, there needs to be overlap - treatment for the first 5 days of Warfarin therapy. - If discharged on Warfarin prior to 5 days of - overlap therapy, the patient will need to be - assessed for post discharge needs including - *Post discharge parental anticoagulation - *Warfarin and/or parental anticoagulation education - *Follow up date to check INR post discharge At least 5 days overlap therapy as Inpatient No Meds if any: Prescribed or Continued at Discharge Note: Overlap Therapy is Warfarin and Anticoagulant Meds if any: NOT Prescribed or Continued at Discharge
--- NOTE | 2018-04-13 10:31 | PN- Att Addend ---
Attending Addendum Attending Brief Note Patient sitting in the chair, no new complaints not short of breath no chest pain. Vital signs are stable no fever. No changes on physical. Hemoglobin 9.2, hematocrit 27.8, INR 1.81., Potassium 5.0 if okay with cardiology will discharge, with home physical therapy. Probably go back to her home anticoagulation now that she is off the antibiotic. Also assess blood pressure medications. Intake & Output 04/13 1600 04/13 0400 04/12 1600 04/12 0400 04/11 1600 04/11 0400 Intake Total 505 846 9006 100 1985 1535 Output Total 057 164 3266 950 Balance 220 250 570 -375 760 585 Intake, IV 20 1210 1000 Intake, Oral 111 694 5002 100 775 535 Number 2 0 Bowel Movements Output, Urine 005 671 5714 950 Patient 142 lb 144 lb 134 lb 173 lb Weight Weight Bed scale Bed scale Measurement Method Current Medications Sig/Eliane Start time Last Medication Dose Route Stop Time Status Admin Amlodipine Besylate 5 MG DAILY 04/12 1705 AC 04/13 PO 0839 Insulin Aspart 0 TIDAC 04/10 1700 AC SC Warfarin S[place] 1.5 [place] 17004/13 1700 DC PO 04/13 2359 Warfarin Sodium 2.5 MG 1700 04/13 1700 AC PO Warfarin Sodium 2 MG COUMADIN 1700 ONE 04/12 1700 CAN PO 04/12 1701 Warfarin Sodium 1.5 MG ONCE ONE 04/12 1615 DC 04/12 PO 04/12 1616 1819 Laboratory Tests 04/13/18 0630: Anion Gap 8, Estimated GFR 48 L, BUN/Creatinine Ratio 31.8 H, PT 19.9 H, INR 1.81 H, CBC w Diff NO MAN DIFF REQ, RBC 3.23 L, MCV 85.2, MCH 28.6, MCHC 33.6, RDW 15.0 H, MPV 9.6, Gran % 67.2, Lymphocytes % 24.8, Monocytes % 5.6, Eosinophils % 1.8, Basophils % 0.6, Absolute Granulocytes 3.8, Absolute Lymphocytes 1.4, Absolute Monocytes 0.3, Absolute Eosinophils 0.1, Absolute Basophils 0 04/12/18 0705: Anion Gap 8, Estimated GFR 44 L, BUN/Creatinine Ratio 27.5 H, PT 31.7 H, INR 2.88 H, CBC w Diff NO MAN DIFF REQ, RBC 3.34 L, MCV 84.7, MCH 28.7, MCHC 33.8, RDW 14.6 H, MPV 9.7, Gran % 71.3, Lymphocytes % 22.0, Monocytes % 4.9, Eosinophils % 1.1, Basophils % 0.7, Absolute Granulocytes 3.7, Absolute Lymphocytes 1.2, Absolute Monocytes 0.3, Absolute Eosinophils 0.1, Absolute Basophils 0 04/12/18 0020: Anion Gap 5, Estimated GFR 40 L, BUN/Creatinine Ratio 26.9 H 04/11/18 1555: Anion Gap 6, Estimated GFR 44 L, BUN/Creatinine Ratio 20.8 04/11/18 0340: Anion Gap 9, Estimated GFR 34 L, BUN/Creatinine Ratio 16.0, PT 86.2 *H, INR 7.75 *H, CBC w Diff NO MAN DIFF REQ, RBC 3.33 L, MCV 85.0, MCH 28.8, MCHC 33.9, RDW 14.7 H, MPV 9.3, Gran % 69.3, Lymphocytes % 22.6, Monocytes % 6.4, Eosinophils % 1.0, Basophils % 0.7, Absolute Granulocytes 3.6, Absolute Lymphocytes 1.2, Absolute Monocytes 0.3, Absolute Eosinophils 0.1, Absolute Basophils 0 04/10/18 2005: Anion Gap 7, Estimated GFR 29 L, BUN/Creatinine Ratio 18.2, Troponin I < 0.01 04/10/18 1800: Sodium Cancelled, Potassium Cancelled, Chloride Cancelled, Carbon Dioxide Cancelled, Anion Gap Cancelled, BUN Cancelled, Creatinine Cancelled, BUN/ Creatinine Ratio Cancelled 04/10/18 1402: Anion Gap 9, Estimated GFR 23 L, BUN/Creatinine Ratio 15.2, Glucose 123 H, Calcium 9.7, Magnesium 1.8, Total Bilirubin 0.5, AST 38 H, ALT 42, Alkaline Phosphatase 80, Troponin I < 0.01, Total Protein 7.0, Albumin 4.0, Globulin 3.0, Albumin/Globulin Ratio 1.3, PT 94.9 *H, INR 8.52 *H, APTT 58 H, CBC w Diff NO MAN DIFF REQ, RBC 3.80 L, MCV 85.6, MCH 28.9, MCHC 33.8, RDW 15.0 H, MPV 9.4, Gran % 69.4, Lymphocytes % 23.8, Monocytes % 5.1, Eosinophils % 1.1, Basophils % 0.6, Absolute Granulocytes 4.9, Absolute Lymphocytes 1.7, Absolute Monocytes 0.4 , Absolute Eosinophils 0.1, Absolute Basophils 0 04/10/18 1400: Urine Color YEL, Urine Clarity CLEAR, Urine pH 6.0, Ur Specific [place] 1.025, Urine Protein 100 H, Urine Ketones NEG, Urine Nitrite NEG, Urine Bilirubin NEG, Urine Urobilinogen 0.2, Ur Leukocyte Esterase NEG, Ur Microscopic SEDIMENT EXAMINED, Urine RBC 3-5, Ur Epithelial Cells OCCAS, Urine Hemoglobin SMALL H, Urine Glucose NEG 04/10/18 1400: Urine Osmolality 430, Ur Random Creatinine 61.2, Ur Random Sodium 95 H, Ur Random Potassium 29.2, Fraction Sodium Excret 1.9 H Microbiology 04/12 438 URINE ROUT: Urine Culture - RES 04/11 130 STOOL: Clostridium difficile Toxin A & B - COMP Microbiology 04/12 438 URINE ROUT: Urine Culture - RES 04/11 130 STOOL: Clostridium difficile Toxin A & B - COMP Vital Signs Date Time Temp Pulse Resp B/P B/P Pulse O2 O2 Flow FiO2 Mean Ox Delivery Rate 04/13 0839 138/60 04/13 0644 97.8 82 20 150/40 98 Room Air 04/12 2201 97.9 84 18 150/84 97 04/12 1820 78 140/68 04/12 1433 98.2 97 20 120/70 99
--- NOTE | 2018-04-13 11:58 | PN- Cardiology ---
Subjective Subjective: The patient reports that she is feeling better. No chest pain. No shortness of breath. No diaphoresis. No palpitations. No lightheadedness or dizziness. No nausea or vomiting. Objective Vital Signs and I&Os Vital Signs Date Time Temp Pulse Resp B/P B/P Pulse O2 O2 Flow FiO2 Mean Ox Delivery Rate 04/13 0839 138/60 04/13 0644 97.8 82 20 150/40 98 Room Air 04/12 2201 97.9 84 18 150/84 97 04/12 1820 78 140/68 04/12 1433 98.2 97 20 120/70 99 Intake & Output 04/13 1600 04/13 0800 04/13 0000 04/12 1600 04/12 0800 04/12 0000 Intake Total 220 250 600 745 100 Output Total 775 475 Balance 220 250 600 -30 -375 Intake, IV 20 Intake, Oral 220 250 600 725 100 Output, Urine 775 475 Patient 142 lb 144 lb Weight Physical Exam: Gen: NAD HEENT: normal Lungs: clear to auscultation, normal resp. effort Heart: Mechanical valve sound, S1, S2, 1 out of 6 systolic murmur Abdomen: Soft, nontender, no masses Extremities: No clubbing, cyanosis, or edema. Neuro: Alert and oriented x 3, cranial nerves intact Current Medications: Current Medications Sig/Eliane Start time Last Medication Dose Route Stop Time Status Admin Amlodipine Besylate 5 MG DAILY 04/12 1705 AC 04/13 PO 0839 Insulin Aspart 0 TIDAC 04/10 1700 AC SC Warfarin Sodium 1.5 MG 04/13 1700 DC PO 04/13 2359 Warfarin Sodium 2.5 [place] 17004/13 1700 AC PO Warfarin Sodium 2 MG COUMADIN 1700 ONE 04/12 1700 CAN PO 04/12 1701 Warfarin Sodium 1.5 MG ONCE ONE 04/12 1615 DC 04/12 PO 04/12 1616 1819 Results Last 48 Hrs of Labs/Mics: Laboratory Tests 04/13/18 06: Anion Gap 8, Estimated GFR 48 L, BUN/Creatinine Ratio 31.8 H, PT 19.9 H, INR 1.81 H, CBC w Diff NO MAN DIFF REQ, RBC 3.23 L, MCV 85.2, MCH 28.6, MCHC 33.6, RDW 15.0 H, MPV 9.6, Gran % 67.2, Lymphocytes % 24.8, Monocytes % 5.6, Eosinophils % 1.8, Basophils % 0.6, Absolute Granulocytes 3.8, Absolute Lymphocytes 1.4, Absolute Monocytes 0.3, Absolute Eosinophils 0.1, Absolute Basophils 0 04/12/18 0705: Anion Gap 8, Estimated GFR 44 L, BUN/Creatinine Ratio 27.5 H, PT 31.7 H, INR 2.88 H, CBC w Diff NO MAN DIFF REQ, RBC 3.34 L, MCV 84.7, MCH 28.7, MCHC 33.8, RDW 14.6 H, MPV 9.7, Gran % 71.3, Lymphocytes % 22.0, Monocytes % 4.9, Eosinophils % 1.1, Basophils % 0.7, Absolute Granulocytes 3.7, Absolute Lymphocytes 1.2, Absolute Monocytes 0.3, Absolute Eosinophils 0.1, Absolute Basophils 0 04/12/18 0020: Anion Gap 5, Estimated GFR 40 L, BUN/Creatinine Ratio 26.9 H 04/11/18 1555: Anion Gap 6, Estimated GFR 44 L, BUN/Creatinine Ratio 20.8 Assessment/Plan Assessment/Plan Assessment: 1. Hyperkalemia, improving 2. Acute on chronic renal insufficiency, improving 3. Stable normocytic anemia 4. Recent PPM placement. History of severo/tachy syndrome; history of PAF 5. History of [facility] AVR 6. Supratherapeutic INR secondary to antibiotic use. INR is now some therapy 7. HTN 8. HLD 9. DM Recommendations: * Now that the patient is off antibiotics, would resume the usual warfarin dose, which is 2.5 mg 6 days a week and 1.25 mg on the seventh day. * INR should be checked 2 days after discharge * The patient's warfarin dose prior to admission was 2.5 mg 6 days a week and 1.25 mg once a week. Would give 1.25 mg alternating with 2.5 mg daily, with an INR check in 2 days. * Increase amlodipine to 10 mg daily * Would keep off hydrochlorthiazide and lisinopril for now given recent acute kidney injury Continue telemetry? No
[2018-04-13] MEDS ORDERED: AMLODIPINE BESYL5 M1 PO ×2 (13:16→13:31)
[2018-04-13] MEDS ORDERED: COUMADIN2.5 M1 PO (13:19)
== END 2018-04-13 14:10 | disposition home health service (06) | DRG 641 ==
LOC: ERH 12:59 → 1NO 15:28 → ERHI 15:28 → 1NO 15:28 → ENRESERV 15:51 → ENTRNSPT 17:29 → EDTRNSPTSTS 17:31 → 1NO 17:50 → CMPTRNSPT 17:55 → 1NO 04-13 11:16 → ENPENDDIS 04-13 13:35 → 1NO 04-13 14:10
PROVIDERS: Physician Assistant Medical; Student in an Organized Health Care Education/Training Program
DX: E87.5 Hyperkalemia (principal); N17.9 Acute kidney failure, unspecified; R89.2 Abnormal level of other drugs, medicaments and biological substances in specimens from other organs, systems and tissues; Z79.01 Long term (current) use of anticoagulants; Z95.2 Presence of prosthetic heart valve; I48.0 Paroxysmal atrial fibrillation; E11.9 Type 2 diabetes mellitus without complications; Z79.84 Long term (current) use of oral hypoglycemic drugs; R19.7 Diarrhea, unspecified; G44.51 Hemicrania continua; D64.9 Anemia, unspecified; E11.22 Type 2 diabetes mellitus with diabetic chronic kidney disease; N18.9 Chronic kidney disease, unspecified; Z88.1 Allergy status to other antibiotic agents; Z88.5 Allergy status to narcotic agent; Z98.51 Tubal ligation status; Z96.652 Presence of left artificial knee joint; H91.90 Unspecified hearing loss, unspecified ear; R79.1 Abnormal coagulation profile; E78.5 Hyperlipidemia, unspecified; I12.9 Hypertensive chronic kidney disease with stage 1 through stage 4 chronic kidney disease, or unspecified chronic kidney disease; Z95.0 Presence of cardiac pacemaker
CPT/HCPCS: 1NSP; 84133; 84300; 36592; 76775; 81001; 82436; 82570; 87086; 93005; 93010; 97116-GO; 97162-GP; 97530-GO; J0131; J0610; J1815; J7042

== ENCOUNTER 2018-05-12 20:19 | Inpatient (IN) | payer OTHER ==
[~2018-05-12] VITALS: Ht 149.9 cm; Wt 70.9 kg
[~2018-05-12 20:19] MED LIST changes: +METOPROLOL SUCC50 M2 PO
--- NOTE | 2018-05-12 21:24 | ED CARDIAC/CP/PALPITATIONS ---
History of Present Illness General Chief Complaint: Chest Pain Stated Complaint: CHEST PAIN AND SOB X TODAY Source: patient, family, old records Exam Limitations: no limitations Vital Signs & Intake/Output Vital Signs & Intake/Output Vital Signs Date Time Temp Pulse Resp B/P B/P Pulse O2 O2 Flow FiO2 Mean Ox Delivery Rate 05/12 2203 98.6 82 18 145/72 94 Room Air Room Air 05/12 2031 98.9 85 18 159/67 95 Room Air Allergies Coded Allergies: ciprofloxacin (Severe, ANAPHYLAXIS 12/19/15) aspirin (UNABLE TO TAKE D/T BLOOD THINNERS PER PT 05/12/18) morphine (N/V 02/13/17) tramadol (N/V 04/28/17) Reconcile Medications Amlodipine Besylate 5 MG TABLET 2 TAB PO DAILY HIGH BLOOD PRESSURE . Calcium Carbonate/Vitamin D3 (Calcium 500 + D Tablet) 500 MG-400 TABLET 1 TAB PO DAILY SUPPLEMENT (Reported) Ferrous Sulfate 325 MG (65 MG IRON) TABLET 1 TAB PO DAILY SUPPLEMENT ( Reported) Metformin HCl (Metformin HCl ER) 500 MG TAB.ER.24H 1 TAB PO BID DM (Reported) Metoprolol Succinate 50 MG TAB.ER.24H 1 TAB PO DAILY HEART (Reported) Paroxetine HCl (Paxil) 10 MG TABLET 1 TAB PO DAILY MENTAL HEALTH (Reported) Warfarin Sodium (Coumadin) 2.5 MG TABLET 1 TAB PO 1700 BLOOD THINNER Core Measure Meds Pre-Hospital coumadin Triage Note: PT FROM HOME C/O CP, SOB, LETHARGY THAT BEGAN TODAY. PTS DAUGHTER STATES PT HAS BEEN "OFF" AND DIFFERENT SINCE LAST HOSPITALIZATION ON APRIL 10. PTS DAUGHTER STATES PT OFTEN GETS TRANFUSED. PT DENIES CP RADIATING, PT STATES LEFT JAW PAIN. DENIES ARM NUMBNESS.TINGLING. 95% ON RA. Triage Nurses Notes Reviewed? yes Onset: several days Duration: day(s):, constant, continues in ED Timing: recent history Quality/Severity: moderate, severe, pressure Location: substernal Radiation: no radiation Activities at Onset: rest Prior Chest Pain/Card Workup: echocardiography, stress test Modifying Factors: Improves With: rest. Worsens With: exercise, movement. Nitro Today/Relief: 0.4 mg x 1, provided by ED Aspirin Today: no aspirin today Associated Symptoms: dizziness, shortness of breath, weakness LMP (ages 10-50): post menopausal : No Patient currently breastfeeds: No HPI: Several days prior to admission patient complains of constant substernal chest heaviness associated with dyspnea on exertion shortness of breath dizziness and weakness. She denies fever chills nausea vomiting diarrhea headache dysuria rash bleeding. Past History Travel History Traveled to [place] past 21 day No Medical History Any Pertinent Medical History? 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 FATHER, , Age 59; Cause: Myocardial infarction. SISTER, , Age 40-50. Hx Contributory? No Review of Systems Review of Systems Constitutional: Reports: see HPI, weakness. EENTM: Reports: no symptoms. Respiratory: Reports: see HPI, orthopnea, short of breath. Cardiovascular: Reports: see HPI, chest pain, edema, peripheral edema. GI: Reports: no symptoms. Genitourinary: Reports: no symptoms. Musculoskeletal: Reports: no symptoms. Skin: Reports: no symptoms. Neurological/Psychological: Reports: no symptoms. Hematologic/Endocrine: Reports: no symptoms. Immunologic/Allergic: Reports: no symptoms. All Other Systems: Reviewed and Negative Physical Exam Physical Exam General Appearance: well developed/nourished, alert, awake, moderate distress, severe distress, obese Head: atraumatic, normal appearance Eyes: Bilateral: normal appearance, PERRL, EOMI. Ears, Nose, Throat: normal pharynx, normal ENT inspection Neck: normal inspection, supple, full range of motion, JVD, no midline tenderness Respiratory: chest non-tender, no respiratory distress, decreased breath sounds, rales Cardiovascular: regular rate/rhythm, murmur (mechanical), normal peripheral pulses, norml femoral pulses equa Peripheral Pulses: 4+ carotid (R), 4+ carotid (L) Gastrointestinal: normal bowel sounds, soft, non-tender, no organomegaly Rectal: normal exam, normal rectal tone, heme negative stool Back: normal inspection, normal range of motion, no vertebral tenderness Extremities: normal capillary refill, normal range of motion, pedal edema Neurologic/Psych: no motor/sensory deficits, awake, alert, oriented x 3, normal mood/affect, sheet layer II-XII nml as tested Reflexes: 2+: bicep (R), bicep (L). Skin: intact, normal color, warm/dry Lymphatic: no anterior cervical megha Core Measures ACS in differential dx? Yes No ASA d/t Pharmacological CI CVA/TIA Diagnosis No Sepsis Present: No Sepsis Focused Exam Completed? No Progress Differential Diagnosis: atrial fibrillation, CHF/pulm edema, hyperkalemia, hypovolemia, pneumonia Plan of Care: Orders Procedure Date/time Status URINALYSIS 05/12 2120 Complete Add-on Test (ER Only) 05/12 2116 Active PARTIAL THROMBOPLASTIN TIME 05/12 2111 Complete PROTHROMBIN TIME 05/12 2111 Complete MAGNESIUM 05/12 2111 Complete B-TYPE NATRIURETIC PEP (BNP) 05/12 2111 Complete TYPE & SCREEN (NOT X-MATCH) 05/12 2111 Complete TROPONIN LEVEL 05/12 2030 Complete COMPREHENSIVE METABOLIC PANEL 05/12 2030 Complete CBC WITHOUT DIFFERENTIAL 05/12 2030 Complete EKG 05/12 2019 Active Laboratory Tests 05/12/182124: Urine Color YEL, Urine Clarity CLEAR, Urine pH 6.0, Ur Specific [place] 1.020, Urine Protein 100 H, Urine Ketones NEG, Urine Nitrite NEG, Urine Bilirubin NEG, Urine Urobilinogen 0.2, Ur Leukocyte Esterase NEG, Ur Microscopic SEDIMENT EXAMINED, Urine RBC RARE, Urine WBC 1-3 H, Ur Epithelial Cells RARE, Urine Bacteria RARE H, Urine Hemoglobin SMALL H, Urine Glucose NEG 05/12/182110: Anion Gap 9, Estimated GFR 48 L, BUN/Creatinine Ratio 21.8, Glucose 149 H, Calcium 9.6, Magnesium 1.6, Total Bilirubin 0.8, AST 34, ALT 29, Alkaline Phosphatase 78, Troponin I < 0.01, Goh-C-Srsxggfvnhr Pept 2620 H, Total Protein 6.5, Albumin 3.8, Globulin 2.7, Albumin/Globulin Ratio 1.4, PT 34.1 H, INR 3.09 H, APTT 37, CBC w Diff NO MAN DIFF REQ, RBC 2.86 L, MCV 86.3, MCH 28.9, MCHC 33.5, RDW 17.6 H, MPV 8.6, Gran % 74.6, Lymphocytes % 17.9 L, Monocytes % 6.3, Eosinophils % 0.6, Basophils % 0.6, Absolute Granulocytes 6.2, Absolute Lymphocytes 1.5, Absolute Monocytes 0.5, Absolute Eosinophils 0.1, Absolute Basophils 0.1 Diagnostic Imaging: Viewed by Me: Radiology Read. Discussed w/RAD: Radiology Read. CXR Impression: Cardiomegaly, small bilateral pleural effusions and interstitial prominence suggestive of mild or early CHF exacerbation. No overt pulmonary edema. Initial ED EKG: normal axis, normal intervals, normal p-waves, normal QRS complex, normal sinus rhythm, nonspecific ST T wave chg Prior EKG: unchanged Rhythm Strip: normal sinus rhythm Departure Departure Disposition: STILL A PATIENT Condition: Fair Clinical Impression Primary Impression: Chest pain due to myocardial ischemia Secondary Impressions: Congestive heart failure, Symptomatic anemia Referrals: Andrew Quintanilla MD (PCP/Family) Departure Forms: Customer Survey General Discharge Information Admission Note Spoke With: Andrew Quintanilla MD Documentation of Exam: Documentation of any treatments & extenuating circumstances including Concerns Regarding Discharge (functional status, medication knowledge or non-compliance, living conditions, etc.) that warrant an admission rather than observation: Supplemental oxygen IV diuresis medication adjustment serial lab exam cardiac monitoring cardiology evaluation physical therapy continuing care discharge planning Critical Care Note Critical Care Note Critical Care Time: 30-74 min (35)
[2018-05-12 21:35] LABS: ABSOLUTE BASOPHIL COUNT 0.1 /CUMM (0.0-0.2); ABSOLUTE EOSINOPHIL COUNT 0.1 /CUMM (0.0-0.7); ABSOLUTE GRANULOCYTE CT 6.2 /CUMM (1.4-6.5); ABSOLUTE LYMPH COUNT 1.5 /CUMM (1.2-3.4); ABSOLUTE MONOCYTE COUNT 0.5 /CUMM (0.10-0.60); BASOPHIL % 0.6 % (0.0-2.0); EOSINOPHIL % 0.6 % (0-5); GRANULOCYTE % 74.6 % (42.2-75.2); HEMATOCRIT 24.7 % (37-47); MEAN CORPUSCULAR HGB 28.9 PG (27.0-31.0); MEAN CORPUSCULAR HGB CONC 33.5 G/DL (33.0-37.0); MEAN CORPUSCULAR VOLUME 86.3 FL (81.0-99.0); MEAN PLATELET VOLUME 8.6 FL (7.4-10.4); PLATELET COUNT 336 /CUMM (130-400); RBC DISTRIBUTION WIDTH 17.6 % (11.5-14.5); RED BLOOD CELL CT 2.86 /CUMM (4.20-5.40); WHITE BLOOD CELL COUNT 8.3 /CUMM (4.8-10.8)
--- NOTE | 2018-05-12 21:45 | RADIOLOGY REPORT ---
EXAMINATION: XR CHEST PORTABLE CLINICAL INFORMATION: Chest pain, shortness of breath, dyspnea on exertion. COMPARISON: 11/23/2017 TECHNIQUE: Portable frontal view of the chest was obtained. FINDINGS: The lungs are hypoinflated. Mild prominence of the interstitial lung markings. Small bilateral pleural effusions. No pneumothorax. Heart size is mildly enlarged but unchanged. Atherosclerosis thoracic aorta. Left chest pacer with leads projecting over the right atrium and ventricle, newly placed since the prior study. Median sternotomy wires are again seen and appear intact. Degenerative changes of the acromioclavicular joints. Stable cystic change in the greater tuberosity of the left humeral head, likely degenerative. IMPRESSION: Cardiomegaly, small bilateral pleural effusions and interstitial prominence suggestive of mild or early CHF exacerbation. No overt pulmonary edema.
[2018-05-12 22:12] LABS: PT 34.1 SEC (9.4-12.5); PTT 37 SEC (25-37)
--- NOTE | 2018-05-13 00:43 | History & Physical ---
See Addendum General Information and HPI History of Present Illness: 73-year-old woman with past medical history of mechanical aortic valve on Coumadin, atrial fibrillation status post permanent pacemaker, hypertension, hyperlipidemia, [id number] diabetes mellitus, and chronic anemia seen for evaluation of chest pain and shortness breath. Patient reports over the past several days she has had progressively worsening shortness of breath. Initially it was present with many minutes of exertion but now is present with minimal exertion. Today she developed mild/moderate substernal chest pain radiating to her left arm and jaw associated with a mild headache and intermittent palpitations for which she came to the [facility] ED for evaluation. Review of systems Otherwise she denies any fever, chills, vision changes, lightheadedness, dizziness, heartburn, current shortness of breath at rest, cough, nausea, vomiting, diarrhea, abdominal pain, constipation, numbness, tingling, or weakness. Objective Vital signs-temp 98.6-98.9, HR 82-85, RR 18, BP 145-159/67-72, O2 94-95% on room air Physical exam -General: Well-developed, well-nourished elderly woman in no acute distress -HEENT: NCAT, [place], EOMI, anicteric sclera, moist mucous membranes -Neck: Supple, no JVP, trachea midline, no accessory respiratory muscle use -Cardio: Mechanical aortic valve, regular rate and rhythm -Pulmonary: Bibasilar crackles -Abdomen: Soft, nontender, nondistended, bowel sounds intact -Neuro: Awake and alert, oriented 3, cranial nerves II through XII grossly intact -Extremities: No edema, normal pulses Labs/imaging/studies -CBC: WBC 8.3, hemoglobin 8.3, hematocrit 24.7, platelet 336 -BMP: Sodium 137, K4.3, CL 103, CO2 24, BUN 24, creatinine 1.1, anion gap 9, glucose 149 -LFT: Within normal limits -Miscellaneous: BNP 2100, INR 3.09, troponin I <0.01 -Urinalysis: Unremarkable -Echocardiogram 12/12/15: LVEF 55-60% with paradoxical septal motion, mild/ moderate MR, mild/moderate TR, normal functioning mechanical prosthetic aortic valve with mild/moderate aortic regurgitation and gradient of 34 mmHg -EKG: Normal sinus rhythm with PACs -CXR: * Cardiomegaly, small bilateral pleural effusions and interstitial prominence suggestive of mild or early CHF exacerbation. No overt pulmonary edema. Assessment 73-year-old woman with multiple medical problems significant for mechanical aortic valve on Coumadin, hypertension, hyperlipidemia and atrial fibrillation seen for evaluation of shortness of breath and chest pain. Presently patient feels and has chest pain that is much improved after receiving sublingual nitroglycerin in the ED. Vital signs remain within normal limits. Physical examination demonstrates an elderly woman in no acute distress with mechanical heart valve sounds on cardiac exam bibasilar crackles, flat neck veins, and no lower extremity swelling. Significant labs include hemoglobin 8.3 , hematocrit 24.7, INR 3.09, and BNP 2100; serum chemistry, LFT, troponin I, and urinalysis are otherwise unremarkable. CXR demonstrates cardiomegaly with small bilateral pleural effusions and interstitial prominence. EKG demonstrates normal sinus rhythm with a premature atrial contraction peer. Clinically patient has symptoms concerning for chest pain secondary to developing acute coronary syndrome however on exam she has findings suggestive of hypervolemia which may be contributing to her chest pain that improved after sublingual nitroglycerin and intravenous diuresis. Patient is to be admitted to the telemetry floor for telemetry monitoring, echocardiogram, serial troponin/ EKG, intravenous diuresis, and cardiology consultation. Problem list -chest pain without EKG changes or elevated troponin, rule out ACS -Shortness of breath with pulmonary crackles and elevated BNP, possible CHF -Small bilateral pleural effusion -mechanical aortic valve, on Coumadin -Atrial fibrillation status post PPM -Hypertension -Hyperlipidemia -Chronic anemia Plan -Admit to telemetry floor -Telemetry monitoring -Accu-Cheks 3 times daily before meals/at bedtime -Lasix 40 mg IV daily -Continue home meds: Amlodipine, calcium/vitamin D, iron, metoprolol, Paxil -Consult cardiology for chest pain -Trend troponin/EKG until peak or 3 negative sets -Transthoracic echocardiogram to assess for regional wall motion abnormalities -Daily INR, dose Coumadin -Type and cross -Pain control with acetaminophen -Regular diet -DVT prophylaxis with Coumadin -Full code Allergies/Medications Allergies: Coded Allergies: ciprofloxacin (Severe, ANAPHYLAXIS 12/19/15) aspirin (UNABLE TO TAKE D/T BLOOD THINNERS PER PT 05/12/18) morphine (N/V 02/13/17) tramadol (N/V 04/28/17) Home Med list Amlodipine Besylate 10 MG TABLET 1 TAB PO DAILY HTN (Reported) Calcium Carbonate/Vitamin D3 (Calcium 500 + D Tablet) 500 MG-400 TABLET 1 TAB PO DAILY SUPPLEMENT (Reported) Ferrous Sulfate 325 MG (65 MG IRON) TABLET 1 TAB PO DAILY SUPPLEMENT ( Reported) Metformin HCl (Metformin HCl ER) 500 MG TAB.ER.24H 1 TAB PO BID DM (Reported) Metoprolol Succinate 50 MG TAB.ER.24H 1 TAB PO DAILY HEART (Reported) Paroxetine HCl (Paxil) 10 MG TABLET 1 TAB PO DAILY MENTAL HEALTH (Reported) Warfarin Sodium (Coumadin) 2.5 MG TABLET 1 TAB PO 1700 BLOOD THINNER Past History Travel History Traveled to [place] past 21 day No Medical History Neurological: dizziness, migraine, HEMICRANIAL CONTINUUM EENT: epistaxis Cardiovascular: AFIB, hypertension, myocardial infarction, MECHANICAL VALVE LCW PACEMAKER (12/12/17) Respiratory: NONE Gastrointestinal: constipation, diverticulitis, lower GI bleed, CAUTERY OF SMALL VESSEL BLEEDS Hepatic: NONE Renal: hematuria, urinary incontinence, "BLADDER LIFT" Musculoskeletal: degen joint disease, osteoarthritis Psychiatric: NONE Endocrine: DIABETES TYPE 2 Blood Disorders: anemia Cancer(s): 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 FATHER, , Age 59; Cause: Myocardial infarction. SISTER, , Age 40-50. Psychosocial History Who Do You Live With? self Services at Home: Home Health Aide, Nursing Primary Language: Divehi (also [place]ib[place]ian) Living Will? unknown Power of Healthcare Recruiter/HCP? unknown Functional Ability ADLs Independent: dressing, eating, toileting, bathing. Ambulation: independent IADLs Independent: shopping, housework, finances, food prep, telephone, transportation , medication admin. Review of Systems Review of Systems Constitutional: Reports: see HPI. Exam & Diagnostic Data Last 24 Hrs of Vital Signs/I&O Vital Signs Date Time Temp Pulse Resp B/P B/P Pulse O2 O2 Flow FiO2 Mean Ox Delivery Rate 05/13 0103 67 18 149/65 99 Room Air 05/12 2203 98.6 82 18 145/72 94 Room Air Room Air 05/12 2031 98.9 85 18 159/67 95 Room Air Intake & Output 05/13 0800 05/13 0000 05/12 1600 Intake Total Output Total 320 Balance -320 Output, Urine 320 Patient 61.235 kg Weight Weight Reported by Patient Measurement Method Assessment/Plan As Ranked By This Provider Problem List: 1. Chest pain, unspecified Core Measures/Misc (07/06) Acute Coronary Syndrome ACS Diagnosis: No Congestive Heart Failure Congestive Heart Failure Diagnosis Yes Last Known EF % 60 No STELLA/ARB d/t Pt Refused Treatment Comment Patient prev on Lisinopril Cerebrovascular Accident CVA/TIA Diagnosis: No VTE (View Protocol) VTE Risk Factors Age>40 No Mechanical VTE Prophylaxis d/t N/A MechProphylax Ordered No VTE Pharm Prophylaxis d/t NA PharmProphylax ordered Sepsis (View protocol) Sepsis Present: No If YES complete Sepsis Event Note If YES complete Sepsis Event Note
[2018-05-13] MEDS ORDERED: AMLODIPINE BESY10 M1 PO (00:48)
[2018-05-13 04:07] LABS: ABSOLUTE BASOPHIL COUNT 0 /CUMM (0.0-0.2); ABSOLUTE MONOCYTE COUNT 0.4 /CUMM (0.10-0.60); MEAN PLATELET VOLUME 8.3 FL (7.4-10.4); RBC DISTRIBUTION WIDTH 16.9 % (11.5-14.5); RED BLOOD CELL CT 2.44 /CUMM (4.20-5.40)
[2018-05-13 04:14] LABS: ABSOLUTE EOSINOPHIL COUNT 0 /CUMM (0.0-0.7); ABSOLUTE GRANULOCYTE CT 3.8 /CUMM (1.4-6.5); ABSOLUTE LYMPH COUNT 1.3 /CUMM (1.2-3.4); BASOPHIL % 0.4 % (0.0-2.0); EOSINOPHIL % 0.9 % (0-5); GRANULOCYTE % 68.7 % (42.2-75.2); HEMATOCRIT 21.2 % (37-47); MEAN CORPUSCULAR HGB 29.1 PG (27.0-31.0); MEAN CORPUSCULAR HGB CONC 33.6 G/DL (33.0-37.0); MEAN CORPUSCULAR VOLUME 86.8 FL (81.0-99.0); PLATELET COUNT 296 /CUMM (130-400); WHITE BLOOD CELL COUNT 5.5 /CUMM (4.8-10.8)
[2018-05-13 04:21] LABS: PT 37.5 SEC (9.4-12.5)
--- NOTE | 2018-05-13 07:19 | PN- Housestaff ---
Subjective Follow-up For: Chest pain Chronic anemia Complaints: no complaints Tele-Events Since Last Visit: Normal sinus rhythm Subjective: She was seen and examined this morning. She is alert awake and oriented to time place and person. She denied any chest pain, short of breath this morning. However she has acute on chronic anemia with hemoglobin 7.1 requiring a unit of blood transfusion this morning Review of Systems Constitutional: Reports: see HPI. Objective Last 24 Hrs of Vital Signs/I&O Vital Signs Date Time Temp Pulse Resp B/P B/P Pulse O2 O2 Flow FiO2 Mean Ox Delivery Rate 05/13 1133 98.7 67 18 168/62 96 05/13 0931 98.5 61 18 145/62 05/13 0931 98.5 61 18 145/62 05/13 0837 98 Nasal 2.0L Cannula 05/13 0733 98.5 61 18 145/62 96 Nasal 2.0L Cannula 05/13 0555 100 Nasal Cannula 05/13 0550 98.0 65 18 144/65 98 Nasal 2.0L Cannula 05/13 0341 97.9 62 18 145/62 99 Nasal 2.0L Cannula 05/13 0103 67 18 149/65 99 Room Air 05/12 2203 98.6 82 18 145/72 94 Room Air Room Air 05/12 2031 98.9 85 18 159/67 95 Room Air Intake & Output 05/13 1600 05/13 0800 05/13 0000 Intake Total Output Total 320 Balance -320 Output, Urine 320 Patient 61.235 kg 61.235 kg Weight Weight Reported by Patient Reported by Patient Measurement Method Physical Exam General Appearance: Alert, Oriented X3, Cooperative, No Acute Distress Other Physical Findings: HEENT: NCAT, [place], EOMI, anicteric sclera, moist mucous membranes -Neck: Supple, no JVP, trachea midline, no accessory respiratory muscle use -Cardio: Mechanical aortic valve, regular rate and rhythm -Pulmonary: Bibasilar crackles -Abdomen: Soft, nontender, nondistended, bowel sounds intact -Neuro: Awake and alert, oriented 3, cranial nerves II through XII grossly intact -Extremities: No edema, normal pulses Current Medications: Current Medications Sig/Eliane Start time Last Medication Dose Route Stop Time Status Admin Acetaminophen 650 MG Q6P PRN 05/13 0200 AC PO Acetaminophen 975 MG ONCE ONE 05/12 2230 DC 05/12 PO 05/12 Acetaminophen 0 .STK-MED ONE 05/12 2152 DC PO Amlodipine Besylate 10 MG DAILY 05/13 900 AC 05/13 PO 0931 Calcium/Vitamin D 500 MG DAILY 05/13 09 AC 05/13 PO 0931 Ferrous Sulfate 325 MG DAILY 05/13 900 AC 05/13 PO 0931 Furosemide 20 MG DAILY 05/13 1300 AC IV Furosemide 0 .STK-MED ONE 05/13 1242 DC IV Furosemide 20 MG ONCE ONE 05/12 2230 DC 05/12 IV 05/12 Furosemide 0 .STK-MED ONE 05/12 2223 DC IV Heparin Sodium 5,000 UNIT Q8 05/13 06 CAN (Porcine) SC Insulin Aspart 0 TIDAC 05/13 170 UNVr SC Metoprolol Succinate 50 MG DAILY 05/13 09 AC 05/13 PO 0931 Nitroglycerin 0.4 MG ONCE ONE 05/12 2130 DC 05/12 SL 05/12 2131 214 Pantoprazole Sodium 40 MG DAILY 05/13 124 UNVr IV Paroxetine HCl 10 MG DAILY 05/13 900 AC 05/13 PO 0931 Last 24 Hrs of Lab/Thad Results Last 24 Hrs of Labs/Mics: Laboratory Tests 05/13/18 0938: Troponin I < 0.01 05/13/18 0344: Anion Gap 11, Estimated GFR 48 L, BUN/Creatinine Ratio 20.9, Magnesium 1.6, Troponin I < 0.01, PT 37.5 H, INR 3.40 H, CBC w Diff NO MAN DIFF REQ, RBC 2.44 L, MCV 86.8, MCH 29.1, MCHC 33.6, RDW 16.9 H, MPV 8.3, Gran % 68.7, Lymphocytes % 23.1, Monocytes % 6.9, Eosinophils % 0.9, Basophils % 0.4, Absolute Granulocytes 3.8, Absolute Lymphocytes 1.3, Absolute Monocytes 0.4, Absolute Eosinophils 0, Absolute Basophils 0 05/12/182124: Urine Color YEL, Urine Clarity CLEAR, Urine pH 6.0, Ur Specific [place] 1.020, Urine Protein 100 H, Urine Ketones NEG, Urine Nitrite NEG, Urine Bilirubin NEG, Urine Urobilinogen 0.2, Ur Leukocyte Esterase NEG, Ur Microscopic SEDIMENT EXAMINED, Urine RBC RARE, Urine WBC 1-3 H, Ur Epithelial Cells RARE, Urine Bacteria RARE H, Urine Hemoglobin SMALL H, Urine Glucose NEG 05/12/182110: Anion Gap 9, Estimated GFR 48 L, BUN/Creatinine Ratio 21.8, Glucose 149 H, Calcium 9.6, Magnesium 1.6, Total Bilirubin 0.8, AST 34, ALT 29, Alkaline Phosphatase 78, Troponin I < 0.01, Gxc-R-Pkvrtqsmkpy Pept 2620 H, Total Protein 6.5, Albumin 3.8, Globulin 2.7, Albumin/Globulin Ratio 1.4, PT 34.1 H, INR 3.09 H, APTT 37, CBC w Diff NO MAN DIFF REQ, RBC 2.86 L, MCV 86.3, MCH 28.9, MCHC 33.5, RDW 17.6 H, MPV 8.6, Gran % 74.6, Lymphocytes % 17.9 L, Monocytes % 6.3, Eosinophils % 0.6, Basophils % 0.6, Absolute Granulocytes 6.2, Absolute Lymphocytes 1.5, Absolute Monocytes 0.5, Absolute Eosinophils 0.1, Absolute Basophils 0.1 Assessment/Plan Assessment: 73-year-old woman with past medical history of mechanical aortic valve on Coumadin, atrial fibrillation status post permanent pacemaker, hypertension, hyperlipidemia, [id number] diabetes mellitus, and chronic anemia seen for evaluation of chest pain and shortness breath. Patient reports over the past several days she has had progressively worsening shortness of breath. Initially it was present with many minutes of exertion but now is present with minimal exertion. Today she developed mild/moderate substernal chest pain radiating to her left arm and jaw associated with a mild headache and intermittent palpitations for which she came to the [place] ED for evaluation. ------ Objective Vital signs-temp 98.6-98.9, HR 82-85, RR 18, BP 145-159/67-72, O2 94-95% on room air Labs/imaging/studies -CBC: WBC 8.3, hemoglobin 8.3, hematocrit 24.7, platelet 336 -BMP: Sodium 137, K4.3, CL 103, CO2 24, BUN 24, creatinine 1.1, anion gap 9, glucose 149 -LFT: Within normal limits -Miscellaneous: BNP 2100, INR 3.09, troponin I <0.01 -Urinalysis: Unremarkable -Echocardiogram 12/12/15: LVEF 55-60% with paradoxical septal motion, mild/ moderate MR, mild/moderate TR, normal functioning mechanical prosthetic aortic valve with mild/moderate aortic regurgitation and gradient of 34 mmHg -EKG: Normal sinus rhythm with PACs -CXR: * Cardiomegaly, small bilateral pleural effusions and interstitial prominence suggestive of mild or early CHF exacerbation. No overt pulmonary edema. Acute CHF exacerbation Patient presented with worsening shortness of breath with minimal exertion. She was found to have elevated proBNP with chest x-ray findings suggestive cardiomegaly with small bilateral pleural effusions and interstitial prominence suggestive of mild and early CHF exacerbation. No overt pulmonary edema. She has no prior history of heart failure. Last echo in 2016 showed ejection fraction 60%. When his clinical symptoms and x-ray findings we will treat her for acute CHF exacerbation * Telemetry monitoring * Serial troponin and EKGs negative * Cardiology consult * Lasix IV 20 daily pending cardiology recommendations * Daily ins outs * Daily weights * Echocardiogram Chest pain Patient presented to the hospital for evaluation of shortness of breath and chest pain. She reports that chest pain improved after receiving sublingual nitroglycerin in the emergency room. Also anemia might be contributing to her chest tightness. 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 Rutledge as an outpatient. She underwent aggressive workup in the past including bone marrow aspirate and biopsy was nondiagnostic. She also has chronic history of heme positive stools despite normal MCV. She had multiple admissions in the past for anemia requiring blood transfusions. Her last admission to [place] was November 2017 with hemoglobin 5, INR 5.38, received blood transfusions, reversed with fresh frozen plasma. 20 EGD which was normal. She was transferred to [place] requiring balloon enteroscopy. * Denies any black stools. Hemoccult negative. * No hematemesis, hematochezia, melena * Hemoglobin 7.1, hematocrit 21, MCV 86 at this admission status post 1 unit transfusion * Follow CBCs every 12 hours and transfuse as needed to keep hemoglobin greater than 8 or as per cardiology recommendations. * Would avoid NSAIDs * Continue IV Protonix daily * Continue iron sulfate 325 daily Hypertension continue home dose of amlodipine and metoprolol 50 daily Diabetes continue Accu-Cheks and insulin sliding scale Mechanical aortic valve takes Coumadin 2.5 daily. Supratherapeutic INR 3.40 will hold Coumadin today A. fib status post pacemaker placement Mental health continue paroxetine daily DVT prophylaxis Coumadin Full code Regular diet Pain pathway ordered Problem List: 1. Congestive heart failure 2. Coagulopathy Pain Ratin Pain Location: N/A Pain Goal: Remain pain free Pain Plan: TYLENOL Tomorrow's Labs & Rationales: CBC BEP INR
--- NOTE | 2018-05-13 10:02 | Admission Certification ---
Admission Certification Certification Statement - As attending physician, I certify that at the time of - admission, based on clinical presentation, severity of - symptoms, need for further diagnostic testing and - therapeutic interventions, and risk of adverse outcomes - without in-hospital treatment, in my clinical assessment, - this patient requires an acute hospital stay for a minimum - of two nights or longer. I have also considered psychsocial - factors such as support system, advanced age, financial - issues, cognitive issues, and failed out-patient treatments, - past re-admission history, safety of patient, and lack of - compliance as applicable. Specific rationale supporting this admission is: Shortness of breath, substernal chest pain, anemia, possible congestive heart failure with elevated BNP.
--- NOTE | 2018-05-13 10:06 | PN- Att Addend ---
Attending Addendum Attending Brief Note 73-year-old female with many comorbidities with valvular heart disease, on Coumadin, anemia followed by cardiology and hematology. Comes in with a couple of days of progressive increase of shortness of breath and the day of admission she could hardly walk and being short of breath. In the emergency room was evaluated had an EKG which showed no acute changes chest x-ray showed congestion. Had an elevated BN P. Her hemoglobin and hematocrit are about the same. Her first troponins were negative. She still admitted to rule out acute coronary syndrome and congestive heart failure will have cardiology reevaluate the patient after diuresis with IV Lasix the patient feels improved. Intake & Output 05/13 1600 05/13 0805/13 0000 05/12 1600 05/12 0000 Intake Total Output Total 320 Balance -320 Output, Urine 320 Patient 135 lb 135 lb Weight Weight Reported by Patient Reported by Patient Measurement Method Current Medications Sig/Eliane Start time Last Medication Dose Route Stop Time Status Admin Acetaminophen 650 MG Q6P PRN 05/13 0200 AC PO Acetaminophen 975 MG ONCE ONE 05/12 2230 DC 05/12 PO 05/12 Acetaminophen 0 .STK-MED ONE 05/12 2152 DC PO Amlodipine Besylate 10 MG DAILY 05/13 900 AC 05/13 PO 0931 Calcium/Vitamin D 500 MG DAILY 05/13 900 AC 05/13 PO 0931 Ferrous Sulfate 325 MG DAILY 05/13 900 AC 05/13 PO 0931 Furosemide 20 MG ONCE ONE 05/12 2230 DC 05/12 IV 05/12 Furosemide 0 .STK-MED ONE 05/12 2223 DC IV Heparin Sodium 5,000 UNIT Q8 05/13 06 CAN (Porcine) SC Metoprolol Succinate 50 MG DAILY 05/13 900 AC 05/13 PO 0931 Nitroglycerin 0.4 MG ONCE ONE 05/12 2130 DC 05/12 SL 05/12 2131 214 Paroxetine HCl 10 MG DAILY 05/13 900 AC 05/13 PO 0931 Laboratory Tests 05/13/18 0938: Troponin I Pending 05/13/18 0344: Anion Gap 11, Estimated GFR 48 L, BUN/Creatinine Ratio 20.9, Magnesium 1.6, Troponin I < 0.01, PT 37.5 H, INR 3.40 H, CBC w Diff NO MAN DIFF REQ, RBC 2.44 L, MCV 86.8, MCH 29.1, MCHC 33.6, RDW 16.9 H, MPV 8.3, Gran % 68.7, Lymphocytes % 23.1, Monocytes % 6.9, Eosinophils % 0.9, Basophils % 0.4, Absolute Granulocytes 3.8, Absolute Lymphocytes 1.3, Absolute Monocytes 0.4, Absolute Eosinophils 0, Absolute Basophils 0 05/12/182124: Urine Color YEL, Urine Clarity CLEAR, Urine pH 6.0, Ur Specific [place] 1.020, Urine Protein 100 H, Urine Ketones NEG, Urine Nitrite NEG, Urine Bilirubin NEG, Urine Urobilinogen 0.2, Ur Leukocyte Esterase NEG, Ur Microscopic SEDIMENT EXAMINED, Urine RBC RARE, Urine WBC 1-3 H, Ur Epithelial Cells RARE, Urine Bacteria RARE H, Urine Hemoglobin SMALL H, Urine Glucose NEG 05/12/182110: Anion Gap 9, Estimated GFR 48 L, BUN/Creatinine Ratio 21.8, Glucose 149 H, Calcium 9.6, Magnesium 1.6, Total Bilirubin 0.8, AST 34, ALT 29, Alkaline Phosphatase 78, Troponin I < 0.01, Xit-V-Urprmpgjqml Pept 2620 H, Total Protein 6.5, Albumin 3.8, Globulin 2.7, Albumin/Globulin Ratio 1.4, PT 34.1 H, INR 3.09 H, APTT 37, CBC w Diff NO MAN DIFF REQ, RBC 2.86 L, MCV 86.3, MCH 28.9, MCHC 33.5, RDW 17.6 H, MPV 8.6, Gran % 74.6, Lymphocytes % 17.9 L, Monocytes % 6.3, Eosinophils % 0.6, Basophils % 0.6, Absolute Granulocytes 6.2, Absolute Lymphocytes 1.5, Absolute Monocytes 0.5, Absolute Eosinophils 0.1, Absolute Basophils 0.1 Vital Signs Date Time Temp Pulse Resp B/P B/P Pulse O2 O2 Flow FiO2 Mean Ox Delivery Rate 05/13 0931 98.5 61 18 14505/13 0931 98.5 61 18 05/13 0837 98 Nasal 2.0L Cannula 05/13 0733 98.5 61 18 96 Nasal 2.0L Cannula 05/13 0555 100 Nasal Cannula 05/13 0550 98.0 65 18 144/65 98 Nasal 2.0L Cannula 05/13 0341 97.9 62 18 145/62 99 Nasal 2.0L Cannula 05/13 0103 67 18 149/65 99 Room Air 05/12 2203 98.6 82 18 145/72 94 Room Air Room Air 05/12 2031 98.9 85 18 159/67 95 Room Air Second H&H has dropped. The first 2 were negative for occult blood. Patient is typed and screened if necessary we will get a transfusion.
[2018-05-13 15:42] LABS: ABSOLUTE BASOPHIL COUNT 0 /CUMM (0.0-0.2); ABSOLUTE EOSINOPHIL COUNT 0.1 /CUMM (0.0-0.7); ABSOLUTE GRANULOCYTE CT 5.3 /CUMM (1.4-6.5); ABSOLUTE LYMPH COUNT 1.2 /CUMM (1.2-3.4); ABSOLUTE MONOCYTE COUNT 0.4 /CUMM (0.10-0.60); BASOPHIL % 0.6 % (0.0-2.0); EOSINOPHIL % 0.8 % (0-5); GRANULOCYTE % 75.9 % (42.2-75.2); MEAN CORPUSCULAR HGB 29.6 PG (27.0-31.0); MEAN CORPUSCULAR VOLUME 87.2 FL (81.0-99.0); MEAN PLATELET VOLUME 8.4 FL (7.4-10.4); PLATELET COUNT 309 /CUMM (130-400); RBC DISTRIBUTION WIDTH 15.7 % (11.5-14.5)
[2018-05-13 15:55] LABS: HEMATOCRIT 29.3 % (37-47); RED BLOOD CELL CT 3.36 /CUMM (4.20-5.40)
[2018-05-13 17:45] VITALS: BP 170/60
--- NOTE | 2018-05-13 22:18 | Cons- Cardiology ---
General Information and HPI Consulting Request Date of Consult: 05/13/18 Requested By: Andrew Quintanilla MD Reason for Consult: Heart failure History of Present Illness: The patient is a 73-year-old female with history of atrial fibrillation, permanent pacemaker, mechanical aortic valve on warfarin, hypertension, diabetes mellitus, and chronic diastolic heart failure who is followed in the office by Dr. Argueta. She presents with complaint of worsening shortness of breath over the past few weeks. Initially the shortness of breath was occurring after extended exertion, however recently she has been developing shortness of breath with only minimal exertion. Today she developed a substernal chest discomfort radiating to her left arm and her jaw. This is associated with a headache and mild palpitations Allergies/Medications Allergies: Coded Allergies: ciprofloxacin (Severe, ANAPHYLAXIS 12/19/15) aspirin (UNABLE TO TAKE D/T BLOOD THINNERS PER PT 05/12/18) morphine (N/V 02/13/17) tramadol (N/V 04/28/17) Home Med List: Amlodipine Besylate 10 MG TABLET 1 TAB PO DAILY HTN (Reported) Calcium Carbonate/Vitamin D3 (Calcium 500 + D Tablet) 500 MG-400 TABLET 1 TAB PO DAILY SUPPLEMENT (Reported) Ferrous Sulfate 325 MG (65 MG IRON) TABLET 1 TAB PO DAILY SUPPLEMENT ( Reported) Metformin HCl (Metformin HCl ER) 500 MG TAB.ER.24H 1 TAB PO BID DM (Reported) Metoprolol Succinate 50 MG TAB.ER.24H 1 TAB PO DAILY HEART (Reported) Paroxetine HCl (Paxil) 10 MG TABLET 1 TAB PO DAILY MENTAL HEALTH (Reported) Warfarin Sodium (Coumadin) 2.5 MG TABLET 1 TAB PO 1700 BLOOD THINNER Current Medications: Current Medications Sig/Eliane Start time Last Medication Dose Route Stop Time Status Admin Acetaminophen 650 MG Q6P PRN 05/13 0200 AC 05/13 PO 2201 Acetaminophen 975 MG ONCE ONE 05/12 223 DC 05/12 PO 05/12 2231 2225 Amlodipine Besylate 10 MG DAILY 05/13 09 AC 05/13 PO 0931 Calcium/Vitamin D 500 MG DAILY 05/13 0900 AC 05/13 PO 0931 Ferrous Sulfate 325 MG DAILY 05/13 0900 AC 05/13 PO 0931 Furosemide 20 MG DAILY 05/13 1300 AC 05/13 IV 1245 Furosemide 0 .STK-MED ONE 05/13 1242 DC IV Furosemide 20 MG ONCE ONE 05/12 2230 DC 05/12 IV 05/12 2231 2225 Furosemide 0 .STK-MED ONE 05/12 2223 DC IV Heparin Sodium 5,000 UNIT Q8 05/13 0600 CAN (Porcine) SC Insulin Aspart 0 TIDAC 05/13 1700 AC SC Metoprolol Succinate 50 MG DAILY 05/13 0900 AC 05/13 PO 0931 Pantoprazole Sodium 0 .STK-MED ONE 05/13 1309 DC IV Pantoprazole Sodium 40 MG DAILY 05/13 1240 AC 05/13 IV 1312 Paroxetine HCl 10 MG DAILY 05/13 0900 AC 05/13 PO 0931 Review of Systems Review of Systems: No rash. No tremor. No fever. No chills. All other systems were reviewed, and were noted to be negative. 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 FATHER, , Age 59; Cause: Myocardial infarction. SISTER, , Age 40-50. Psychosocial History Where Do You Live? Home Who Do You Live With? self Services at Home: Home Health Aide, Nursing Primary Language: Tongan (also Yi) Smoking Status: Former Smoker Living Will? 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 unknown Functional Ability ADLs Independent: dressing, eating, toileting, bathing. Ambulation: independent IADLs Independent: shopping, housework, finances, food prep, telephone, transportation , medication admin. Exam & Diagnostic Data Vital Signs and I&O Vital Signs Date Time Temp Pulse Resp B/P B/P Pulse O2 O2 Flow FiO2 Mean Ox Delivery Rate 05/13 1717 98.5 63 16 158/79 97 05/13 1133 98.7 67 18 168/62 96 05/13 0931 98.5 61 18 145/62 05/13 0931 98.5 61 18 145/62 05/13 0837 98 Nasal 2.0L Cannula 05/13 0733 98.5 61 18 145/62 96 Nasal 2.0L Cannula 05/13 0555 100 Nasal Cannula 05/13 0550 98.0 65 18 144/65 98 Nasal 2.0L Cannula 05/13 0341 97.9 62 18 145/62 99 Nasal 2.0L Cannula 05/13 0103 67 18 149/65 99 Room Air Intake & Output 05/13 1600 05/13 0800 05/13 0000 05/12 1600 05/12 0800 05/12 0000 Intake Total 200 Output Total 320 Balance 200 -320 Intake, Oral 200 Output, Urine 320 Patient 135 lb 135 lb Weight Weight Reported by Patient Reported by Patient Measurement Method Physical Exam: Gen: The patient is in no acute distress HEENT: Normal nose, ears, and oropharynx. Pupils equal bilaterally. Conjunctiva normal. Neck: Supple with no JVD, no masses, and no thyromegaly Lungs: Bilateral rales with normal respiratory effort Heart: RRR, S1, S2, mechanical valve sounds, 1 out of 6 systolic murmur. No peripheral edema, 2+ pulses in the lower extremities bilaterally Abdomen: Soft, nontender, no masses. No hepatomegaly. No splenomegaly Extremities: No clubbing or cyanosis. Normal muscle strength in the upper and lower extremities Skin: Normal skin turgor with no skin ulcers or lesions noted. Neuro: Cranial nerves intact. Sensation intact Psych: Alert and oriented x 3 with appropriate affect Labs/Thad Results: Laboratory Tests 05/13 05/13 1519 0938 Chemistry Troponin I (< 0.11 ng/ml) < 0.01 Hematology CBC w Diff NO MAN DIFF REQ WBC (4.8 - 10.8 /CUMM) 7.0 RBC (4.20 - 5.40 /CUMM) 3.36 L Hgb (12.0 - 16.0 G/DL) 10.0 L Hct (37 - 47 %) 29.3 L MCV (81.0 - 99.0 FL) 87.2 MCH (27.0 - 31.0 PG) 29.6 MCHC (33.0 - 37.0 G/DL) 34.0 RDW (11.5 - 14.5 %) 15.7 H Plt Count (130 - 400 /CUMM) 309 MPV (7.4 - 10.4 FL) 8.4 Gran % (42.2 - 75.2 %) 75.9 H Lymphocytes % (20.5 - 51.1 %) 17.7 L Monocytes % (1.7 - 9.3 %) 5.0 Eosinophils % (0 - 5 %) 0.8 Basophils % (0.0 - 2.0 %) 0.6 Absolute Granulocytes (1.4 - 6.5 /CUMM) 5.3 Absolute Lymphocytes (1.2 - 3.4 /CUMM) 1.2 Absolute Monocytes (0.10 - 0.60 /CUMM) 0.4 Absolute Eosinophils (0.0 - 0.7 /CUMM) 0.1 Absolute Basophils (0.0 - 0.2 /CUMM) 0 05/13 05/12 0344 2125 Chemistry Sodium (137 - 145 mmol/L) 139 Potassium (3.5 - 5.1 mmol/L) 4.2 Chloride (98 - 107 mmol/L) 107 Carbon Dioxide (22 - 30 mmol/L) 21 L Anion Gap (5 - 16) 11 BUN (7 - 17 mg/dL) 23 H Creatinine (0.5 - 1.0 mg/dL) 1.1 H Estimated GFR (>60 ml/min) 48 L BUN/Creatinine Ratio (7 - 25 %) 20.9 Magnesium (1.6 - 2.3 mg/dL) 1.6 Troponin I (< 0.11 ng/ml) < 0.01 Coagulation PT (9.4 - 12.5 SEC) 37.5 H INR (0.90 - 1.19) 3.40 H Hematology CBC w Diff NO MAN DIFF REQ WBC (4.8 - 10.8 /CUMM) 5.5 RBC (4.20 - 5.40 /CUMM) 2.44 L Hgb (12.0 - 16.0 G/DL) 7.1 *L Hct (37 - 47 %) 21.2 L MCV (81.0 - 99.0 FL) 86.8 MCH (27.0 - 31.0 PG) 29.1 MCHC (33.0 - 37.0 G/DL) 33.6 RDW (11.5 - 14.5 %) 16.9 H Plt Count (130 - 400 /CUMM) 296 MPV (7.4 - 10.4 FL) 8.3 Gran % (42.2 - 75.2 %) 68.7 Lymphocytes % (20.5 - 51.1 %) 23.1 Monocytes % (1.7 - 9.3 %) 6.9 Eosinophils % (0 - 5 %) 0.9 Basophils % (0.0 - 2.0 %) 0.4 Absolute Granulocytes (1.4 - 6.5 /CUMM) 3.8 Absolute Lymphocytes (1.2 - 3.4 /CUMM) 1.3 Absolute Monocytes (0.10 - 0.60 /CUMM) 0.4 Absolute Eosinophils (0.0 - 0.7 /CUMM) 0 Absolute Basophils (0.0 - 0.2 /CUMM) 0 Urines Urine Color (YEL,AMB,STR) YEL Urine Clarity (CLEAR) CLEAR Urine pH (5.0 - 8.0) 6.0 Ur Specific [place] (1.001 - 1.035) 1.020 Urine Protein (NEG,<30 MG/DL) 100 H Urine Ketones (NEG) NEG Urine Nitrite (NEG) NEG Urine Bilirubin (NEG) NEG Urine Urobilinogen (0.1 - 1.0 EU/dl) 0.2 Ur Leukocyte Esterase (NEG) NEG Ur Microscopic SEDIMENT EXAMINED Urine RBC (0 - 5 /HPF) RARE Urine WBC (0 - 2 /HPF) 1-3 H Ur Epithelial Cells (NONE,FEW) RARE Urine Bacteria (NEG/NONE) RARE H Urine Hemoglobin (NEG) SMALL H Urine Glucose (N MG/DL) NEG 05/12 2111 Chemistry Sodium (137 - 145 mmol/L) 137 Potassium (3.5 - 5.1 mmol/L) 4.3 Chloride (98 - 107 mmol/L) 103 Carbon Dioxide (22 - 30 mmol/L) 24 Anion Gap (5 - 16) 9 BUN (7 - 17 mg/dL) 24 H Creatinine (0.5 - 1.0 mg/dL) 1.1 H Estimated GFR (>60 ml/min) 48 L BUN/Creatinine Ratio (7 - 25 %) 21.8 Glucose (65 - 99 mg/dL) 149 H Calcium (8.4 - 10.2 mg/dL) 9.6 Magnesium (1.6 - 2.3 mg/dL) 1.6 Total Bilirubin (0.2 - 1.3 mg/dL) 0.8 AST (14 - 36 U/L) 34 ALT (9 - 52 U/L) 29 Alkaline Phosphatase (<127 U/L) 78 Troponin I (< 0.11 ng/ml) < 0.01 [id number] Pept (<125 pg/mL) 2620 H Total Protein (6.3 - 8.2 g/dL) 6.5 Albumin (3.5 - 5.0 g/dL) 3.8 Globulin (1.9 - 4.2 gm/dL) 2.7 Albumin/Globulin Ratio (1.1 - 2.2 %) 1.4 Coagulation PT (9.4 - 12.5 SEC) 34.1 H INR (0.90 - 1.19) 3.09 H APTT (25 - 37 SEC) 37 Hematology CBC w Diff NO MAN DIFF REQ WBC (4.8 - 10.8 /CUMM) 8.3 RBC (4.20 - 5.40 /CUMM) 2.86 L Hgb (12.0 - 16.0 G/DL) 8.3 L Hct (37 - 47 %) 24.7 L MCV (81.0 - 99.0 FL) 86.3 MCH (27.0 - 31.0 PG) 28.9 MCHC (33.0 - 37.0 G/DL) 33.5 RDW (11.5 - 14.5 %) 17.6 H Plt Count (130 - 400 /CUMM) 336 MPV (7.4 - 10.4 FL) 8.6 Gran % (42.2 - 75.2 %) 74.6 Lymphocytes % (20.5 - 51.1 %) 17.9 L Monocytes % (1.7 - 9.3 %) 6.3 Eosinophils % (0 - 5 %) 0.6 Basophils % (0.0 - 2.0 %) 0.6 Absolute Granulocytes (1.4 - 6.5 /CUMM) 6.2 Absolute Lymphocytes (1.2 - 3.4 /CUMM) 1.5 Absolute Monocytes (0.10 - 0.60 /CUMM) 0.5 Absolute Eosinophils (0.0 - 0.7 /CUMM) 0.1 Absolute Basophils (0.0 - 0.2 /CUMM) 0.1 Diagnostic Data EKG Results EKG tracings independently reviewed, and reveals normal sinus rhythm at 65, nonspecific T-wave abnormal CXR Results Cardiomegaly, small bilateral pleural effusions and interstitial prominence suggestive of mild or early CHF exacerbation. No overt pulmonary edema. Other Results Echocardiogram 12/12/15: 1. This was a technically difficult and somewhat limited study due to the patient's body habitus. 2. A metallic prosthetic aortic valve is present. The valve appears to be functioning normally. The peak gradient across the prosthetic valve is 34 mmHg which is slightly higher than noted on the previous outpatient study. Mild to moderate aortic insufficiency is present which appears to be central in location. 3. A very small posterior pericardial effusion is present. 4. The left ventricular chamber size is normal. The ejection fraction is normal. Abnormal septal motion is present which is likely a postoperative finding. 5. The right heart structures are grossly normal but were not optimally visualized. Mild to moderate tricuspid insufficiency is present with mild pulmonic insufficiency and no significant pulmonary hypertension. 6. Thickening and calcification of the mitral leaflets is present with fibrosis of the chordal structures and minimal to mild annular calcification with mild to moderate mitral insufficiency and left atrial dilatation. 7. No prior study was available for comparison. Assessment/Plan Assessment/Plan 73-year-old female with history of atrial fibrillation, permanent pacemaker, and mechanical prosthetic aortic valve presenting with acute on chronic diastolic heart failure she has improved clinically after an initial dose of IV Lasix. Recommendations: * Lasix 20 mg IV every 12 hours * Monitor input and output with daily weight * Dose warfarin for INR 2.5-3.5 * Echocardiogram * Troponin levels have been negative 3 Consult Acknowledgment - Thank you for your consult request.
[2018-05-13 23:30] VITALS: BP 122/30
[2018-05-14 06:30] VITALS: BP 150/48
--- NOTE | 2018-05-14 07:31 | PN- Housestaff ---
Subjective Follow-up For: Chest pain Acute on chronic chronic anemia Acute on chronic diastolic heart failure Complaints: no complaints Tele-Events Since Last Visit: Normal sinus rhythm Subjective: She was seen and examined this morning. She is alert awake and oriented to time place and person. She denied any chest pain, short of breath this morning. Hemoglobin remained stable Review of Systems Constitutional: Reports: see HPI. Objective Last 24 Hrs of Vital Signs/I&O Vital Signs Date Time Temp Pulse Resp B/P B/P Pulse O2 O2 Flow FiO2 Mean Ox Delivery Rate 05/14 1502 98.2 66 20 144/60 96 Room Air 05/14 0919 128/32 05/14 0918 128/32 05/14 0630 98.2 70 18 150/48 94 05/14 0000 98.8 72 18 94 05/13 2330 64 122/30 05/13 1745 98.2 74 20 170/60 94 Room Air 05/13 1717 98.5 63 16 158/79 97 Intake & Output 05/14 1600 05/14 0800 05/14 0000 Intake Total 400 300 Output Total 400 250 Balance 0 50 Intake, Oral 400 300 Number 1 Bowel Movements Output, Urine 400 250 Patient 67.387 kg Weight Physical Exam General Appearance: Alert, Oriented X3, Cooperative, No Acute Distress Other Physical Findings: HEENT: NCAT, [place], EOMI, anicteric sclera, moist mucous membranes -Neck: Supple, no JVP, trachea midline, no accessory respiratory muscle use -Cardio: Mechanical aortic valve, regular rate and rhythm -Pulmonary: Bibasilar crackles -Abdomen: Soft, nontender, nondistended, bowel sounds intact -Neuro: Awake and alert, oriented 3, cranial nerves II through XII grossly intact -Extremities: No edema, normal pulses Current Medications: Current Medications Sig/Eliane Start time Last Medication Dose Route Stop Time Status Admin Acetaminophen 650 MG Q6P PRN 05/13 0200 AC 05/14 PO 1049 Amlodipine Besylate 10 MG DAILY 05/13 900 AC 05/14 PO 09 Calcium/Vitamin D 500 MG DAILY 05/13 09 AC 05/14 PO 0917 Ferrous Sulfate 325 MG DAILY 05/13 09 AC 05/14 PO 0918 Furosemide 20 MG Q12 05/14 09 AC 05/14 IV 0911 Furosemide 20 MG DAILY 05/13 1300 DC 05/13 IV 1245 Insulin Aspart 0 TIDAC 05/13 1700 AC SC Metoprolol Succinate 50 MG DAILY 05/13 0900 AC 05/14 PO 0919 Pantoprazole Sodium 40 MG DAILY 05/13 1240 AC 05/14 IV 0914 Paroxetine HCl 10 MG DAILY 05/13 09 AC 05/14 PO 0918 Last 24 Hrs of Lab/Thad Results Last 24 Hrs of Labs/Mics: Laboratory Tests 05/14/18 0625: Anion Gap 7, Estimated GFR 44 L, BUN/Creatinine Ratio 25.0, PT 40.3 H, INR 3.65 H, CBC w Diff NO MAN DIFF REQ, RBC 3.26 L, MCV 87.3, MCH 29.9, MCHC 34.3, RDW 16.3 H, MPV 8.6, Gran % 70.4, Lymphocytes % 21.6, Monocytes % 6.4, Eosinophils % 1.1, Basophils % 0.5, Absolute Granulocytes 4.2, Absolute Lymphocytes 1.3, Absolute Monocytes 0.4, Absolute Eosinophils 0.1, Absolute Basophils 0 Assessment/Plan Assessment: 73-year-old woman with past medical history of mechanical aortic valve on Coumadin, atrial fibrillation status post permanent pacemaker, hypertension, hyperlipidemia, [id number] diabetes mellitus, and chronic anemia seen for evaluation of chest pain and shortness breath. Patient reports over the past several days she has had progressively worsening shortness of breath. Initially it was present with many minutes of exertion but now is present with minimal exertion. Today she developed mild/moderate substernal chest pain radiating to her left arm and jaw associated with a mild headache and intermittent palpitations for which she came to the [place] ED for evaluation. ------ Objective Vital signs-temp 98.6-98.9, HR 82-85, RR 18, BP 145-159/67-72, O2 94-95% on room air Labs/imaging/studies -CBC: WBC 8.3, hemoglobin 8.3, hematocrit 24.7, platelet 336 -BMP: Sodium 137, K4.3, CL 103, CO2 24, BUN 24, creatinine 1.1, anion gap 9, glucose 149 -LFT: Within normal limits -Miscellaneous: BNP 2100, INR 3.09, troponin I <0.01 -Urinalysis: Unremarkable -Echocardiogram 12/12/15: LVEF 55-60% with paradoxical septal motion, mild/ moderate MR, mild/moderate TR, normal functioning mechanical prosthetic aortic valve with mild/moderate aortic regurgitation and gradient of 34 mmHg -EKG: Normal sinus rhythm with PACs -CXR: * Cardiomegaly, small bilateral pleural effusions and interstitial prominence suggestive of mild or early CHF exacerbation. No overt pulmonary edema. Acute on chronic diastolic CHF exacerbation Patient presented with worsening shortness of breath with minimal exertion. She was found to have elevated proBNP with chest x-ray findings suggestive cardiomegaly with small bilateral pleural effusions and interstitial prominence suggestive of mild and early CHF exacerbation. No overt pulmonary edema. Last echo in 2015 showed ejection fraction 60%. With his clinical symptoms and x-ray findings we will treat her for acute CHF exacerbation. * Telemetry monitoring * Serial troponin and EKGs negative * Cardiology consult * Lasix IV 20 daily bid * Daily ins outs * Daily weights * Echocardiogram pending Chest pain ruled out ACS Patient presented to the hospital for evaluation of shortness of breath and chest pain. She reports that chest pain improved after receiving sublingual nitroglycerin in the emergency room. Also anemia might be contributing to her chest tightness. * Chest pain resolved * Serial troponin and EKG negative * Cardiology on board Chronic anemia Patient has history of chronic anemia, follows up with her sql report analyst Dr. Quiroz as an outpatient. She underwent aggressive workup in the past including bone marrow aspirate and biopsy was nondiagnostic. She also has chronic history of heme positive stools despite normal MCV. She had multiple admissions in the past for anemia requiring blood transfusions. Her last admission to [place] was November 2017 with hemoglobin 5, INR 5.38, received blood transfusions, reversed with fresh frozen plasma. EGD which was normal. She was transferred to [place] for balloon enteroscopy. * Denies any black stools. Hemoccult negative. * No hematemesis, hematochezia, melena * Hemoglobin 7.1, hematocrit 21, MCV 86 at this admission status post 1 unit transfusion with hemoglobin remained stable at above 8 * Follow CBCs every 12 hours and transfuse as needed to keep hemoglobin greater than 8 or as per cardiology recommendations. * Would avoid NSAIDs * Continue omeprazole 40 daily * Continue iron sulfate 325 daily Hypertension continue home dose of amlodipine and metoprolol 50 daily Diabetes continue Accu-Cheks and insulin sliding scale Mechanical aortic valve takes Coumadin 2.5 daily. Supratherapeutic INR 3.65 will hold Coumadin today A. fib status post pacemaker placement Mental health continue paroxetine daily DVT prophylaxis Coumadin Full code Regular diet Pain pathway ordered Problem List: 1. Congestive heart failure Pain Ratin Pain Location: n/a Pain Goal: Remain pain free Pain Plan: tylenol Tomorrow's Labs & Rationales: cbc bep
[2018-05-14 08:07] LABS: ABSOLUTE BASOPHIL COUNT 0 /CUMM (0.0-0.2); ABSOLUTE EOSINOPHIL COUNT 0.1 /CUMM (0.0-0.7); ABSOLUTE GRANULOCYTE CT 4.2 /CUMM (1.4-6.5); ABSOLUTE LYMPH COUNT 1.3 /CUMM (1.2-3.4); ABSOLUTE MONOCYTE COUNT 0.4 /CUMM (0.10-0.60); BASOPHIL % 0.5 % (0.0-2.0); EOSINOPHIL % 1.1 % (0-5); GRANULOCYTE % 70.4 % (42.2-75.2); HEMATOCRIT 28.5 % (37-47); MEAN CORPUSCULAR HGB 29.9 PG (27.0-31.0); MEAN CORPUSCULAR HGB CONC 34.3 G/DL (33.0-37.0); MEAN CORPUSCULAR VOLUME 87.3 FL (81.0-99.0); MEAN PLATELET VOLUME 8.6 FL (7.4-10.4); PLATELET COUNT 293 /CUMM (130-400); RBC DISTRIBUTION WIDTH 16.3 % (11.5-14.5); RED BLOOD CELL CT 3.26 /CUMM (4.20-5.40)
[2018-05-14 08:21] LABS: PT 40.3 SEC (9.4-12.5)
--- NOTE | 2018-05-14 10:42 | PN- Cardiology ---
Subjective Subjective: Shortness of breath is partially improved today. No further chest pain. No palpitations. No diaphoresis. No nausea or vomiting. Objective Vital Signs and I&Os Vital Signs Date Time Temp Pulse Resp B/P B/P Pulse O2 O2 Flow FiO2 Mean Ox Delivery Rate 05/14 0919 128/32 05/14 0918 128/32 05/14 0630 98.2 70 18 150/48 94 05/14 0000 98.8 72 18 94 05/13 2330 64 122/30 05/13 1745 98.2 74 20 170/60 94 Room Air 05/13 1717 98.5 63 16 158/79 97 05/13 1133 98.7 67 18 168/62 96 Intake & Output 05/14 0805/14 0000 05/13 1600 05/13 0000 Intake Total 300 200 Output Total 250 320 Balance 50 200 -320 Intake, Oral 300 200 Output, Urine 250 320 Patient 149 lb 135 lb 135 lb Weight Weight Reported by Patient Reported by Patient Measurement Method Physical Exam: Gen: The patient is in no acute distress HEENT: Normal nose, ears, and oropharynx. Pupils equal bilaterally. Conjunctiva normal. Neck: Supple with no JVD, no masses, and no thyromegaly Lungs: Bilateral rales with normal respiratory effort Heart: RRR, S1, S2, mechanical valve sounds, 1 out of 6 systolic murmur. No peripheral edema, 2+ pulses in the lower extremities bilaterally Abdomen: Soft, nontender, no masses. No hepatomegaly. No splenomegaly Extremities: No clubbing or cyanosis. Normal muscle strength in the upper and lower extremities Skin: Normal skin turgor with no skin ulcers or lesions noted. Neuro: Cranial nerves intact. Sensation intact Current Medications: Current Medications Sig/Eliane Start time Last Medication Dose Route Stop Time Status Admin Acetaminophen 650 MG Q6P PRN 05/13 0200 AC 05/13 PO 220 Amlodipine Besylate 10 MG DAILY 05/13 900 AC 05/14 PO 917 Calcium/Vitamin D 500 MG DAILY 05/13 900 AC 05/14 PO 09 Ferrous Sulfate 325 MG DAILY 05/13 900 AC 05/14 PO 0918 Furosemide 20 MG Q12 05/14 900 AC 05/14 IV 0911 Furosemide 20 MG DAILY 05/13 1300 DC 05/13 IV 1245 Furosemide 0 .STK-MED ONE 05/13 1242 DC IV Insulin Aspart 0 TIDAC 05/13 1700 AC SC Metoprolol Succinate 50 MG DAILY 05/13 0900 AC 05/14 PO 0919 Pantoprazole Sodium 0 .STK-MED ONE 05/13 1309 DC IV Pantoprazole Sodium 40 MG DAILY 05/13 1240 AC 05/14 IV 0914 Paroxetine HCl 10 MG DAILY 05/13 0900 AC 05/14 PO 0918 Results Last 48 Hrs of Labs/Mics: Laboratory Tests 05/14/18 0625: Anion Gap 7, Estimated GFR 44 L, BUN/Creatinine Ratio 25.0, PT 40.3 H, INR 3.65 H, CBC w Diff NO MAN DIFF REQ, RBC 3.26 L, MCV 87.3, MCH 29.9, MCHC 34.3, RDW 16.3 H, MPV 8.6, Gran % 70.4, Lymphocytes % 21.6, Monocytes % 6.4, Eosinophils % 1.1, Basophils % 0.5, Absolute Granulocytes 4.2, Absolute Lymphocytes 1.3, Absolute Monocytes 0.4, Absolute Eosinophils 0.1, Absolute Basophils 0 05/13/18 1519: CBC w Diff NO MAN DIFF REQ, RBC 3.36 L, MCV 87.2, MCH 29.6, MCHC 34.0, RDW 15.7 H, MPV 8.4, Gran % 75.9 H, Lymphocytes % 17.7 L, Monocytes % 5.0, Eosinophils % 0.8, Basophils % 0.6, Absolute Granulocytes 5.3, Absolute Lymphocytes 1.2, Absolute Monocytes 0.4, Absolute Eosinophils 0.1, Absolute Basophils 0 05/13/18 0938: Troponin I < 0.01 05/13/18 0344: Anion Gap 11, Estimated GFR 48 L, BUN/Creatinine Ratio 20.9, Magnesium 1.6, Troponin I < 0.01, PT 37.5 H, INR 3.40 H, CBC w Diff NO MAN DIFF REQ, RBC 2.44 L, MCV 86.8, MCH 29.1, MCHC 33.6, RDW 16.9 H, MPV 8.3, Gran % 68.7, Lymphocytes % 23.1, Monocytes % 6.9, Eosinophils % 0.9, Basophils % 0.4, Absolute Granulocytes 3.8, Absolute Lymphocytes 1.3, Absolute Monocytes 0.4, Absolute Eosinophils 0, Absolute Basophils 0 05/12/182124: Urine Color YEL, Urine Clarity CLEAR, Urine pH 6.0, Ur Specific [place] 1.020, Urine Protein 100 H, Urine Ketones NEG, Urine Nitrite NEG, Urine Bilirubin NEG, Urine Urobilinogen 0.2, Ur Leukocyte Esterase NEG, Ur Microscopic SEDIMENT EXAMINED, Urine RBC RARE, Urine WBC 1-3 H, Ur Epithelial Cells RARE, Urine Bacteria RARE H, Urine Hemoglobin SMALL H, Urine Glucose NEG 05/12/182110: Anion Gap 9, Estimated GFR 48 L, BUN/Creatinine Ratio 21.8, Glucose 149 H, Calcium 9.6, Magnesium 1.6, Total Bilirubin 0.8, AST 34, ALT 29, Alkaline Phosphatase 78, Troponin I < 0.01, [id number] Pept 2620 H, Total Protein 6.5, Albumin 3.8, Globulin 2.7, Albumin/Globulin Ratio 1.4, PT 34.1 H, INR 3.09 H, APTT 37, CBC w Diff NO MAN DIFF REQ, RBC 2.86 L, MCV 86.3, MCH 28.9, MCHC 33.5, RDW 17.6 H, MPV 8.6, Gran % 74.6, Lymphocytes % 17.9 L, Monocytes % 6.3, Eosinophils % 0.6, Basophils % 0.6, Absolute Granulocytes 6.2, Absolute Lymphocytes 1.5, Absolute Monocytes 0.5, Absolute Eosinophils 0.1, Absolute Basophils 0.1 Assessment/Plan Assessment/Plan Assessment: 1. Atrial fibrillation 2. Permanent pacemaker 3. Mechanical prosthetic aortic valve 4. Acute on chronic diastolic heart failure Recommendations: * Lasix 20 mg IV every 12 hours * Monitor input and output with daily weights * Check basic metabolic profile daily * Dose warfarin for INR 2.5-3.5 * Echocardiogram pending Continue telemetry? Yes
--- NOTE | 2018-05-14 12:27 | PN- Att Addend ---
Attending Addendum Attending Brief Note Patient sitting in the chair, looking and feeling better. Vital signs are stable no fever. Last hemoglobin 9.8. No major changes on physical. Appreciate police pilot's input and recommendations with switched to by mouth diuretics and adjust dose accordingly. If stable negative stent disposition plans in the morning. Intake & Output 05/14 1600 05/14 0400 05/13 1600 05/13 0400 05/12 1600 05/12 0400 Intake Total 300 200 Output Total 250 320 Balance 50 200 -320 Intake, Oral 300 200 Output, Urine 250 320 Patient 149 lb 135 lb 135 lb Weight Weight Reported by Patient Reported by Patient Measurement Method Current Medications Sig/Eliane Start time Last Medication Dose Route Stop Time Status Admin Acetaminophen 650 MG Q6P PRN 05/13 0200 AC 05/14 PO 1049 Amlodipine Besylate 10 MG DAILY 05/13 09 AC 05/14 PO 0918 Calcium/Vitamin D 500 MG DAILY 05/13 09 AC 05/14 PO 0917 Ferrous Sulfate 325 MG DAILY 05/13 09 AC 05/14 PO 0918 Furosemide 20 MG Q12 05/14 0900 AC 05/14 IV 0911 Furosemide 20 MG DAILY 05/13 1300 DC 05/13 IV 1245 Furosemide 0 .STK-MED ONE 05/13 1242 DC IV Insulin Aspart 0 TIDAC 05/13 1700 AC SC Metoprolol Succinate 50 MG DAILY 05/13 09 AC 05/14 PO 0919 Pantoprazole Sodium 0 .STK-MED ONE 05/13 1309 DC IV Pantoprazole Sodium 40 MG DAILY 05/13 1240 AC 05/14 IV 0914 Paroxetine HCl 10 MG DAILY 05/13 09 AC 05/14 PO 0918 Laboratory Tests 05/14/18 0625: Anion Gap 7, Estimated GFR 44 L, BUN/Creatinine Ratio 25.0, PT 40.3 H, INR 3.65 H, CBC w Diff NO MAN DIFF REQ, RBC 3.26 L, MCV 87.3, MCH 29.9, MCHC 34.3, RDW 16.3 H, MPV 8.6, Gran % 70.4, Lymphocytes % 21.6, Monocytes % 6.4, Eosinophils % 1.1, Basophils % 0.5, Absolute Granulocytes 4.2, Absolute Lymphocytes 1.3, Absolute Monocytes 0.4, Absolute Eosinophils 0.1, Absolute Basophils 0 05/13/18 1519: CBC w Diff NO MAN DIFF REQ, RBC 3.36 L, MCV 87.2, MCH 29.6, MCHC 34.0, RDW 15.7 H, MPV 8.4, Gran % 75.9 H, Lymphocytes % 17.7 L, Monocytes % 5.0, Eosinophils % 0.8, Basophils % 0.6, Absolute Granulocytes 5.3, Absolute Lymphocytes 1.2, Absolute Monocytes 0.4, Absolute Eosinophils 0.1, Absolute Basophils 0 05/13/18 0938: Troponin I < 0.01 05/13/18 0344: Anion Gap 11, Estimated GFR 48 L, BUN/Creatinine Ratio 20.9, Magnesium 1.6, Troponin I < 0.01, PT 37.5 H, INR 3.40 H, CBC w Diff NO MAN DIFF REQ, RBC 2.44 L, MCV 86.8, MCH 29.1, MCHC 33.6, RDW 16.9 H, MPV 8.3, Gran % 68.7, Lymphocytes % 23.1, Monocytes % 6.9, Eosinophils % 0.9, Basophils % 0.4, Absolute Granulocytes 3.8, Absolute Lymphocytes 1.3, Absolute Monocytes 0.4, Absolute Eosinophils 0, Absolute Basophils 0 05/12/182124: Urine Color YEL, Urine Clarity CLEAR, Urine pH 6.0, Ur Specific [place] 1.020, Urine Protein 100 H, Urine Ketones NEG, Urine Nitrite NEG, Urine Bilirubin NEG, Urine Urobilinogen 0.2, Ur Leukocyte Esterase NEG, Ur Microscopic SEDIMENT EXAMINED, Urine RBC RARE, Urine WBC 1-3 H, Ur Epithelial Cells RARE, Urine Bacteria RARE H, Urine Hemoglobin SMALL H, Urine Glucose NEG 05/12/18 2111: Anion Gap 9, Estimated GFR 48 L, BUN/Creatinine Ratio 21.8, Glucose 149 H, Calcium 9.6, Magnesium 1.6, Total Bilirubin 0.8, AST 34, ALT 29, Alkaline Phosphatase 78, Troponin I < 0.01, Iaf-O-Akznazmoony Pept 2620 H, Total Protein 6.5, Albumin 3.8, Globulin 2.7, Albumin/Globulin Ratio 1.4, PT 34.1 H, INR 3.09 H, APTT 37, CBC w Diff NO MAN DIFF REQ, RBC 2.86 L, MCV 86.3, MCH 28.9, MCHC 33.5, RDW 17.6 H, MPV 8.6, Gran % 74.6, Lymphocytes % 17.9 L, Monocytes % 6.3, Eosinophils % 0.6, Basophils % 0.6, Absolute Granulocytes 6.2, Absolute Lymphocytes 1.5, Absolute Monocytes 0.5, Absolute Eosinophils 0.1, Absolute Basophils 0.1 Vital Signs Date Time Temp Pulse Resp B/P B/P Pulse O2 O2 Flow FiO2 Mean Ox Delivery Rate 05/14 0919 128/05/14 0918 128/05/14 0630 98.2 70 18 150/48 94 05/14 0000 98.8 72 18 94 05/13 2330 64 122/30 05/13 1745 98.2 74 20 170/60 94 Room Air 05/13 1717 98.5 63 16 158/79 97 Follow-up chest x-ray.
[2018-05-14 15:02] VITALS: BP 144/60
[2018-05-14] MEDS ORDERED: LASIX40 M1 PO (15:49)
[2018-05-14] MEDS ORDERED: OMEPRAZOLE40 M1 PO (15:49)
--- NOTE | 2018-05-14 15:52 | Patient Discharge Instructions ---
Discharge Instructions General Discharge Information You were seen/treated for: Acute on chronic diastolic heart failure Acute on chronic anemia Special Instructions: Follow-up with PCP in 1 week after discharge Follow-up with tour agent in 1 week after discharge Follow-up with ore roaster in 1 week after discharge Diet Continue normal diet: Yes Activity Full Activity/No Limits: Yes Acute Coronary Syndrome Inclusion Criteria At DC or during hospital stay patient has or had the following: ACS DIAGNOSIS No Discharge Core Measures Meds if any: Prescribed or Continued at Discharge Meds if any: NOT Prescribed or Continued at Discharge Congestive Heart Failure Inclusion Criteria At DC or during hospital stay patient has or had the following: CHF DIAGNOSIS No Discharge Core Measures Meds if any: Prescribed or Continued at Discharge Meds if any: NOT Prescribed or Continued at Discharge Cerebrovascular accident Inclusion Criteria At DC or during hospital stay patient has or had the following: CVA/TIA Diagnosis No Discharge Core Measures Meds if any: Prescribed or Continued at Discharge Meds if any: NOT Prescribed or Continued at Discharge Venous thromboembolism Inclusion Criteria VTE Diagnosis No VTE Type NONE VTE Confirmed by (Test) NONE Discharge Core Measures - Per Current guidelines, there needs to be overlap - treatment for the first 5 days of Warfarin therapy. - If discharged on Warfarin prior to 5 days of - overlap therapy, the patient will need to be - assessed for post discharge needs including - *Post discharge parental anticoagulation - *Warfarin and/or parental anticoagulation education - *Follow up date to check INR post discharge At least 5 days overlap therapy as Inpatient No Meds if any: Prescribed or Continued at Discharge Note: Overlap Therapy is Warfarin and Anticoagulant Meds if any: NOT Prescribed or Continued at Discharge
--- NOTE | 2018-05-14 19:00 | ECHOCARDIOGRAM REPORT ---
YIFAN GALLARDO Age: 73 : 1945 Gender: F Exam Date: 05/13/2018 18:20 Exam Location: [address] Ht (in): 59 Wt (lb): 135 BSA: 1.62 BP: 145 / 62 Ordering Physician: Smooth Serna MD Referring Physician: Corwin Lopez MD Technologist: Queenie King [facility] Room Number: [id number] Indications: Chest pain Rhythm: Sinus Technical Quality: Technically difficult study FINDINGS Left Ventricle Normal size left ventricle. Normal left ventricular wall thickness. Normal left ventricular ejection fraction visually estimated at 55- 60%. Abnormal septal motion secondary to postoperative state. Right Ventricle Normal right ventricular size and function. Catheter/pacemaker wire in the right ventricular cavity. Right Atrium Normal right atrial size. Left Atrium Mild left atrial dilatation. Mitral Valve Mitral valve thickened. Moderate mitral regurgitation. Fibrosis and calcification of the choral structures is seen. Aortic Valve A metallic prosthetic aortic valve is present. 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 Peak prosthetic gradient 34 mmHg; mean gradient 21 mmHg. Tricuspid Valve Tricuspid valve not well visualized, grossly normal. Moderate tricuspid regurgitation. Right ventricular systolic pressure estimated to be elevated at 53 mmHg. Pulmonic Valve Pulmonic valve not well visualized, grossly normal. Trace pulmonic regurgitation. Pericardium No pericardial effusion. Great Vessels Normal size aortic root. CONCLUSIONS Normal size left ventricle. Normal left ventricular wall thickness. Normal left ventricular ejection fraction visually estimated at 55- 60%. Abnormal septal motion secondary to postoperative state. Catheter/pacemaker wire in the right ventricular cavity. Moderate mitral regurgitation. Fibrosis and calcification of the choral structures is seen. A metallic prosthetic aortic valve is present. 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 Peak prosthetic gradient 34 mmHg; mean gradient 21 mmHg. Moderate tricuspid regurgitation. Right ventricular systolic pressure estimated to be elevated at 53 mmHg. Trace pulmonic regurgitation. Corwin Lopez M.D. (Electronically Signed) Final Date: 14 May 2018 18:59 MEASUREMENTS (Male / Female) Normal Values 2D ECHO LV Diastolic Diameter PLAX 3.1 cm 4.2 - 5.9 / 3.9 - 5.3 cm LV Systolic Diameter PLAX 1.9 cm 2.1 - 4.0 cm LV Fractional Shortening PLAX 38.7 % 25 - 46 % LV Ejection Fraction 2D Teich 70.6 % IVS Diastolic Thickness 1.1 cm LVPW Diastolic Thickness 1.1 cm LV Relative Wall Thickness 0.7 RV Internal Dim ED PLAX 2.0 cm 1.9 - 3.8 cm LVOT Diameter 2.1 cm Aortic Root Diameter 2.3 cm LA Systolic Diameter LX 3.1 cm 3.0 - 4.0 / 2.7 - 3.8 cm LA Volume 35.0 cm 18 - 58 / 22 - 52 cm DOPPLER AV Peak Velocity 293.0 cm/s AV Peak Gradient 34.3 mmHg AV Mean Velocity 212.0 cm/s AV Mean Gradient 21.0 mmHg AV Velocity Time Integral 67.2 cm LVOT Peak Velocity 182.0 cm/s LVOT Peak Gradient 13.2 mmHg LVOT Mean Velocity 113.0 cm/s LVOT Mean Gradient 6.0 mmHg LVOT Velocity Time Integral 40.8 cm LVOT Stroke Volume 141.3 cm AV Area Cont Eq vti 2.1 cm AV Area Cont Eq pk 2.2 cm MV Peak Velocity 260.0 cm/s MV Peak Gradient 27.0 mmHg MV Mean Velocity 117.0 cm/s MV Mean Gradient 7.0 mmHg Mitral E Point Velocity 175.0 cm/s Mitral A Point Velocity 127.0 cm/s Mitral E to A Ratio 1.4 MV PHT Velocity 266.0 cm/s MV Deceleration Saline 1140.0 cm/s MV Pressure Half Time 70.0 ms MV Area PHT 3.1 cm MV Deceleration Time 423.0 ms TR Peak Velocity 347.0 cm/s TR Peak Gradient 48.2 mmHg Right Atrial Pressure 5.0 mmHg Pulmonary Artery Systolic Pressure 53.2 mmHg Right Ventricular Systolic Pressure 53.2 mmHg PV Peak Velocity 121.0 cm/s PV Peak Gradient 5.9 mmHg PV Mean Velocity 85.0 cm/s PV Mean Gradient 3.0 mmHg PV Velocity Time Integral 32.4 cm LV E' Lateral Velocity 11.4 cm/s Mitral E to LV E' Lateral Ratio 15.4 LV E' Septal Velocity 7.3 cm/s Mitral E to LV E' Septal Ratio 23.9
[2018-05-14 22:33] VITALS: BP 118/62; BP 132/46
[2018-05-15 07:16] VITALS: BP 170/50
--- NOTE | 2018-05-15 07:18 | PN- Housestaff ---
Subjective Follow-up For: Chest pain Acute on chronic chronic anemia Acute on chronic diastolic heart failure Complaints: no complaints Tele-Events Since Last Visit: Normal sinus rhythm Subjective: She was seen and examined this morning. She is alert awake and oriented to time place and person. She denied any chest pain, short of breath this morning. Hemoglobin remained stable Review of Systems Constitutional: Reports: see HPI. Objective Last 24 Hrs of Vital Signs/I&O Vital Signs Date Time Temp Pulse Resp B/P B/P Pulse O2 O2 Flow FiO2 Mean Ox Delivery Rate 05/15 1004 72 140/40 05/15 1004 72 140/40 05/15 0716 97.4 67 12 170/50 95 Room Air 05/14 2233 98.3 61 16 132/46 94 Room Air Intake & Output 05/15 1600 05/15 0800 05/15 0000 Intake Total 150 112 Output Total 600 200 Balance -450 -88 Intake, IV 12 Intake, Oral 150 100 Output, Urine 600 200 Patient 70.931 kg Weight Weight Bed scale Measurement Method Physical Exam General Appearance: Alert, Oriented X3, Cooperative, No Acute Distress Other Physical Findings: HEENT: NCAT, [place], EOMI, anicteric sclera, moist mucous membranes -Neck: Supple, no JVP, trachea midline, no accessory respiratory muscle use -Cardio: Mechanical aortic valve, regular rate and rhythm -Pulmonary: Bibasilar crackles -Abdomen: Soft, nontender, nondistended, bowel sounds intact -Neuro: Awake and alert, oriented 3, cranial nerves II through XII grossly intact -Extremities: No edema, normal pulses Current Medications: Current Medications Sig/Eliane Start time Last Medication Dose Route Stop Time Status Admin Acetaminophen 650 MG Q6P PRN 05/13 0200 DCD 05/15 PO 09 Amlodipine Besylate 10 MG DAILY 05/13 900 DCD 05/14 PO 0918 Calcium/Vitamin D 500 MG DAILY 05/13 900 DCD 05/15 PO 0914 Ferrous Sulfate 325 MG DAILY 05/13 900 DCD 05/15 PO 09 Furosemide 20 MG Q12 05/14 900 DCD 05/15 IV 0909 Insulin Aspart 0 TIDAC 05/13 1700 DCD SC Metoprolol Succinate 50 MG DAILY 05/13 900 DCD 05/14 PO 0919 Omeprazole 40 MG DAILY AC 05/15 07 DCD 05/15 PO 0625 Pantoprazole Sodium 40 MG DAILY 05/13 1240 DC 05/14 IV 0914 Paroxetine HCl 10 MG DAILY 05/13 0900 DCD 05/15 PO 0914 Patient Medication 1 ED ONE 05/15 0000 NR [facility] ED 05/15 2359 Polyethylene Glycol 17 GM DAILY PRN 05/15 0915 DCD 05/15 PO 1233 Warfarin Sodium 3 MG COUMADIN 1700 ONE 05/15 1700 DCD 05/15 PO 05/15 1701 1320 Last 24 Hrs of Lab/Thad Results Last 24 Hrs of Labs/Mics: Laboratory Tests 05/15/18 0700: Anion Gap 12, Estimated GFR 37 L, BUN/Creatinine Ratio 28.6 H, PT 21.8 H, INR 1.99 H, CBC w Diff NO MAN DIFF REQ, RBC 3.45 L, MCV 86.9, MCH 29.9, MCHC 34.4, RDW 16.1 H, MPV 8.8, Gran % 73.6, Lymphocytes % 19.6 L, Monocytes % 5.1, Eosinophils % 1.3, Basophils % 0.4, Absolute Granulocytes 4.8, Absolute Lymphocytes 1.3, Absolute Monocytes 0.3, Absolute Eosinophils 0.1, Absolute Basophils 0 Assessment/Plan Assessment: 73-year-old woman with past medical history of mechanical aortic valve on Coumadin, atrial fibrillation status post permanent pacemaker, hypertension, hyperlipidemia, [id number] diabetes mellitus, and chronic anemia seen for evaluation of chest pain and shortness breath. Patient reports over the past several days she has had progressively worsening shortness of breath. Initially it was present with many minutes of exertion but now is present with minimal exertion. Today she developed mild/moderate substernal chest pain radiating to her left arm and jaw associated with a mild headache and intermittent palpitations for which she came to the [place] ED for evaluation. ------ Objective Vital signs-temp 98.6-98.9, HR 82-85, RR 18, BP 145-159/67-72, O2 94-95% on room air Labs/imaging/studies -CBC: WBC 8.3, hemoglobin 8.3, hematocrit 24.7, platelet 336 -BMP: Sodium 137, K4.3, CL 103, CO2 24, BUN 24, creatinine 1.1, anion gap 9, glucose 149 -LFT: Within normal limits -Miscellaneous: BNP 2100, INR 3.09, troponin I <0.01 -Urinalysis: Unremarkable -Echocardiogram 12/12/15: LVEF 55-60% with paradoxical septal motion, mild/ moderate MR, mild/moderate TR, normal functioning mechanical prosthetic aortic valve with mild/moderate aortic regurgitation and gradient of 34 mmHg -EKG: Normal sinus rhythm with PACs -CXR: * Cardiomegaly, small bilateral pleural effusions and interstitial prominence suggestive of mild or early CHF exacerbation. No overt pulmonary edema. Acute on chronic diastolic CHF exacerbation Patient presented with worsening shortness of breath with minimal exertion. She was found to have elevated proBNP with chest x-ray findings suggestive cardiomegaly with small bilateral pleural effusions and interstitial prominence suggestive of mild and early CHF exacerbation. No overt pulmonary edema. Last echo in 2015 showed ejection fraction 60%. With his clinical symptoms and x-ray findings we will treat her for acute CHF exacerbation. * Telemetry monitoring * Serial troponin and EKGs negative * Cardiology consult * Lasix IV 20 daily bid , discharged on 20 mg once daily. * Daily ins outs * Daily weights * Echocardiogram pending Chest pain ruled out ACS Patient presented to the hospital for evaluation of shortness of breath and chest pain. She reports that chest pain improved after receiving sublingual nitroglycerin in the emergency room. Also anemia might be contributing to her chest tightness. * Chest pain resolved * Serial troponin and EKG negative * Cardiology on board Chronic anemia Patient has history of chronic anemia, follows up with her robot technician Dr. Quiroz as an outpatient. She underwent aggressive workup in the past including bone marrow aspirate and biopsy was nondiagnostic. She also has chronic history of heme positive stools despite normal MCV. She had multiple admissions in the past for anemia requiring blood transfusions. Her last admission to [place] was November 2017 with hemoglobin 5, INR 5.38, received blood transfusions, reversed with fresh frozen plasma. EGD which was normal. She was transferred to [place] for balloon enteroscopy. * Denies any black stools. Hemoccult negative. * No hematemesis, hematochezia, melena * Hemoglobin 7.1, hematocrit 21, MCV 86 at this admission status post 1 unit transfusion with hemoglobin remained stable at above 8 * Follow CBCs every 12 hours and transfuse as needed to keep hemoglobin greater than 8 or as per cardiology recommendations. * Would avoid NSAIDs * Continue omeprazole 40 daily * Continue iron sulfate 325 daily Hypertension continue home dose of amlodipine and metoprolol 50 daily Diabetes continue Accu-Cheks and insulin sliding scale Mechanical aortic valve takes Coumadin 2.5 daily. A. fib status post pacemaker placement Mental health continue paroxetine daily DVT prophylaxis Coumadin Full code Regular diet Pain pathway ordered Problem List: 1. Congestive heart failure Pain Ratin Pain Location: n/a Pain Goal: Remain pain free Pain Plan: tylenol Tomorrow's Labs & Rationales: cbc bep
[2018-05-15 08:25] LABS: ABSOLUTE BASOPHIL COUNT 0 /CUMM (0.0-0.2); ABSOLUTE EOSINOPHIL COUNT 0.1 /CUMM (0.0-0.7); ABSOLUTE GRANULOCYTE CT 4.8 /CUMM (1.4-6.5); ABSOLUTE LYMPH COUNT 1.3 /CUMM (1.2-3.4); ABSOLUTE MONOCYTE COUNT 0.3 /CUMM (0.10-0.60); BASOPHIL % 0.4 % (0.0-2.0); EOSINOPHIL % 1.3 % (0-5); GRANULOCYTE % 73.6 % (42.2-75.2); MEAN CORPUSCULAR HGB 29.9 PG (27.0-31.0); MEAN CORPUSCULAR HGB CONC 34.4 G/DL (33.0-37.0); MEAN CORPUSCULAR VOLUME 86.9 FL (81.0-99.0); MEAN PLATELET VOLUME 8.8 FL (7.4-10.4); PLATELET COUNT 296 /CUMM (130-400); RBC DISTRIBUTION WIDTH 16.1 % (11.5-14.5); RED BLOOD CELL CT 3.45 /CUMM (4.20-5.40); WHITE BLOOD CELL COUNT 6.5 /CUMM (4.8-10.8)
[2018-05-15 08:41] LABS: PT 21.8 SEC (9.4-12.5)
[2018-05-15 10:04] VITALS: BP 140/40
--- NOTE | 2018-05-15 11:11 | PN- Att Addend ---
Attending Addendum Attending Brief Note No new complaints.. Vital signs are stable. No new changes on physical examination. Her H&H is stable. INR is 1.99. Echocardiogram results are pending. After the certified ophthalmic assistant evaluates the echocardiogram and sees the patient if he thinks she is stable enough to be discharged will start disposition plans. Intake & Output 05/15 1600 05/15 0400 05/14 1600 05/14 0400 05/13 1600 05/13 0400 Intake Total 150 112 400 300 200 Output Total 600 200 400 250 320 Balance -450 -88 0 50 200 -320 Intake, IV 12 Intake, Oral 150 100 400 300 200 Number 1 Bowel Movements Output, Urine 600 200 400 250 320 Patient 156 lb 149 lb 135 lb 135 lb Weight Weight Bed scale Reported by Patient Reported by Patient Measurement Method Current Medications Sig/Eliane Start time Last Medication Dose Route Stop Time Status Admin Acetaminophen 650 MG Q6P PRN 05/13 0200 AC 05/15 PO 0913 Amlodipine Besylate 10 MG DAILY 05/13 900 AC 05/14 PO 0918 Calcium/Vitamin D 500 MG DAILY 05/13 09 AC 05/15 PO 0914 Ferrous Sulfate 325 MG DAILY 05/13 09 AC 05/15 PO 0913 Furosemide 20 MG Q12 05/14 09 AC 05/15 IV 0909 Insulin Aspart 0 TIDAC 05/13 1700 AC SC Metoprolol Succinate 50 MG DAILY 05/13 09 AC 05/14 PO 0919 Omeprazole 40 MG DAILY AC 05/15 07 AC 05/15 PO 0625 Pantoprazole Sodium 40 MG DAILY 05/13 1240 DC 05/14 IV 0914 Paroxetine HCl 10 MG DAILY 05/13 09 AC 05/15 PO 0914 Polyethylene Glycol 17 GM DAILY PRN 05/15 0915 AC PO Laboratory Tests 05/15/18 0700: Anion Gap 12, Estimated GFR 37 L, BUN/Creatinine Ratio 28.6 H, PT 21.8 H, INR 1.99 H, CBC w Diff NO MAN DIFF REQ, RBC 3.45 L, MCV 86.9, MCH 29.9, MCHC 34.4, RDW 16.1 H, MPV 8.8, Gran % 73.6, Lymphocytes % 19.6 L, Monocytes % 5.1, Eosinophils % 1.3, Basophils % 0.4, Absolute Granulocytes 4.8, Absolute Lymphocytes 1.3, Absolute Monocytes 0.3, Absolute Eosinophils 0.1, Absolute Basophils 0 05/14/18 0625: Anion Gap 7, Estimated GFR 44 L, BUN/Creatinine Ratio 25.0, PT 40.3 H, INR 3.65 H, CBC w Diff NO MAN DIFF REQ, RBC 3.26 L, MCV 87.3, MCH 29.9, MCHC 34.3, RDW 16.3 H, MPV 8.6, Gran % 70.4, Lymphocytes % 21.6, Monocytes % 6.4, Eosinophils % 1.1, Basophils % 0.5, Absolute Granulocytes 4.2, Absolute Lymphocytes 1.3, Absolute Monocytes 0.4, Absolute Eosinophils 0.1, Absolute Basophils 0 05/13/18 1519: CBC w Diff NO MAN DIFF REQ, RBC 3.36 L, MCV 87.2, MCH 29.6, MCHC 34.0, RDW 15.7 H, MPV 8.4, Gran % 75.9 H, Lymphocytes % 17.7 L, Monocytes % 5.0, Eosinophils % 0.8, Basophils % 0.6, Absolute Granulocytes 5.3, Absolute Lymphocytes 1.2, Absolute Monocytes 0.4, Absolute Eosinophils 0.1, Absolute Basophils 0 05/13/18 0938: Troponin I < 0.01 05/13/18 0344: Anion Gap 11, Estimated GFR 48 L, BUN/Creatinine Ratio 20.9, Magnesium 1.6, Troponin I < 0.01, PT 37.5 H, INR 3.40 H, CBC w Diff NO MAN DIFF REQ, RBC 2.44 L, MCV 86.8, MCH 29.1, MCHC 33.6, RDW 16.9 H, MPV 8.3, Gran % 68.7, Lymphocytes % 23.1, Monocytes % 6.9, Eosinophils % 0.9, Basophils % 0.4, Absolute Granulocytes 3.8, Absolute Lymphocytes 1.3, Absolute Monocytes 0.4, Absolute Eosinophils 0, Absolute Basophils 0 05/12/185: Urine Color YEL, Urine Clarity CLEAR, Urine pH 6.0, Ur Specific [place] 1.020, Urine Protein 100 H, Urine Ketones NEG, Urine Nitrite NEG, Urine Bilirubin NEG, Urine Urobilinogen 0.2, Ur Leukocyte Esterase NEG, Ur Microscopic SEDIMENT EXAMINED, Urine RBC RARE, Urine WBC 1-3 H, Ur Epithelial Cells RARE, Urine Bacteria RARE H, Urine Hemoglobin SMALL H, Urine Glucose NEG 05/12/181: Anion Gap 9, Estimated GFR 48 L, BUN/Creatinine Ratio 21.8, Glucose 149 H, Calcium 9.6, Magnesium 1.6, Total Bilirubin 0.8, AST 34, ALT 29, Alkaline Phosphatase 78, Troponin I < 0.01, Dpo-E-Dmbwgtycdra Pept 2620 H, Total Protein 6.5, Albumin 3.8, Globulin 2.7, Albumin/Globulin Ratio 1.4, PT 34.1 H, INR 3.09 H, APTT 37, CBC w Diff NO MAN DIFF REQ, RBC 2.86 L, MCV 86.3, MCH 28.9, MCHC 33.5, RDW 17.6 H, MPV 8.6, Gran % 74.6, Lymphocytes % 17.9 L, Monocytes % 6.3, Eosinophils % 0.6, Basophils % 0.6, Absolute Granulocytes 6.2, Absolute Lymphocytes 1.5, Absolute Monocytes 0.5, Absolute Eosinophils 0.1, Absolute Basophils 0.1 Vital Signs Date Time Temp Pulse Resp B/P B/P Pulse O2 O2 Flow FiO2 Mean Ox Delivery Rate 05/15 1004 72 140/40 05/15 1004 72 140/40 05/15 0716 97.4 67 12 170/50 95 Room Air 05/14 2233 98.3 61 16 132/46 94 Room Air 05/14 1502 98.2 66 20 144/60 96 Room Air
[2018-05-15] MEDS ORDERED: OMEPRAZOLE40 M1 PO (12:15)
[2018-05-15] MEDS ORDERED: LASIX20 M1 PO (12:15)
[2018-05-15] MEDS ORDERED: MIRALAX17 G1 PO (12:16)
--- NOTE | 2018-05-15 19:21 | PN- Cardiology ---
Subjective Subjective: feeling better. Shortness of breath improved. No chest pain. No palpitations. No diaphoresis. Objective Vital Signs and I&Os Vital Signs Date Time Temp Pulse Resp B/P B/P Pulse O2 O2 Flow FiO2 Mean Ox Delivery Rate 05/15 1004 72 140/40 05/15 1004 72 140/40 Intake & Output 05/16 1600 05/16 0800 05/16 0000 05/15 1600 05/15 0800 05/15 0000 Intake Total 150 112 Output Total 600 200 Balance -450 -88 Intake, IV 12 Intake, Oral 150 100 Output, Urine 600 200 Patient 156 lb Weight Weight Bed scale Measurement Method Physical Exam: Gen: The patient is in no acute distress HEENT: Normal nose, ears, and oropharynx. Pupils equal bilaterally. Conjunctiva normal. Neck: Supple with no JVD, no masses, and no thyromegaly Lungs: Bilateral rales with normal respiratory effort Heart: RRR, S1, S2, mechanical valve sounds, 1 out of 6 systolic murmur. No peripheral edema, 2+ pulses in the lower extremities bilaterally Abdomen: Soft, nontender, no masses. No hepatomegaly. No splenomegaly Extremities: No clubbing or cyanosis. Normal muscle strength in the upper and lower extremities Skin: Normal skin turgor with no skin ulcers or lesions noted. Neuro: Cranial nerves intact. Sensation intact Current Medications: Current Medications Sig/Eliane Start time Last Medication Dose Route Stop Time Status Admin Acetaminophen 650 MG Q6P PRN 05/13 0200 DCD 05/15 PO 0913 Amlodipine Besylate 10 MG DAILY 05/13 900 DCD 05/14 PO 0918 Calcium/Vitamin D 500 MG DAILY 05/13 900 DCD 05/15 PO 0914 Ferrous Sulfate 325 MG DAILY 05/13 09 DCD 05/15 PO 0913 Furosemide 20 MG Q12 05/14 09 DCD 05/15 IV 0909 Insulin Aspart 0 TIDAC 05/13 1700 DCD SC Metoprolol Succinate 50 MG DAILY 05/13 900 DCD 05/14 PO 0919 Omeprazole 40 MG DAILY AC 05/15 07 DCD 05/15 PO 0625 Paroxetine HCl 10 MG DAILY 05/13 09 DCD 05/15 PO 0914 Patient Medication 1 ED ONE 05/15 0000 [facility] Teaching ED 05/15 2359 Polyethylene Glycol 17 GM DAILY PRN 05/15 0915 DCD 05/15 PO 1233 Warfarin Sodium 3 MG COUMADIN 1700 ONE 05/15 1700 DCD 05/15 PO 05/15 1701 1320 Warfarin Sodium 3 MG .STK-MED ONE 05/15 1314 DC PO 05/15 1315 Results Last 48 Hrs of Labs/Mics: Laboratory Tests 05/15/18 0700: Anion Gap 12, Estimated GFR 37 L, BUN/Creatinine Ratio 28.6 H, PT 21.8 H, INR 1.99 H, CBC w Diff NO MAN DIFF REQ, RBC 3.45 L, MCV 86.9, MCH 29.9, MCHC 34.4, RDW 16.1 H, MPV 8.8, Gran % 73.6, Lymphocytes % 19.6 L, Monocytes % 5.1, Eosinophils % 1.3, Basophils % 0.4, Absolute Granulocytes 4.8, Absolute Lymphocytes 1.3, Absolute Monocytes 0.3, Absolute Eosinophils 0.1, Absolute Basophils 0 Assessment/Plan Assessment/Plan Assessment: 1. Atrial fibrillation 2. Permanent pacemaker 3. Mechanical prosthetic aortic valve 4. Acute on chronic diastolic heart failure Recommendations: * Change Lasix to p.o. * discharge to home * follow-up in the office with Dr. Rios Continue telemetry? No
== END 2018-05-15 13:42 | disposition home health service (06) | DRG 293 ==
LOC: ERH 20:19 → 1NO 22:39 → ERHI 22:39 → ENRESERV 05-13 14:36 → ENTRNSPT 05-13 17:21 → EDTRNSPTSTS 05-13 17:36 → EDTRNSPT 05-13 17:36 → 1NO 05-13 17:40 → CMPTRNSPT 05-13 17:55 → ENPENDDIS 05-15 12:16 → ENTRNSPT 05-15 13:38 → EDTRNSPTSTS 05-15 13:39 → CMPTRNSPT 05-15 13:39 → 1NO 05-15 13:42
PROVIDERS: Emergency Medicine; Hospitalist; Internal Medicine Interventional Cardiology
DX: I11.0 Hypertensive heart disease with heart failure (principal); I50.33 Acute on chronic diastolic (congestive) heart failure; I42.9 Cardiomyopathy, unspecified; Z95.0 Presence of cardiac pacemaker; I48.91 Unspecified atrial fibrillation; E11.9 Type 2 diabetes mellitus without complications; R00.2 Palpitations; Z79.01 Long term (current) use of anticoagulants; Z95.2 Presence of prosthetic heart valve; E78.5 Hyperlipidemia, unspecified; D53.9 Nutritional anemia, unspecified
CPT/HCPCS: 1NP; ERO; 36592; 71045; 81001; 82436; 86920; 93005; 93010; 93306; 96374; J1940; P9016